=== PATIENT | male | born 1960 | race Caucasian/White ===

== ENCOUNTER → 2024-07-04 | Outpatient (CLI) | payer MEDICAID, SELFPAY ==
--- NOTE | 2024-07-04 15:30 | XR_ITS ---
Examination: CT chest, without intravenous contrast. Sagittal and coronal 2-D reconstructions. Exam date and time: July 04, 2024 1514 hours INDICATIONS: CT chest December 17, 2023 10 mm pulmonary nodule lingular segment left upper lobe CTDI:vol (mGy) 16.1 DLP: (mGycm) 729 Technique: Multiple 3.0 mm axial sections of the chest to been obtained. Bone and lung density settings are obtained. Sagittal and coronal 2-D reconstructions have been obtained. Low dose protocols were performed. One or more of the following dose reduction techniques were used; automated exposure control, adjustment of the mA and/or KV according to patient size, use of iterative reconstruction technique. Findings: No thoracic aortic aneurysm dilatation Pulmonary artery segments are not enlarged No paratracheal tracheobronchial or bronchopulmonary adenopathy COPD with multiple areas of airspace destruction No definite new pulmonary nodules No pneumonia or pulmonary edema No visualized liver or splenic lesion Contracted gallbladder Again noted mass with spiculated margins at the tail the pancreas, 31 mm Prominent osteopenia IMPRESSION: No definite change in bilateral pulmonary nodules COPD Again noted mass tail of the pancreas, please see the MRI abdomen study June 06, 2024
== END | disposition home or self-care (01) ==
PROVIDERS: PCP Internal Medicine; Referring Provider Internal Medicine; Visit Provider Internal Medicine
DX: R91.8 Other nonspecific abnormal finding of lung field (principal); J44.9 Chronic obstructive pulmonary disease, unspecified; K86.89 Other specified diseases of pancreas
CPT/HCPCS: 71250

== ENCOUNTER 2024-07-24 08:38 | Emergency (ER) | payer MEDICAID, SELFPAY ==
[2024-07-24 08:39] VITALS: BMI 35.2
[2024-07-24 08:47] VITALS: BP 193/94; PULSE 75; RESP 22; TEMP 36.6; O2SAT 96; BMI 35.7
--- NOTE | 2024-07-24 08:57 | XR_ITS ---
Examination: CT abdomen with intravenous contrast CT pelvis with intravenous contrast 2-D coronal reconstructions 2-D sagittal reconstructions Date and time of exam:July 24, 2024 1242 hrs. Comparison June 05, 2024 Indications: Onset right-sided abdominal pain beginning 2 weeks ago, small masses tail the pancreas on the CT study June 05, 2024. CTDI: vol (mGy) 13.1 DLP: (mGycm) 840 Technique: Multiple axial sections of the abdomen and pelvis have been obtained. 64 slice high-resolution scanner used. 3 mm axial sections have been obtained, post intravenous injection 60 cc [id number] 2-D sagittal, coronal reconstructions obtained. Low dose protocols were performed. One or more of the following dose reduction techniques were used; automated exposure control, adjustment of the mA and/or KV according to patient size, use of iterative reconstruction technique. Findings: Diffuse fatty infiltration throughout the liver Contracted gallbladder Spleen is not enlarged There remains a mass at the tail the pancreas with indistinct margins, measuring 43 mm Mild nodular thickening left adrenal gland No hydronephrosis Abdominal aortic calcification no aneurysmal dilatation Normal appendix Colonic diverticulosis no diverticulitis A small portion of the right urinary bladder is included in a right inguinal hernia Moderate osteopenia Moderate narrowing L5-S1 disc space Impression: Pancreatic carcinoma, 43 mm mass indistinct margins tail of the pancreas
--- NOTE | 2024-07-24 08:58 | EDRME_ITS ---
Rapid Medical Screening Exam RME Arrival date/time: 07/24/24 08:38 Chief Complaint: Abdominal Pain Time Seen by Provider: 07/24/24 08:56 Vital signs: Vital Signs Temperature 97.8 F 07/24/24 08:47 Pulse Rate 75 07/24/24 08:47 Respiratory Rate 22 H 07/24/24 08:47 Blood Pressure 193/94 H 07/24/24 08:47 Pulse Oximetry (%) 96 07/24/24 08:47 Oxygen Delivery Method Room Air 07/24/24 08:47 RME Narrative: Right sided abdominal pain x 2 weeks (prior pain was on the left). Diagnosed with pancreatic mass end of May, patient has been unable to follow-up with oncology. States PCP referred him to [place] for pancreatic biopsy but has not yet completed.
[2024-07-24 09:54] LABS: Collection Type, Urine Clean Catch; WBC,Urine 0 /hpf (0-5)
[2024-07-24 09:56] LABS: Basophils # (Auto) 0.1 Thou/mm3 (0.0-0.2); Basophils % (Auto) 1 % (0-2.5); Eosinophils # (Auto) 0.4 Thou/mm3 (0.0-0.5); Eosinophils % (Auto) 3 % (0-10); Hematocrit 42.1 % (41.0-53.0); Hemoglobin 13.9 g/dL (13.5-16.0); Immature Granulocytes % (Auto) 0 % (0-0); Immature Granulocytes Auto 0.03 Thou/mm3 (0.00-0.00); Lymphocytes # (Auto) 3.4 Thou/mm3 (1.0-4.8); Lymphocytes % (Auto) 28 % (10-50); Mean Corpuscular Hemoglobin 29.7 pg (25.0-35.0); Mean Corpuscular Volume 90 fL (80-100); Monocytes % (Auto) 8 % (0-12); Neutrophils # (Auto) 7.1 Thou/mm3 (1.8-7.7); Neutrophils % (Auto) 59 % (37-80); Nucleated Red Blood Cell % 0 /100 WBC (0); Platelet Count 268 Thou/mm3 (140-440); RDW Standard Deviation 41.5 fL (35.1-43.9); Red Blood Count 4.68 Miln/mm3 (4.50-5.90); White Blood Count 12.1 Thou/mm3 (3.8-10.6)
[2024-07-24 10:08] LABS: Bilirubin,Urine Negative (Negative); Blood,Urine Negative (Negative); Clarity,Urine Clear (Clear/Hazy); Color,Urine Lt-Yellow (Lt Yel-Yel); Glucose, Urine 2+ (Negative); Ketones,Urine Negative (Negative); Leukocyte Esterase,Urine Negative (Negative); Nitrite,Urine Negative (Negative); Protein,Urine Negative (Neg - Trace); RBC,Urine 3 /hpf (0-3); Specific Gravity,Urine 1.013 (1.001-1.035); Squamous Epithelial Cell,Urine < 1 /hpf (0-5); Urobilinogen,Urine Negative mg/dL (0.0-1.0)
[2024-07-24 10:21] LABS: Alanine Aminotransferase 28 U/L (10-49); Albumin, Serum 4.7 gm/dL (3.4-4.8); Albumin/Globulin Ratio 1.4 (1.2-2.2); Alkaline Phosphatase 76 U/L (46-116); Anion Gap 3 (7-16); Aspartate Amino Transferase 30 U/L (0-34); BUN/Creatinine Ratio 8 Ratio (12-20); Bilirubin,Total 0.2 mg/dL (0.3-1.2); Blood Urea Nitrogen 8 mg/dL (9-23); Calcium 9.5 mg/dL (8.3-10.6); Calcium (Corrected) 9.5 mg/dL (8.5-10.1); Carbon Dioxide 31.4 mMol/L (20.0-31.0); Chloride 105 mMol/L (98-107); Estimated Creatinine Clearance 93.9 mL/min (>60); Globulin 3.3 gm/dL (2.3-3.5); Glucose 136 mg/dL (74-106); Lipase 31 U/L (12-53); Osmolality,Calculated 277 (275-295); Potassium 4.1 mMol/L (3.4-5.1); Sodium 139 mMol/L (136-145); eGFR > 60 See Note
--- NOTE | 2024-07-24 14:18 | EDNOTE_ITS ---
ED Abdominal Pain RME/HPI General Chief Complaint: Abdominal Pain Stated complaint: ABD PAIN FOR 3 WEEKS, NORCO NOT WORKING Time seen by provider: 07/24/24 08:56 Arrival date/time: 07/24/24 08:38 Source: patient, RN notes reviewed and old records reviewed Mode of arrival: ambulatory Limitations: no limitations RME / HPI RME / HPI narrative: 63yom presents to ED for right sided abdominal pain x 2 weeks (prior pain was on the left). Patient was diagnosed with pancreatic mass end of May, patient states he has been unable to follow-up with oncology. He states PCP referred him to [facility] for pancreatic biopsy but has not yet completed. No fever, vomiting or urinary symptoms reported. Patient has taken norco with mild relief. Related Data Home Medications ?Medication ?Instructions ?Recorded ?Confirmed atenolol 100 mg tablet 100 mg PO DAILY 08/28/22 08/28/22 Previous Rx's ?Medication ?Instructions ?Recorded chlordiazepoxide HCl 10 mg capsule 10 mg PO BID PRN withdrawal 08/29/22 symptoms #6 caps lisinopril 20 mg tablet 20 mg PO QDAY #30 tabs 08/29/22 thiamine HCl (vitamin B1) 100 mg 100 mg PO QDAY #30 tabs 08/29/22 tablet hydrocodone 5 mg-acetaminophen 325 1 tab PO BID PRN pain #14 tabs 06/05/24 mg tablet Allergies Allergy/AdvReac Type Severity Reaction Status Date / Time No Known Allergies Allergy Verified 07/24/24 08:42 Review of Systems Review of Systems Systems Reviewed: All systems reviewed, normal except as documented Constitutional Constitutional: Denies chills and Denies fever(s) Cardiovascular Cardiovascular: Denies chest pain and Denies dyspnea Respiratory Respiratory: Denies dyspnea Gastrointestinal Gastrointestinal: Reports abdominal pain, Denies loose stools, Denies nausea and Denies vomiting Past Medical History Past Medical History CARDIAC: Positive Hypertension GASTROINTESTINAL: Positive Gastrointestinal Disorders (pancreatic mass) and Obe sity Social History SMOKING STATUS: Current every day smoker SUBSTANCE USE: does not use ALCOHOL: Never ED Exam General Limitations: Present no limitations General appearance: Present alert and in no apparent distress Head Head exam: Present atraumatic and normocephalic Eye Eye exam: Present normal appearance, PERRL and EOMI ENT ENT exam: Present normal exam and mucous membranes moist Neck Neck exam: Present normal inspection and full ROM Chest Chest inspection: Present normal inspection and symmetric chest wall rise Respiratory Respiratory exam: Present normal lung sounds bilaterally; Absent respiratory distress Cardiovascular Cardiovascular exam: Present regular rate and normal rhythm Abdominal Exam Abdominal exam: Present soft and tenderness (mild, epigastric); Absent distention, guarding or rebound Extremities Exam Extremities exam: Present normal inspection and full ROM Back Exam Back exam: Absent CVA tenderness (R) or CVA tenderness (L) Neurological Exam Neurological exam: Present alert and oriented X3 Psychiatric Psychiatric exam: Present normal affect and normal mood Skin Skin exam: Present warm, dry, intact and normal color Course Quality Measures none Orders Category Date Time Status CT Screening NOW Care 07/24/24 08:[address] abdomen pelvis w con Stat Exams 07/24/24 08:57 Completed CBC Stat Lab 07/24/24 09:47 Completed CMP [Comprehensive Metabolic Panel] Stat Lab 07/24/24 09:47 Completed Lipase Stat Lab 07/24/24 09:47 Completed UA [Urinalysis] Stat Lab 07/24/24 09:50 Completed Ketorolac Inj [Toradol Inj] Med 07/24/24 14:22 Discontinued 30 mg IM X1 ONE Vital Signs Vital signs: Vital Signs Temperature 97.8 F 07/24/24 08:47 Pulse Rate 75 07/24/24 08:47 Respiratory Rate 22 H 07/24/24 08:47 Blood Pressure 193/94 H 07/24/24 08:47 Pulse Oximetry (%) 96 07/24/24 08:47 Oxygen Delivery Method Room Air 07/24/24 08:47 Abdominal Pain MDM MDM Narrative MDM Narrative:: 63yom presents to ED for right sided abdominal pain x 2 weeks (prior pain was on the left). Patient was diagnosed with pancreatic mass end of May, patient states he has been unable to follow-up with oncology. He states PCP referred him to [facility] for pancreatic biopsy but has not yet completed. No fever, vomiting or urinary symptoms reported. Patient has taken norco with mild relief. Labs, vitals and exam reassuring. Patient is non-toxic appearing, afebrile, vitals are stable. Non-surgical abdomen on exam. Encouraged close f/u with pcp for oncology referral and pain mgmt. Patient comfortable with plan of care. Stable for dc, RTED precautions given. Patient data External records reviewed:: [facility] previous records (06/06/24 ED visit for pancreatic mass) Clinical information provided by:: patient Social determinants that could affect healthcare access:: other (specify) (poor access to healthcare) Patient has the following chronic illnesses:: HTN, pancreatic mass, obesity How is presenting disease/condition affected by chronic disease/condition?: exacerbated by Evaluation data The following diagnostics were reviewed and interpreted by me:: lab results and radiology exam(s) Lab and/or radiology exams considered but not ordered:: none Interpretation Summary: wbc 12 lfts and lipase wnl creatinine wnl CT abd/pelvis: Impression: Pancreatic carcinoma, 43 mm mass indistinct margins tail of the pancreas Dictated By: Peng Ramirez MD Medications / Prescriptions Medications or Prescriptions considered but not ordered:: no antibiotics recommended at this time Medication administrations:: Medication Administration History Discontinued Medications Ketorolac Tromethamine (Ketorolac Inj 60 Mg/2 Ml Vial) 30 mg IM X1 ONE Stop: 07/24/24 14:23 Last Admin: 07/24/24 14:30 Dose: 30 mg Documented By: above medication administered in ED Consultations Consultation(s) initiated? (list below): No Diagnosis Differential diagnosis abdominal pain: abdominal pain, gastroenteritis, pancreatitis and small bowel obstruction Most likely diagnosis given after review of the tests above:: pancreatic mass Admission Indicated Admission indicated?: not indicated Admission Request Was there a request for admission?: No Disposition Plan Disposition Plan: Discharge Discharge Attestation Discharge Attestation: The patient and all family members were given an opportunity to ask questions and understood the discharge instructions. Discharge instructions specifically effects, indications for sooner follow up or return to the emergency department, and the expected course of current diagnosis. Patient condition: Stable Discharge Plan Plan Patient Disposition: HOME (Self Care) Patient condition on transfer: Stable Prescriptions/Referrals Prescriptions/Med Rec: No Action atenolol 100 mg tablet 100 mg PO DAILY Patient Comments: TAKE 1 TABLET BY MOUTH EVERY DAY chlordiazepoxide HCl 10 mg capsule 10 mg PO BID PRN (Reason: withdrawal symptoms) Qty: 6 0RF thiamine HCl (vitamin B1) 100 mg tablet 100 mg PO QDAY Qty: 30 0RF lisinopril 20 mg tablet 20 mg PO QDAY Qty: 30 0RF hydrocodone-acetaminophen 5-325 mg tablet 1 tab PO BID MDD 4 PRN (Reason: pain) Qty: 14 0RF Referrals: Mirian Hussein MD [Primary Care Provider] - In 1 week Problem List Clinical Impression: Pancreatic mass Patient/Caregiver Discharge Instructions Education Materials: What Is Pancreatic Cancer? Additional Instructions: Please follow-up with your primary care doctor as soon as possible, you will need a referral to see an oncologist for further evaluation and management. Print Language: Yi Stand Alone Forms: Heather Award Info., Patient Portal Info Letter PA/TRANSPORTATION PROGRAM DIRECTOR Supervising Physician PA/TRANSPORTATION PROGRAM DIRECTOR Supervising Physician: Arabella
[2024-07-24] MEDS: KETOROLAC INJ 60 MG/2 ML VIAL 30 MG IM (14:30)
== END 2024-07-24 14:47 | disposition home or self-care (01) ==
PROVIDERS: Physician Assistant; Emergency Provider Emergency Medicine; PCP Internal Medicine; Referring Provider Emergency Medicine
DX: C25.2 Malignant neoplasm of tail of pancreas (principal)
CPT/HCPCS: 36415; 74177; 80053; 81001; 83690; 85025; 96372; 99285; A4649; J1885; Q9967

== ENCOUNTER 2024-10-25 08:08 | Outpatient (CLI) | payer MEDICARE, SELFPAY ==
[2024-10-21 14:52] VITALS: BMI 34.4
[2024-10-24 11:01] LABS: Basophils # (Auto) 0.1 Thou/mm3 (0.0-0.2); Basophils % (Auto) 1 % (0-2.5); Eosinophils # (Auto) 0.4 Thou/mm3 (0.0-0.5); Eosinophils % (Auto) 3 % (0-10); Hematocrit 40.7 % (41.0-53.0); Hemoglobin 13.4 g/dL (13.5-16.0); Immature Granulocytes % (Auto) 0 % (0-0); Immature Granulocytes Auto 0.05 Thou/mm3 (0.00-0.00); Lymphocytes # (Auto) 3.6 Thou/mm3 (1.0-4.8); Lymphocytes % (Auto) 29 % (10-50); Mean Corpuscular HGB Conc 32.9 g/dl (31.0-37.0); Mean Corpuscular Hemoglobin 29.9 pg (25.0-35.0); Mean Corpuscular Volume 91 fL (80-100); Monocytes # (Auto) 0.9 Thou/mm3 (0.0-0.8); Monocytes % (Auto) 7 % (0-12); Neutrophils # (Auto) 7.6 Thou/mm3 (1.8-7.7); Neutrophils % (Auto) 60 % (37-80); Nucleated Red Blood Cell % 0 /100 WBC (0); Platelet Count 319 Thou/mm3 (140-440); Red Blood Count 4.48 Miln/mm3 (4.50-5.90); White Blood Count 12.7 Thou/mm3 (3.8-10.6)
[2024-10-24 11:09] LABS: Blood Urea Nitrogen 9 mg/dL (9-23); Creatinine (Component) 0.9 mg/dL (0.6-1.3); Estimated Creatinine Clearance 101.1 mL/min (>60); Partial Thromboplastin Time 26.3 Seconds (22.0-36.0); Prothrombin Time 10.7 Seconds (9.0-12.2); eGFR > 60 See Note
[2024-10-25] VITALS (7 sets, daily range): BP systolic 145–173; BP diastolic 65–93; PULSE 64–69; RESP 10–18; TEMP 36.8; O2SAT 94–97
--- NOTE | 2024-10-25 08:30 | XR_ITS ---
Examination: CT-guided percutaneous biopsy pancreatic mass CT abdomen without intravenous contrast INDICATIONS: Mass of the tail the pancreas [address] on [address] abdomen July 24, 2024 Date and time of procedure: October 25, 2024 0956 hours Informed consent provided. A timeout was completed verifying correct patient, procedure, site and positioning. . Technique: Axial 3 mm sections were obtained for localization of the mass pancreatic tail Appropriate area is marked. The patient's site was prepped and draped in sterile fashion Maximal sterile barrier technique utilized, including hand hygiene Local anesthesia was obtained with 1% lidocaine. Low dose protocols were performed. One or more of the following dose reduction techniques were used; automated exposure control, adjustment of the mA and/or KV according to patient size, use of iterative reconstruction technique. Utilizing CT fluoroscopic guidance 2 18-gauge core needle biopsies of the mass pancreatic tail obtained . Patient appears in stable condition during this procedure. At completion of the procedure, the patient is in satisfactory condition. Estimated blood loss 0 cc Complete pathology report to follow. Impression: Successful CT-guided percutaneous biopsy pancreatic mass
[2024-10-25] MEDS: SODIUM CHLORIDE 0.9% 250 ML 250 ML 75 ML IV (10:00)
[2024-10-25] MEDS: fentaNYL CIT INJ 50 mCg/ML AMP 2ML 100 MCG IV (10:15)
== END 2024-10-25 11:31 | disposition home or self-care (01) ==
PROVIDERS: Radiology Diagnostic Radiology; PCP Internal Medicine; Referring Provider Internal Medicine; Visit Provider Internal Medicine
DX: C25.7 Malignant neoplasm of other parts of pancreas (principal); Z01.812 Encounter for preprocedural laboratory examination
CPT/HCPCS: 48102; 36415; 77012; 82565; 84520; 85025; 85610; 85730; A4649; J3010; J7050

== ENCOUNTER 2024-10-27 15:09 | Emergency (ER) | payer MEDICAID, SELFPAY ==
[2024-10-27 15:13] VITALS: BP 173/93; PULSE 96; RESP 20; TEMP 36.9; O2SAT 94; BMI 34.4
--- NOTE | 2024-10-27 15:26 | PD.EDABDPN ---
ED Abdominal Pain RME/HPI General Chief Complaint: Abdominal Pain Stated complaint: ABD PAIN Time seen by provider: 10/27/24 15:26 Arrival date/time: 10/27/24 15:09 RME / HPI RME / HPI narrative: DR. FARIA MAIN ED EVALUATION: 64 year old male presents to the Emergency Department [facility] from home with complaint of chronic abdominal pain onset 3 months ago, worsening per patient. Pain is described as aching and rated severe in severity by the patient. Per EMS, vitals were normal just his blood glucose was elevated at 240. Patient had similar symptoms 3 months ago when he was diagnosed with pancreatitis. Denies any vomiting or other symptoms at this time. PMHx: Recent diagnoses of invasive adenocarcinoma of the pancreas; pathology report from 10/25/24 shows invasive adenocarcinoma, moderately differentiated, from the pancreas biopsy. Patient was diagnosed with pancreatitis 3 months ago and since then they prescribe him oxycodone. Other PMHx includes hypertension, COPD from cigarette smoking, and diabetes. Social Hx: Cigarette smoking. No alcohol or substance use. Related Data Home Medications ?Medication ?Instructions ?Recorded ?Confirmed atenolol 100 mg tablet 100 mg PO DAILY 08/28/22 10/25/24 acetaminophen 500 mg capsule 1,000 mg PO Q4H pain 10/25/24 10/25/24 (Mapap (acetaminophen)) amlodipine 5 mg tablet 5 mg PO QDAY 10/25/24 10/25/24 gabapentin 400 mg capsule 400 mg PO TID 10/25/24 10/25/24 hydralazine 25 mg tablet 25 mg PO BID 10/25/24 10/25/24 ibuprofen 200 mg capsule (Advil 800 mg PO Q4H pain 10/25/24 10/25/24 Liqui-Gel) metformin 500 mg tablet 500 mg PO BID 10/25/24 10/25/24 oxycodone 15 mg tablet 15 mg PO Q4H 10/25/24 10/25/24 Previous Rx's ?Medication ?Instructions ?Recorded lisinopril 20 mg tablet 20 mg PO QDAY #30 tabs 08/29/22 diazepam 5 mg tablet (Valium) 5 mg PO BID PRN muscle spasm #20 10/27/24 tabs Allergies Allergy/AdvReac Type Severity Reaction Status Date / Time No Known Allergies Allergy Verified 10/21/24 14:52 Review of Systems Review of Systems Systems Reviewed: All systems reviewed, normal except as documented Past Medical History Past Medical History CARDIAC: Positive Hypercholesterolemia and Hypertension GASTROINTESTINAL: Positive Gastrointestinal Disorders, Gastroesophageal Reflux Disease and Obesity Family History FAMILY HISTORY: Positive Family Psychiatric Problems and Family Cardiac Disorders; Negative Family Respiratory Disorders, Family Gastrointestinal Problems, Family Cancer, Family Surgery or Family Anesthesia Reaction Surgical History SURGICAL: Positive Abdominal Surgery (evangelist wrap); Negative Pacemaker, Endocrine Surgery or Ear Surgery Social History SMOKING STATUS: Current some day smoker SUBSTANCE USE: does not use ALCOHOL: Never Past Medical History Comments PMH COMMENT: Recent diagnoses of invasive adenocarcinoma of the pancreas; pathology report from 10/25/24 shows invasive adenocarcinoma, moderately differentiated, from the pancreas biopsy. Patient was diagnosed with pancreatitis 3 months ago and since then they prescribe him oxycodone. Other PMHx includes hypertension, COPD from cigarette smoking, and diabetes. ED Exam Narrative Physical exam: GENERAL APPEARANCE: AxOx4, generally well-appearing, in moderate pain distress. HEENT: NC, AT. MMM. EOMI, clear conjunctiva, sclera anicteric, oropharynx clear. NECK: Supple without lymphadenopathy. No stiffness or restricted ROM. HEART: Normal rate and regular rhythm, normal S1/S1, no m/r/g LUNGS: CTAB, moving air well. No crackles or wheezes are heard. ABDOMEN: Abdomen is protuberant; diffuse tenderness throughout; good bowel sounds heard. BACK: No midline C/T/L spine pain or deformity, No CVAT, no obvious deformity. EXTREMITIES: Without cyanosis, clubbing or edema. MUSCULOSKELETAL: FROM of all major joints, no chest tenderness NEUROLOGICAL: Grossly nonfocal. Alert and oriented, moving all 4 extremities. CN not formally tested but appear grossly intact. Observed to ambulate with normal gait. Skin: Warm and dry without any rash. Course Course Course Narrative: 1800: Patient was signed out to Dr. Montano. Past medical, surgical, social and family history reviewed. Vitals and home medications reviewed. Results and treatment plan discussed. They will assume the care of the patient at this time and will follow the patient, pending abdomen/pelvis CTA and final disposition. Quality Measures none Orders Category Date Time Status CT Screening NOW Care 10/27/24 15:[address] Screening NOW Care 10/27/24 16:[address] angio abdomen pelvis Stat Exams 10/27/24 16:02 Completed CBC Stat Lab 10/27/24 15:44 Completed CMP [Comprehensive Metabolic Panel] Stat Lab 10/27/24 15:44 Completed Lipase Stat Lab 10/27/24 15:44 Completed Diazepam [Valium] Med 10/27/24 15:27 Discontinued 5 mg PO X1 ONE KCL 10% Liq UDC 15 ML Med 10/27/24 18:20 Discontinued 40 meq PO X1 ONE Morphine Inj Med 10/27/24 19:28 Discontinued 6 mg IVP X1 ONE Morphine Inj Med 10/27/24 17:41 Discontinued 6 mg IVP X1 PRN Morphine Inj Med 10/27/24 15:27 Discontinued 8 mg IVP X1 ONE Ondansetron Inj [Zofran Inj] Med 10/27/24 19:10 Discontinued 4 mg IV X1 ONE Potassium Chloride [K-Dur] Med 10/27/24 17:45 Discontinued 40 meq PO X1 ONE cloNIDine HCL [Catapres] Med 10/27/24 19:10 Discontinued 0.3 mg PO X1 ONE Vital Signs Vital signs: Vital Signs Temperature 98.4 F 10/27/24 15:13 Pulse Rate 96 10/27/24 15:13 Respiratory Rate 10/27/24 15:13 Blood Pressure 173/93 H 10/27/24 15:13 Pulse Oximetry (%) 94 L 10/27/24 15:13 Oxygen Delivery Method Room Air 10/27/24 15:13 Abdominal Pain MDM MDM Narrative MDM Narrative:: I, Arlin Goddard am scribing for and in the presence of Dr. Faria. Patient data External records reviewed:: [facility] previous records (Reviewed pathology report from 10/25/24 shows invasive adenocarcinoma, moderately differentiated, from the pancreas biopsy.) and EMS form Clinical information provided by:: patient and EMS Social determinants that could affect healthcare access:: other (specify) (Cigarette smoking) Patient has the following chronic illnesses:: Recent diagnoses of invasive adenocarcinoma of the pancreas; pathology report from 10/25/24 shows invasive adenocarcinoma, moderately differentiated, from the pancreas biopsy. Patient was diagnosed with pancreatitis 3 months ago and since then they prescribe him oxycodone. Other PMHx includes hypertension, COPD from cigarette smoking, and diabetes. How is presenting disease/condition affected by chronic disease/condition?: exacerbated by Evaluation data The following diagnostics were reviewed and interpreted by me:: lab results and radiology exam(s) Lab and/or radiology exams considered but not ordered:: none Interpretation Summary: Pending tests. Medications / Prescriptions Medications or Prescriptions considered but not ordered:: none Medication administrations:: Medication Administration History Discontinued Medications Clonidine (Clonidine Hcl 0.1 Mg Tablet) 0.3 mg PO X1 ONE Stop: 10/27/24 19:11 Last Admin: 10/27/24 19:36 Dose: 0.3 mg Documented By: EF Diazepam (Diazepam 5 Mg Tablet) 5 mg PO X1 ONE Stop: 10/27/24 15:28 Last Admin: 10/27/24 15:46 Dose: 5 mg Documented By: DB Morphine Sulfate (Morphine Sulf Inj 10 Mg/Ml Vial) 8 mg IVP X1 ONE Stop: 10/27/24 15:28 Last Admin: 10/27/24 15:47 Dose: 8 mg Documented By: DB Morphine Sulfate (Morphine Sulf Inj 10 Mg/Ml Vial) 6 mg IVP X1 PRN PRN Reason: PAIN Stop: 11/01/24 17:40 Last Admin: 10/27/24 18:00 Dose: 6 mg Documented By: RD Morphine Sulfate (Morphine Sulf Inj 10 Mg/Ml Vial) 6 mg IVP X1 ONE Stop: 10/27/24 19:29 Last Admin: 10/27/24 19:37 Dose: 6 mg Documented By: EF Ondansetron HCl (Ondansetron Inj 2 Mg/Ml Inj 2 Ml) 4 mg IV X1 ONE; Protocol Stop: 10/27/24 19:11 Last Admin: 10/27/24 19:37 Dose: 4 mg Documented By: EF Potassium Chloride (Potassium Chloride 20 Meq Tabcr) 40 meq PO X1 ONE Stop: 10/27/24 17:46 Last Admin: 10/27/24 17:53 Dose: 40 meq Documented By: RD Potassium Chloride (Potassium Chloride 10% 20 Meq/15 Ml Udc) 40 meq PO X1 ONE Stop: 10/27/24 18:21 Last Admin: 10/27/24 19:36 Dose: 40 meq Documented By: EF see above if any Consultations Consultation(s) initiated? (list below): No Diagnosis Differential diagnosis abdominal pain: pancreatitis and other (pancreas mass, cancer) Most likely diagnosis given after review of the tests above:: No official diagnoses at this time, still pending diagnostic tests. Patient signout to the animal keeper head provider. Admission Indicated Admission indicated?: not indicated Explain why admission is indicated or not indicated:: No final disposition plan at this time, still pending diagnostic tests. Patient signout to the animal keeper head provider. Admission Request Was there a request for admission?: No Disposition Plan Disposition Plan: other (specify) (Patient signout to the animal keeper head provider, pending abdomen/pelvis CTA and final disposition.) Discharge Plan Plan Patient Disposition: HOME (Self Care) Prescriptions/Referrals Prescriptions/Med Rec: New diazepam [Valium] 5 mg tablet 5 mg PO BID PRN (Reason: muscle spasm) Qty: 20 0RF No Action atenolol 100 mg tablet 100 mg PO DAILY Patient Comments: TAKE 1 TABLET BY MOUTH EVERY DAY lisinopril 20 mg tablet 20 mg PO QDAY Qty: 30 0RF hydralazine 25 mg tablet 25 mg PO BID acetaminophen [Mapap (acetaminophen)] 500 mg capsule 1,000 mg PO Q4H ibuprofen [Advil Liqui-Gel] 200 mg capsule 800 mg PO Q4H gabapentin 400 mg capsule 400 mg PO TID Patient Comments: TAKE 1 CAPSULE BY MOUTH 3 TIMES A DAY amlodipine 5 mg tablet 5 mg PO QDAY metformin 500 mg tablet 500 mg PO BID Patient Comments: TAKE 1 TABLET BY MOUTH TWICE A DAY WITH BREAKFAST AND DINNER oxycodone 15 mg tablet 15 mg PO Q4H Referrals: No Primary/Family,Physician [Primary Care Provider] - In 1 week Problem List Clinical Impression: Pancreas cancer Patient/Caregiver Discharge Instructions Discharge Activity: activity as tolerated Education Materials: ED Pain Management: Chronic Additional Instructions: Discharge Instructions from Dr. Montano printed for you: 1. Unfortunately, pancreas cancer causes severe pain. 2. Use your pain medications at home. Since Valium helped a lot here, prescription given for 20 pills. 3. See your cancer doctor tomorrow as scheduled. Ask to review all test results and official radiology reports, to make sure you receive all necessary follow-ups and monitoring. 4. Seek immediate medical care with worsening or with any concerns. Print Language: Nicaraguan Stand Alone Forms: Heather Award Info., Patient Portal Info Letter
[2024-10-27 15:27] VITALS: PULSE 78; RESP 21; O2SAT 95
[2024-10-27] MEDS: DIAZEPAM 5 MG TABLET PO (15:46)
[2024-10-27] MEDS: MORPHINE SULF INJ 10 MG/ML VIAL 8 MG IVP (15:47)
[2024-10-27 15:59] LABS: Basophils # (Auto) 0.1 Thou/mm3 (0.0-0.2); Basophils % (Auto) 0 % (0-2.5); Eosinophils # (Auto) 0.1 Thou/mm3 (0.0-0.5); Eosinophils % (Auto) 1 % (0-10); Hematocrit 38.6 % (41.0-53.0); Hemoglobin 12.8 g/dL (13.5-16.0); Immature Granulocytes % (Auto) 0 % (0-0); Immature Granulocytes Auto 0.04 Thou/mm3 (0.00-0.00); Lymphocytes # (Auto) 2.4 Thou/mm3 (1.0-4.8); Lymphocytes % (Auto) 18 % (10-50); Mean Corpuscular HGB Conc 33.2 g/dl (31.0-37.0); Mean Corpuscular Volume 91 fL (80-100); Monocytes % (Auto) 7 % (0-12); Neutrophils # (Auto) 10.1 Thou/mm3 (1.8-7.7); Neutrophils % (Auto) 74 % (37-80); Nucleated Red Blood Cell % 0 /100 WBC (0); Platelet Count 270 Thou/mm3 (140-440); RDW Standard Deviation 44.1 fL (35.1-43.9); Red Blood Count 4.26 Miln/mm3 (4.50-5.90); White Blood Count 13.7 Thou/mm3 (3.8-10.6)
--- NOTE | 2024-10-27 16:02 | XR_ITS ---
Examination: CTA abdomen, with intravenous contrast. CTA pelvis, with intravenous contrast. 2-D sagittal and coronal reconstructions. 3-D reconstructions. Date and time of exam: October 27, 2024 at 1703 hours INDICATIONS: Abdominal pain today, history pancreatic tumor mass post biopsy October 25, 2024 CTDI vol (mgy) 11.7 DLP (MGycm) 818 Technique: Multiple CTA images, 2.0 mm slice thickness, obtained chest, abdomen, pelvis, with the high-resolution 64 slice scanner. 100 cc Isovue-370 is administered intravenously. Sagittal and coronal 2-D reconstructions are obtained. 3-D reconstructions, angiographic images are obtained. 3-D postprocessing, including vascular maximum intensity projections. Low dose protocols were performed. One or more of the following dose reduction techniques were used; automated exposure control, adjustment of the mA and/or KV according to patient size, use of iterative reconstruction technique. Findings: The patient exhibited severe abdominal pain prior to the pancreatic biopsy October 25, 2024 Fatty infiltration throughout the liver Large mass tail of the pancreas again depicted, at least 4.1 cm in dimension Mild stranding about the pancreatic mass, likely postbiopsy findings The spleen appears intact, no laceration, no subcapsular splenic hematoma No free blood in the abdomen Stranding around the left adrenal gland, clinical correlation advised No perinephric hematoma or renal laceration Abdominal aorta intact Colonic diverticulosis Bilateral inguinal hernias, the right inguinal hernia contains a portion of the urinary bladder IMPRESSION: Large mass tail of pancreas again depicted with mild postbiopsy change No splenic laceration, no subcapsular splenic hematoma Stranding around the left adrenal gland, consider spontaneous adrenal hemorrhage, recommend close clinical observation and short-term follow-up CT scans of the abdomen with attention to the left adrenal gland as clinically warranted The patient's right inguinal hernia contains a portion of the urinary bladder
[2024-10-27 16:18] LABS: Alanine Aminotransferase 16 U/L (10-49); Albumin, Serum 4.3 gm/dL (3.4-4.8); Albumin/Globulin Ratio 1.3 (1.2-2.2); Alkaline Phosphatase 78 U/L (46-116); Anion Gap 9 (7-16); Aspartate Amino Transferase 17 U/L (0-34); BUN/Creatinine Ratio 9 Ratio (12-20); Bilirubin,Total 0.2 mg/dL (0.3-1.2); Blood Urea Nitrogen 7 mg/dL (9-23); Calcium 9.5 mg/dL (8.3-10.6); Calcium (Corrected) 9.5 mg/dL (8.5-10.1); Carbon Dioxide 26.5 mMol/L (20.0-31.0); Chloride 105 mMol/L (98-107); Creatinine (Component) 0.8 mg/dL (0.6-1.3); Estimated Creatinine Clearance 113.7 mL/min (>60); Globulin 3.2 gm/dL (2.3-3.5); Glucose 166 mg/dL (74-106); Lipase 29 U/L (12-53); Osmolality,Calculated 281 (275-295); Sodium 140 mMol/L (136-145); Total Protein 7.5 gm/dL (5.7-8.2); eGFR > 60 See Note
[2024-10-27 17:14] VITALS: BP 155/82; PULSE 75; RESP 20; TEMP 36.5; O2SAT 94
[2024-10-27] MEDS: POTASSIUM CHLORIDE 20 mEq TABCR 40 MEQ PO (17:53)
[2024-10-27] MEDS: MORPHINE SULF INJ 10 MG/ML VIAL 6 MG IVP ×2 (18:00→19:37)
--- NOTE | 2024-10-27 19:16 | PD.EDADDENDU ---
Emergency Room Addendum Addendum Narrative: I took over the care from Dr. Faria at 6 PM on 10/27/2024, see his notes for complete H&P and ED course. I reviewed all diagnostic test results. My review of the abdominal CT report is no acute findings. Blood tests unremarkable. At this point, diagnoses include pancreatic cancer causing severe pain. Recommended supportive care and outpatient oncology care. Based on my best medical judgment, made decision no further evaluation or treatment indicated at this time. Patient understands and agrees to the discharge instructions customized and printed, see below. Discharge Instructions from Dr. Montano printed for you: 1. Unfortunately, pancreas cancer causes severe pain. 2. Use your pain medications at home. Since Valium helped a lot here, prescription given for 20 pills. 3. See your cancer doctor tomorrow as scheduled. Ask to review all test results and official radiology reports, to make sure you receive all necessary follow-ups and monitoring. 4. Seek immediate medical care with worsening or with any concerns. Adi Montano MD
[2024-10-27 19:36] VITALS: BP 203/100; PULSE 84
[2024-10-27] MEDS: POTASSIUM CHLORIDE 10% 20 MEQ/15 ML UDC 40 MEQ PO (19:36)
[2024-10-27] MEDS: cloNIDine HCL 0.1 MG TABLET 0.3 MG PO (19:36)
[2024-10-27] MEDS: ONDANSETRON INJ 2 MG/ML INJ 2 ML 4 MG IV (19:37)
[2024-10-27 19:48] VITALS: BP 171/106; PULSE 86; RESP 20; TEMP 36.6; O2SAT 97
--- NOTE | 2024-10-27 19:54 | PC.NURSE ---
assisted pt with repositioning. urinalss emptied.
[2024-10-27 20:04] VITALS: BP 175/89; PULSE 83; RESP 16; TEMP 36.8; O2SAT 96
== END 2024-10-27 20:05 | disposition home or self-care (01) ==
PROVIDERS: Emergency Medicine; Emergency Provider Emergency Medicine
DX: C25.9 Malignant neoplasm of pancreas, unspecified (principal)
CPT/HCPCS: 36415; 74174; 80053; 83690; 85025; 96374; 96375; 96376; 99285; A4649; J2270; J2405; Q9967; A9270

== ENCOUNTER 2024-10-30 02:38 | Emergency (ER) | payer MEDICAID, SELFPAY ==
[2024-10-30 02:48] VITALS: BMI 34.4
[2024-10-30 02:50] VITALS: BP 153/82; PULSE 86; RESP 18; TEMP 36.8; O2SAT 95
[2024-10-30 03:06] VITALS: PULSE 100; O2SAT 98
--- NOTE | 2024-10-30 03:13 | PD.EDABDPN ---
ED Abdominal Pain RME/HPI General Chief Complaint: Abdominal Pain Stated complaint: ABDOMINAL PAIN Arrival date/time: 10/30/24 02:38 RME / HPI RME / HPI narrative: This section includes all my notes and documentations, including HPI, PE, and ED course. Adi Montano MD HPI: 64-year-old male here to be evaluated with severe chronic abdominal pain. Recently diagnosed with pancreas cancer. First oncology appointment in a few days, after this weekend. Declines any diagnostic tests, including imaging studies and blood tests. Because extensive studies have been done here, as recently as a few days ago. No fever. No vomiting. Home pain medications aren't helping. No other complaints. ROS: All negative except as documented in HPI. Physical Exam: General: Alert and oriented. In obvious pain. Eyes: Conjunctivae and lids clear. ENT: No nasal congestion. Neck: Supple. Heart: RRR. Lungs: No respiratory distress. Good air movement. No rhonchi, wheezing, rales. Abdomen: Soft with diffuse tenderness, difficult to localize. Normal bowel sounds. No distension. No rebound or guarding. Back: No CVA tenderness. Skin: Warm and dry. Neuro: Alert and oriented X 3. Patient declined all diagnostic tests. At this point, diagnoses include severe pain from pancreas cancer. Treatment here included Zofran and Dilaudid 4 mg IM. Significant improvement noted. Prescribed Dilaudid and recommended more outpatient care. Based on my best medical judgment, made decision no further evaluation or treatment indicated at this time. Patient understands and agrees to the discharge instructions customized and printed, see below. Discharge Instructions from Dr. Montano printed for you: 1. Fortunately, Dilaudid helped your pain. 2. Use Dilaudid as prescribed. 3. See your cancer doctor this week for evaluation and further care. 4. We are very sorry about your cancer and we hope for the best. 5. Seek immediate medical care with any concerns. Adi Montano MD Related Data Home Medications ?Medication ?Instructions ?Recorded ?Confirmed atenolol 100 mg tablet 100 mg PO DAILY 08/28/22 10/25/24 acetaminophen 500 mg capsule 1,000 mg PO Q4H pain 10/25/24 10/25/24 (Mapap (acetaminophen)) amlodipine 5 mg tablet 5 mg PO QDAY 10/25/24 10/25/24 gabapentin 400 mg capsule 400 mg PO TID 10/25/24 10/25/24 hydralazine 25 mg tablet 25 mg PO BID 10/25/24 10/25/24 ibuprofen 200 mg capsule (Advil 800 mg PO Q4H pain 10/25/24 10/25/24 Liqui-Gel) metformin 500 mg tablet 500 mg PO BID 10/25/24 10/25/24 oxycodone 15 mg tablet 15 mg PO Q4H 10/25/24 10/25/24 Previous Rx's ?Medication ?Instructions ?Recorded lisinopril 20 mg tablet 20 mg PO QDAY #30 tabs 08/29/22 diazepam 5 mg tablet (Valium) 5 mg PO BID PRN muscle spasm #20 10/27/24 tabs hydrocodone 10 mg-acetaminophen 1 tab PO Q6H PRN pain #30 tabs 10/30/24 325 mg tablet Allergies Allergy/AdvReac Type Severity Reaction Status Date / Time No Known Allergies Allergy Verified 10/21/24 14:52 Course Quality Measures none Orders Category Date Time Status HYDROmorphone INJ [Dilaudid Inj] Med 10/30/24 03:36 Discontinued 4 mg IM X1 ONE HYDROmorphone INJ [Dilaudid Inj] Med 10/30/24 03:01 Discontinued 4 mg IVP X1 ONE Ondansetron Odt [Zofran Odt] Med 10/30/24 03:04 Discontinued 4 mg PO X1 ONE Vital Signs Vital signs: Vital Signs Temperature 98.2 F 10/30/24 02:50 Pulse Rate 86 10/30/24 02:50 Respiratory Rate 18 10/30/24 02:50 Blood Pressure 153/82 H 10/30/24 02:50 Pulse Oximetry (%) 95 10/30/24 02:50 Oxygen Delivery Method Room Air 10/30/24 02:50 Abdominal Pain MDM Patient data External records reviewed:: [facility] previous records Clinical information provided by:: patient and EMS Social determinants that could affect healthcare access:: none Patient has the following chronic illnesses:: Pancreas cancer How is presenting disease/condition affected by chronic disease/condition?: exacerbated by Evaluation data The following diagnostics were reviewed and interpreted by me:: other (specify) (No diagnostics ordered) Lab and/or radiology exams considered but not ordered:: No diagnostics ordered. Interpretation Summary: No diagnostics ordered. Medications / Prescriptions Medications or Prescriptions considered but not ordered:: None Medication administrations:: Medication Administration History Discontinued Medications Hydromorphone HCl (Hydromorphone Inj 2 Mg/Ml Vial) 4 mg IVP X1 ONE Stop: 10/30/24 03:02 Last Admin: 10/30/24 03:37 Dose: Not Given Documented By: CVL Non-Admin Reason: Duplicate Medication on eMAR Hydromorphone HCl (Hydromorphone Inj 2 Mg/Ml Vial) 4 mg IM X1 ONE Stop: 10/30/24 03:37 Last Admin: 10/30/24 03:39 Dose: 4 mg Documented By: CVL Ondansetron HCl (Ondansetron Odt 4 Mg Tabrap) 4 mg PO X1 ONE; Protocol Stop: 10/30/24 03:05 Last Admin: 10/30/24 03:36 Dose: 4 mg Documented By: CVL Zomike and Evelia Consultations Consultation(s) initiated? (list below): No Diagnosis Differential diagnosis abdominal pain: other (Pancreas cancer) Most likely diagnosis given after review of the tests above:: Pancreas cancer Admission Indicated Admission indicated?: not indicated Explain why admission is indicated or not indicated:: With significant improvement, there was no indication for admission. Admission Request Was there a request for admission?: No Disposition Plan Disposition Plan: Discharge Discharge Attestation Discharge Attestation: The patient and all family members were given an opportunity to ask questions and understood the discharge instructions. Discharge instructions specifically effects, indications for sooner follow up or return to the emergency department, and the expected course of current diagnosis. Patient condition: Stable Discharge Plan Plan Patient Disposition: HOME (Self Care) Prescriptions/Referrals Prescriptions/Med Rec: New hydrocodone-acetaminophen 10-325 mg tablet 1 tab PO Q6H MDD 4 PRN (Reason: pain) Qty: 30 0RF No Action atenolol 100 mg tablet 100 mg PO DAILY Patient Comments: TAKE 1 TABLET BY MOUTH EVERY DAY lisinopril 20 mg tablet 20 mg PO QDAY Qty: 30 0RF hydralazine 25 mg tablet 25 mg PO BID acetaminophen [Mapap (acetaminophen)] 500 mg capsule 1,000 mg PO Q4H ibuprofen [Advil Liqui-Gel] 200 mg capsule 800 mg PO Q4H gabapentin 400 mg capsule 400 mg PO TID Patient Comments: TAKE 1 CAPSULE BY MOUTH 3 TIMES A DAY amlodipine 5 mg tablet 5 mg PO QDAY metformin 500 mg tablet 500 mg PO BID Patient Comments: TAKE 1 TABLET BY MOUTH TWICE A DAY WITH BREAKFAST AND DINNER oxycodone 15 mg tablet 15 mg PO Q4H diazepam [Valium] 5 mg tablet 5 mg PO BID PRN (Reason: muscle spasm) Qty: 20 0RF Referrals: No Primary/Family,Physician [Primary Care Provider] - In 1 week Problem List Clinical Impression: Pancreas cancer Patient/Caregiver Discharge Instructions Education Materials: ED Chronic Pain Additional Instructions: Discharge Instructions from Dr. Montano printed for you: 1. Fortunately, Dilaudid helped your pain. 2. Use Dilaudid as prescribed. 3. See your cancer doctor this week for evaluation and further care. 4. We are very sorry about your cancer and we hope for the best. 5. Seek immediate medical care with any concerns. Print Language: [place] Stand Alone Forms: Heather Award Info., Patient Portal Info Letter
[2024-10-30] MEDS: ONDANSETRON ODT 4 MG TABRAP PO (03:36)
[2024-10-30] MEDS: HYDROmorphone INJ 2 MG/ML VIAL 4 MG IM (03:39)
[2024-10-30 04:25] VITALS: BP 153/80; PULSE 82; RESP 17; TEMP 36.8; O2SAT 97
[2024-10-30 05:39] VITALS: RESP 18
--- NOTE | 2024-10-30 11:53 | PD.EDADDENDU ---
Emergency Room Addendum Addendum Narrative: I [facility] called back asking about the Dilaudid 2 mg tablets. I spoke with the pharmacist and the patient is on evidently morphine extended release 15 mg twice daily and has Percocet but evidently that it is not working or is running out. It seems prudent to me at this time to not fill the Dilaudid tablets and put him on hydrocodone 10 mg tablets every 6 hours and number 30 tablets. So that prescription will be written and lieu and the patient was instructed to the pharmacist to follow-up with his oncologist tomorrow to reevaluate his pain management plan. Electronically I submitted the new prescription for hydrocodone 30 tablets and canceled that I lighted prescription
== END 2024-10-30 05:40 | disposition home or self-care (01) ==
PROVIDERS: Emergency Provider Emergency Medicine
DX: C25.9 Malignant neoplasm of pancreas, unspecified (principal)
CPT/HCPCS: 96372; 99284; J3490; Q0162

== ENCOUNTER → 2024-11-09 | Outpatient (CLI) | payer MEDICARE, MEDICAID, SELFPAY ==
[2024-11-09 13:07] LABS: Basophils # (Auto) 0.1 Thou/mm3 (0.0-0.2); Basophils % (Auto) 1 % (0-2.5); Eosinophils # (Auto) 0.5 Thou/mm3 (0.0-0.5); Eosinophils % (Auto) 3 % (0-10); Hematocrit 42.7 % (41.0-53.0); Hemoglobin 14.1 g/dL (13.5-16.0); Immature Granulocytes % (Auto) 0 % (0-0); Immature Granulocytes Auto 0.06 Thou/mm3 (0.00-0.00); Lymphocytes # (Auto) 3.4 Thou/mm3 (1.0-4.8); Lymphocytes % (Auto) 23 % (10-50); Mean Corpuscular Volume 91 fL (80-100); Monocytes % (Auto) 7 % (0-12); Neutrophils # (Auto) 9.5 Thou/mm3 (1.8-7.7); Neutrophils % (Auto) 65 % (37-80); Nucleated Red Blood Cell % 0 /100 WBC (0); Platelet Count 469 Thou/mm3 (140-440); RDW Standard Deviation 42.7 fL (35.1-43.9); White Blood Count 14.6 Thou/mm3 (3.8-10.6)
[2024-11-09 13:26] LABS: Carcinoembryonic Antigen 7.2 ng/mL (0.0-5.0)
[2024-11-09 13:30] LABS: Alanine Aminotransferase 27 U/L (10-49); Albumin, Serum 4.5 gm/dL (3.4-4.8); Albumin/Globulin Ratio 1.4 (1.2-2.2); Alkaline Phosphatase 100 U/L (46-116); Anion Gap 3 (7-16); Aspartate Amino Transferase 34 U/L (0-34); BUN/Creatinine Ratio 8 Ratio (12-20); Bilirubin,Total 0.2 mg/dL (0.3-1.2); Blood Urea Nitrogen 8 mg/dL (9-23); Calcium 9.5 mg/dL (8.3-10.6); Calcium (Corrected) 9.5 mg/dL (8.5-10.1); Carbon Dioxide 30.1 mMol/L (20.0-31.0); Chloride 104 mMol/L (98-107); Globulin 3.2 gm/dL (2.3-3.5); Glucose 114 mg/dL (74-106); Osmolality,Calculated 273 (275-295); Potassium 4.9 mMol/L (3.4-5.1); Sodium 137 mMol/L (136-145); Total Protein 7.7 gm/dL (5.7-8.2); eGFR > 60 See Note
[2024-11-15 06:44] LABS: CA 19-9 Antigen* 1215 U/mL (<34)
== END | disposition home or self-care (01) ==
LOC: SCTO 11:55
PROVIDERS: PCP Internal Medicine; Referring Provider Internal Medicine Hematology & Oncology; Visit Provider Internal Medicine Hematology & Oncology
DX: C25.9 Malignant neoplasm of pancreas, unspecified (principal)
CPT/HCPCS: 36415; 80053; 82378; 85025; 86301

== ENCOUNTER 2024-11-10 19:06 | Inpatient (IN) | payer OTHER, MEDICAID, MEDICARE, SELFPAY ==
[2024-11-10 19:45] VITALS: BMI 34.4
[2024-11-10 19:46] VITALS: BP 120/79; PULSE 111; RESP 19; TEMP 36.9; O2SAT 92
[2024-11-10 20:10] VITALS: PULSE 76; RESP 18; O2SAT 98
--- NOTE | 2024-11-10 20:15 | PD.EDABDPN ---
ED Abdominal Pain RME/HPI General Chief Complaint: Abdominal Pain Stated complaint: ABDOMINAL PAIN Time seen by provider: 11/10/24 19:28 Arrival date/time: 11/10/24 19:06 RME / HPI RME / HPI narrative: Dr. Fox?s Main ED Evaluation: 64yo male with a history of pancreatic CA, HTN presents to the ED for a chief complaint of worsening chronic pain. Patient states he was diagnosed with pancreatic CA 4 months ago, reporting he finally had his biopsy done 2 weeks ago. He states his pain has been worsening since he had the biopsy done. Patient started following up at [facility] yesterday. He has a prescription for Dilaudid 4mg PO every 6 hours, reporting it's not helping with his pain. Patient took one pill at 1300 and another at 1700, reporting it never helped with his pain, so he came in for evaluation. He was given Ketamine by EMS, reporting it did improve his pain. He denies any other associated symptoms. No known allergies. Related Data Home Medications ?Medication ?Instructions ?Recorded ?Confirmed atenolol 100 mg tablet 100 mg PO DAILY 08/28/22 10/25/24 acetaminophen 500 mg capsule 1,000 mg PO Q4H pain 10/25/24 10/25/24 (Mapap (acetaminophen)) amlodipine 5 mg tablet 5 mg PO QDAY 10/25/24 10/25/24 gabapentin 400 mg capsule 400 mg PO TID 10/25/24 10/25/24 hydralazine 25 mg tablet 25 mg PO BID 10/25/24 10/25/24 ibuprofen 200 mg capsule (Advil 800 mg PO Q4H pain 10/25/24 10/25/24 Liqui-Gel) metformin 500 mg tablet 500 mg PO BID 10/25/24 10/25/24 oxycodone 15 mg tablet 15 mg PO Q4H 10/25/24 10/25/24 Previous Rx's ?Medication ?Instructions ?Recorded lisinopril 20 mg tablet 20 mg PO QDAY #30 tabs 08/29/22 diazepam 5 mg tablet (Valium) 5 mg PO BID PRN muscle spasm #20 10/27/24 tabs hydrocodone 10 mg-acetaminophen 1 tab PO Q6H PRN pain #30 tabs 10/30/24 325 mg tablet Allergies Allergy/AdvReac Type Severity Reaction Status Date / Time No Known Allergies Allergy Verified 10/21/24 14:52 Review of Systems Review of Systems Systems Reviewed: All systems reviewed, normal except as documented Past Medical History Past Medical History NEUROLOGIC: Negative Dementia, Epilepsy, Migraine or Head Trauma CARDIAC: Positive Cardiac Disorders, Hypercholesterolemia and Hypertension; Negative Congestive Heart Failure RESPIRATORY: Positive Asthma; Negative Chronic Obstructive Pulmonary Disease (COPD) GASTROINTESTINAL: Positive Gastrointestinal Disorders, Gastroesophageal Reflux Disease and Obesity; Negative Hepatitis, Cirrhosis, Gastrointestinal Bleed or Hemorrhoids GENITOURINARY: Negative Renal Disease or Kidney Stones REPRODUCTIVE: Negative Testicular Cancer MUSCULOSKELETAL: Positive Musculoskeletal Disorders and Arthritis; Negative Osteoporosis, Gout or Scoliosis ENT: Negative Cataracts, Glaucoma, Blind, Deafness or Head Trauma ENDOCRINE: Positive Endocrine Disorders (pancreatitis 3months ago); Negative Diabetes Mellitus Type 1, Diabetes Mellitus Type 2, Hyperthyroidism or Hypothyroidism HEMATOLOGIC: Negative Anemia, Sickle Cell Disease or Clotting Problems PSYCHO/SOCIAL: Negative Depression or Anxiety OTHER HISTORY: Positive Hospitalization and Cancer (PANCREAS); Negative Autoimmune Disease, Falls, Blood Transfusions, Anesthesia Reactions, Organ Transplant, Chemotherapy, MRSA, VRSA, Vancomycin-Resistant Enterococci, Human Immunodeficiency Virus (HIV), Chicken Pox, Measles, Mumps, Rubella ([place] Measles), Pertussis, Clostridium Difficile or Testicular Cancer Family History FAMILY HISTORY: Positive Family Psychiatric Problems and Family Cardiac Disorders; Negative Family Respiratory Disorders, Family Gastrointestinal Problems, Family Cancer, Family Surgery or Family Anesthesia Reaction Surgical History SURGICAL: Positive Abdominal Surgery; Negative Pacemaker, Endocrine Surgery, Ear Surgery or Organ Transplant Social History SMOKING STATUS: Current every day smoker SUBSTANCE USE: does not use ED Exam Narrative Physical exam: GENERAL APPEARANCE: alert and oriented x 4, well-developed, well-nourished, no acute distress VITALS: All vitals were reviewed and the pulse ox is 92% on room air, which is hypoxic according to my interpretation. HEENT: Normocephalic, atraumatic; pupils equal, round, reactive to light; EOMI; mucous membranes pink, moist; oropharynx clear NECK: Supple LUNGS: CTABL; no wheezes, no rales, no rhonchi HEART: Tachycardic, regular rhythm; normal S1, S2; no murmurs ABDOMEN: distended; normal BS; soft, tenderness in all quadrants, no guarding, no rebound; no masses, no organomegaly, no hernia BACK: no CVA tenderness EXTREMITIES: atraumatic; no edema NEUROLOGIC: awake; alert and oriented x4; cranial nerves II-XII grossly intact; no focal sensory or motor deficits PSYCHIATRIC: appropriate mood and affect SKIN: warm, dry, normal color; no rashes Course Course Course Narrative: CXR is ordered for determining the etiology of cough. Quality Measures none Orders Category Date Time Status Patient Condition Routine Admission 11/10/24 23:[address] in Observation Status Routine Admission 11/10/24 23:36 Active Activity as Tolerated Routine Care 11/10/24 23:37 Ordered Research Greenhouse Supervisor STAT Care 11/10/24 20:26 Active Continuous Pulse Oximetry STAT Care 11/10/24 20:27 Completed Insert IV STAT Care 11/10/24 20:26 Active Notify provider NEEDED Care 11/10/24 23:36 Active Consult to Oncology Routine Cons 11/10/24 23:39 Ordered Diet Regular Diet 11/11/24 Breakfast Active XR chest 1V portable Stat Exams 11/10/24 20:26 Completed CBC AM DRAW Lab 11/11/24 05:00 Ordered CBC AM DRAW Lab 11/12/24 05:00 Ordered CBC AM DRAW Lab 11/13/24 05:00 Ordered CBC Stat Lab 11/10/24 20:44 Completed Comprehensive Metabolic Panel Stat Lab 11/10/24 20:44 Completed Lipase Stat Lab 11/10/24 20:44 Completed Lipid Panel AM DRAW Lab 11/11/24 05:00 Ordered Magnesium AM DRAW Lab 11/11/24 05:00 Ordered Magnesium Stat Lab 11/10/24 20:44 Completed Partial Thromboplastin Time Stat Lab 11/10/24 20:44 Completed Phosphorous AM DRAW Lab 11/11/24 05:00 Ordered Prothrombin Time with INR AM DRAW Lab 11/11/24 05:00 Ordered Prothrombin Time with INR Stat Lab 11/10/24 20:44 Completed Enoxaparin [Lovenox] Med 11/11/24 09:00 Ordered 40 mg SC QDAY HYDROcodone/APAP 10/325 [[place] 10/325] Med 11/10/24 23:36 Ordered 1 tab PO Q4H PRN HYDROmorphone INJ [Dilaudid Inj] Med 11/10/24 20:25 Discontinued 1 mg IVP X1 ONE HYDROmorphone INJ [Dilaudid Inj] Med 11/10/24 23:36 Ordered 2 mg IVP Q4H PRN HYDROmorphone INJ [Dilaudid Inj] Med 11/10/24 23:33 Once 2 mg IVP X1 ONE Ketamine Inj Med 11/10/24 20:17 Discontinued 38 mg IVP X1 ONE Milk Of Magnesia Susp [Mom Susp] Med 11/10/24 23:36 Ordered 30 ml PO QDAY PRN Senna [Senokot] Med 11/10/24 23:36 Ordered 1 tab PO BID PRN Sodium Chloride 0.9% 1000 ml [Ns] 1,000 ml Med 11/10/24 20:26 Discontinued IV 999 mls/hr Code Status Routine Oth 11/10/24 23:36 Ordered Vital Signs Vital signs: Vital Signs Temperature 98.4 F 11/10/24 19:46 Pulse Rate 111 H 11/10/24 19:46 Respiratory Rate 19 11/10/24 19:46 Blood Pressure 120/79 11/10/24 19:46 Pulse Oximetry (%) 92 L 11/10/24 19:46 Oxygen Delivery Method Room Air 11/10/24 19:46 Abdominal Pain MDM MDM Narrative MDM Narrative:: Scribe Attestation: 11/10/24 - Beth Clay am scribing for and in the presence of Dr. Fox. 2057: Patient states he is currently pain-free after receiving Ketamine and Dilaudid. Patient is currently receiving fluids. 2225: Discussed case with Dr. Powell attending Dr. Morley from Hospitalist service regarding admission. Discussed patients ED course, exam findings, labs, and radiology results. The Hospitalist will evaluate the patient for admission. 2301: The Hospitalist accepts the patient for admission. Patient data External records reviewed:: [facility] previous records (Per chart review, patient was seen here on 10/30/24 for pancreatic cancer.) Clinical information provided by:: patient Social determinants that could affect healthcare access:: none Patient has the following chronic illnesses:: panreatic CA, HTN How is presenting disease/condition affected by chronic disease/condition?: caused by Evaluation data The following diagnostics were reviewed and interpreted by me:: lab results and radiology exam(s) Lab and/or radiology exams considered but not ordered:: none Interpretation Summary: WBC count is elevated at 13.4, CMP is normal, Lipase is normal, according to my interpretation. [facility] Report Signed Patient: MARZENA MENDEZ Record#: [id number] Birthdate: 1960 Age/Sex: 64 / M Location: [facility] Attending Dr: Ordering Physician: Honorio Fox MD Date of Service: 11/10/24 Procedure(s): XR chest 1V portable Accession Number(s): [id number] cc: Mirian Hussein MD; Peng Ramirez MD; Honorio Fox MD~ Examination: AP chest single view TECHNIQUE: AP portable upright chest single view. Exam date and time: November 10, 2024, 2058 hours INDICATIONS: Coughing today FINDINGS: Normal heart size. Ectatic thoracic aorta. Minor accentuation of basilar bronchovascular markings. No lobar pneumonia. Prominent osteopenia IMPRESSION: Bibasilar bronchitis pattern Dictated By: Peng Ramirez MD Signed By: <Electronically signed by Peng Ramirez MD in OV> 11/10/242106 Medications / Prescriptions Medications or Prescriptions considered but not ordered:: none Medication administrations:: Medication Administration History Hydromorphone HCl (Hydromorphone Inj 2 Mg/Ml Vial) 2 mg IVP X1 ONE Stop: 11/10/24 23:34 Magnesium Hydroxide (Milk Of Magnesia Susp 30 Ml Udc) 30 ml PO QDAY PRN; Protocol PRN Reason: CONSTIPATION Stop: 12/10/24 23:35 Discontinued Medications Hydromorphone HCl (Hydromorphone Inj 2 Mg/Ml Vial) 1 mg IVP X1 ONE Stop: 11/10/24 20:26 Last Admin: 11/10/24 20:43 Dose: 1 mg Documented By: AMILCAR Sodium Chloride (Ns) 1,000 mls @ 999 mls/hr IV .Q1H1M ONE Stop: 11/10/24 21:26 Last Infusion: 11/10/24 21:41 Dose: Infused Documented By: Admin: 11/10/24 20:40 Dose: 999 mls/hr Documented By: AMILCAR Ketamine HCl (Ketamine 50 Mg/Ml Vial 10 Ml) 38 mg IVP X1 ONE Stop: 11/10/24 20:18 Last Admin: 11/10/24 20:41 Dose: 38 mg Documented By: CB see above Consultations Consultation(s) initiated? (list below): Yes Consultation #1 (Physician, Specialty, Details): See MDM narrative. Diagnosis Differential diagnosis abdominal pain: other (chronic abdominal pain, acute exacerbation of chronic abdominal pain, pancreatic CA) Most likely diagnosis given after review of the tests above:: see clinical impression below Admission Indicated Admission indicated?: indicated Admission Request Was there a request for admission?: Yes Admission Attestation Admission request attestation: Discussed case with [] from Hospitalist service regarding admission. Discussed patients ED course, exam findings, labs, and radiology results. The Hospitalist [agrees,declines] to accept the patient for admission. Disposition Plan Disposition Plan: Admit Discharge Plan Plan Patient Disposition: Admit Acute Care w/in Hospital Prescriptions/Referrals Prescriptions/Med Rec: No Action atenolol 100 mg tablet 100 mg PO DAILY Patient Comments: TAKE 1 TABLET BY MOUTH EVERY DAY lisinopril 20 mg tablet 20 mg PO QDAY Qty: 30 0RF hydralazine 25 mg tablet 25 mg PO BID acetaminophen [Mapap (acetaminophen)] 500 mg capsule 1,000 mg PO Q4H ibuprofen [Advil Liqui-Gel] 200 mg capsule 800 mg PO Q4H gabapentin 400 mg capsule 400 mg PO TID Patient Comments: TAKE 1 CAPSULE BY MOUTH 3 TIMES A DAY amlodipine 5 mg tablet 5 mg PO QDAY metformin 500 mg tablet 500 mg PO BID Patient Comments: TAKE 1 TABLET BY MOUTH TWICE A DAY WITH BREAKFAST AND DINNER oxycodone 15 mg tablet 15 mg PO Q4H diazepam [Valium] 5 mg tablet 5 mg PO BID PRN (Reason: muscle spasm) Qty: 20 0RF hydrocodone-acetaminophen 10-325 mg tablet 1 tab PO Q6H MDD 4 PRN (Reason: pain) Qty: 30 0RF Referrals: Mirian Hussein MD [Primary Care Provider] - In 1 week Problem List Clinical Impression: Intractable abdominal pain, Pancreatic cancer Patient/Caregiver Discharge Instructions Print Language: Romanian Stand Alone Forms: Heather Award Info., Patient Portal Info Letter
--- NOTE | 2024-11-10 20:26 | XR_ITS ---
Examination: AP chest single view TECHNIQUE: AP portable upright chest single view. Exam date and time: November 10, 2024, 2058 hours INDICATIONS: Coughing today FINDINGS: Normal heart size. Ectatic thoracic aorta. Minor accentuation of basilar bronchovascular markings. No lobar pneumonia. Prominent osteopenia IMPRESSION: Bibasilar bronchitis pattern
[2024-11-10] MEDS: SODIUM CHLORIDE 0.9% 1000 ML 1,000 ML 999 ML IV (20:40)
[2024-11-10] MEDS: KETAMINE 50 MG/ML VIAL 10 ML 38 MG IVP (20:41)
[2024-11-10] MEDS: HYDROmorphone INJ 2 MG/ML VIAL 1 MG IVP (20:43)
[2024-11-10 21:06] VITALS: PULSE 107
[2024-11-10 21:12] LABS: Basophils # (Auto) 0.1 Thou/mm3 (0.0-0.2); Basophils % (Auto) 1 % (0-2.5); Eosinophils # (Auto) 0.3 Thou/mm3 (0.0-0.5); Eosinophils % (Auto) 2 % (0-10); Hematocrit 42.9 % (41.0-53.0); Hemoglobin 14.2 g/dL (13.5-16.0); Immature Granulocytes % (Auto) 0 % (0-0); Immature Granulocytes Auto 0.03 Thou/mm3 (0.00-0.00); Lymphocytes # (Auto) 3.3 Thou/mm3 (1.0-4.8); Lymphocytes % (Auto) 25 % (10-50); Mean Corpuscular HGB Conc 33.1 g/dl (31.0-37.0); Mean Corpuscular Volume 91 fL (80-100); Monocytes # (Auto) 0.9 Thou/mm3 (0.0-0.8); Monocytes % (Auto) 7 % (0-12); Neutrophils # (Auto) 8.8 Thou/mm3 (1.8-7.7); Neutrophils % (Auto) 66 % (37-80); Nucleated Red Blood Cell % 0 /100 WBC (0); Platelet Count 417 Thou/mm3 (140-440); RDW Standard Deviation 42.5 fL (35.1-43.9); Red Blood Count 4.74 Miln/mm3 (4.50-5.90); White Blood Count 13.4 Thou/mm3 (3.8-10.6)
[2024-11-10 21:24] LABS: Partial Thromboplastin Time 28.8 Seconds (22.0-36.0); Prothrombin Time 10.9 Seconds (9.0-12.2)
[2024-11-10 21:27] LABS: Alanine Aminotransferase 24 U/L (10-49); Albumin, Serum 4.4 gm/dL (3.4-4.8); Albumin/Globulin Ratio 1.2 (1.2-2.2); Alkaline Phosphatase 95 U/L (46-116); Anion Gap 6 (7-16); Aspartate Amino Transferase 34 U/L (0-34); BUN/Creatinine Ratio 8 Ratio (12-20); Bilirubin,Total 0.2 mg/dL (0.3-1.2); Blood Urea Nitrogen 8 mg/dL (9-23); Calcium 9.4 mg/dL (8.3-10.6); Calcium (Corrected) 9.4 mg/dL (8.5-10.1); Chloride 105 mMol/L (98-107); Globulin 3.6 gm/dL (2.3-3.5); Glucose 115 mg/dL (74-106); Lipase 32 U/L (12-53); Magnesium 1.9 mg/dL (1.6-2.6); Osmolality,Calculated 276 (275-295); Potassium 4.5 mMol/L (3.4-5.1); Sodium 139 mMol/L (136-145); eGFR > 60 See Note
[2024-11-10 22:19] VITALS: BP 152/93; PULSE 104; RESP 18; TEMP 36.6; O2SAT 95
--- NOTE | 2024-11-10 23:45 | PD.HHHP ---
Documentation for date of: 11/10/24 HPI - Hospitalist History of Present Illness History of present illness: Patient is a 64 years old male with past medical history of recently diagnosed invasive pancreatic adenocarcinoma, hypertension, hyperlipidemia, GERD who presented to the ED with complaint of severe abdominal pain. Patient has been having abdominal and back pain secondary to his pancreatic cancer for last 4 months. His analgesic need has been increasing consistently. He was initially on [place], switched to Percocet and eventually Dilaudid 4 mg oral every 6 hour. For last few days, even this regimen is not providing enough relief and he decided to visit the ED. He added, he took 4 tablets of Dilaudid 4 mg and still was unable to get relief. He has been following with cancer treatment center, his plan for restarting chemotherapy coming week. He denied fever, chills, chest pain, shortness of breath, weakness, numbness. In the ED, his blood pressure was 152/93, pulse 104, rest of the vitals were within normal limits, saturating well on room air. Lab results show WBC of 13.4, CEA 7.2. Chest x-ray was obtained, shows bibasilar bronchitis pattern. Past medical history: Pancreatic adenocarcinoma, hypertension, hyperlipidemia, GERD Past surgical history: Ramakrishna fundoplication Social history: History of alcohol abuse but denies current use. Smokes 2 packs/day, denies illicit drug use, lives alone Review of Systems Review of Systems Systems Reviewed: All systems reviewed, normal except as documented Meds Home Medications and Allergies Home Medications ?Medication ?Instructions ?Recorded ?Confirmed ?Type atenolol 100 mg tablet 100 mg PO DAILY 08/28/22 10/25/24 History acetaminophen 500 mg capsule 1,000 mg PO Q4H pain 10/25/24 10/25/24 History (Mapap (acetaminophen)) amlodipine 5 mg tablet 5 mg PO QDAY 10/25/24 10/25/24 History gabapentin 400 mg capsule 400 mg PO TID 10/25/24 10/25/24 History hydralazine 25 mg tablet 25 mg PO BID 10/25/24 10/25/24 History ibuprofen 200 mg capsule (Advil 800 mg PO Q4H pain 10/25/24 10/25/24 History Liqui-Gel) metformin 500 mg tablet 500 mg PO BID 10/25/24 10/25/24 History oxycodone 15 mg tablet 15 mg PO Q4H 10/25/24 10/25/24 History Allergies Allergy/AdvReac Type Severity Reaction Status Date / Time No Known Allergies Allergy Verified 10/21/24 14:52 Exam Vital Signs Temp Pulse Resp BP Pulse Ox O2 Del Method O2 Flow Rate 98 F 104 H 18 152/93 H 95 Nasal Cannula 3 11/10/24 22:19 11/10/24 22:19 11/10/24 22:19 11/10/24 22:19 11/10/24 22:19 11/10/24 22:19 11/10/24 22:19 Narrative Gen: AAOx4, appears in mild distress HEENT: NCAT, PERRLA, EOMI, moist mucous membrane CVS: normal S1, S2. RRR. No MRG Resp: CTA B/L. No rhonchi, rales, crackles or wheezing Abd: soft, tender to palpation over all quadrants, obese. BS+ in all 4 quadrants MSK: Good ROM in BUE & BLE. No edema or rash. Mild tremor Neuro: CN II-XII grossly intact. Strength 5/5 in BUE & BLE. Psych: appropriate mood and affect. Results - Hospitalist Labs Diagrams: 11/10/24 20:44 11/10/24 20:44 Labs: Short CBC 11/10/24 Range/Units 20:44 WBC 13.4 H (3.8-10.6) Thou/mm3 Hgb 14.2 (13.5-16.0) g/dL Hct 42.9 (41.0-53.0) % Plt Count 417 D (140-440) Thou/mm3 BMP 11/10/24 20:44 Sodium 139 Potassium 4.5 Chloride 105 Carbon Dioxide 28.0 BUN 8 L Creatinine 1.0 Glucose 115 H Calcium 9.4 Liver Function 11/10/24 Range/Units 20:44 Total Bilirubin 0.2 L (0.3-1.2) mg/dL AST 34 (0-34) U/L ALT 24 (10-49) U/L Alkaline Phosphatase 95 (46-116) U/L Albumin 4.4 (3.4-4.8) gm/dL Assessment & Plan -Hospitalist Additional Assessment Patient is a 64 years old male with past medical history of pancreatic adenocarcinoma, hypertension, hyperlipidemia, GERD who presented to the ED with abdominal and back pain not controlled with Dilaudid 4 mg p.o. every 6 hours. Being admitted on observation for management of intractable pain. #Intractable pain #Pancreatic adenocarcinoma Patient was recently diagnosed with pancreatic adenocarcinoma, planned for chemotherapy with oncology Has been having severe pain, uncontrolled with oral analgesics Patient received ketamine in the ED with relief We will start him on IV Dilaudid 2 mg every 4 hours as needed along with [place] as needed We will obtain oncology consult with Dr. Montano #Hypertension #Hyperlipidemia Resumed home atenolol We will add rest of his antihypertensives once med rec is complete #GERD Started on Protonix p.o. #Leukocytosis Possibly reactive, no obvious source of infection We will continue to monitor closely Diet: Regular diet DVT prophylaxis: Lovenox SC CODE STATUS: Full code Disposition: Observation in telemetry for management of intractable pain needing IV analgesics Christie Morley MD Quality Measures Quality Measures none Advance care planning discussed with:: patient
[2024-11-11] VITALS (11 sets, daily range): BP systolic 109–176; BP diastolic 67–104; PULSE 68–116; RESP 16–21; TEMP 36–36.7; O2SAT 92–95; BMI 34.6; BMI 34.5
[2024-11-11] MEDS: HYDROmorphone INJ 2 MG/ML VIAL IVP ×6 (00:13→21:40)
[2024-11-11] MEDS: HYDROcodone/APAP 10/325 TAB PO ×2 (03:02→06:38)
[2024-11-11] MEDS: NICOTINE PATCH 21 MG/24 HR PATCH.TD24 TOP ×2 (03:02→20:27)
--- NOTE | 2024-11-11 04:16 | PC.NURSE ---
PT O2 ON ROOM AIR AT 87%. PLACED ON 2L NC. OXYGEN SATS NOW AT 93%. NO C/O SOB
[2024-11-11 05:34] LABS: Basophils # (Auto) 0.1 Thou/mm3 (0.0-0.2); Basophils % (Auto) 1 % (0-2.5); Eosinophils # (Auto) 0.4 Thou/mm3 (0.0-0.5); Eosinophils % (Auto) 3 % (0-10); Hemoglobin 13.4 g/dL (13.5-16.0); Immature Granulocytes % (Auto) 0 % (0-0); Immature Granulocytes Auto 0.04 Thou/mm3 (0.00-0.00); Lymphocytes % (Auto) 23 % (10-50); Mean Corpuscular HGB Conc 32.7 g/dl (31.0-37.0); Mean Corpuscular Hemoglobin 29.8 pg (25.0-35.0); Mean Corpuscular Volume 91 fL (80-100); Monocytes # (Auto) 1.1 Thou/mm3 (0.0-0.8); Monocytes % (Auto) 8 % (0-12); Neutrophils # (Auto) 8.6 Thou/mm3 (1.8-7.7); Neutrophils % (Auto) 65 % (37-80); Nucleated Red Blood Cell % 0 /100 WBC (0); Platelet Count 372 Thou/mm3 (140-440); RDW Standard Deviation 43.4 fL (35.1-43.9); White Blood Count 13.3 Thou/mm3 (3.8-10.6)
[2024-11-11 05:53] LABS: Prothrombin Time 11.2 Seconds (9.0-12.2)
[2024-11-11 06:28] LABS: Cardiac Risk Estimate 7.5 RATIO (4.0-6.7); Cholesterol 217 mg/dL (132-200); HDL Cholesterol 29 mg/dL (40-60); LDL Cholesterol,Calculated 130 mg/dL (0-130); Magnesium 1.8 mg/dL (1.6-2.6); Phosphorous 3.2 mg/dL (2.4-5.1); Triglycerides 291 mg/dL (30-150)
[2024-11-11] MEDS: MORPHINE SULF 30 MG TABCR PO ×3 (07:42→22:52)
[2024-11-11 08:40] LABS: Alanine Aminotransferase 25 U/L (10-49); Albumin, Serum 4.2 gm/dL (3.4-4.8); Albumin/Globulin Ratio 1.4 (1.2-2.2); Alkaline Phosphatase 94 U/L (46-116); Anion Gap 6 (7-16); Aspartate Amino Transferase 32 U/L (0-34); BUN/Creatinine Ratio 10 Ratio (12-20); Bilirubin,Total 0.2 mg/dL (0.3-1.2); Blood Urea Nitrogen 8 mg/dL (9-23); Calcium 9.2 mg/dL (8.3-10.6); Calcium (Corrected) 9.2 mg/dL (8.5-10.1); Carbon Dioxide 28.7 mMol/L (20.0-31.0); Chloride 104 mMol/L (98-107); Creatinine (Component) 0.8 mg/dL (0.6-1.3); Globulin 3.1 gm/dL (2.3-3.5); Glucose 198 mg/dL (74-106); Osmolality,Calculated 281 (275-295); Potassium 4.5 mMol/L (3.4-5.1); Sodium 139 mMol/L (136-145); Total Protein 7.3 gm/dL (5.7-8.2); eGFR > 60 See Note
[2024-11-11] MEDS: ENOXAPARIN SOD INJ 40 MG/0.4 ML SYRINGE SC (08:45)
[2024-11-11] MEDS: atenoloL 25 MG TABLET 100 MG PO (08:45)
--- NOTE | 2024-11-11 09:05 | PC.SS ---
Follow up note: Pain management. On IV pain meds.
--- NOTE | 2024-11-11 09:19 | PD.ONCCONS ---
HPI Data of Consult Requesting Physician: Farhat Hurley MD Primary Care Provider: Mirian Hussein MD Consult Narrative Reason for consult: Adenocarcinoma pancreas admitted with pain [id number] History of present illness: Patient unfortunate 64-year-old gentleman with abdominal pain and large pancreatic tail at least 4.[address] mass noted on [address] 10/27/2024, when biopsied revealed invasive adenocarcinoma moderately differentiated. Patient recently saw Dr. Valle, medical oncologist at [facility] and port placement and PET scan was ordered anticipation of staging workup and chemotherapy. The oral Dilaudid he was taking 4 mg every 6 was not alleviating his pain and went to the ER. Elevated white count of 13.7 noted along with elevated blood pressure and pulse. Referred for oncological consultation and pain management. 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 Past Medical History Comments PMH COMMENT: Recently diagnosed pancreatic cancer GERD hypertension hyperlipidemia prior fundoplication Meds Home Medications and Allergies Home Medications ?Medication ?Instructions ?Recorded ?Confirmed ?Type acetaminophen 500 mg capsule 1,000 mg PO Q4H pain 10/25/24 11/11/24 History (Mapap (acetaminophen)) amlodipine 5 mg tablet 5 mg PO QDAY 10/25/24 11/11/24 History gabapentin 400 mg capsule 400 mg PO TID 10/25/24 11/11/24 History hydralazine 25 mg tablet 50 mg PO BID 10/25/24 11/11/24 History metformin 500 mg tablet 500 mg PO BID 10/25/24 10/25/24 History oxycodone 15 mg tablet 15 mg PO Q4H 10/25/24 10/25/24 History hydromorphone 4 mg tablet 4 mg PO Q6H PRN pain 11/11/24 11/11/24 History lisinopril 20 mg tablet 40 mg PO QDAY 11/11/24 11/11/24 History metoprolol succinate 25 mg 25 mg PO DAILY 11/11/24 11/11/24 History tablet,extended release 24 hr Allergies Allergy/AdvReac Type Severity Reaction Status Date / Time No Known Allergies Allergy Verified 10/21/24 14:52 Exam Vital Signs Temp Pulse Resp BP Pulse Ox O2 Del Method O2 Flow Rate 96.9 F 106 H 18 131/92 H 94 L Nasal Cannula 1 11/11/24 08:37 11/11/24 08:45 11/11/24 08:37 11/11/24 08:45 11/11/24 08:37 11/11/24 08:37 11/11/24 08:37 Narrative Exam Patient appears to be in acute distress not being helped by current pain management. Results Labs 11/11/24 05:10 11/11/24 05:10 Labs: Short CBC 11/10/24 11/11/24 Range/Units 20:44 05:10 WBC 13.4 H 13.3 H (3.8-10.6) Thou/mm3 Hgb 14.2 13.4 L (13.5-16.0) g/dL Hct 42.9 41.0 (41.0-53.0) % Plt Count 417 D 372 D (140-440) Thou/mm3 BMP 11/10/24 11/11/24 20:44 05:10 Sodium 139 139 Potassium 4.5 4.5 Chloride 105 104 Carbon Dioxide 28.0 28.7 BUN 8 L 8 L Creatinine 1.0 0.8 Glucose 115 H 198 H D Calcium 9.4 9.2 Liver Function 11/10/24 11/11/24 Range/Units 20:44 05:10 Total Bilirubin 0.2 L 0.2 L (0.3-1.2) mg/dL AST 34 32 (0-34) U/L ALT 24 25 (10-49) U/L Alkaline Phosphatase 95 94 (46-116) U/L Albumin 4.4 4.2 (3.4-4.8) gm/dL Assessment and Plan Additional Assessment & Plan Additional Plan: 1. Unresectable large pancreatic tail mass adenocarcinoma. Seen at [facility] awaiting port placement and chemotherapy. Has already seen Dr. Valle medical oncologist PET pending. 2. Pain not adequately controlled on present regimen. Recommend MS ER 30 mg 3 times daily with hydromorphone 2 mg as needed for breakthrough pain 3. Will ask for port placement while patient in hospital. 4. Patient will be seen at [facility] for follow-up upon discharge.
--- NOTE | 2024-11-11 10:06 | ESCONSULT_ITS ---
Addendum Consultation Addendum Date of report being addended: 11/11/24 Narrative: Patient remains discouraged about the poor prognosis and questioned the need for port placement along with subsequent chemo. His main concern was better pain management. His pain appears to already be improving with the addition of long- acting morphine which will be continued as an outpatient. He is willing for now to go through with port placement and subsequent chemo. I will watch him closely upon discharge for pain management.
--- NOTE | 2024-11-11 10:16 | ESPR_ITS ---
<Statement entered by Eddie Monroe MD - 11/11/24 14:17> I discussed with and supervised the production intern physician involved in the care of this patient. Patient assessment and plan was discussed with entire medicine team, including my attending. I agree with the assessment and plan as documented by production intern doctor. Patient care was discussed with my attending physician Dr. Mei Monroe, PGY-2 Documentation for date of: 11/11/24 Subjective Subjective Interval history: Patient seen and examined at bedside. Patient's labs and vitals reviewed. Patient admitted overnight for uncontrolled abdominal pain secondary to stage IV pancreatic adenocarcinoma. Oncology consulted, patient scheduled for Port-A-Cath placement today. Patient's pain is managed on p.o. morphine 30 3 times daily and Dilaudid 2 mg every 4 hours as needed. Will try to wean off pain medication as patient tolerates will titrate down pain medication. Resume home dose gabapentin. Exam Vital Signs Temp Pulse Resp BP Pulse Ox O2 Del Method O2 Flow Rate 96.9 F 106 H 18 131/92 H 94 L Nasal Cannula 1 11/11/24 08:37 11/11/24 08:45 11/11/24 08:37 11/11/24 08:45 11/11/24 08:37 11/11/24 08:37 11/11/24 08:37 Narrative Exam Physical Exam General: Awake and in no acute distress. Conversational and non-toxic appearing. HEENT: Normocephalic, atraumatic, mucous membranes moist. Heart: Regular rate and rhythm, no murmurs. Lungs: Clear to auscultation with no wheezing or crackles. Abdomen: Soft, obese, nondistended, nontender, positive bowel sounds. ?No guarding or rebound tenderness. Neurologic: Alert and oriented x3, no gross neurological deficit, and patient able to move all 4 extremities. Extremities: No edema. Skin: No rash or ecchymoses. Objective Labs 11/11/24 05:10 11/11/24 05:10 Labs: Laboratory Results - last 24 hr 11/10/24 11/11/24 20:44 05:10 WBC 13.4 H 13.3 H RBC 4.74 4.50 Hgb 14.2 13.4 L Hct 42.9 41.0 MCV 91 91 MCH 30.0 29.8 MCHC 33.1 32.7 RDW Std Deviation 42.5 43.4 Plt Count 417 D 372 D Neut % (Auto) 66 65 Lymph % (Auto) 25 23 [place] % (Auto) 7 8 Eos % (Auto) 2 3 Baso % (Auto) 1 1 Neut # (Auto) 8.8 H 8.6 H Lymph # (Auto) 3.3 3.0 [place] # (Auto) 0.9 H 1.1 H Eos # (Auto) 0.3 0.4 Baso # (Auto) 0.1 0.1 Immature Gran # (Auto) 0.03 H 0.04 H Absolute Nucleated RBC 0.00 0.00 Immature Gran % 0 0 Nucleated RBC % 0 0 PT 10.9 11.2 INR 1.0 1.0 APTT 28.8 Sodium 139 139 Potassium 4.5 4.5 Chloride 105 104 Carbon Dioxide 28.0 28.7 Anion Gap 6 L 6 L BUN 8 L 8 L Creatinine 1.0 0.8 Estim Creat Clear Calc 91.0 114.0 eGFR > 60 > 60 BUN/Creatinine Ratio 8 L 10 L Glucose 115 H 198 H D Calculated Osmolality 276 281 Calcium 9.4 9.2 Corrected Calcium 9.4 9.2 Phosphorus 3.2 Magnesium 1.9 1.8 Total Bilirubin 0.2 L 0.2 L AST 34 32 ALT 24 25 Alkaline Phosphatase 95 94 Total Protein 8.0 7.3 Albumin 4.4 4.2 Globulin 3.6 H 3.1 Albumin/Globulin Ratio 1.2 1.4 Triglycerides 291 H Cholesterol 217 H LDL Cholesterol, Calc 130 HDL Cholesterol 29 L Cholesterol/HDL Ratio 7.5 H Lipase 32 Quality Measures Quality Measures none Advance care planning discussed with:: patient Assessment & Plan Assessment Current Active Medications: Generic Name Dose Route Start Last Admin Trade Name Freq PRN Reason Stop Dose Admin Atenolol 100 mg 11/11/24 09:00 11/11/24 08:45 Atenolol 25 Mg Tablet PO 12/11/24 08:59 100 mg QDAY AUSTEN Administration Enoxaparin Sodium 40 mg 11/11/24 09:00 11/11/24 08:45 Enoxaparin Sod Inj 40 Mg/0.4 Ml Syringe SC 11/25/24 08:59 40 mg QDAY AUSTEN Administration Hydromorphone HCl 2 mg 11/10/24 23:36 11/11/24 07:19 Hydromorphone Inj 2 Mg/Ml Vial IVP 11/15/24 23:35 2 mg Q4HR PRN Administration PAIN SCALE 7-10 (Severe Magnesium Hydroxide 30 ml 11/10/24 23:36 Milk Of Magnesia Susp 30 Ml Udc PO 12/10/24 23:35 QDAY PRN CONSTIPATION Protocol Morphine Sulfate 30 mg 11/11/24 07:30 11/11/24 07:42 Morphine Sulf 30 Mg Tabcr PO 11/16/24 07:29 30 mg TID AUSTEN Administration Protocol Nicotine 21 mg 11/10/24 23:45 11/11/24 03:02 Nicotine Patch 21 Mg/24 Hr Patch.Td24 TOP 12/10/24 23:44 21 mg QDAY@2100 AUSTEN Administration Sennosides 1 tab 11/10/24 23:36 Senna Tablet PO 12/10/24 23:35 BID PRN CONSTIPATION Protocol Plan Assessment and plan: Summary: Patient is a 64 years old male with past medical history of pancreatic adenocarcinoma, hypertension, hyperlipidemia, GERD who presented to the ED with abdominal and back pain not controlled with Dilaudid 4 mg p.o. every 6 hours. Being admitted on observation for management of intractable pain. #Neoplasm related pain #Uncontrolled pain #Pancreatic adenocarcinoma Patient was recently diagnosed with pancreatic adenocarcinoma, planned for chemotherapy with oncology Has been having severe pain, uncontrolled with oral analgesics, patient on gabapentin 400 p.o. 3 times daily, hydromorphone 4 mg p.o. every 6 hours. Patient received ketamine in the ED with relief. Plan: -Continue IV Dilaudid 2 mg every 4 hours. -Patient started on morphine p.o. 30 mg 3 times daily -Resume home dose gabapentin 400 p.o. 3 times daily -Patient scheduled for Port-A-Cath placement today -We will obtain oncology consult with Dr. Montano #Hypertension #Hyperlipidemia Patient on metoprolol succinate 25 mg p.o. daily, lisinopril 40 mg, hydralazine 50 twice daily and amlodipine 5 mg for hypertension management. -Patient received atenolol x 1 today. -Will discontinue atenolol, start patient on metoprolol succinate 25 starting tomorrow -Will hold other blood pressure medication and will uptitrate as needed #GERD Continue p.o. Protonix #Leukocytosis Possibly reactive, no obvious source of infection We will continue to monitor closely DVT prophylaxis: Lovenox GI prophylaxis: P.o. Protonix Diet: N.p.o. Lines: Peripheral IV Code status: Full code Case discussed with Attending Dr. Hurley and Dr. Monroe PGY2. Vi Rosario PGY1 Disclaimer: This note was dictated by speech recognition. Minor errors in hearing screener may be present due to voice recognition software.
--- NOTE | 2024-11-11 10:27 | PC.SS ---
SS met with patient regarding his d/c plan.? Pt is alert/oriented.? Pt was admitted for Intractable Pain.? Pt confirmed demographic and contact information is correct on facesheet.? Pt resides alone.? Pt ambulates independently without assistance or DME.? Pt is ok with all ADLs.? Pt is currently on 2 liters of O2.? Pt does not utilizes O2 at home.? Pt named his brother, Magdaleno Jean medical decision maker if he is unable.? SS provided verbal d/c options for home or SNF.? Patient?s choice is to return home upon d/c.? Pt does not have an advance directive, SS offered, and pt was recepetive.? Pt states he is not diabetic and is not on dialysis.? Pt followed up with PCP 1 week ago and next appointment is Thursday. D/C plan:? Return home Next of Kin:? Magdaleno Jean, brother, phone# [phone] PCP:? Dr. Mirian Ornelas Address:? Correct on facesheet
--- NOTE | 2024-11-11 10:40 | CHAP ---
Patient was visited by the Spiritual Care Volunteer who prayed for them. (Volunteer was in the hospital from 09:15-10:40).
[2024-11-11] MEDS: GABAPENTIN 100 MG CAPSULE 400 MG PO ×2 (13:24→21:40)
[2024-11-11] MEDS: IBUPROFEN TAB 400 MG TABLET PO (23:49)
[2024-11-12] VITALS (7 sets, daily range): BP systolic 118–149; BP diastolic 75–86; PULSE 73–87; RESP 12–21; TEMP 36–36.3; O2SAT 93–96; BMI 34.2
[2024-11-12] MEDS: HYDROmorphone INJ 2 MG/ML VIAL IVP ×3 (01:46→16:26)
[2024-11-12 05:25] LABS: Basophils # (Auto) 0.1 Thou/mm3 (0.0-0.2); Basophils % (Auto) 1 % (0-2.5); Eosinophils # (Auto) 0.4 Thou/mm3 (0.0-0.5); Eosinophils % (Auto) 4 % (0-10); Hematocrit 42.1 % (41.0-53.0); Hemoglobin 13.9 g/dL (13.5-16.0); Immature Granulocytes % (Auto) 0 % (0-0); Immature Granulocytes Auto 0.03 Thou/mm3 (0.00-0.00); Lymphocytes # (Auto) 3.3 Thou/mm3 (1.0-4.8); Lymphocytes % (Auto) 31 % (10-50); Mean Corpuscular Hemoglobin 29.9 pg (25.0-35.0); Mean Corpuscular Volume 91 fL (80-100); Monocytes # (Auto) 0.9 Thou/mm3 (0.0-0.8); Monocytes % (Auto) 8 % (0-12); Neutrophils % (Auto) 56 % (37-80); Nucleated Red Blood Cell % 0 /100 WBC (0); Platelet Count 347 Thou/mm3 (140-440); RDW Standard Deviation 42.7 fL (35.1-43.9); Red Blood Count 4.65 Miln/mm3 (4.50-5.90); White Blood Count 10.7 Thou/mm3 (3.8-10.6)
[2024-11-12 05:42] LABS: Partial Thromboplastin Time 29.1 Seconds (22.0-36.0); Prothrombin Time 11.2 Seconds (9.0-12.2)
[2024-11-12 05:54] LABS: Alanine Aminotransferase 33 U/L (10-49); Albumin, Serum 4.4 gm/dL (3.4-4.8); Albumin/Globulin Ratio 1.3 (1.2-2.2); Alkaline Phosphatase 92 U/L (46-116); Anion Gap 6 (7-16); Aspartate Amino Transferase 64 U/L (0-34); BUN/Creatinine Ratio 15 Ratio (12-20); Bilirubin,Total 0.3 mg/dL (0.3-1.2); Blood Urea Nitrogen 12 mg/dL (9-23); Calcium 9.7 mg/dL (8.3-10.6); Calcium (Corrected) 9.7 mg/dL (8.5-10.1); Carbon Dioxide 29.3 mMol/L (20.0-31.0); Chloride 103 mMol/L (98-107); Creatinine (Component) 0.8 mg/dL (0.6-1.3); Globulin 3.5 gm/dL (2.3-3.5); Glucose 112 mg/dL (74-106); Osmolality,Calculated 276 (275-295); Potassium 4.4 mMol/L (3.4-5.1); Sodium 138 mMol/L (136-145); Total Protein 7.9 gm/dL (5.7-8.2); eGFR > 60 See Note
[2024-11-12] MEDS: GABAPENTIN 100 MG CAPSULE 400 MG PO (06:04)
[2024-11-12] MEDS: MORPHINE SULF 30 MG TABCR PO ×3 (06:04→22:14)
[2024-11-12] MEDS: METOPROLOL SUCCINATE XL 25 MG TABCR PO (08:54)
[2024-11-12] MEDS: ENOXAPARIN SOD INJ 40 MG/0.4 ML SYRINGE SC (08:54)
--- NOTE | 2024-11-12 10:07 | ESPR_ITS ---
<Statement entered by Eddie Monroe MD - 11/13/24 07:22> I discussed with and supervised the software development intern physician involved in the care of this patient. Patient assessment and plan was discussed with entire medicine team, including my attending. I agree with the assessment and plan as documented by software development intern doctor. Patient care was discussed with my attending physician Dr. Christos Monroe, PGY-2 Documentation for date of: 11/12/24 Subjective Subjective Interval history: Patient seen and examined at bedside. Patient's labs and vitals reviewed. Patient continues to have significant pain requiring IV pain medication, Will uptitrate home dose Gabapentin to 600mg TID. Consulted General Surgery for Port-A-Cath placement. Patient's pain is managed on p.o. morphine 30 3 times daily and Dilaudid 2 mg every 4 hours as needed. Oncology is following. Will try to wean off pain medication as patient tolerates will titrate down IV pain medication. Exam Vital Signs Temp Pulse Resp BP Pulse Ox O2 Del Method O2 Flow Rate 96.8 F 74 15 143/83 H 93 L Nasal Cannula 3 11/12/24 08:00 11/12/24 08:54 11/12/24 08:00 11/12/24 08:54 11/12/24 08:00 11/12/24 08:00 11/12/24 08:00 Narrative Exam Physical Exam General: Awake and in no acute distress. Conversational and non-toxic appearing. HEENT: Normocephalic, atraumatic, mucous membranes moist. Heart: Regular rate and rhythm, no murmurs. Lungs: Clear to auscultation with no wheezing or crackles. Abdomen: Soft, obese, nondistended, nontender, positive bowel sounds. ?No guarding or rebound tenderness. Neurologic: Alert and oriented x3, no gross neurological deficit, and patient able to move all 4 extremities. Extremities: No edema. Skin: No rash or ecchymoses. Objective Labs 11/13/24 04:37 11/13/24 04:37 Labs: Laboratory Results - last 24 hr 11/12/24 05:19 WBC 10.7 H RBC 4.65 Hgb 13.9 Hct 42.1 MCV 91 MCH 29.9 MCHC 33.0 RDW Std Deviation 42.7 Plt Count 347 Neut % (Auto) 56 Lymph % (Auto) 31 [place] % (Auto) 8 Eos % (Auto) 4 Baso % (Auto) 1 Neut # (Auto) 6.0 Lymph # (Auto) 3.3 [place] # (Auto) 0.9 H Eos # (Auto) 0.4 Baso # (Auto) 0.1 Immature Gran # (Auto) 0.03 H Absolute Nucleated RBC 0.00 Immature Gran % 0 Nucleated RBC % 0 PT 11.2 INR 1.0 APTT 29.1 Sodium 138 Potassium 4.4 Chloride 103 Carbon Dioxide 29.3 Anion Gap 6 L BUN 12 Creatinine 0.8 Estim Creat Clear Calc 114.0 eGFR > 60 BUN/Creatinine Ratio 15 Glucose 112 H D Calculated Osmolality 276 Calcium 9.7 Corrected Calcium 9.7 Magnesium 2.0 Total Bilirubin 0.3 AST 64 H ALT 33 Alkaline Phosphatase 92 Total Protein 7.9 Albumin 4.4 Globulin 3.5 Albumin/Globulin Ratio 1.3 Quality Measures Quality Measures none Advance care planning discussed with:: patient Assessment & Plan Assessment Current Active Medications: Generic Name Dose Route Start Last Admin Trade Name Freq PRN Reason Stop Dose Admin Atorvastatin Calcium 40 mg 11/12/24 21:00 Atorvastatin Calcium 20 Mg Tablet PO 12/12/24 20:59 HS AUSTEN Enoxaparin Sodium 40 mg 11/11/24 09:00 11/12/24 08:54 Enoxaparin Sod Inj 40 Mg/0.4 Ml Syringe SC 11/25/24 08:59 40 mg QDAY AUSTEN Administration Gabapentin 600 mg 11/12/24 14:00 Gabapentin 100 Mg Capsule PO 12/12/24 13:59 TID AUSTEN Hydromorphone HCl 2 mg 11/10/24 23:36 11/12/24 01:46 Hydromorphone Inj 2 Mg/Ml Vial IVP 11/15/24 23:35 2 mg Q4HR PRN Administration PAIN SCALE 7-10 (Severe Magnesium Hydroxide 30 ml 11/10/24 23:36 Milk Of Magnesia Susp 30 Ml Udc PO 12/10/24 23:35 QDAY PRN CONSTIPATION Protocol Metoprolol Succinate 25 mg 11/12/24 09:00 11/12/24 08:54 Metoprolol Succinate Xl 25 Mg Tabcr PO 12/12/24 08:59 25 mg DAILY AUSTEN Administration Morphine Sulfate 30 mg 11/11/24 07:30 11/12/24 06:04 Morphine Sulf 30 Mg Tabcr PO 11/16/24 07:29 30 mg TID AUSTEN Administration Protocol Nicotine 21 mg 11/10/24 23:45 11/11/24 20:27 Nicotine Patch 21 Mg/24 Hr Patch.Td24 TOP 12/10/24 23:44 21 mg QDAY@2100 [facility] Administration Sennosides 1 tab 11/10/24 23:36 Senna Tablet PO 12/10/24 23:35 BID PRN CONSTIPATION Protocol Plan Assessment and plan: Summary: Patient is a 64 years old male with past medical history of pancreatic adenocarcinoma, hypertension, hyperlipidemia, Type 2 Diabetes Mellitus, GERD who presented to the ED with abdominal and back pain not controlled with Dilaudid 4 mg p.o. every 6 hours. Being admitted on observation for management of intractable pain. #Neoplasm related pain #Uncontrolled pain #Pancreatic adenocarcinoma Patient was recently diagnosed with pancreatic adenocarcinoma, planned for chemotherapy with oncology Has been having severe pain, uncontrolled with oral analgesics, patient on gabapentin 400 p.o. 3 times daily, hydromorphone 4 mg p.o. every 6 hours. Patient received ketamine in the ED with relief. Plan: -Continue IV Dilaudid 2 mg every 4 hours. -Continue morphine p.o. 30 mg 3 times daily -Uptitrated gabapentin to 600 mg 3 times daily -Consulted general surgery for Port-A-Cath placement -Oncology consulted appreciate recommendations #Hypertension #Hyperlipidemia Patient on metoprolol succinate 25 mg p.o. daily, lisinopril 40 mg, hydralazine 50 twice daily and amlodipine 5 mg for hypertension management. Was on atenolol previously. -Will continue metoprolol succinate 25 starting tomorrow -Start patient on atorvastatin 40 mg at bedtime -Will hold other blood pressure medication and will uptitrate as needed #Type 2 Diabetes Mellitus Patient will metformin at home In-house blood glucose has been in the range of 110-200 Plan: -Sliding scale insulin -Follow A1c in a.m. -Hypoglycemia protocol -Fingerstick blood glucose AC #Transaminitis Mild transaminitis noted, AST 64. Will continue to monitor LFTs #GERD Continue p.o. Protonix #Leukocytosis Possibly reactive, no obvious source of infection We will continue to monitor closely DVT prophylaxis: Lovenox GI prophylaxis: P.o. Protonix Diet: N.p.o. Lines: Peripheral IV Code status: Full code Case discussed with Attending Dr. Sher and Dr. Monroe PGY2. Vi Rosario PGY1 Disclaimer: This note was dictated by speech recognition. Minor errors in logistics associate may be present due to voice recognition software. Attending Provider Attestation/Addendum I reviewed labs, imaging, EKG, home medications and prior available records. Face to face evaluation was performed by me. I have personally examined the patient and discussed assessment and plan with the IM team. I reviewed the resident note and agree with the plan with exceptions as below. Pancreatic adenocarcinoma Intractable abdominal pain Type 2 diabetes mellitus Essential hypertension Hyperlipidemia The pain is still severe requiring IV Dilaudid. Decreased the frequency Started oral morphine 30 mg every 8 hours Increased gabapentin to 600 mg 3 times daily Oncology on board Management of nausea/vomiting as needed Consulted general surgery for port A cath
[2024-11-12] MEDS: INSULIN LISPRO (AdmeLOG) 1 UNIT/0.01 ML UNIT SC (11:38)
[2024-11-12] MEDS: GABAPENTIN 100 MG CAPSULE 600 MG PO ×2 (13:59→22:14)
[2024-11-12] MEDS: HYDROmorphone INJ 2 MG/ML VIAL 1 MG IVP ×2 (14:57→20:50)
--- NOTE | 2024-11-12 16:21 | PC.NURSE ---
Spoke with Dr. Rosario regarding uncontrolled pain status post administration of dilaudid [address] Rosario okay to administer 2 mg dose of dilaudid IV now.
[2024-11-12] MEDS: Milk Of Magnesia Susp 30 ML UDC PO (16:26)
[2024-11-12] MEDS: ATORVASTATIN CALCIUM 20 MG TABLET 40 MG PO (20:06)
[2024-11-12] MEDS: NICOTINE PATCH 21 MG/24 HR PATCH.TD24 TOP (20:07)
--- NOTE | 2024-11-12 21:39 | PC.NURSE ---
patients oxygen drops to 86 when resting in bed room air. I applied 2 liters and his saturations were 94%.
[2024-11-13] VITALS (7 sets, daily range): BP systolic 132–145; BP diastolic 62–89; PULSE 72–91; RESP 12–20; TEMP 36–36.7; O2SAT 91–96; BMI 34.4
[2024-11-13] MEDS: HYDROmorphone INJ 2 MG/ML VIAL IVP ×2 (01:50→08:09)
[2024-11-13 05:34] LABS: Basophils # (Auto) 0.1 Thou/mm3 (0.0-0.2); Basophils % (Auto) 1 % (0-2.5); Eosinophils # (Auto) 0.4 Thou/mm3 (0.0-0.5); Eosinophils % (Auto) 4 % (0-10); Hematocrit 43.7 % (41.0-53.0); Hemoglobin 14.6 g/dL (13.5-16.0); Immature Granulocytes % (Auto) 0 % (0-0); Immature Granulocytes Auto 0.02 Thou/mm3 (0.00-0.00); Lymphocytes # (Auto) 3.6 Thou/mm3 (1.0-4.8); Lymphocytes % (Auto) 29 % (10-50); Mean Corpuscular HGB Conc 33.4 g/dl (31.0-37.0); Mean Corpuscular Hemoglobin 29.9 pg (25.0-35.0); Mean Corpuscular Volume 90 fL (80-100); Monocytes # (Auto) 1.2 Thou/mm3 (0.0-0.8); Monocytes % (Auto) 10 % (0-12); Neutrophils % (Auto) 57 % (37-80); Nucleated Red Blood Cell % 0 /100 WBC (0); Platelet Count 353 Thou/mm3 (140-440); RDW Standard Deviation 41.5 fL (35.1-43.9); Red Blood Count 4.88 Miln/mm3 (4.50-5.90); White Blood Count 12.3 Thou/mm3 (3.8-10.6)
[2024-11-13] MEDS: GABAPENTIN 100 MG CAPSULE 600 MG PO ×3 (05:35→21:58)
[2024-11-13] MEDS: MORPHINE SULF 30 MG TABCR PO ×3 (05:35→21:58)
[2024-11-13 06:00] LABS: Alanine Aminotransferase 43 U/L (10-49); Albumin, Serum 4.6 gm/dL (3.4-4.8); Albumin/Globulin Ratio 1.2 (1.2-2.2); Alkaline Phosphatase 95 U/L (46-116); Anion Gap 5 (7-16); Aspartate Amino Transferase 73 U/L (0-34); BUN/Creatinine Ratio 16 Ratio (12-20); Bilirubin,Total 0.3 mg/dL (0.3-1.2); Blood Urea Nitrogen 13 mg/dL (9-23); Calcium 9.7 mg/dL (8.3-10.6); Calcium (Corrected) 9.7 mg/dL (8.5-10.1); Carbon Dioxide 30.5 mMol/L (20.0-31.0); Chloride 101 mMol/L (98-107); Creatinine (Component) 0.8 mg/dL (0.6-1.3); Estimated Creatinine Clearance 113.8 mL/min (>60); Globulin 3.7 gm/dL (2.3-3.5); Glucose 105 mg/dL (74-106); Magnesium 2.1 mg/dL (1.6-2.6); Osmolality,Calculated 272 (275-295); Potassium 4.5 mMol/L (3.4-5.1); Sodium 136 mMol/L (136-145); Total Protein 8.3 gm/dL (5.7-8.2); eGFR > 60 See Note
[2024-11-13 06:55] LABS: Glucose Estimated Average 140 mg/dL (80-131); Hemoglobin A1C 6.5 % Hgb (4.8-6.0)
[2024-11-13] MEDS: METOPROLOL SUCCINATE XL 25 MG TABCR PO (08:10)
[2024-11-13] MEDS: ENOXAPARIN SOD INJ 40 MG/0.4 ML SYRINGE SC (08:10)
--- NOTE | 2024-11-13 11:09 | ESPR_ITS ---
<Statement entered by Eddie Monroe MD - 11/13/24 18:15> I discussed with and supervised the international trade manager physician involved in the care of this patient. Patient assessment and plan was discussed with entire medicine team, including my attending. I agree with the assessment and plan as documented by international trade manager doctor. Patient care was discussed with my attending physician Dr. Christos Monroe, PGY-2 Documentation for date of: 11/13/24 Subjective Subjective Interval history: Patient seen and examined at bedside. Patient's labs and vitals reviewed. Patient's IV pain medication dosing was changed to every 6 hours yesterday, patient has improved pain control. Will hold IV Dilaudid will start on p.o. hydromorphone for breakthrough pain. Patient agreeable to plan. Will continue gabapentin to 600mg TID. Patient scheduled for Port-A-Cath placement in a.m., will keep n.p.o. after midnight, hold DVT prophylaxis dosed Lovenox in a.m. Will continue to manage patient's pain on p.o. medication. Exam Vital Signs Temp Pulse Resp BP Pulse Ox O2 Del Method O2 Flow Rate 97.0 F 85 16 134/80 H 95 Nasal Cannula 3 11/13/24 08:00 11/13/24 08:10 11/13/24 08:00 11/13/24 08:10 11/13/24 08:00 11/13/24 08:00 11/13/24 08:00 Narrative Exam Physical Exam General: Awake and in no acute distress. Conversational and non-toxic appearing. HEENT: Normocephalic, atraumatic, mucous membranes moist. Heart: Regular rate and rhythm, no murmurs. Lungs: Clear to auscultation with no wheezing or crackles. Abdomen: Soft, obese, nondistended, nontender, positive bowel sounds. ?No guarding or rebound tenderness. Neurologic: Alert and oriented x3, no gross neurological deficit, and patient able to move all 4 extremities. Extremities: No edema. Skin: No rash or ecchymoses. Objective Labs 11/14/24 05:17 11/14/24 05:17 Labs: Laboratory Results - last 24 hr 11/13/24 04:37 WBC 12.3 H RBC 4.88 Hgb 14.6 Hct 43.7 MCV 90 MCH 29.9 MCHC 33.4 RDW Std Deviation 41.5 Plt Count 353 Neut % (Auto) 57 Lymph % (Auto) 29 [place] % (Auto) 10 Eos % (Auto) 4 Baso % (Auto) 1 Neut # (Auto) 7.0 Lymph # (Auto) 3.6 [place] # (Auto) 1.2 H Eos # (Auto) 0.4 Baso # (Auto) 0.1 Immature Gran # (Auto) 0.02 H Absolute Nucleated RBC 0.00 Immature Gran % 0 Nucleated RBC % 0 Sodium 136 Potassium 4.5 Chloride 101 Carbon Dioxide 30.5 Anion Gap 5 L BUN 13 Creatinine 0.8 Estim Creat Clear Calc 113.8 eGFR > 60 BUN/Creatinine Ratio [address] Glu mg/dL 140 H Hemoglobin A1c 6.5 H Calculated Osmolality 272 L Calcium 9.7 Corrected Calcium 9.7 Magnesium 2.1 Total Bilirubin 0.3 AST 73 H ALT 43 Alkaline Phosphatase 95 Total Protein 8.3 H Albumin 4.6 Globulin 3.7 H Albumin/Globulin Ratio 1.2 Quality Measures Quality Measures none Advance care planning discussed with:: patient Assessment & Plan Assessment Current Active Medications: Generic Name Dose Route Start Last Admin Trade Name Freq PRN Reason Stop Dose Admin Atorvastatin Calcium 40 mg 11/12/24 21:00 11/12/24 20:06 Atorvastatin Calcium 20 Mg Tablet PO 12/12/24 20:59 40 mg HS AUSTEN Administration Dextrose 25 ml 11/12/24 10:12 Dextrose 50%-Water Inj 50 Ml Syringe IV 12/12/24 10:11 Q15MIN PRN BG 50-70 responsive npo pt Dextrose 50 ml 11/12/24 10:12 Dextrose 50%-Water Inj 50 Ml Syringe IV 12/12/24 10:11 Q15MIN PRN BG <50 OR BG <70 & pt unresponsive Enoxaparin Sodium 40 mg 11/11/24 09:00 11/13/24 08:10 Enoxaparin Sod Inj 40 Mg/0.4 Ml Syringe SC 11/25/24 08:59 40 mg QDAY AUSTEN Administration Gabapentin 600 mg 11/12/24 14:00 11/13/24 05:35 Gabapentin 100 Mg Capsule PO 12/12/24 13:59 600 mg TID AUSTEN Administration Glucagon 1 mg 11/12/24 10:12 Glucagon Inj 1 Mg Vial IM Q15MIN PRN BG <70, and no IV access Hydromorphone HCl 2 mg 11/12/24 20:28 11/13/24 08:09 Hydromorphone Inj 2 Mg/Ml Vial IVP 11/17/24 20:19 2 mg Q6HR PRN Administration PAIN SCALE 7-10 (Severe Hydromorphone HCl 2 mg 11/13/24 10:06 Hydromorphone Hcl 2 Mg Tablet PO 11/18/24 10:05 Q4HR PRN BREAKTHROUGH PAIN (SEVERE) Protocol Insulin Human Lispro 0 unit 11/12/24 11:30 11/13/24 07:34 Insulin Lispro (Admelog) 1 Unit/0.01 Ml Unit SC 12/12/24 11:29 Not Given AC AUSTEN Protocol Magnesium Hydroxide 30 ml 11/10/24 23:36 11/12/24 16:26 Milk Of Magnesia Susp 30 Ml Udc PO 12/10/24 23:35 30 ml QDAY PRN Administration CONSTIPATION Protocol Metoprolol Succinate 25 mg 11/12/24 09:00 11/13/24 08:10 Metoprolol Succinate Xl 25 Mg Tabcr PO 12/12/24 08:59 25 mg DAILY AUSTEN Administration Morphine Sulfate 30 mg 11/11/24 07:30 11/13/24 05:35 Morphine Sulf 30 Mg Tabcr PO 11/16/24 07:29 30 mg TID AUSTEN Administration Protocol Naloxone HCl 2 mg 11/12/24 20:22 Naloxone Inj 1 Mg/Ml Syringe 2 Ml IV 12/12/24 20:21 Q3M PRN OPIATE REVERSAL Nicotine 21 mg 11/10/24 23:45 11/12/24 20:07 Nicotine Patch 21 Mg/24 Hr Patch.Td24 TOP 12/10/24 23:44 21 mg QDAY@2100 AUSTEN Administration Sennosides 1 tab 11/10/24 23:36 Senna Tablet PO 12/10/24 23:35 BID PRN CONSTIPATION Protocol Plan Assessment and Plan: Summary: Patient is a 64 years old male with past medical history of pancreatic adenocarcinoma, hypertension, hyperlipidemia, Type 2 Diabetes Mellitus, GERD who presented to the ED with abdominal and back pain not controlled with Dilaudid 4 mg p.o. every 6 hours. Being admitted on observation for management of intractable pain. #Neoplasm related pain #Uncontrolled pain #Pancreatic adenocarcinoma Patient was recently diagnosed with pancreatic adenocarcinoma, planned for chemotherapy with oncology Has been having severe pain, uncontrolled with oral analgesics, patient on gabapentin 400 p.o. 3 times daily, hydromorphone 4 mg p.o. every 6 hours. Patient received ketamine in the ED with relief. Plan: -Will hold IV Dilaudid -Continue morphine p.o. 30 mg 3 times daily -Started on hydromorphone 2 mg p.o. every 4 hours as needed for breakthrough pain -Continue gabapentin to 600 mg 3 times daily -Consulted general surgery for Port-A-Cath placement -N.p.o. after midnight -Will hold DVT prophylactic dosed Lovenox for tomorrow. -Oncology consulted appreciate recommendations #Hypertension #Hyperlipidemia Patient on metoprolol succinate 25 mg p.o. daily, lisinopril 40 mg, hydralazine 50 twice daily and amlodipine 5 mg for hypertension management. Was on atenolol previously. -Continue metoprolol succinate 25 starting tomorrow -Continue atorvastatin 40 mg at bedtime -Will hold other blood pressure medication and will uptitrate as needed #Type 2 Diabetes Mellitus, [id number] Patient will metformin at home In-house blood glucose has been in the range of 110-200 Hemoglobin A1c 6.5 Plan: -Sliding scale insulin -Hypoglycemia protocol -Fingerstick blood glucose AC #Transaminitis Mild transaminitis noted, AST 64. Will continue to monitor LFTs #GERD Continue p.o. Protonix #Leukocytosis Possibly reactive, no obvious source of infection We will continue to monitor closely DVT prophylaxis: Lovenox GI prophylaxis: P.o. Protonix Diet: N.p.o. Lines: Peripheral IV Code status: Full code Case discussed with Attending Dr. Sher and Dr. Monroe PGY2. Vi Rosario PGY1 Disclaimer: This note was dictated by speech recognition. Minor errors in hasher operator may be present due to voice recognition software. Attending Provider Attestation/Addendum I reviewed labs, imaging, EKG, home medications and prior available records. Face to face evaluation was performed by me. I have personally examined the patient and discussed assessment and plan with the IM team. I reviewed the resident note and agree with the plan with exceptions as below. Pancreatic adenocarcinoma Intractable abdominal pain Type 2 diabetes mellitus Essential hypertension Hyperlipidemia Transitioned to oral Dilaudid for breakthrough pain Continue oral morphine 30 mg every 8 hours Increased gabapentin to 600 mg 3 times daily Oncology on board Management of nausea/vomiting as needed Consulted general surgery for port A cath
--- NOTE | 2024-11-13 12:06 | PD.SURCONS ---
HPI Consult details History of present illness: 64M with HTN, HLD, GERD, diagnosed with pancreatic cancer in the tail of the pancreas October 2024 who was admitted for pain control, needing port placement for initiation of chemotherapy. Patient reports feeling well overall today with some improvement in his pain, and denies any history of any central vein catheters PMH: HTN, HLD, GERD, pancreatic cancer PSH: Ramakrishna fundoplication Meds: No antiplatelet or anticoagulation Allergies: NKDA Review of Systems Review of Systems ROS Unobtainable: All systems reviewed & no additional complaints except as documented Meds Home Medications and Allergies Home Medications ?Medication ?Instructions ?Recorded ?Confirmed ?Type acetaminophen 500 mg capsule 1,000 mg PO Q4H pain 10/25/24 11/11/24 History (Mapap (acetaminophen)) amlodipine 5 mg tablet 5 mg PO QDAY 10/25/24 11/11/24 History gabapentin 400 mg capsule 400 mg PO TID 10/25/24 11/11/24 History hydralazine 25 mg tablet 50 mg PO BID 10/25/24 11/11/24 History metformin 500 mg tablet 500 mg PO BID 10/25/24 11/11/24 History hydromorphone 4 mg tablet 4 mg PO Q6H PRN pain 11/11/24 11/11/24 History lisinopril 20 mg tablet 40 mg PO QDAY 11/11/24 11/11/24 History metoprolol succinate 25 mg 25 mg PO DAILY 11/11/24 11/11/24 History tablet,extended release 24 hr Allergies Allergy/AdvReac Type Severity Reaction Status Date / Time No Known Allergies Allergy Verified 10/21/24 14:52 Exam Vital Signs Temp Pulse Resp BP Pulse Ox O2 Del Method O2 Flow Rate 97.0 F 85 16 134/80 H 95 Nasal Cannula 3 11/13/24 08:00 11/13/24 08:10 11/13/24 08:00 11/13/24 08:10 11/13/24 08:00 11/13/24 08:00 11/13/24 08:00 Constitutional Constitutional: no acute distress Routine Respiratory Exam Respiratory: Present no resp distress (On nasal cannula) Results Results: Laboratory Laboratory results: results reviewed Results: Imaging Chest x-ray: report reviewed and image reviewed CT scan - abdomen: report reviewed and image reviewed Assessment & Plan Plan 64M with HTN, HLD, GERD and pancreatic cancer in the tail of the pancreas needing Chemo-Port insertion. I explained benefits/risks of the procedure including bleeding, infection, and pneumothorax. Patient expressed understanding and agrees to proceed N.p.o. after midnight for Chemo-Port insertion tomorrow
[2024-11-13] MEDS: HYDROMORPHONE HCL 2 MG TABLET PO ×2 (12:17→20:09)
[2024-11-13] MEDS: Milk Of Magnesia Susp 30 ML UDC PO (13:18)
[2024-11-13] MEDS: MG HYD/AL HYD/SIME (Maalox Reg) SUSP 30 ML UDC PO (15:35)
[2024-11-13] MEDS: KETOROLAC INJ 30 MG/ML VIAL 15 MG IVP (15:35)
[2024-11-13] MEDS: INSULIN LISPRO (AdmeLOG) 1 UNIT/0.01 ML UNIT SC (17:53)
[2024-11-13] MEDS: ATORVASTATIN CALCIUM 20 MG TABLET 40 MG PO (20:09)
[2024-11-13] MEDS: NICOTINE PATCH 21 MG/24 HR PATCH.TD24 TOP (20:10)
[2024-11-14] VITALS (12 sets, daily range): BP systolic 121–167; BP diastolic 76–101; PULSE 78–100; RESP 13–20; TEMP 35.9–36.6; O2SAT 95–98; BMI 33.9
[2024-11-14] MEDS: HYDROMORPHONE HCL 2 MG TABLET PO ×3 (00:51→11:32)
[2024-11-14 05:52] LABS: Basophils # (Auto) 0.1 Thou/mm3 (0.0-0.2); Basophils % (Auto) 1 % (0-2.5); Eosinophils # (Auto) 0.5 Thou/mm3 (0.0-0.5); Eosinophils % (Auto) 4 % (0-10); Hemoglobin 14.6 g/dL (13.5-16.0); Immature Granulocytes % (Auto) 0 % (0-0); Immature Granulocytes Auto 0.03 Thou/mm3 (0.00-0.00); Lymphocytes # (Auto) 3.2 Thou/mm3 (1.0-4.8); Lymphocytes % (Auto) 28 % (10-50); Mean Corpuscular HGB Conc 33.2 g/dl (31.0-37.0); Mean Corpuscular Hemoglobin 30.4 pg (25.0-35.0); Mean Corpuscular Volume 92 fL (80-100); Monocytes # (Auto) 0.9 Thou/mm3 (0.0-0.8); Monocytes % (Auto) 8 % (0-12); Neutrophils # (Auto) 6.8 Thou/mm3 (1.8-7.7); Neutrophils % (Auto) 59 % (37-80); Nucleated Red Blood Cell % 0 /100 WBC (0); Platelet Count 330 Thou/mm3 (140-440); RDW Standard Deviation 41.5 fL (35.1-43.9); Red Blood Count 4.81 Miln/mm3 (4.50-5.90); White Blood Count 11.4 Thou/mm3 (3.8-10.6)
[2024-11-14 06:11] LABS: Alanine Aminotransferase 43 U/L (10-49); Albumin, Serum 4.6 gm/dL (3.4-4.8); Albumin/Globulin Ratio 1.2 (1.2-2.2); Alkaline Phosphatase 94 U/L (46-116); Anion Gap 5 (7-16); Aspartate Amino Transferase 53 U/L (0-34); BUN/Creatinine Ratio 20 Ratio (12-20); Bilirubin,Total 0.4 mg/dL (0.3-1.2); Blood Urea Nitrogen 16 mg/dL (9-23); Calcium 9.9 mg/dL (8.3-10.6); Calcium (Corrected) 9.9 mg/dL (8.5-10.1); Carbon Dioxide 29.9 mMol/L (20.0-31.0); Chloride 103 mMol/L (98-107); Creatinine (Component) 0.8 mg/dL (0.6-1.3); Estimated Creatinine Clearance 113.8 mL/min (>60); Globulin 3.8 gm/dL (2.3-3.5); Glucose 119 mg/dL (74-106); Magnesium 2.4 mg/dL (1.6-2.6); Osmolality,Calculated 277 (275-295); Potassium 4.5 mMol/L (3.4-5.1); Sodium 138 mMol/L (136-145); Total Protein 8.4 gm/dL (5.7-8.2); eGFR > 60 See Note
[2024-11-14] MEDS: GABAPENTIN 100 MG CAPSULE 600 MG PO ×2 (06:14→15:18)
[2024-11-14] MEDS: MORPHINE SULF 30 MG TABCR PO ×2 (06:14→15:18)
--- NOTE | 2024-11-14 09:31 | PC.SS ---
Follow up note: Possible d/c today if ok by Dr. Montano. Pt is on 2 liters O2. SS met with pt who states he does not need O2 at home and is able to work. SS spoke to bedside nurse, Dustin who is are to assess pt for home O2. Pt will require O2 testing to order home O2.
--- NOTE | 2024-11-14 10:10 | CHAP ---
Patient was visited by the Spiritual Care Volunteer who prayed for them. (Volunteer was in the hospital from 09:00-10:10).
--- NOTE | 2024-11-14 10:47 | PD.RESPRO ---
Documentation for date of: 11/14/24 Subjective Subjective Interval history: Patient seen and examined at bedside. Patient is scheduled for Port-A-Cath placement today, currently n.p.o. Patient's pain is well-managed on morphine p.o. and hydromorphone p.o. as needed. Oncology following regarding pain management Will continue to monitor patient. Exam Vital Signs Temp Pulse Resp BP Pulse Ox O2 Del Method O2 Flow Rate 97.6 F 100 15 126/84 96 Room Air 2 11/14/24 14:34 11/14/24 14:49 11/14/24 14:49 11/14/24 14:49 11/14/24 14:49 11/14/24 12:00 11/14/24 14:49 Narrative Exam Physical Exam General: Awake and in no acute distress. Conversational and non-toxic appearing. HEENT: Normocephalic, atraumatic, mucous membranes moist. Heart: Regular rate and rhythm, no murmurs. Lungs: Clear to auscultation with no wheezing or crackles. Abdomen: Soft, obese, nondistended, nontender, positive bowel sounds. ?No guarding or rebound tenderness. Neurologic: Alert and oriented x3, no gross neurological deficit, and patient able to move all 4 extremities. Extremities: No edema. Skin: No rash or ecchymoses. Objective Labs 11/14/24 05:17 11/14/24 05:17 Labs: Laboratory Results - last 24 hr 11/14/24 05:17 WBC 11.4 H RBC 4.81 Hgb 14.6 Hct 44.0 MCV 92 MCH 30.4 MCHC 33.2 RDW Std Deviation 41.5 Plt Count 330 Neut % (Auto) 59 Lymph % (Auto) 28 [place] % (Auto) 8 Eos % (Auto) 4 Baso % (Auto) 1 Neut # (Auto) 6.8 Lymph # (Auto) 3.2 [place] # (Auto) 0.9 H Eos # (Auto) 0.5 Baso # (Auto) 0.1 Immature Gran # (Auto) 0.03 H Absolute Nucleated RBC 0.00 Immature Gran % 0 Nucleated RBC % 0 Sodium 138 Potassium 4.5 Chloride 103 Carbon Dioxide 29.9 Anion Gap 5 L BUN 16 Creatinine 0.8 Estim Creat Clear Calc 113.8 eGFR > 60 BUN/Creatinine Ratio 20 Glucose 119 H Calculated Osmolality 277 Calcium 9.9 Corrected Calcium 9.9 Magnesium 2.4 Total Bilirubin 0.4 AST 53 H ALT 43 Alkaline Phosphatase 94 Total Protein 8.4 H Albumin 4.6 Globulin 3.8 H Albumin/Globulin Ratio 1.2 Quality Measures Quality Measures none Advance care planning discussed with:: patient Assessment & Plan Assessment Current Active Medications: Generic Name Dose Route Start Last Admin Trade Name Freq PRN Reason Stop Dose Admin Atorvastatin Calcium 40 mg 11/12/24 21:00 11/13/24 20:09 Atorvastatin Calcium 20 Mg Tablet PO 12/12/24 20:59 40 mg HS AUSTEN Administration Dextrose 25 ml 11/12/24 10:12 Dextrose 50%-Water Inj 50 Ml Syringe IV 12/12/24 10:11 Q15MIN PRN BG 50-70 responsive npo pt Dextrose 50 ml 11/12/24 10:12 Dextrose 50%-Water Inj 50 Ml Syringe IV 12/12/24 10:11 Q15MIN PRN BG <50 OR BG <70 & pt unresponsive Enoxaparin Sodium 40 mg 11/11/24 09:00 11/13/24 08:10 Enoxaparin Sod Inj 40 Mg/0.4 Ml Syringe SC 11/25/24 08:59 40 mg QDAY AUSTEN Administration Gabapentin 600 mg 11/12/24 14:00 11/14/24 15:18 Gabapentin 100 Mg Capsule PO 12/12/24 13:59 600 mg TID AUTSEN Administration Glucagon 1 mg 11/12/24 10:12 Glucagon Inj 1 Mg Vial IM Q15MIN PRN BG <70, and no IV access Hydromorphone HCl 2 mg 11/13/24 10:06 11/14/24 11:32 Hydromorphone Hcl 2 Mg Tablet PO 11/18/24 10:05 2 mg Q4HR PRN Administration BREAKTHROUGH PAIN (SEVERE) Protocol Insulin Human Lispro 0 unit 11/12/24 11:30 11/14/24 15:41 Insulin Lispro (Admelog) 1 Unit/0.01 Ml Unit SC 12/12/24 11:29 Not Given AC AUSTEN Protocol Magnesium Hydroxide 30 ml 11/10/24 23:36 11/13/24 13:18 Milk Of Magnesia Susp 30 Ml Udc PO 12/10/24 23:35 30 ml QDAY PRN Administration CONSTIPATION Protocol Metoprolol Succinate 25 mg 11/12/24 09:00 11/14/24 08:32 Metoprolol Succinate Xl 25 Mg Tabcr PO 12/12/24 08:59 Not Given DAILY AUSTEN Morphine Sulfate 30 mg 11/11/24 07:30 11/14/24 15:18 Morphine Sulf 30 Mg Tabcr PO 11/16/24 07:29 30 mg TID AUSTEN Administration Protocol Naloxone HCl 2 mg 11/12/24 20:22 Naloxone Inj 1 Mg/Ml Syringe 2 Ml IV 12/12/24 20:21 Q3M PRN OPIATE REVERSAL Nicotine 21 mg 11/10/24 23:45 11/13/24 20:10 Nicotine Patch 21 Mg/24 Hr Patch.Td24 TOP 12/10/24 23:44 21 mg QDAY@2100 AUSTEN Administration Pantoprazole Sodium 40 mg 11/14/24 15:15 11/14/24 15:26 Pantoprazole 40 Mg Tablet PO 12/14/24 15:14 40 mg QDAY AUSTEN Administration Sennosides 1 tab 11/10/24 23:36 Senna Tablet PO 12/10/24 23:35 BID PRN CONSTIPATION Protocol Plan Assessment and Plan: Summary: Patient is a 64 years old male with past medical history of pancreatic adenocarcinoma, hypertension, hyperlipidemia, Type 2 Diabetes Mellitus, GERD who presented to the ED with abdominal and back pain not controlled with Dilaudid 4 mg p.o. every 6 hours. Being admitted on observation for management of intractable pain. #Neoplasm related pain #Uncontrolled pain #Pancreatic adenocarcinoma Patient was recently diagnosed with pancreatic adenocarcinoma, planned for chemotherapy with oncology Has been having severe pain, uncontrolled with oral analgesics, patient on gabapentin 400 p.o. 3 times daily, hydromorphone 4 mg p.o. every 6 hours. Patient received ketamine in the ED with relief. Plan: -Will hold IV Dilaudid -Continue morphine p.o. 30 mg 3 times daily -Started on hydromorphone 2 mg p.o. every 4 hours as needed for breakthrough pain -Continue gabapentin to 600 mg 3 times daily -Consulted general surgery for Port-A-Cath placement, scheduled for today -N.p.o. -Will hold DVT prophylaxis for today -Oncology consulted appreciate recommendations #Hypertension #Hyperlipidemia Patient on metoprolol succinate 25 mg p.o. daily, lisinopril 40 mg, hydralazine 50 twice daily and amlodipine 5 mg for hypertension management. Was on atenolol previously. -Continue metoprolol succinate 25 milligram -Continue atorvastatin 40 mg at bedtime -Will hold other blood pressure medication and will uptitrate as needed #Type 2 Diabetes Mellitus, [id number] Patient will metformin at home In-house blood glucose has been in the range of 110-200 Hemoglobin A1c 6.5 Plan: -Sliding scale insulin -Hypoglycemia protocol -Fingerstick blood glucose AC #Transaminitis Mild transaminitis noted, AST 64. Will continue to monitor LFTs #GERD Continue p.o. Protonix #Leukocytosis Possibly reactive, no obvious source of infection We will continue to monitor closely DVT prophylaxis: Lovenox GI prophylaxis: P.o. Protonix Diet: N.p.o. Lines: Peripheral IV Code status: Full code Case discussed with Attending Dr. Sher and Dr. Monroe PGY2. Vi Rosario PGY1 Disclaimer: This note was dictated by speech recognition. Minor errors in account support associate may be present due to voice recognition software. Attending Provider Attestation/Addendum I reviewed labs, imaging, EKG, home medications and prior available records. Face to face evaluation was performed by me. I have personally examined the patient and discussed assessment and plan with the IM team. I reviewed the resident note and agree with the plan with exceptions as below. Pancreatic adenocarcinoma Intractable abdominal pain Type 2 diabetes mellitus Essential hypertension Hyperlipidemia CURES reviewed Given that the patient has multiple recent opiate prescriptions, pharmacy rejected a new Dilaudid prescription Discussed with oncology: Continue oral morphine 30 mg every 8 hours Continue gabapentin to 600 mg 3 times daily Follow-up with oncology on Thursday at 8 AM Management of nausea/vomiting as needed Status post port A catheter insertion by general surgery Time spent is 40 minutes. More than 50% of the time was spent on patient education and coordination of care.
--- NOTE | 2024-11-14 11:56 | PD.ONCPROG ---
Documentation for date of: 11/14/24 Exam Vital Signs Temp Pulse Resp BP Pulse Ox O2 Del Method O2 Flow Rate 97.0 F 85 18 121/96 H 95 Room Air 3 11/14/24 08:00 11/14/24 08:32 11/14/24 08:00 11/14/24 08:32 11/14/24 08:00 11/14/24 08:00 11/14/24 04:00 Narrative Exam Patient's pain has improved taking 30 mg MS ER 3 times daily along with taking Dilaudid 2 mg for breakthrough as needed. Awaiting Port-A-Cath placement. Objective Labs 11/14/24 05:17 11/14/24 05:17 Labs: Laboratory Results - last 24 hr 11/14/24 05:17 WBC 11.4 H RBC 4.81 Hgb 14.6 Hct 44.0 MCV 92 MCH 30.4 MCHC 33.2 RDW Std Deviation 41.5 Plt Count 330 Neut % (Auto) 59 Lymph % (Auto) 28 [place] % (Auto) 8 Eos % (Auto) 4 Baso % (Auto) 1 Neut # (Auto) 6.8 Lymph # (Auto) 3.2 [place] # (Auto) 0.9 H Eos # (Auto) 0.5 Baso # (Auto) 0.1 Immature Gran # (Auto) 0.03 H Absolute Nucleated RBC 0.00 Immature Gran % 0 Nucleated RBC % 0 Sodium 138 Potassium 4.5 Chloride 103 Carbon Dioxide 29.9 Anion Gap 5 L BUN 16 Creatinine 0.8 Estim Creat Clear Calc 113.8 eGFR > 60 BUN/Creatinine Ratio 20 Glucose 119 H Calculated Osmolality 277 Calcium 9.9 Corrected Calcium 9.9 Magnesium 2.4 Total Bilirubin 0.4 AST 53 H ALT 43 Alkaline Phosphatase 94 Total Protein 8.4 H Albumin 4.6 Globulin 3.8 H Albumin/Globulin Ratio 1.2 Assessment & Plan A&P Narrative 1. Unresectable large pancreatic tail mass adenocarcinoma. Seen at [facility] awaiting port placement and chemotherapy. 2. Pain control improved with taking 30 mg of MS ER 3 times daily along with Dilaudid 2 mg for breakthrough as needed. 3. I will prescribe this to his outpatient pharmacy [facility]. Told him that I will only prescribe MS ER 30 mg 3 times daily for the time being, and in a pain crisis he could take an extra one as needed. 4. Gave him a follow-up to see me in the next 1 to 2 weeks. He will call CTC. Time Spent With Patient Time: Total time spent is greater than 50% in coordination of care (as documented) at patient's floor/unit and/or counseling patient:
--- NOTE | 2024-11-14 12:41 | PC.CC ---
Addendum entered and electronically signed by Jada Nunes RPh 11/14/24 13:20: PA approved 10/31/24 indefinitely. Original Note: Per Dr. Montano's notes, patient to d/c on MSER 30mg TID. Submitted PA via covermymeds - pending.
--- NOTE | 2024-11-14 13:00 | XR_ITS ---
Examination: AP chest single view TECHNIQUE: AP supine portable chest single view Exam date and time: November 14, 2024 1349 hours INDICATIONS: Port-A-Cath insertion today. FINDINGS: Right internal jugular Port-A-Cath tip right atrium No pneumothorax Mild enlargement cardiac contour with vascular congestion IMPRESSION: Right internal jugular Port-A-Cath tip satisfactory position
--- NOTE | 2024-11-14 14:03 | ESOP_ITS ---
Date of Procedure 11/14/24 Pre Op Diagnosis Pancreatic cancer Post Op Diagnosis Same Procedure Insertion of chemoport Findings Chemoport inserted into right internal jugular vein via ultrasound guidance Procedure Description After discussion of risks and benefits, pt was brought to OR, SCDs were placed and general anesthesia with LMA was induced. He received preoperative antibiotics and was prepped and draped in the usual sterile fashion. After timeout the right internal jugular vein was identified under ultrasound guidance and cannulated with a needle. There was appropriate blood return and the wire was advanced through the needle into the SVC which was confirmed on xray. Then a pocket was made approx 2cm inferior to the right clavicle with a #15 blade. The skin was infiltrated with 0.5% marcaine for a total of 6cc including the skin under which the catheter would be tunneled. The pocket was dissected bluntly and with electrocautery until it was large enough to accommodate the port. A dermatotomy was made at the neck where the needle was initially inserted and the catheter was tunneled from the chest pocket through this dermatotomy. The dilator with sheath was advanced over the wire, taking care to maintain control of the wire and the wire and dilator were then removed. The catheter was placed into the sheath and the sheath was removed. Proper positioning of the catheter was confirmed on xray. The distal end of the catheter was then attached to the port and the port was aspirated with appropriate blood return and flushed well. A final xray was obtained. The port was then sutured in with two 2-0 prolene interrupted sutures and the pocket was irrigated. The pocket was closed in two laters, with 2-0 vicryl interrupted sutures followed by 4-0 monocryl running subcuticular. The neck dermatotomy site was closed with an interrupted 4-0 monocryl. The incisions were covered with dermabond. Pt was extubated and shakeel t to PACU in stable condition Pathology / specimen None Estimated Blood Loss 10 Surgeon Sherri Funez MD Surgical Staff Operation Date: 11/14/24 12:30 Case Staff Anesthesiologist: Honorio Everett
--- NOTE | 2024-11-14 14:04 | SUR.PHASEI ---
[id number] Patient arrived to recovery resting comfortably in [facility], on oxygen 10L via oxy mask with an oral airway in place, vital signs stable, dressing intact to right upper chest; dermabond, no bleeding noted, bilateral radial pulses present when palpated, report received from Dr. Everett and Hemant RUIZ
--- NOTE | 2024-11-14 14:59 | PC.SS ---
SS spoke to Lynda at [facility] and schedule pt an appointment with Dr. Montano for November 16, 2024 at 8am. Pt will require to case picker letter for his pharmacy at the [facility]
--- NOTE | 2024-11-14 15:00 | SUR.PHASEI ---
1456 Report given to Dustin RUIZ, patient meets discharge criteria from recovery, awake and alert, on oxygen 2L via nasal cannula- which is baseline for patient, vital signs stable, denies pain, dressing intact; no bleeding noted, patient drinking water; denies nausea 1500 Patient transported via gurney to room 273 without incident
[2024-11-14] MEDS: KETOROLAC INJ 30 MG/ML VIAL 15 MG IVP (15:16)
[2024-11-14] MEDS: PANTOPRAZOLE 40 MG TABLET PO (15:26)
--- NOTE | 2024-11-14 16:08 | PD.RESDS ---
Planned Discharge Date 11/14/24 DS: Providers Provider Date of admission: 11/11/24 12:02 Primary care physician: Mirian Husesin MD Admitting Provider: Farhat Hurley MD Attending Provider on Admission: Erik Sher MD Consults: 11/10/24 23:39 Consult to Oncology Routine Comment: Pancreatic cancer Consulting Provider: Delano Montano 11/11/24 02:55 Referral Registered Dietitian Routine Comment: 11/12/24 10:02 Consult to General Surgery Routine Comment: Port-a-cath placement Consulting Provider: Sherri Funez Attending Provider on DC: Erik Sher MD Discharging Provider: Erik Sher MD Anticipated date of discharge: 11/14/24 DS: Diagnosis Problem List Completed Was Problem List Reviewed/Reconciled?: Yes Hospital Course Hospital Course Hospital course: Hospital course: Mr. Jean is a 64-year-old male with history of unresectable large pancreatic tail adenocarcinoma hypertension, hyperlipidemia, type 2 diabetes mellitus, GERD who presented to [facility] emergency department with a chief complaint of uncontrolled pain. Patient does have underlying pancreatic adenocarcinoma, was recently prescribed hydromorphone p.o. outpatient and his pain was still not well-managed and uncontrolled hence he presented to the emergency department. Patient was initially started on IV Dilaudid, was later started on p.o. morphine and patient's home dose of gabapentin was titrated to 600 mg 3 times daily. Oncology was consulted commended Port-A-Cath insertion and general surgery was consulted and patient had Port-A-Cath placed on 11/14/2024. Patient had a complicated hospital course requiring breakthrough IV Dilaudid despite being on p.o. morphine, was eventually started on p.o. hydromorphone for breakthrough pain and pain was well-managed. Case was discussed with oncologist considering patient's severe pain, decision was made to discharge patient on p.o. morphine and use additional p.o. morphine as needed. Patient to maintain close outpatient follow-up with oncology, patient scheduled for an appointment on November 16 at 8 AM. Patient was started on atorvastatin 40 mg at bedtime due to hyperlipidemia, patient to continue all home medications, requested to hold the hydralazine and lisinopril until he follows up with primary care physician in 1 week. Patient responded well to hospital treatment and patient is stable for discharge. Discharge diagnoses: #Neoplasm related pain #Uncontrolled pain #Unresectable pancreatic tail adenocarcinoma #Hypertension #Hyperlipidemia #Type 2 Diabetes Mellitus, [id number] #Transaminitis #GERD #Leukocytosis Case discussed with Attending Dr. Sher and Dr. Monroe PGY2. Vi Rosario PGY1 Disclaimer: This note was dictated by speech recognition. Minor errors in transcription specialist may be present due to voice recognition software. Status at Discharge Functional status at discharge: independent ambulation Overall status at discharge: patient is progressing back to baseline Time Spent with Patient Time attestation: Total time spent providing and/or coordinating discharge services: Greater than 35 minutes Time spent: Greater than 30 minutes Exam Vital Signs Temp Pulse Resp BP Pulse Ox O2 Del Method O2 Flow Rate 97.6 F 100 15 126/84 96 Room Air 2 11/14/24 14:34 11/14/24 14:49 11/14/24 14:49 11/14/24 14:49 11/14/24 14:49 11/14/24 12:00 11/14/24 14:49 Narrative Exam Physical Exam General: Awake and in no acute distress. Conversational and non-toxic appearing. HEENT: Normocephalic, atraumatic, mucous membranes moist. Heart: Regular rate and rhythm, no murmurs. Lungs: Clear to auscultation with no wheezing or crackles. Abdomen: Soft, obese, nondistended, nontender, positive bowel sounds. ?No guarding or rebound tenderness. Neurologic: Alert and oriented x3, no gross neurological deficit, and patient able to move all 4 extremities. Extremities: No edema. Skin: No rash or ecchymoses. Discharge Plan Plan Patient Disposition: HOME (Self Care) Patient condition on transfer: Stable Care Plan Goals: Continue morphine 30 mg gram p.o. 3 times daily scheduled and use additional doses as needed for breakthrough pain. Follow-up with Dr. Delano Montano outpatient to establish plan for further management.Follow-up with cancer treatment center outpatient. Appointment is November 16, 2024 at 8am at [facility] [address] [place] [address] Kendal Neil Phone number [phone] Continue metoprolol succinate 25 mg p.o. daily and amlodipine 5 mg for blood pressure management. Hold other antihypertensives until you follow-up with primary care physician in 1 week. Continue atorvastatin 40 mg at bedtime. Continue other home medications. Follow-up with primary care physician in 1 week. Return to emergency department if symptoms worsen. Prescriptions/Referrals Prescriptions/Med Rec: New morphine 30 mg Tablet Extended Release 30 mg PO TID Qty: 0 0RF atorvastatin 40 mg tablet 40 mg PO QDAY Qty: 30 0RF gabapentin 600 mg tablet 600 mg PO TID 30 Days Qty: 90 0RF Continued metoprolol succinate 25 mg tablet extended release 24 hr 25 mg PO DAILY Patient Comments: TAKE 1 TABLET BY MOUTH EVERY DAY acetaminophen [Mapap (acetaminophen)] 500 mg capsule 1,000 mg PO Q4H amlodipine 5 mg tablet 5 mg PO QDAY metformin 500 mg tablet 500 mg PO BID Patient Comments: TAKE 1 TABLET BY MOUTH TWICE A DAY WITH BREAKFAST AND DINNER Held lisinopril 20 mg tablet 40 mg PO QDAY Hold Instructions: Resume on 11/28/24. hydralazine 25 mg tablet 50 mg PO BID Hold Instructions: Resume on 11/28/24. Discontinued hydromorphone 4 mg tablet 4 mg PO Q6H PRN (Reason: pain) Patient Comments: TAKE 1 TABLET BY MOUTH EVERY 6 HOURS NEEDED gabapentin 400 mg capsule 400 mg PO TID Patient Comments: TAKE 1 CAPSULE BY MOUTH 3 TIMES A DAY Referrals: Mirian Hussein MD [Primary Care Provider] - Delano Montano MD [Physician] - Sherri Funez MD [Physician] - Patient/Caregiver Discharge Instructions Discharge Activity: activity as tolerated Other Discharge Activity Instructions:: Continue morphine 30 mg gram p.o. 3 times daily scheduled and use additional doses as needed for breakthrough pain. Follow-up with Dr. Delano Montano outpatient to establish plan for further management.Follow-up with cancer treatment center outpatient. Appointment is November 16, 2024 at 8am at [facility] [address] [place] [address] [facility] Phone [facility] [phone] Continue metoprolol succinate 25 mg p.o. daily and amlodipine 5 mg for blood pressure management. Hold other antihypertensives until you follow-up with primary care physician in 1 week. Continue atorvastatin 40 mg at bedtime. Continue other home medications. Follow-up with primary care physician in 1 week. Return to emergency department if symptoms worsen. Other Discharge Diet Instructions: Cardiac Diet Education Materials: Abdominal Pain, Communicating About Pain Print Language: Latvian Stand Alone Forms: Heather Award Info., Patient Portal Info Letter Discharge Order Discharge Orders: Discharge (Routine); Ordered 11/14/24 Ordered By: Vi Rosario Quality Discharge Quality Measures VTE prophylaxis MD Attestestation MD Attestation I reviewed labs, imaging, EKG, home medications and prior available records. Face to face evaluation was performed by me. I have personally examined the patient and discussed assessment and plan with the IM team. I reviewed the resident note and agree with the plan with exceptions as below. Pancreatic adenocarcinoma Intractable abdominal pain Type 2 diabetes mellitus Essential hypertension Hyperlipidemia CURES reviewed Given that the patient has multiple recent opiate prescriptions, pharmacy rejected a new Dilaudid prescription Discussed with oncology: Continue oral morphine 30 mg every 8 hours Continue gabapentin to 600 mg 3 times daily Follow-up with oncology on Thursday at 8 AM Management of nausea/vomiting as needed Status post port A catheter insertion by general surgery Time spent is 40 minutes. More than 50% of the time was spent on patient education and coordination of care.
== END 2024-11-14 16:20 | disposition home or self-care (01) | DRG 948 ==
LOC: SERX 23:04 → SERHOLD 11-11 00:26 → S2NX 11-11 07:44
PROVIDERS: Student in an Organized Health Care Education/Training Program; Surgery; Admitting Provider Internal Medicine; Emergency Provider Emergency Medicine; PCP Internal Medicine; Visit Provider Student in an Organized Health Care Education/Training Program
PROC: 0JH63WZ Insertion of Totally Implantable Vascular Access Device into Chest Subcutaneous Tissue and Fascia, Percutaneous Approach (ICD-10-PCS; principal; 2024-11-14 12:15)
DX: G89.3 Neoplasm related pain (acute) (chronic) (principal); C25.2 Malignant neoplasm of tail of pancreas; I10 Essential (primary) hypertension; E78.5 Hyperlipidemia, unspecified; K21.9 Gastro-esophageal reflux disease without esophagitis; M54.9 Dorsalgia, unspecified; D72.829 Elevated white blood cell count, unspecified; E11.9 Type 2 diabetes mellitus without complications
CPT/HCPCS: 36415; 71045; 71046; 80053; 80061; 83036; 83690; 83735; 84100; 85025; 85610; 85730; 96361; 96374; 96375; 99285; A4217; A4649; C1788; G0378; J1644; J1650; J1815; J1885; J3490; J7030; J7050; A9270

== ENCOUNTER 2024-11-26 19:31 | Emergency (ER) | payer OTHER, MEDICAID, SELFPAY ==
[2024-11-26 19:33] VITALS: BMI 33.7
[2024-11-26 20:00] VITALS: BP 152/78; PULSE 96; RESP 22; TEMP 36.6; O2SAT 95
--- NOTE | 2024-11-26 20:26 | PD.EDABDPN ---
ED Abdominal Pain RME/HPI General Chief Complaint: Abdominal Pain Stated complaint: ABD PAIN, HX OF PANCREATIC CANCER Time seen by provider: 11/26/24 19:47 Arrival date/time: 11/26/24 19:31 RME / HPI RME / HPI narrative: This section includes all my notes and documentations, including HPI, PE, and ED course. Adi Montano MD HPI: 64 y/o male with Hx of Hypercholesterolemia, Hypertension, Asthma, Gastroesophageal Reflux Disease and Obesity, Arthritis, Pancreatic Cancer and smoking presents to ED c/o with severe abdominal and back pain. Usual pain from his pancreatic cancer. No vomiting. No fever. No other complaints. ROS: All negative except as documented in HPI. Physical Exam: General: Alert and oriented. No acute distress when remaining still. Eyes: Conjunctivae and lids clear. ENT: No nasal congestion. Neck: Supple. Heart: RRR. Lungs: No respiratory distress. Good air movement. No rhonchi, wheezing, rales. Abdomen: Soft with diffuse tenderness, difficult to localize. Normal bowel sounds. No distension. No rebound or guarding. Back: No CVA tenderness. Skin: Warm and dry. Neuro: Alert and oriented X 3. At this point, diagnoses include chronic pain from pancreas cancer. Treatment here included Dilaudid 2 mg IV. Significant improvement noted. Patient declined diagnostic tests and requested discharge. Based on my best medical judgment, made decision no further evaluation or treatment indicated at this time. Patient understands and agrees to the discharge instructions customized and printed, see below. Discharge Instructions from Dr. Montano printed for you: 1. We are extremely sorry about your condition. 2. Dilaudid for severe pain. 3. See your doctor on 11/28/2024 for recheck. Ask for referral to see pain specialist. 4. Seek immediate medical care with worsening or with any concerns. Adi Montano MD Related Data Home Medications ?Medication ?Instructions ?Recorded ?Confirmed acetaminophen 500 mg capsule 1,000 mg PO Q4H pain 10/25/24 11/11/24 (Mapap (acetaminophen)) amlodipine 5 mg tablet 5 mg PO QDAY 10/25/24 11/11/24 hydralazine 25 mg tablet 50 mg PO BID 10/25/24 11/11/24 Held on 11/14/24. Instructions: Resume on 11/28/24. metformin 500 mg tablet 500 mg PO BID 10/25/24 11/11/24 lisinopril 20 mg tablet 40 mg PO QDAY 11/11/24 11/11/24 Held on 11/14/24. Instructions: Resume on 11/28/24. metoprolol succinate 25 mg 25 mg PO DAILY 11/11/24 11/11/24 tablet,extended release 24 hr Previous Rx's ?Medication ?Instructions ?Recorded atorvastatin 40 mg tablet 40 mg PO QDAY #30 tabs 11/14/24 gabapentin 600 mg tablet 600 mg PO TID 30 days #90 tabs 11/14/24 morphine 30 mg tablet,extended 30 mg PO TID #0 tabs 11/14/24 release hydromorphone 2 mg tablet 2 mg PO .q8 PRN pain #20 tabs 11/26/24 (Dilaudid) Allergies Allergy/AdvReac Type Severity Reaction Status Date / Time No Known Allergies Allergy Verified 11/26/24 19:35 Past Medical History Past Medical History CARDIAC: Positive Cardiac Disorders, Hypercholesterolemia and Hypertension RESPIRATORY: Positive Asthma GASTROINTESTINAL: Positive Gastrointestinal Disorders, Gastroesophageal Reflux Disease and Obesity MUSCULOSKELETAL: Positive Musculoskeletal Disorders and Arthritis ENDOCRINE: Positive Endocrine Disorders OTHER HISTORY: Positive Hospitalization and Cancer (pancreatic cancer) Family History FAMILY HISTORY: Positive Family Psychiatric Problems and Family Cardiac Disorders Surgical History SURGICAL: Positive Abdominal Surgery Social History SMOKING STATUS: Current some day smoker ED Exam Narrative Physical exam: refer to HPI above. Course Quality Measures none Orders Category Date Time Status May Access Port-A-Cath NOW Care 11/26/24 21:15 Ordered HYDROmorphone INJ [Dilaudid Inj] Med 11/26/24 20:26 Discontinued 2 mg IVP X1 ONE Vital Signs Vital signs: Vital Signs Temperature 97.9 F 11/26/24 20:00 Pulse Rate 96 11/26/24 20:00 Respiratory Rate 22 H 11/26/24 20:00 Blood Pressure 152/78 H 11/26/24 20:00 Pulse Oximetry (%) 95 11/26/24 20:00 Oxygen Delivery Method Room Air 11/26/24 20:00 Abdominal Pain MDM MDM Narrative MDM Narrative:: Scribe Attestation: Lynda Clay, am scribing for and in the presence of Dr. Montano. Provider Notation: Although this document has been carefully reviewed, there may still be some phonetic and other typographical errors. These errors are purely grammatical due to imperfections in the software program and should not be construed in any way to compromise the substance of the patient's medical care during this visit. 64 y/o male with Hx of Hypercholesterolemia, Hypertension, Asthma, Gastroesophageal Reflux Disease and Obesity, Arthritis, Pancreatic Cancer and smoking presents to ED c/o Patient data External records reviewed:: [facility] previous records (reviewed prior ED records from 11/10/24 20:15. Patient was seen for Intractable abdominal pain.) Clinical information provided by:: patient Social determinants that could affect healthcare access:: none Patient has the following chronic illnesses:: Hypercholesterolemia, Hypertension, Asthma, Gastroesophageal Reflux Disease and Obesity, Arthritis, Pancreatic Cancer and smoking How is presenting disease/condition affected by chronic disease/condition?: exacerbated by Evaluation data The following diagnostics were reviewed and interpreted by me:: other (specify) (None ordered.) Lab and/or radiology exams considered but not ordered:: None Interpretation Summary: No diagnostics ordered. Medications / Prescriptions Medications or Prescriptions considered but not ordered:: None Medication administrations:: Medication Administration History Discontinued Medications Hydromorphone HCl (Hydromorphone Inj 2 Mg/Ml Vial) 2 mg IVP X1 ONE Stop: 11/26/24 20:27 Last Admin: 11/26/24 21:09 Dose: 2 mg Documented By: NANDO Altamirano Consultations Consultation(s) initiated? (list below): No Diagnosis Differential diagnosis abdominal pain: abdominal pain (From pancreatic cancer.) Most likely diagnosis given after review of the tests above:: Chronic pain from pancreatic cancer. Admission Indicated Admission indicated?: not indicated Explain why admission is indicated or not indicated:: With significant improvement, there was no indication for admission and patient requested discharge without diagnostic tests. Admission Request Was there a request for admission?: No Disposition Plan Disposition Plan: Discharge Discharge Attestation Discharge Attestation: The patient and all family members were given an opportunity to ask questions and understood the discharge instructions. Discharge instructions specifically effects, indications for sooner follow up or return to the emergency department, and the expected course of current diagnosis. Patient condition: Stable Discharge Plan Plan Patient Disposition: HOME (Self Care) Prescriptions/Referrals Prescriptions/Med Rec: New hydromorphone [Dilaudid] 2 mg tablet 2 mg PO .q8 MDD 3 PRN (Reason: pain) Qty: 20 0RF No Action metoprolol succinate 25 mg tablet extended release 24 hr 25 mg PO DAILY Patient Comments: TAKE 1 TABLET BY MOUTH EVERY DAY lisinopril 20 mg tablet 40 mg PO QDAY morphine 30 mg Tablet Extended Release 30 mg PO TID Qty: 0 0RF atorvastatin 40 mg tablet 40 mg PO QDAY Qty: 30 0RF gabapentin 600 mg tablet 600 mg PO TID 30 Days Qty: 90 0RF hydralazine 25 mg tablet 50 mg PO BID acetaminophen [Mapap (acetaminophen)] 500 mg capsule 1,000 mg PO Q4H amlodipine 5 mg tablet 5 mg PO QDAY metformin 500 mg tablet 500 mg PO BID Patient Comments: TAKE 1 TABLET BY MOUTH TWICE A DAY WITH BREAKFAST AND DINNER Problem List Clinical Impression: Pancreas cancer Patient/Caregiver Discharge Instructions Discharge Activity: activity as tolerated Education Materials: ED Chronic Pain Additional Instructions: Discharge Instructions from Dr. Montano printed for you: 1. We are extremely sorry about your condition. 2. Dilaudid for severe pain. 3. See your doctor on 11/28/2024 for recheck. Ask for referral to see pain specialist. 4. Seek immediate medical care with worsening or with any concerns. Print Language: Albanian Stand Alone Forms: Heather Award Info., Patient Portal Info Letter
[2024-11-26] MEDS: HYDROmorphone INJ 2 MG/ML VIAL IVP (21:09)
== END 2024-11-26 21:48 | disposition home or self-care (01) ==
PROVIDERS: Emergency Provider Emergency Medicine; PCP Internal Medicine
DX: C25.9 Malignant neoplasm of pancreas, unspecified (principal)
CPT/HCPCS: 99284; J3490

== ENCOUNTER 2024-11-27 01:01 | Emergency (ER) | payer OTHER, MEDICAID, SELFPAY ==
[2024-11-27] VITALS (7 sets, daily range): BP systolic 152–186; BP diastolic 78–92; PULSE 80–98; RESP 18–20; TEMP 36.3–36.6; O2SAT 93–99; BMI 33.0
--- NOTE | 2024-11-27 01:24 | PD.EDABDPN ---
ED Abdominal Pain RME/HPI General Chief Complaint: Abdominal Pain Stated complaint: ABD PAIN Arrival date/time: 11/27/24 01:01 RME / HPI RME / HPI narrative: This section includes all my notes and documentations, including HPI, PE, and ED course. Adi Montano MD HPI: 64 year old male here with chronic severe abdominal pain due to pancreatic cancer. Thinks his stomach ulcer also contributes to his pain. Requests admission for further care. Has severe nausea. No fever. No other complaints. ROS: All negative except as documented in HPI. Physical Exam: General: Alert and oriented. Appears to be in pain. Eyes: Conjunctivae and lids clear. ENT: No nasal congestion. Neck: Supple. Heart: RRR. Lungs: No respiratory distress. Good air movement. No rhonchi, wheezing, rales. Abdomen: Soft with diffuse pain, difficult to localize. Normal bowel sounds. No distension. No rebound or guarding. Back: No CVA tenderness. Skin: Warm and dry. Neuro: Alert and oriented X 3. I reviewed all diagnostic test results: My review of the abdominal CT report is NAD. My review of the gallbladder US report is NAD. Blood tests and urine tests unremarkable. At this point, diagnoses include pancreatic cancer with severe pain and gastritis. Treatment here included IVF, Dilaudid, Zofran, Famotidine, and Protonix. Significant improvement noted. Recommended outpatient care. Based on my best medical judgment, made decision no further evaluation or treatment indicated at this time. Patient understands and agrees to the discharge instructions customized and printed, see below. Discharge instructions from Dr. Montano: ?After extensive evaluation, there was no criteria for hospitalization. --Take Dilaudid, prescribed for you yesterday, for your severe pain from pancreatic cancer ?To help heal your ulcer, take Omeprazole 40 mg every morning and Famotidine 40 mg at bedtime for a month. ?Zofran for nausea/vomiting.? Clear liquid diet for 24 hours.? Then slowly advance diet as tolerated. ?Avoid food and beverages that can trigger and worsen ulcers.? See attached handout. ?See a private doctor on for recheck. To make sure there is no other serious intra-abdominal condition, ask for help with more investigation not available here in the ER.? Such as EGD or scoping the stomach, colonoscopy or scoping the colon, and referral to see round kiln drawer. Ask to review all test results and official radiology reports, to make sure you receive all necessary follow-ups and monitoring. ?Seek immediate medical care with worsening or with any concerns. Adi Montano MD Related Data Home Medications ?Medication ?Instructions ?Recorded ?Confirmed acetaminophen 500 mg capsule 1,000 mg PO Q4H pain 10/25/24 11/11/24 (Mapap (acetaminophen)) amlodipine 5 mg tablet 5 mg PO QDAY 10/25/24 11/11/24 hydralazine 25 mg tablet 50 mg PO BID 10/25/24 11/11/24 Held on 11/14/24. Instructions: Resume on 11/28/24. metformin 500 mg tablet 500 mg PO BID 10/25/24 11/11/24 lisinopril 20 mg tablet 40 mg PO QDAY 11/11/24 11/11/24 Held on 11/14/24. Instructions: Resume on 11/28/24. metoprolol succinate 25 mg 25 mg PO DAILY 11/11/24 11/11/24 tablet,extended release 24 hr Previous Rx's ?Medication ?Instructions ?Recorded atorvastatin 40 mg tablet 40 mg PO QDAY #30 tabs 11/14/24 gabapentin 600 mg tablet 600 mg PO TID 30 days #90 tabs 11/14/24 morphine 30 mg tablet,extended 30 mg PO TID #0 tabs 11/14/24 release hydromorphone 2 mg tablet 2 mg PO .q8 PRN pain #20 tabs 11/26/24 (Dilaudid) famotidine 40 mg tablet 40 mg PO .bedtime #30 tabs 11/27/24 omeprazole 40 mg capsule,delayed 40 mg PO QDAY #30 caps 11/27/24 release ondansetron 4 mg disintegrating 4 mg PO TID PRN nausea and 11/27/24 tablet vomiting 30 days #10 tabs Allergies Allergy/AdvReac Type Severity Reaction Status Date / Time No Known Allergies Allergy Verified 11/26/24 19:35 Course Quality Measures none Orders Category Date Time Status Saline [Insert IV] NOW Care 11/27/24 01:25 Completed Straight [In and Out Catheter] X1 Care 11/27/24 01:[address] abdomen pelvis wo con Stat Exams 11/27/24 01:26 Completed US gall bladder Stat Exams 11/27/24 02:34 Completed Amylase Stat Lab 11/27/24 01:55 Completed Bilirubin,Direct Stat Lab 11/27/24 01:55 Completed CBC Stat Lab 11/27/24 01:55 Completed CMP [Comprehensive Metabolic Panel] Stat Lab 11/27/24 01:55 Completed Lipase Stat Lab 11/27/24 01:55 Completed Magnesium Stat Lab 11/27/24 01:55 Completed PT [Prothrombin Time with INR] Stat Lab 11/27/24 01:55 Completed PTT [Partial Thromboplastin Time] Stat Lab 11/27/24 01:55 Completed UA, C/S IF [Urinalysis, C/S if Indicated] Stat Lab 11/27/24 02:20 Completed Famotidine Inj [Pepcid Inj] Med 11/27/24 01:25 Discontinued 20 mg IVP X1 ONE HYDROmorphone INJ [Dilaudid Inj] Med 11/27/24 01:25 Discontinued 2 mg IVP X1 ONE HYDROmorphone INJ [Dilaudid Inj] Med 11/27/24 03:33 Discontinued 2 mg IVP X1 ONE Ondansetron Inj [Zofran Inj] Med 11/27/24 01:25 Discontinued 4 mg IV X1 ONE Ondansetron Inj [Zofran Inj] Med 11/27/24 04:34 Discontinued 4 mg IV X1 ONE Pantoprazole Inj [Protonix Inj] Med 11/27/24 01:25 Discontinued 40 mg IVP X1 ONE Sodium Chloride 0.9% 1000 ml [Ns] 1,000 ml Med 11/27/24 01:25 Discontinued IV 999 mls/hr Vital Signs Vital signs: Vital Signs Temperature 97.8 F 11/27/24 01:02 Pulse Rate 87 11/27/24 01:02 Respiratory Rate 18 11/27/24 01:02 Blood Pressure 186/92 H 11/27/24 01:02 Pulse Oximetry (%) 98 11/27/24 01:02 Oxygen Delivery Method Room Air 11/27/24 01:02 Abdominal Pain MDM Patient data External records reviewed:: [facility] previous records Clinical information provided by:: patient Social determinants that could affect healthcare access:: none Patient has the following chronic illnesses:: pancreatic cancer How is presenting disease/condition affected by chronic disease/condition?: exacerbated by Evaluation data The following diagnostics were reviewed and interpreted by me:: lab results and radiology exam(s) Lab and/or radiology exams considered but not ordered:: none Interpretation Summary: I reviewed all diagnostic test results: My review of the abdominal CT report is NAD. My review of the gallbladder US report is NAD. Blood tests and urine tests unremarkable. Medications / Prescriptions Medications or Prescriptions considered but not ordered:: none Medication administrations:: Medication Administration History Discontinued Medications Famotidine (Famotidine Inj 10 Mg/Ml Vial 2 Ml) 20 mg IVP X1 ONE Stop: 11/27/24 01:26 Last Admin: 11/27/24 02:35 Dose: 20 mg Documented By: LB Hydromorphone HCl (Hydromorphone Inj 2 Mg/Ml Vial) 2 mg IVP X1 ONE Stop: 11/27/24 01:26 Last Admin: 11/27/24 02:08 Dose: 2 mg Documented By: LB Hydromorphone HCl (Hydromorphone Inj 2 Mg/Ml Vial) 2 mg IVP X1 ONE Stop: 11/27/24 03:34 Last Admin: 11/27/24 03:45 Dose: 2 mg Documented By: LB Sodium Chloride (Ns) 1,000 mls @ 999 mls/hr IV .Q1H1M ONE Stop: 11/27/24 02:25 Last Infusion: 11/27/24 03:07 Dose: Infused Documented By: Admin: 11/27/24 02:04 Dose: 999 mls/hr Documented By: LB Ondansetron HCl (Ondansetron Inj 2 Mg/Ml Inj 2 Ml) 4 mg IV X1 ONE; Protocol Stop: 11/27/24 01:26 Last Admin: 11/27/24 02:06 Dose: 4 mg Documented By: LB Ondansetron HCl (Ondansetron Inj 2 Mg/Ml Inj 2 Ml) 4 mg IV X1 ONE; Protocol Stop: 11/27/24 04:35 Last Admin: 11/27/24 04:42 Dose: 4 mg Documented By: LB Pantoprazole Sodium (Pantoprazole Inj 40 Mg Vial) 40 mg IVP X1 ONE Stop: 11/27/24 01:26 Last Admin: 11/27/24 02:07 Dose: 40 mg Documented By: LB Treatment here included IVF, Dilaudid, Zofran, Famotidine, and Protonix. Consultations Consultation(s) initiated? (list below): No Diagnosis Differential diagnosis abdominal pain: acute appendicitis, calculus of kidney, constipation, diverticulitis, gastroenteritis, pancreatitis, small bowel obstruction and other (cancer pain, gastritis, PUD, GERD) Most likely diagnosis given after review of the tests above:: At this point, diagnoses include pancreatic cancer with severe pain and gastritis. Admission Indicated Admission indicated?: not indicated Explain why admission is indicated or not indicated:: Admission was not indicated with significant improvement. Admission Request Was there a request for admission?: No Disposition Plan Disposition Plan: Discharge Discharge Attestation Discharge Attestation: The patient and all family members were given an opportunity to ask questions and understood the discharge instructions. Discharge instructions specifically effects, indications for sooner follow up or return to the emergency department, and the expected course of current diagnosis. Patient condition: Stable Discharge Plan Plan Patient Disposition: HOME (Self Care) Prescriptions/Referrals Prescriptions/Med Rec: New famotidine 40 mg tablet 40 mg PO .bedtime Qty: 30 0RF omeprazole 40 mg capsule,delayed release(DR/EC) 40 mg PO QDAY Qty: 30 0RF ondansetron 4 mg tablet,disintegrating 4 mg PO TID PRN (Reason: nausea and vomiting) 30 Days Qty: 10 0RF No Action metoprolol succinate 25 mg tablet extended release 24 hr 25 mg PO DAILY Patient Comments: TAKE 1 TABLET BY MOUTH EVERY DAY lisinopril 20 mg tablet 40 mg PO QDAY morphine 30 mg Tablet Extended Release 30 mg PO TID Qty: 0 0RF atorvastatin 40 mg tablet 40 mg PO QDAY Qty: 30 0RF gabapentin 600 mg tablet 600 mg PO TID 30 Days Qty: 90 0RF hydromorphone [Dilaudid] 2 mg tablet 2 mg PO .q8 MDD 3 PRN (Reason: pain) Qty: 20 0RF hydralazine 25 mg tablet 50 mg PO BID acetaminophen [Mapap (acetaminophen)] 500 mg capsule 1,000 mg PO Q4H amlodipine 5 mg tablet 5 mg PO QDAY metformin 500 mg tablet 500 mg PO BID Patient Comments: TAKE 1 TABLET BY MOUTH TWICE A DAY WITH BREAKFAST AND DINNER Referrals: No Primary/Family,Physician [Primary Care Provider] - In 1 week Problem List Clinical Impression: Pancreatic cancer Patient/Caregiver Discharge Instructions Discharge Activity: activity as tolerated Education Materials: ED Chronic Pain, ED Gastritis (Adult) Additional Instructions: Discharge instructions from Dr. Montano: ?After extensive evaluation, there was no criteria for hospitalization. --Take Dilaudid, prescribed for you yesterday, for your severe pain from pancreatic cancer ?To help heal your ulcer, take Omeprazole 40 mg every morning and Famotidine 40 mg at bedtime for a month. ?Zofran for nausea/vomiting.? Clear liquid diet for 24 hours.? Then slowly advance diet as tolerated. ?Avoid food and beverages that can trigger and worsen ulcers.? See attached handout. ?See a private doctor on for recheck. To make sure there is no other serious intra-abdominal condition, ask for help with more investigation not available here in the ER.? Such as EGD or scoping the stomach, colonoscopy or scoping the colon, and referral to see round kiln drawer. Ask to review all test results and official radiology reports, to make sure you receive all necessary follow-ups and monitoring. ?Seek immediate medical care with worsening or with any concerns. Print Language: Mauritanian Stand Alone Forms: Heather Award Info., Patient Portal Info Letter
--- NOTE | 2024-11-27 01:26 | XR_ITS ---
Examination: CT abdomen and pelvis without contrast. Coronal 3-D reconstructions. Sagittal 2-D reconstructions. Date and time of exam:November 27, 2024 0219 hrs. Comparison October 27, 2024 Indications: Onset generalized abdominal pain today , Diagnosis pancreatic cancer CTDI: vol (mGy): 11.9 DLP: (mGycm): 694 Technique: Axial images of the abdomen have been obtained, 3 mm slice thickness Intravenous contrast material has not been administered. Low dose protocols were performed. One or more of the following dose reduction techniques were used; automated exposure control, adjustment of the mA and/or KV according to patient size, use of iterative reconstruction technique. Findings: Subcentimeter left lung pulmonary nodules Liver is mildly irregular in contour Axial image 86 demonstrate 10 mm low-density liver lesion Spleen is not enlarged Mass in the pancreas with spiculated margins, transverse dimension 4.7 cm 28 mm left adrenal nodule Edema surrounding the body and tail the pancreas, bilateral Small posterior left renal cysts No hydronephrosis Subcentimeter periaortic lymph nodes, the largest 6 mm Edema in the mesentery Normal appendix No bowel obstruction Scattered colonic diverticulosis Contracted urinary bladder, a portion of the urinary bladder included in a right inguinal hernia Fat-containing left inguinal hernia Prominent osteopenia Impression: Subcentimeter multiple left lung pulmonary nodules Primary hepatocellular disease Suspicious for 10 mm low-density right lobe liver lesion, consider MRI abdomen liver follow-up as clinically warranted 4.7 cm mass. Pancreas 28 mm left adrenal nodule Abdominal lymphadenopathy Edema in the mesentery, clinical correlation advised A portion of the urinary bladder is in a right inguinal hernia
--- NOTE | 2024-11-27 01:48 | PC.NURSE ---
Awake, moaning in pain. Pt stated that he was discharged home about 3 hrs ago, and as soon as he arrived home, pain started again. Denies N/V/D.
[2024-11-27] MEDS: SODIUM CHLORIDE 0.9% 1000 ML 1,000 ML 999 ML IV (02:04)
[2024-11-27] MEDS: ONDANSETRON INJ 2 MG/ML INJ 2 ML 4 MG IV ×2 (02:06→04:42)
[2024-11-27] MEDS: PANTOPRAZOLE INJ 40 MG VIAL IVP (02:07)
[2024-11-27] MEDS: HYDROmorphone INJ 2 MG/ML VIAL IVP ×2 (02:08→03:45)
[2024-11-27 02:11] LABS: Basophils # (Auto) 0.1 Thou/mm3 (0.0-0.2); Basophils % (Auto) 1 % (0-2.5); Eosinophils # (Auto) 0.5 Thou/mm3 (0.0-0.5); Eosinophils % (Auto) 3 % (0-10); Hematocrit 39.7 % (41.0-53.0); Hemoglobin 13.4 g/dL (13.5-16.0); Immature Granulocytes % (Auto) 0 % (0-0); Immature Granulocytes Auto 0.04 Thou/mm3 (0.00-0.00); Lymphocytes # (Auto) 2.5 Thou/mm3 (1.0-4.8); Lymphocytes % (Auto) 17 % (10-50); Mean Corpuscular HGB Conc 33.8 g/dl (31.0-37.0); Mean Corpuscular Volume 89 fL (80-100); Monocytes % (Auto) 7 % (0-12); Neutrophils # (Auto) 11.3 Thou/mm3 (1.8-7.7); Neutrophils % (Auto) 73 % (37-80); Nucleated Red Blood Cell % 0 /100 WBC (0); Platelet Count 376 Thou/mm3 (140-440); RDW Standard Deviation 42.2 fL (35.1-43.9); Red Blood Count 4.47 Miln/mm3 (4.50-5.90); White Blood Count 15.4 Thou/mm3 (3.8-10.6)
[2024-11-27 02:24] LABS: Partial Thromboplastin Time 29.2 Seconds (22.0-36.0); Prothrombin Time 10.9 Seconds (9.0-12.2)
--- NOTE | 2024-11-27 02:34 | XR_ITS ---
Examination: Abdomen sonogram, Limited Date and time of exam: November 27, 2024 0405 hrs. Indications: Diagnosis pancreatic cancer abdominal pain beginning 5 months ago Technique: Real-time hansen scale transabdominal sonographic images of the upper abdomen obtained. Findings: Normal gallbladder. Normal common bile duct 0.4 cm. Pancreas incompletely visualized Pancreatic head measuring at least 4.2 cm Liver 18.6 cm, numerous liver metastases, the largest in the right lobe of the liver 4.8 x 4.4 cm Normal hepatopedal portal venous flow Patent IVC Impression: Normal gallbladder No extrahepatic biliary tract dilatation Enlarged pancreatic head. Numerous hepatic metastases
[2024-11-27] MEDS: FAMOTIDINE INJ 10 MG/ML VIAL 2 ML 20 MG IVP (02:35)
[2024-11-27 02:40] LABS: Alanine Aminotransferase 27 U/L (10-49); Albumin, Serum 4.7 gm/dL (3.4-4.8); Albumin/Globulin Ratio 1.3 (1.2-2.2); Alkaline Phosphatase 116 U/L (46-116); Amylase 36 U/L (30-118); Anion Gap 3 (7-16); Aspartate Amino Transferase 22 U/L (0-34); BUN/Creatinine Ratio 10 Ratio (12-20); Bilirubin,Direct < 0.1 mg/dL (0.0-0.3); Bilirubin,Total 0.2 mg/dL (0.3-1.2); Blood Urea Nitrogen 8 mg/dL (9-23); Calcium 9.5 mg/dL (8.3-10.6); Calcium (Corrected) 9.5 mg/dL (8.5-10.1); Carbon Dioxide 25.8 mMol/L (20.0-31.0); Chloride 109 mMol/L (98-107); Creatinine (Component) 0.8 mg/dL (0.6-1.3); Estimated Creatinine Clearance 111.4 mL/min (>60); Globulin 3.5 gm/dL (2.3-3.5); Glucose 131 mg/dL (74-106); Lipase 34 U/L (12-53); Magnesium 1.8 mg/dL (1.6-2.6); Osmolality,Calculated 275 (275-295); Potassium 4.1 mMol/L (3.4-5.1); Sodium 138 mMol/L (136-145); Total Protein 8.2 gm/dL (5.7-8.2); eGFR > 60 See Note
[2024-11-27 02:45] LABS: Collection Type, Urine Clean Catch; WBC,Urine 0 /hpf (0-5)
[2024-11-27 02:52] LABS: Bilirubin,Urine Negative (Negative); Blood,Urine Negative (Negative); Clarity,Urine Clear (Clear/Hazy); Color,Urine Colorless (Lt Yel-Yel); Culture Indicated,Urine Not Indicated; Glucose, Urine Negative (Negative); Ketones,Urine Negative (Negative); Leukocyte Esterase,Urine Negative (Negative); Nitrite,Urine Negative (Negative); PH,Urine 6.5 (5.0-7.0); Protein,Urine Negative (Neg - Trace); RBC,Urine < 1 /hpf (0-3); Specific Gravity,Urine 1.006 (1.001-1.035); Squamous Epithelial Cell,Urine < 1 /hpf (0-5); Urobilinogen,Urine Negative mg/dL (0.0-1.0)
--- NOTE | 2024-11-27 03:29 | PRELIM_ITS ---
CT scan of the abdomen and pelvis without intravenous contrast (axial sections with sagittal and coronal reformats) November 27, 2024 0219 hours Clinical History: Abdominal pain Comparison: No prior study is available for comparison. Findings: There is a 2.8 cm ill-defined hypodense lesion in the tail of the pancreas with associated fat stranding (axial image [id number]/278). There is nodular thickening of the left adrenal gland with adjacent fat stranding, likely metastatic. There are left renal cysts, the largest measuring 1.4 x 2.2 cm. There are surgical clips adjacent to the left lobe of the liver. The gallbladder, spleen, right kidney and right adrenal are unremarkable on this noncontrast study. A small hiatal hernia is present. No evidence of bowel obstruction. The appendix is within normal limits (axial image [id number]). There is subtle haziness of the mesenteric fat with prominent mesenteric lymph nodes; possibility of sclerosing mesenteritis or other mesenteric inflammatory pathology cannot be excluded. Suggest correlation with clinical findings and further assess accordingly. The urinary bladder is incompletely distended at the time of the examination and appears mildly thick walled. There is no free fluid or free air. The aorta demonstrates atheromatous calcification without evidence of aneurysm. There is a right inguinal hernia containing fat and portion of urinary bladder. There is also left inguinal hernia containing fat. Degenerative changes are identified in the spine. Bibasilar dependent atelectasis is present. Please note that evaluation of soft tissue/vascular structures and bowel loops is limited due to absence of IV and oral contrast. Impression: Limited evaluation as described. 1. Ill-defined lesion in the tail of pancreas with surrounding fat stranding, suspicious for acute pancreatitis versus neoplastic pathology. 2. Nodular thickening of the left adrenal gland with adjacent fat stranding, likely metastatic. 3. Subtle haziness of the mesenteric fat with prominent mesenteric lymph nodes; possibility of sclerosing mesenteritis or other mesenteric inflammatory pathology cannot be excluded. 4. Right inguinal hernia containing fat and portion of urinary bladder. 5. Other findings as described above. Suggest correlation with clinical findings, comparison with prior studies and follow up accordingly. Report Electronically Signed By: Zafar Burr 11/27/2024 3:28:53 AM [EST]
== END 2024-11-27 05:44 | disposition home or self-care (01) ==
PROVIDERS: Emergency Provider Emergency Medicine
DX: C25.9 Malignant neoplasm of pancreas, unspecified (principal); K25.9 Gastric ulcer, unspecified as acute or chronic, without hemorrhage or perforation
CPT/HCPCS: 36415; 74176; 76705; 80053; 81001; 82150; 82248; 83690; 83735; 85025; 85610; 85730; 96360; 99284; J2405; J2470; J3490; J7030

== ENCOUNTER 2024-12-02 08:39 | Outpatient (RCR) | payer MEDICARE, MEDICAID, SELFPAY ==
--- NOTE | 2024-11-28 16:28 | CTCFLWUP_ITS ---
Patient: MARZENA MENDEZ : 1960 Page 2 of 2 Consult note DATE OF SERVICE: 11/09/2024 NAME: MARZENA MENDEZ ACCOUNT: [id number] : 1960 AGE: 64 INTERVAL HISTORY: Patient is here to establish care for establishing care for his pancreatic cancer ONCOLOGY HISTORY: DIAGNOSIS: Adenocarcinoma of pancreas DATE OF DIAGNOSIS: 10/25/2024 STAGE/TNM: Likely locally advanced PET scan is pending TREATMENT HISTORY: Care?Plan Start?Date Cycle Day Intent HISTORY OF PRESENT ILLNESS: OTHER MEDICAL HISTORY/CONDITIONS: HYPERTENSION DIABETES COPD GERD BIOPSY PANCREAS 1993 [facility] FAMILY HISTORY: Father:?DENIES Mother:?DENIES Sibling:?DENIES Children:?DENIES Cancer?History:?PANCREAS?CA SOCIAL HISTORY: 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 Dilaudid - 4 mg 1 tab As directed 2. docusate sodium - 250 mg 1 Capsule Daily 3. gabapentin - 400 mg 1 tab Three times a day 4. hydrALAZINE - 50 mg 1 tab Twice a Day 5. hydromorphone - 4 mg 1 tab q4 6. Lipitor - 10 mg 1 tab Daily 7. lisinopril - 40 mg 1 tab Daily 8. morphine - 30 mg 1 tab three times a day 9. Norvasc - 5 mg Daily 10. ondansetron - 8 mg 1 tab 1 tab every 8 hrs as needed for nausea 11. OxyCONTIN - 15 mg 1 tab Every 12 Hours 12. Toprol XL - 25 mg 1 tab Daily Medications Last Reconciled by Mary Valdovinos RN on 11/16/2024 ALLERGIES: No Known Allergies REVIEW OF SYSTEMS: A complete 14-point review of systems was performed and is negative except as noted in interval history. PHYSICAL EXAMINATION: VITAL SIGNS: Temperature?98.1, B/P?130/83, Height?70?inches, Oxygen?Saturation?95% Weight?240?lbs PAIN: 7 - Between severe and very severe pain ECOG Performance Status: 1 - Symptomatic; ambulatory; restricted in strenuous activity GENERAL APPEARANCE: Appears well, in no apparent distress, appropriately interactive. HEENT: Normocephalic, no temporal wasting, normal conjunctiva, no scleral icterus, normal hearing, lips without lesions, neck normal range of motion. CARDIOVASCULAR: Not assessed. PULMONARY: Normal respiratory effort, no respiratory distress or use of accessory muscles, speaking in full sentences, no tachypnea. EXTREMITIES: No pedal edema or cyanosis. SKIN: Normal skin appearance. NEUROLOGIC: Alert and oriented x4. PSHYCHIATRIC: Appropriate affect, mood normal, behavior normal, intact thought and speech. LABORATORY DATA: I have personally reviewed and interpreted each of the patient?s relevant lab tests, abnormal findings are below: Date 11/14/24 11/27/24 ??WHITE?BLOOD?COUNT?(Thou/mm3) ? 15.4?H ??RED?BLOOD?COUNT?(Miln/mm3) ? 4.47?L ??HEMOGLOBIN?(gm/dl) ? 13.4?L ??HEMATOCRIT?(%) ? 39.7?L ??PLATELET?COUNT?(Thou/mm3) ? 376 ??NEUTROPHILS?%,?AUTO?(%) ? 73 ??LYMPH?%,?AUTO?(%) ? 17 ??NEUTROPHILS,?AUTO?(Thou/mm3) ? 11.3?H ??GLUCOSE,RANDOM?(mg/dL) 119?H 131?H ??BLOOD?UREA?NITROGEN?(mg/dL) 16 8?L ??CREATININE?(mg/dL) 0.80 0.80 ??SODIUM?(mmol/L) 138 138 ??POTASSIUM?(mmol/L) 4.5 4.1 ??CHLORIDE?(mmol/L) 103 109?H ??CrCl?(CandG)?(ml/min) 112.17 112.17 ??AST/SGOT?(Unit/L) 53?H 22 ??ALT/SGPT?(Unit/L) 43 27 ??ALKALINE?PHOSPHATASE?(Unit/L) 94 116 ??BILIRUBIN,?TOTAL?(mg/dL) 0.4 0.2?L ??PROTEIN?TOTAL?(gm/dl) 8.4?H 8.2 ??ALBUMIN,?SERUM?(gm/dl) 4.6 4.7 ??GLOBULIN?(gm/dl) 3.8?H 3.5 ??ALBUMIN/GLOBULIN?RATIO 1.2 1.3 ??CALCIUM,?SERUM?(mg/dL) 9.9 9.5 ??CALCIUM?SERUM?(CORRECTED)?(mg/dL) 9.9 9.5 ??MAGNESIUM?(mg/dL) ? 1.8 ASSESSMENT/PLAN: Pancreatic adenocarcinoma Patient have invasive adenocarcinoma pancreas CT scan did not reveal any lymphadenopathy Will get PET CT scan to see extent of disease Port catheter Chemotherapy ordered CA 19-9 RTC in 4 weeks ORDERS: Order # Description [id number] Port Placement [id number] MD Follow Up 4 Week + CA 19-9 + CEA [id number] Comprehensive Metabolic Panel - 12 + CBC with Auto Diff [id number] Initial PET/CT of Skull to Mid-Thigh [id number] MD Follow Up 4 Week RETURN TO CLINIC: 4 weeks BILLING AND COMPLIANCE: I reviewed external records from providers outside my specialty as summarized above. I spent a total of 50 minutes on this patient?s care on the day of their visit excluding time spent related to any billed procedures. This time includes time spent with the patient as well as time spent documenting in the medical record, reviewing patients records and tests, obtaining history, placing orders, communicating with other healthcare professionals, counseling the patient, family or caregiver, and/or care coordination for the diagnoses above. Electronically Signed by: Amos Valle MD T: 4:25 PM CC: Mirian?Jovita,? PCP: Referring: Mirian Hussein This document was completed utilizing speech recognition software. Grammatical errors, random word insertions, pronoun errors, and incomplete sentences are an occasional consequence of this system due to software limitations, ambient noise, and hardware issues. Any formal questions or concerns about the content, text or information contained within the body of this dictation should be directly addressed to the provider for clarification.
[2024-12-02 11:03] LABS: Basophils # (Auto) 0.1 Thou/mm3 (0.0-0.2); Basophils % (Auto) 1 % (0-2.5); Eosinophils # (Auto) 0.6 Thou/mm3 (0.0-0.5); Eosinophils % (Auto) 4 % (0-10); Hematocrit 38.3 % (41.0-53.0); Hemoglobin 12.7 g/dL (13.5-16.0); Immature Granulocytes % (Auto) 0 % (0-0); Immature Granulocytes Auto 0.05 Thou/mm3 (0.00-0.00); Lymphocytes # (Auto) 2.4 Thou/mm3 (1.0-4.8); Lymphocytes % (Auto) 17 % (10-50); Mean Corpuscular HGB Conc 33.2 g/dl (31.0-37.0); Mean Corpuscular Hemoglobin 29.7 pg (25.0-35.0); Mean Corpuscular Volume 90 fL (80-100); Monocytes % (Auto) 7 % (0-12); Neutrophils # (Auto) 10.1 Thou/mm3 (1.8-7.7); Neutrophils % (Auto) 71 % (37-80); Nucleated Red Blood Cell % 0 /100 WBC (0); Platelet Count 416 Thou/mm3 (140-440); RDW Standard Deviation 42.5 fL (35.1-43.9); Red Blood Count 4.27 Miln/mm3 (4.50-5.90); White Blood Count 14.3 Thou/mm3 (3.8-10.6)
[2024-12-02 11:24] LABS: Alanine Aminotransferase 31 U/L (10-49); Albumin, Serum 4.3 gm/dL (3.4-4.8); Albumin/Globulin Ratio 1.3 (1.2-2.2); Alkaline Phosphatase 123 U/L (46-116); Anion Gap 6 (7-16); Aspartate Amino Transferase 45 U/L (0-34); BUN/Creatinine Ratio 11 Ratio (12-20); Bilirubin,Total < 0.2 mg/dL (0.3-1.2); Blood Urea Nitrogen 9 mg/dL (9-23); Calcium 9.3 mg/dL (8.3-10.6); Calcium (Corrected) 9.3 mg/dL (8.5-10.1); Carbon Dioxide 26.4 mMol/L (20.0-31.0); Chloride 106 mMol/L (98-107); Creatinine (Component) 0.8 mg/dL (0.6-1.3); Globulin 3.3 gm/dL (2.3-3.5); Glucose 129 mg/dL (74-106); Osmolality,Calculated 276 (275-295); Potassium 4.1 mMol/L (3.4-5.1); Sodium 138 mMol/L (136-145); Total Protein 7.6 gm/dL (5.7-8.2); eGFR > 60 See Note
[2024-12-06 06:23] LABS: CA 19-9 Antigen* 1834 U/mL (<34)
== END 2024-12-07 23:59 | disposition home or self-care (01) ==
LOC: SCTC 08:39
PROVIDERS: Internal Medicine Hematology & Oncology; PCP Internal Medicine; Referring Provider Internal Medicine; Visit Provider Radiology Therapeutic Radiology
DX: C25.9 Malignant neoplasm of pancreas, unspecified (principal); G89.3 Neoplasm related pain (acute) (chronic)
CPT/HCPCS: 36591; 80053; 85025; 86301; 99212; 99213; A4216; J0690; J1100; J1642; J2405; J2704; J3010; G0463

== ENCOUNTER 2024-12-21 04:50 | Emergency (ER) | payer MEDICAID, OTHER, SELFPAY ==
[2024-12-21 04:59] VITALS: BP 161/96; PULSE 115; RESP 17; TEMP 37.1; O2SAT 95
[2024-12-21 05:11] VITALS: PULSE 106; RESP 18; O2SAT 96
--- NOTE | 2024-12-21 06:36 | PD.EDRME ---
Rapid Medical Screening Exam RME Arrival date/time: 12/21/24 04:50 64-year-old male currently on hospice presents to the emergency department today for complaints of abdominal pain. Explained to the patient would like for him to speak with social worker school and have further evaluation prior to discharge Chief Complaint: Abdominal Pain Time Seen by Provider: 12/21/24 06:20 Vital signs: Vital Signs Temperature 98.7 F 12/21/24 04:59 Pulse Rate 115 H 12/21/24 04:59 Respiratory Rate 17 12/21/24 04:59 Blood Pressure 161/96 H 12/21/24 04:59 Pulse Oximetry (%) 95 12/21/24 04:59 Oxygen Delivery Method Room Air 12/21/24 04:59
== END 2024-12-21 06:45 | disposition left against medical advice (07) ==
PROVIDERS: Emergency Provider Emergency Medicine
DX: R10.9 Unspecified abdominal pain (principal); Z53.29 Procedure and treatment not carried out because of patient's decision for other reasons
CPT/HCPCS: 99281

== ENCOUNTER 2024-12-23 08:07 | Inpatient (IN) | payer MEDICARE, SELFPAY ==
[2024-12-23] VITALS (12 sets, daily range): BP systolic 137–208; BP diastolic 81–108; PULSE 102–132; RESP 16–93; TEMP 36.2–37.1; O2SAT 91–100; BMI 29.2; BMI 31.1
--- NOTE | 2024-12-23 08:40 | EKG_ITS ---
[facility] Test Date: 2024-12-23 Pat Name: MARZENA MENDEZ Department: Room: - Gender: Male Compounder: : 1960 Requested By: Coleen Hickman Order Number: [id number] Reading MD: Coleen Hickman Measurements Intervals [place] Rate: 120 P: 59 ME: 154 QRS: 7 QRSD: 81 T: 66 QT: 293 QTc: 416 Interpretive Statements SINUS TACHYCARDIA ABNORMAL RHYTHM ECG Compared to ECG 06/06/2024 10:25:26 Sinus rhythm no longer present /store/S0/[id number]
--- NOTE | 2024-12-23 08:40 | PD.EDOVER ---
ED Overdose RME/HPI General Chief Complaint: Overdose Stated Complaint: AMS Time Seen by Provider: 12/23/24 08:50 Arrival date/time: 12/23/24 08:07 RME / HPI RME / HPI Narrative: 64 year old male presents to the ED via EMS for evaluation of altered mental status. Per medics, the patient was found lying on a neighbor?s front lawn, a few houses down from his residence. A bystander called EMS after noticing the patient unresponsive. On arrival, medics noted the patient to be altered and nonverbal, with pinpoint pupils. He was administered 1 mg of Narcan, after which he opened his eyes but remained nonverbal. On arrival to the ED, the patient remains unresponsive to questioning. Further history is currently unobtainable. Per EMR review, patient has history of hypertension, diabetes, COPD, GERD, adenocarcinoma of pancreas. Related Data Home Medications ?Medication ?Instructions ?Recorded ?Confirmed acetaminophen 500 mg capsule 1,000 mg PO Q4H pain 10/25/24 11/11/24 (Mapap (acetaminophen)) amlodipine 5 mg tablet 5 mg PO QDAY 10/25/24 11/11/24 hydralazine 25 mg tablet 50 mg PO BID 10/25/24 11/11/24 Held on 11/14/24. Instructions: Resume on 11/28/24. metformin 500 mg tablet 500 mg PO BID 10/25/24 11/11/24 lisinopril 20 mg tablet 40 mg PO QDAY 11/11/24 11/11/24 Held on 11/14/24. Instructions: Resume on 11/28/24. metoprolol succinate 25 mg 25 mg PO DAILY 11/11/24 11/11/24 tablet,extended release 24 hr Previous Rx's ?Medication ?Instructions ?Recorded atorvastatin 40 mg tablet 40 mg PO QDAY #30 tabs 11/14/24 morphine 30 mg tablet,extended 30 mg PO TID #0 tabs 11/14/24 release hydromorphone 2 mg tablet 2 mg PO .q8 PRN pain #20 tabs 11/26/24 (Dilaudid) famotidine 40 mg tablet 40 mg PO .bedtime #30 tabs 11/27/24 omeprazole 40 mg capsule,delayed 40 mg PO QDAY #30 caps 11/27/24 release ondansetron 4 mg disintegrating 4 mg PO TID PRN nausea and 11/27/24 tablet vomiting 30 days #10 tabs Allergies Allergy/AdvReac Type Severity Reaction Status Date / Time No Known Allergies Allergy Verified 12/23/24 08:32 Review of Systems Review of Systems ROS Unobtainable: unobtainable due to mental status Past Medical History Past Medical History CARDIAC: Positive Cardiac Disorders, Hypercholesterolemia and Hypertension RESPIRATORY: Positive Asthma GASTROINTESTINAL: Positive Gastrointestinal Disorders, Gastroesophageal Reflux Disease and Obesity MUSCULOSKELETAL: Positive Musculoskeletal Disorders and Arthritis ENDOCRINE: Positive Endocrine Disorders OTHER HISTORY: Positive Hospitalization and Cancer (pancreatic cancer) Family History FAMILY HISTORY: Positive Family Psychiatric Problems and Family Cardiac Disorders Surgical History SURGICAL: Positive Abdominal Surgery Social History SMOKING STATUS: Current every day smoker SUBSTANCE USE: does not use ED Exam Narrative Physical exam: GENERAL APPEARANCE: Drowsy, not answering questions, able to follow some commands, appears to have what looks like coffee ground emesis around mouth and tongue HEENT: Normocephalic, atraumatic; pupils equal, round, reactive to light; EOMI; mucous membranes pink, moist; oropharynx clear NECK: Supple LUNGS: CTABL; no wheezes, no rales, no rhonchi HEART: Regular rate, regular rhythm; normal S1, S2; no murmurs ABDOMEN: non distended; normal BS; soft, no tenderness, no guarding, no rebound; no masses, no organomegaly, no hernia BACK: no CVA tenderness EXTREMITIES: atraumatic; no edema NEUROLOGIC: Drowsy, not answering questions, able to follow some commands, no focal deficits SKIN: warm, dry, normal color; no rashes Course Quality Measures Suspected type of Stroke: Non Acute Last know well: unknown Tenecteplase given: Reason(s) TPA not given: Outside the time window not given stroke (Stroke alert activated @ 08:54 am. ) Orders Category Date Time Status 24 HR Medical Restraints Q4HR Care 12/23/24 13:00 Active Bedside Blood Glucose NOW Care 12/23/24 08:50 Active Boiler Operator NOW Care 12/23/24 08:50 Active Continuous Pulse Oximetry NOW Care 12/23/24 08:50 Completed EKG (ED ONLY) *Do not use* NOW Care 12/23/24 08:40 Completed In and Out Catheter NEEDED Care 12/23/24 08:50 Active Insert IV NOW Care 12/23/24 08:50 Active NIH Stroke Scale now Care 12/23/24 08:50 Active NPO NOW Care 12/23/24 08:50 Active Nurse Swallow Screen x1 Care 12/23/24 08:50 Active Consult to Neurology / Tele-Neurology Routine Cons 12/23/24 08:[address] abdomen pelvis wo con Stat Exams 12/23/24 10:[address] stroke protocol Stat Exams 12/23/24 08:50 Completed EKG (ED Only) Stat Exams 12/23/24 08:40 Draft Alcohol, Blood Medical Stat Lab 12/23/24 09:28 Completed B-Type Natriuretic Peptide Stat Lab 12/23/24 09:28 Completed Blood Culture (Lab) Stat Lab 12/23/24 10:38 Received CBC Stat Lab 12/23/24 09:28 Completed CK [Creatine Kinase] Stat Lab 12/23/24 09:28 Received Comprehensive Metabolic Panel Stat Lab 12/23/24 09:28 Completed Drug Screen,Urine Stat Lab 12/23/24 09:35 Completed Lactate (Lactic Acid) Stat Lab 12/23/24 10:42 Completed Magnesium Stat Lab 12/23/24 09:28 Completed Partial Thromboplastin Time Stat Lab 12/23/24 09:28 Completed Procalcitonin Stat Lab 12/23/24 10:42 Completed Prothrombin Time with INR Stat Lab 12/23/24 09:28 Completed Troponin I Stat Lab 12/23/24 09:28 Completed Urinalysis Stat Lab 12/23/24 09:35 Completed Urine Culture Stat Lab 12/23/24 09:35 Received LORazepam [Ativan Inj] Med 12/23/24 12:53 Discontinued 1 mg IVP X1 ONE Ondansetron Inj [Zofran Inj] Med 12/23/24 08:50 Active 4 mg IV Q4HR PRN Sodium Chloride 0.9% 1000 ml [Ns] 1,000 ml Med 12/23/24 09:58 Discontinued IV 999 mls/hr Sodium Chloride 0.9% 1000 ml [Ns] 1,000 ml Med 12/23/24 12:11 Discontinued IV 999 mls/hr Oxygen Delivery NOW RT 12/23/24 08:50 Active Vital Signs Vital signs: Vital Signs Temperature 98.3 F 12/23/24 08:17 Respiratory Rate 20 12/23/24 08:17 Blood Pressure 208/108 H 12/23/24 08:17 Pulse Oximetry (%) 100 12/23/24 08:17 Oxygen Delivery Method Nasal Cannula 12/23/24 08:17 Oxygen Flow Rate 2 12/23/24 08:17 Overdose MDM Narrative MDM Narrative:: Jaimie Clay am scribing for and in the presence of Dr. Saenz. 1254: Patient is not redirectable, a code hansen called. Patient data External records reviewed:: [facility] previous records (I reviewed ED visit on 11/27/2024 ) and EMS form Clinical information provided by:: EMS Social determinants that could affect healthcare access:: none Patient has the following chronic illnesses:: Hypertension, diabetes, COPD, GERD, adenocarcinoma of pancreas How is presenting disease/condition affected by chronic disease/condition?: exacerbated by Evaluation data The following diagnostics were reviewed and interpreted by me:: lab results, radiology exam(s) and EKG tracing(s) (EKG at 08:48 am. Sinus tachycardia, rate 120, mild artifact, no acute ischemic changes, no STEMI. ) Lab and/or radiology exams considered but not ordered:: None Interpretation Summary: Ordering Physician: Coleen Saenz MD Date of Service: 12/23/24 Procedure(s): CT stroke protocol Accession Number(s): [id number] cc: Peng Ramierz MD; Coleen Saenz MD~ Examination: CT brain head without contrast. 2-D sagittal coronal reconstructions Date and time of exam:03/25/2025 0909 hours INDICATIONS: Stroke alert, onset focal neurologic deficit today including altered mental status CTDI: vol (mGy):51.9 DLP: (mGycm):1033 Technique: Multiple CT axial sections of the brain have been obtained, 5 mm slice thickness. Contrast has not been administered. 2-D sagittal, coronal reconstructions have been obtained Low dose protocols were performed. One or more of the following dose reduction techniques were used; automated exposure control, adjustment of the mA and/or KV according to patient size, use of iterative reconstruction technique. Findings: No significant ventricular enlargement. Intra-axial or extra-axial hemorrhage density is not seen. No mass effect or midline shift Basal cisterns are not remarkable. Fourth ventricle is midline. Cranial vault intact. Impression: Negative for acute hemorrhage, mass effect or midline shift Dictated By: Peng Ramirez MD Signed By: <Electronically signed by Peng Ramirez MD in OV> 12/23/24 0908 Ordering Physician: Coleen Saenz MD Date of Service: 12/23/24 Procedure(s): CT abdomen pelvis wo con Accession Number(s): [id number] cc: Peng Ramirez MD; NO PRIMARY/FAMILY,PHYSICIAN; Coleen Sanez MD~ Examination: CT abdomen and pelvis without contrast. Coronal 3-D reconstructions. Sagittal 2-D reconstructions. Date and time of exam:December 23, 2024 1142 hours Comparison November 27, 2024 INDICATIONS: Diagnosis pancreatic carcinoma, vomiting today CTDI: vol (mGy): 11.2 DLP: (mGycm): 805 Technique: Axial images of the abdomen have been obtained, 3 mm slice thickness Intravenous contrast material has not been administered. Low dose protocols were performed. One or more of the following dose reduction techniques were used; automated exposure control, adjustment of the mA and/or KV according to patient size, use of iterative reconstruction technique. Findings: Multiple subcentimeter pulmonary nodules in the lower lung zones Liver is irregular in contour 12 mm right lobe liver lesion No gallstones Mass tail of the pancreas again depicted, spiculated margins, AP dimension 4.6 cm compared to 4.7 cm on the prior study Left adrenal metastatic mass 36 mm compared to 28 mm on the prior study No hydronephrosis No ascites Aorta calcification no aneurysmal dilatation Normal appendix A portion of the urinary bladder is present in a right inguinal hernia defect with localized thickening of urinary bladder at this site which may be inflammation IMPRESSION: Multiple subcentimeter pulmonary nodules in the lower lung zones suspicious for metastatic disease 12 mm solid appearing right lobe liver lesion again noted Mass tail the pancreas again depicted, AP dimension 4.6 cm compared to 4.7 cm on the prior study 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 A small portion of the urinary bladder is present in a right inguinal hernia defect Dictated By: Peng Ramirez MD Signed By: <Electronically signed by Peng Ramirez MD in OV> 12/23/24 1209 Medications / Prescriptions Medications or Prescriptions considered but not ordered:: None Medication administrations:: Medication Administration History Ondansetron HCl (Ondansetron Inj 2 Mg/Ml Inj 2 Ml) 4 mg IV Q4HR PRN PRN Reason: NAUSEA OR VOMITING Stop: 01/22/25 08:49 Discontinued Medications Sodium Chloride (Ns) 1,000 mls @ 999 mls/hr IV .Q1H1M ONE Stop: 12/23/24 10:58 Last Infusion: 12/23/24 11:03 Dose: Infused Documented By: Admin: 12/23/24 10:02 Dose: 999 mls/hr Documented By: GM Sodium Chloride (Ns) 1,000 mls @ 999 mls/hr IV .Q1H1M ONE Stop: 12/23/24 13:11 Last Admin: 12/23/24 12:37 Dose: 999 mls/hr Documented By: DB Lorazepam (Lorazepam 2 Mg/Ml Vial) 1 mg IVP X1 ONE Stop: 12/23/24 12:54 Last Admin: 12/23/24 12:59 Dose: 1 mg Documented By: GM See above Consultations Consultation(s) initiated? (list below): Yes Consultation #1 (Physician, Specialty, Details): I spoke with teleneurologist. Discussed patients PMHx, HPI, ED course. States symptoms are less likely a stroke and advised further work up to rule out organic causes. Time: 09:22 Consultation #2 (Physician, Specialty, Details): I spoke with resident working with Dr. Sher. Discussed patients PMHx, HPI, ED course, exam findings, labs, and radiology results. The hospitalist agree to accept the patient for admission. Diagnosis Overdose Differential Diagnosis: drug overdose, acetaminophen overdose, accidental drug ingestion and other (CVA, altered mental status, hyper/hypoglycemia ) Most likely diagnosis given after review of the tests above:: JUICE Altered mental status Admission Indicated Admission indicated?: indicated Admission Request Was there a request for admission?: Yes Admission Attestation Admission request attestation: Discussed case with [] from Hospitalist service regarding admission. Discussed patients ED course, exam findings, labs, and radiology results. The Hospitalist [agrees,declines] to accept the patient for admission. Disposition Plan Disposition Plan: Admit Critical Care Time Critical Care Time Critical Care Time: Yes Total Critical Care Time (min.): 35 Attestation: The high probability of sudden, clinically significant deterioration in the patient's condition required the highest level of my preparedness to intervene urgently. The services I provided to this patient were to treat and/or prevent clinically significant deterioration. Services included the following: chart data review, reviewing nursing notes and/or old charts, documentation time, professional housing consultant collaboration regarding findings and treatment options, medication orders and management, direct patient care, vital sign assessments and ordering, interpreting and reviewing diagnostic studies and lab tests. Aggregate critical care time includes only time during which I was engaged in work directly related to the patient's care, as described above, whether at bedside or elsewhere in the Emergency Department. It did not include time spent performing other reported procedures or the services of residents, students, nurses or physician assistants. Discharge Plan Plan Patient Disposition: Admit Acute Care w/in Hospital Prescriptions/Referrals Prescriptions/Med Rec: No Action metoprolol succinate 25 mg tablet extended release 24 hr 25 mg PO DAILY Patient Comments: TAKE 1 TABLET BY MOUTH EVERY DAY lisinopril 20 mg tablet 40 mg PO QDAY morphine 30 mg Tablet Extended Release 30 mg PO TID Qty: 0 0RF atorvastatin 40 mg tablet 40 mg PO QDAY Qty: 30 0RF hydromorphone [Dilaudid] 2 mg tablet 2 mg PO .q8 MDD 3 PRN (Reason: pain) Qty: 20 0RF famotidine 40 mg tablet 40 mg PO .bedtime Qty: 30 0RF omeprazole 40 mg capsule,delayed release(DR/EC) 40 mg PO QDAY Qty: 30 0RF ondansetron 4 mg tablet,disintegrating 4 mg PO TID PRN (Reason: nausea and vomiting) 30 Days Qty: 10 0RF hydralazine 25 mg tablet 50 mg PO BID acetaminophen [Mapap (acetaminophen)] 500 mg capsule 1,000 mg PO Q4H amlodipine 5 mg tablet 5 mg PO QDAY metformin 500 mg tablet 500 mg PO BID Patient Comments: TAKE 1 TABLET BY MOUTH TWICE A DAY WITH BREAKFAST AND DINNER Referrals: No Primary/Family,Physician [Primary Care Provider] - In 1 week Problem List Clinical Impression: JUICE (acute kidney injury), Altered mental status Patient/Caregiver Discharge Instructions Print Language: Thai Stand Alone Forms: Heather Award Info., Patient Portal Info Letter
--- NOTE | 2024-12-23 08:50 | XR_ITS ---
Examination: CT brain head without contrast. 2-D sagittal coronal reconstructions Date and time of exam:03/25/2025 0909 hours INDICATIONS: Stroke alert, onset focal neurologic deficit today including altered mental status CTDI: vol (mGy):51.9 DLP: (mGycm):1033 Technique: Multiple CT axial sections of the brain have been obtained, 5 mm slice thickness. Contrast has not been administered. 2-D sagittal, coronal reconstructions have been obtained Low dose protocols were performed. One or more of the following dose reduction techniques were used; automated exposure control, adjustment of the mA and/or KV according to patient size, use of iterative reconstruction technique. Findings: No significant ventricular enlargement. Intra-axial or extra-axial hemorrhage density is not seen. No mass effect or midline shift Basal cisterns are not remarkable. Fourth ventricle is midline. Cranial vault intact. Impression: Negative for acute hemorrhage, mass effect or midline shift
[2024-12-23 09:35] LABS: Basophils # (Auto) 0.1 Thou/mm3 (0.0-0.2); Basophils % (Auto) 1 % (0-2.5); Eosinophils # (Auto) 0.1 Thou/mm3 (0.0-0.5); Eosinophils % (Auto) 1 % (0-10); Hematocrit 41.6 % (41.0-53.0); Immature Granulocytes % (Auto) 0 % (0-0); Immature Granulocytes Auto 0.06 Thou/mm3 (0.00-0.00); Lymphocytes # (Auto) 2.4 Thou/mm3 (1.0-4.8); Lymphocytes % (Auto) 13 % (10-50); Mean Corpuscular HGB Conc 33.7 g/dl (31.0-37.0); Mean Corpuscular Hemoglobin 30.2 pg (25.0-35.0); Mean Corpuscular Volume 90 fL (80-100); Monocytes # (Auto) 1.4 Thou/mm3 (0.0-0.8); Monocytes % (Auto) 7 % (0-12); Neutrophils # (Auto) 15.3 Thou/mm3 (1.8-7.7); Neutrophils % (Auto) 79 % (37-80); Nucleated Red Blood Cell % 0 /100 WBC (0); Platelet Count 352 Thou/mm3 (140-440); RDW Standard Deviation 42.7 fL (35.1-43.9); Red Blood Count 4.64 Miln/mm3 (4.50-5.90); White Blood Count 19.5 Thou/mm3 (3.8-10.6)
[2024-12-23 09:45] LABS: Collection Type, Urine Catheter; RBC,Urine 0 /hpf (0-3); Squamous Epithelial Cell,Urine 0 /hpf (0-5); WBC,Urine 0 /hpf (0-5)
[2024-12-23 09:53] LABS: B-Type Natriuretic Peptide 22 pg/mL (0-100); INR 1.1 (0.9-1.3); Partial Thromboplastin Time 27.5 Seconds (22.0-36.0); Prothrombin Time 11.7 Seconds (9.0-12.2)
[2024-12-23 09:57] LABS: Alanine Aminotransferase 41 U/L (10-49); Albumin, Serum 4.5 gm/dL (3.4-4.8); Albumin/Globulin Ratio 1.2 (1.2-2.2); Alcohol, Blood Medical < 3.0 mg/dL (0-10.0); Alkaline Phosphatase 144 U/L (46-116); Anion Gap 7 (7-16); Aspartate Amino Transferase 57 U/L (0-34); BUN/Creatinine Ratio 8 Ratio (12-20); Bilirubin,Total 0.3 mg/dL (0.3-1.2); Blood Urea Nitrogen 13 mg/dL (9-23); Calcium 9.4 mg/dL (8.3-10.6); Calcium (Corrected) 9.4 mg/dL (8.5-10.1); Carbon Dioxide 28.2 mMol/L (20.0-31.0); Chloride 104 mMol/L (98-107); Creatinine (Component) 1.6 mg/dL (0.6-1.3); Estimated Creatinine Clearance 54.2 mL/min (>60); Globulin 3.8 gm/dL (2.3-3.5); Glucose 137 mg/dL (74-106); Magnesium 1.7 mg/dL (1.6-2.6); Osmolality,Calculated 279 (275-295); Potassium 5.1 mMol/L (3.4-5.1); Sodium 139 mMol/L (136-145); Total Protein 8.3 gm/dL (5.7-8.2); Troponin I < 0.020 ng/mL (0.0-0.045); eGFR 48 See Note
[2024-12-23] MEDS: SODIUM CHLORIDE 0.9% 1000 ML 1,000 ML 999 ML IV ×2 (10:02→12:37)
[2024-12-23 10:06] LABS: Amphetamine/Methamp Scrn,U Negative (Negative); Barbiturate Screen,Urine Negative (Negative); Benzodiazepines Screen,Urine Negative (Negative); Benzoylecgonine Screen, Ur Negative (Negative); Fentanyl Screen,Urine Negative (Negative); Opiate Screen,Urine Positive (Negative); THC Screen,Urine Negative (Negative)
--- NOTE | 2024-12-23 10:23 | XR_ITS ---
Examination: CT abdomen and pelvis without contrast. Coronal 3-D reconstructions. Sagittal 2-D reconstructions. Date and time of exam:December 23, 2024 1142 hours Comparison November 27, 2024 INDICATIONS: Diagnosis pancreatic carcinoma, vomiting today CTDI: vol (mGy): 11.2 DLP: (mGycm): 805 Technique: Axial images of the abdomen have been obtained, 3 mm slice thickness Intravenous contrast material has not been administered. Low dose protocols were performed. One or more of the following dose reduction techniques were used; automated exposure control, adjustment of the mA and/or KV according to patient size, use of iterative reconstruction technique. Findings: Multiple subcentimeter pulmonary nodules in the lower lung zones Liver is irregular in contour 12 mm right lobe liver lesion No gallstones Mass tail of the pancreas again depicted, spiculated margins, AP dimension 4.6 cm compared to 4.7 cm on the prior study Left adrenal metastatic mass 36 mm compared to 28 mm on the prior study No hydronephrosis No ascites Aorta calcification no aneurysmal dilatation Normal appendix A portion of the urinary bladder is present in a right inguinal hernia defect with localized thickening of urinary bladder at this site which may be inflammation IMPRESSION: Multiple subcentimeter pulmonary nodules in the lower lung zones suspicious for metastatic disease 12 mm solid appearing right lobe liver lesion again noted Mass tail the pancreas again depicted, AP dimension 4.6 cm compared to 4.7 cm on the prior study 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 A small portion of the urinary bladder is present in a right inguinal hernia defect
[2024-12-23 11:01] LABS: Bilirubin,Urine Negative (Negative); Blood,Urine Negative (Negative); Clarity,Urine Clear (Clear/Hazy); Color,Urine Yellow (Lt Yel-Yel); Glucose, Urine Negative (Negative); Ketones,Urine Negative (Negative); Leukocyte Esterase,Urine Negative (Negative); Nitrite,Urine Negative (Negative); Protein,Urine Trace (Neg - Trace); Urobilinogen,Urine 0.2 mg/dL (0.0-1.0)
[2024-12-23 11:05] LABS: Bacteria,Urine Rare
--- NOTE | 2024-12-23 11:16 | PC.NURSE ---
PT KEEPS TRYING TO REMOVE IV AND GETTING OUT OF BED, PT REDIRECTED.
--- NOTE | 2024-12-23 12:05 | PC.NURSE ---
PT ONCE AGAIN TRIED TO PULL OUT IV AND GET OUT OF BED, PT REDIRECTED, [address] ON [address]
--- NOTE | 2024-12-23 12:55 | PC.NURSE ---
PT GOT OUT OF BED AND ALMOST FELL, REDIRECTION FAILED, DEL [facility] CALLED, PT PLACED BACK IN BED, ORDER FOR MEDICAL RESTRAINS GIVEN TO THIS NURSE.
[2024-12-23] MEDS: LORazepam 2 MG/ML VIAL 1 MG IVP (12:59)
--- NOTE | 2024-12-23 14:10 | PD.RESHP ---
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 Given patient's current mental status most of the history was taken from chart review. At this time patient was found by EMS lying on a neighbor's front lawn and he was given a dose of Narcan as he was unresponsive which this then wake him up a little bit at least that he could open his eyes. During examination patient was still very confused not able to answer questions and minimally follow some commands. He was also agitated therefore he was placed on restraints and was given a dose of lorazepam in the ED. On chart review patient appears to have elected to go with hospice on 11/30/2024, but will reach out to patient's brother to see what their wishes are if they would like to go back on hospice or not. ED course: Patient came in initially hypertensive and tachycardic and afebrile. Initial labs were relevant for leukocytosis (19.5), JUICE (creatinine 1.6), transaminitis (AST 57 and alkaline phosphatase 144), and U-Tox was positive for opiates. PMH: As above Social Hx: Past alcohol use and smoker Surgical Hx Ramakrishna fundoplication After examination of the patient and review of the clinical data patient would benefit from admission to the hospital for further treatment and evaluation of his JUICE and acute encephalopathy. Review of Systems Review of Systems ROS Unobtainable: unobtainable due to mental status Past Medical History Past Medical History CARDIAC: Positive Cardiac Disorders, Hypercholesterolemia and Hypertension RESPIRATORY: Positive Asthma GASTROINTESTINAL: Positive Gastrointestinal Disorders, Gastroesophageal Reflux Disease and Obesity MUSCULOSKELETAL: Positive Musculoskeletal Disorders and Arthritis ENDOCRINE: Positive Endocrine Disorders OTHER HISTORY: Positive Hospitalization and Cancer (pancreatic cancer) Family History FAMILY HISTORY: Positive Family Psychiatric Problems and Family Cardiac Disorders Surgical History SURGICAL: Positive Abdominal Surgery Social History SMOKING STATUS: Current every day smoker SUBSTANCE USE: does not use Exam Vital Signs Temp Pulse Resp BP Pulse Ox O2 Del Method O2 Flow Rate 98.1 F 113 H 18 137/93 H 98 Nasal Cannula 2 12/23/24 12:00 12/23/24 12:00 12/23/24 12:00 12/23/24 12:00 12/23/24 12:00 12/23/24 12:00 12/23/24 12:00 Narrative Exam General: A/O x, disheveled Eyes: pupils reactive, but constricted, EOMI. Anicteric, vision grossly intact. Ears: No ear discharge, Hearing grossly intact. Nose: No nasal discharge. Mouth/Throat: Dry mucous membranes, no redness, no lesions. Neck: Neck supple, non-tender, no cervical lymphadenopathy. Lungs: Clear BELEM to auscultation and percussion, No accessory muscle use. Cardio: Normal S1/S2, regular rhythm, no murmurs, no JVD Abdomen: Soft, non-tender, no palpable masses, peristalsis present, no guarding or rebound. Extremities: Symmetrical, no significant deformities, no peripheral edema , non-tender, peripheral pulses presents. Skin: No rashes, no lesions, warm to touch. Neuro: Limited given patient's mental status, but no gross focal neurological deficits and patient was moving all extremities. Results: Labs 12/24/24 04:50 12/24/24 04:50 Labs: Short CBC 12/23/24 Range/Units 09:28 WBC 19.5 H (3.8-10.6) Thou/mm3 Hgb 14.0 (13.5-16.0) g/dL Hct 41.6 (41.0-53.0) % Plt Count 352 D (140-440) Thou/mm3 BMP 12/23/24 09:28 Sodium 139 Potassium 5.1 Chloride 104 Carbon Dioxide 28.2 BUN 13 Creatinine 1.6 H Glucose 137 H Calcium 9.4 Cardiac Enzymes 12/23/24 Range/Units 09:28 Total Creatine Kinase Cancelled Troponin I < 0.020 (0.0-0.045) ng/mL Liver Function 12/23/24 Range/Units 09:28 Total Bilirubin 0.3 (0.3-1.2) mg/dL AST 57 H (0-34) U/L ALT 41 (10-49) U/L Alkaline Phosphatase 144 H (46-116) U/L Albumin 4.5 (3.4-4.8) gm/dL Urine 12/23/24 Range/Units 09:35 Urine Color Yellow (Lt Yel-Yel) Urine Clarity Clear (Clear/Hazy) Urine pH 6.0 (5.0-7.0) Ur Specific [place] 1.020 (1.001-1.035) Urine Protein Trace (Neg - Trace) Urine Glucose (UA) Negative (Negative) Quality Measures Quality Measures stroke (Stroke alert activated @ 08:54 am. ) Suspected type of Stroke: Non Acute Tenecteplase given: Reason(s) Tenecteplase not given: Outside the time window not given Rehab services: PT evaluation ordered (Stroke not suspected) and Speech Language Pathology eval ordered (Stroke not suspected) VTE Prophylaxis: pharmaceutical Antithrombotic by day 2:: not indicated (describe) Statin ordered: not ordered (Stroke not suspected and patient NPO ) Anticoagulation ordered for A-fib or flutter (current or hx): not indicated Advance care planning discussed with:: patient and sibling Medications Home Medications and Allergies Home Medications ?Medication ?Instructions ?Recorded ?Confirmed ?Type acetaminophen 500 mg capsule 1,000 mg PO Q4H pain 10/25/24 11/11/24 History (Mapap (acetaminophen)) amlodipine 5 mg tablet 5 mg PO QDAY 10/25/24 11/11/24 History hydralazine 25 mg tablet 50 mg PO BID 10/25/24 11/11/24 History Held on 11/14/24. Instructions: Resume on 11/28/24. metformin 500 mg tablet 500 mg PO BID 10/25/24 11/11/24 History lisinopril 20 mg tablet 40 mg PO QDAY 11/11/24 11/11/24 History Held on 11/14/24. Instructions: Resume on 11/28/24. metoprolol succinate 25 mg 25 mg PO DAILY 11/11/24 11/11/24 History tablet,extended release 24 hr Allergies Allergy/AdvReac Type Severity Reaction Status Date / Time No Known Allergies Allergy Verified 12/23/24 08:32 Visit Medications Dextrose (Dextrose 50%-Water Inj 50 Ml Syringe) 25 ml IV Q15MIN PRN PRN Reason: BG 50-70 responsive npo pt Stop: 01/22/25 14:04 Dextrose (Dextrose 50%-Water Inj 50 Ml Syringe) 50 ml IV Q15MIN PRN PRN Reason: BG <50 OR BG <70 & pt unresponsive Stop: 01/22/25 14:04 Enoxaparin Sodium (Enoxaparin Sod Inj 40 Mg/0.4 Ml Syringe) 40 mg SC QDAY AUSTEN Stop: 01/07/25 08:59 Glucagon (Glucagon Inj 1 Mg Vial) 1 mg IM Q15MIN PRN PRN Reason: BG <70, and no IV access Sodium Chloride (Ns) 1,000 mls @ 100 mls/hr IV .Q10H AUSTEN Stop: 12/24/24 10:14 Insulin Human Lispro (Insulin Lispro (Admelog) 1 Unit/0.01 Ml Unit) 0 unit SC Q6H AUSTEN; Protocol Stop: 01/22/25 14:14 Ondansetron HCl (Ondansetron Inj 2 Mg/Ml Inj 2 Ml) 4 mg IV Q4HR PRN PRN Reason: NAUSEA OR VOMITING Stop: 01/22/25 08:49 Ondansetron HCl (Ondansetron Inj 2 Mg/Ml Inj 2 Ml) 4 mg IV Q6H PRN; Protocol PRN Reason: NAUSEA OR VOMITING Stop: 01/22/25 14:04 Discontinued Medications Sodium Chloride (Ns) 1,000 mls @ 999 mls/hr IV .Q1H1M ONE Stop: 12/23/24 10:58 Last Infusion: 12/23/24 11:03 Dose: Infused Sodium Chloride (Ns) 1,000 mls @ 999 mls/hr IV .Q1H1M ONE Stop: 12/23/24 13:11 Last Admin: 12/23/24 12:37 Dose: 999 mls/hr Lorazepam (Lorazepam 2 Mg/Ml Vial) 1 mg IVP X1 ONE Stop: 12/23/24 12:54 Last Admin: 12/23/24 12:59 Dose: 1 mg Assessment & Plan Plan 64-year-old male with past medical history of 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 #Acute encephalopathy #Metastatic pancreatic cancer #JUICE #Cancer related pain # Leukocytosis Patient came in after he was found to be lethargic and obtunded at a [facility] lawn. Patient was recently placed on hospice and he was prescribed morphine extended release for his cancer related pain. Patient could possibly have some brain metastasis versus encephalopathy in the setting of polypharmacy as he was on lorazepam and opiates versus dehydration. Patient's initial creatinine today was 1.6 from his baseline of around 0.8. Head CT was unremarkable. WBC 19.5 most likely reactive given cancer Plan: IV fluids Haldol 2.5 as needed for agitation Will discuss with patient's brother if they would like to proceed with hospice by tomorrow Will continue to monitor patient's mental status #Hx of DM2 Last A1c on 11/2024 was 6.5% Plan: ISS Hypoglycemia protocol ordered #Hx of GERD Start patient on Protonix 40 mg IV daily #Hx of hypertension Patient came in hypertensive, but at this time blood pressure is better controlled therefore we will hold off on any antihypertensive medications for now Disposition: Patient admitted to med surg for JUICE and acute encephalopathy. Diet: NPO GI prophylaxis: protonix DVT prophylaxis: lovenox Code: DNR/DNI Case disclosed with Attending Dr. Christos Byers PGY1 Disclaimer: Even though this this note was dictated by speech recognition and even though it was carefully revised there may still be minor errors in real estate sales agent due to voice recognition software. Attending Provider Attestation/Addendum I reviewed labs, imaging, EKG, home medications and prior available records. Face to face evaluation was performed by me. I have personally examined the patient and discussed assessment and plan with the IM team. I reviewed the resident note and agree with the plan with exceptions as below. 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 Avoid nephrotoxins. Renally dosed medications Management of pain with morphine as needed Per records, patient is on hospice for his tumor
[2024-12-23 14:29] LABS: Creatine Kinase 1419 U/L (34-171)
[2024-12-23 14:44] LABS: Acetaminophen < 2.0 mcg/mL (10.0-20.0); Salicylate < 3.0 mg/dL
[2024-12-23] MEDS: PANTOPRAZOLE INJ 40 MG VIAL IVP (14:52)
[2024-12-23] MEDS: SODIUM CHLORIDE 0.9% 1000 ML 1,000 ML 100 ML IV (15:12)
--- NOTE | 2024-12-23 19:15 | PC.NURSE ---
Motorcycle Subassembly Repairer assumes care of patient at this time, pt denies any pain or acute distress at this time, pt noted to be in bilateral wrist restriants due to confusion and pulling at lines, Telesiter in place, bed in low position and locked with side rails up x 2
--- NOTE | 2024-12-23 20:26 | PC.NURSE ---
Report called to floor nurse SARA Coley
[2024-12-23] MEDS: INSULIN LISPRO (AdmeLOG) 1 UNIT/0.01 ML UNIT SC (21:00)
--- NOTE | 2024-12-23 21:15 | PC.NURSE ---
Addendum entered by Brijesh Pimentel RN 12/23/24 21:26: RN contacted brother Magdaleno Jean at [phone] to answer admission questions. Original Note: Patient is confused and cannot answer admission questions. RN will try to contact family to answer admission questions.
--- NOTE | 2024-12-23 22:24 | PD.TNEURO ---
Tele Neuro Consultation Consultation Date 12/23/24 Most Recent Vital Signs Last Vital Signs Temp 97.2 F 12/23/24 20:42 Pulse 108 H 12/23/24 20:42 Resp 16 12/23/24 20:42 BP 168/93 H 12/23/24 20:42 Pulse Ox 91 L 12/23/24 20:42 O2 Del Method Room Air 12/23/24 20:42 O2 Flow Rate 2 12/23/24 12:00 Laboratory-Coagulation Panel PT 11.7 Seconds (9.0-12.2) 12/23/24 09:28 INR 1.1 (0.9-1.3) 12/23/24 09:28 APTT 27.5 Seconds (22.0-36.0) 12/23/24 09:28 Consultation Narrative [facility] Patient Name:???Dayo Jean Date of :???1960 Date of Service:???12/23/2024 08:55:18 Diagnosis:?T78.8 - Other adverse effects, not elsewhere classified Impression: ?64 year old male with history of metastatic pancreatic cancer on morphine and hydromorphone with unresponsiveness improved by naloxone, with residual lethargy and generalized weakness without focal deficit, most likely drug overdose, presumed accidental at this time, workup pending. Our recommendations are outlined below. Recommendations: ?No further acute neurological workup indicated at this time. Management of medication overdose per primary team. Sign Out: ? Discussed with Emergency Department Provider Advanced Imaging: Advanced Imaging Deferred because: Stroke not suspected with clinical presentation and exam Metrics: Last Known Well: Unknown Dispatch Time: 12/23/2024 08:55:18 Arrival Time: 12/23/2024 08:13:00 Initial Response Time: 12/23/2024 09:05:15Symptoms: found down, lethargic. Initial patient interaction: 12/23/2024 09:10:00 NIHSS Assessment Completed: 12/23/2024 09:16:55Patient is not a candidate for Thrombolytic. Thrombolytic Medical Decision: 12/23/2024 09:16:55Patient was not deemed candidate for Thrombolytic because of following reasons: LKW outside 4.5 hr window. . other diagnosis suspected - drug overdose. CT Head: I personally reviewed all the CT images that were available to me and it showed: no acute infarct or hemorrhage. Primary Provider Notified of Diagnostic Impression and Management Plan on: 12/23/2024 09:20:12 History of Present Illness:Patient is a 64 year old Male. Patient was brought by EMS for symptoms of found down, lethargic. Patient is a 64 year old male with history of metastatic pancreatic cancer on morphine and hydromorphone presenting with unresponsiveness. Patient was found down by neighbor; EMS gave naloxone 1 mg IV to significant benefit however is still lethargic but answering some questions and following most commands. Endorses taking pain medications today, and affirms the query regarding possibly taking a little too much. Medications: Anticoagulant use:??Unknown Antiplatelet use:?Unknown Reviewed EMR for current medications Other Medications Pertinent To Assessment Include: morphine, hydromorphone Allergies:? Reviewed Allergies Unable To Obtain Due To:?Patient Is Confused Social History: Unable To Obtain Due To Patient Status :?Patient Is Confused Family History: Family History Cannot Be Obtained Because:Patient Is Confused ROS :?ROS Cannot Be Obtained Because:? Patient Is Confused Past Surgical History: Past Surgical History Cannot Be Obtained Because: Patient Is Confused There Is No Surgical History Contributory To Today?s Visit Examination: BP(123/76),?Pulse(67),?Blood Glucose(131) 1A: Level of Consciousness - Requires repeated stimulation to arouse?+ 2 1B: Ask Month and Age - 1 Question Right?+ 1 1C: Blink Eyes & Squeeze Hands - Performs Both Tasks?+ 0 2: Test Horizontal Extraocular Movements - Normal?+ 0 3: Test Visual Z[place]ala - No Visual Loss?+ 0 4: Test Facial Palsy (Use Grimace if Obtunded) - Normal symmetry?+ 0 5A: Test Left Arm Motor Drift - Drift, but doesn't hit bed?+ 1 5B: Test Right Arm Motor Drift - Drift, but doesn't hit bed?+ 1 6A: Test Left Leg Motor Drift - Drift, but doesn't hit bed?+ 1 6B: Test Right Leg Motor Drift - Drift, but doesn't hit bed?+ 1 7: Test Limb Ataxia (FNF/Heel-Barr) - No Ataxia?+ 0 8: Test Sensation - Normal; No sensory loss?+ 0 9: Test Language/Aphasia - Normal; No aphasia?+ 0 10: Test Dysarthria - Mild-Moderate Dysarthria: Slurring but can be understood?+ 1 11: Test Extinction/Inattention - No abnormality?+ 0 NIHSS Score:?8 NIHSS Free Text :?Severely inattentive throughout the evaluation, requiring frequent redirection and repetition of instruction. Pre-Morbid Modified [place] Scale:Unable to assess Spoke with :?Dr. Saenz This consult was conducted in real time using interactive audio and video technology. Patient was informed of the technology being used for this visit and agreed to proceed. Patient located in hospital and provider located at home/office setting. Patient is being evaluated for possible acute neurologic impairment and high probability of imminent or life-threatening deterioration. I spent total of 40 minutes providing care to this patient, including time for face to face visit via telemedicine, review of medical records, imaging studies and discussion of findings with providers, the patient and/or family. Dr Taz Griffith [facility] For Inpatient follow-up with [facility] physician please call [facility] at . As we are not an outpatient service for any post hospital discharge needs please contact the hospital for assistance. If you have any questions for the [facility] physicians or need to reconsult for clinical or diagnostic changes please contact us via [facility] at .
[2024-12-24] VITALS (9 sets, daily range): BP systolic 177–223; BP diastolic 95–127; PULSE 76–110; RESP 15–97; TEMP 36.2–36.7; O2SAT 95–99; BMI 33.7
--- NOTE | 2024-12-24 04:45 | XR_ITS ---
Examination: CT brain head without contrast. 2-D sagittal coronal reconstructions Date and time of exam:December 24, 2024, 0526 hours Comparison December 23, 2024 INDICATIONS: Stroke alert, onset focal neurologic deficit today CTDI: vol (mGy):49 DLP: (mGycm):1429 Technique: Multiple CT axial sections of the brain have been obtained, 5 mm slice thickness. Contrast has not been administered. 2-D sagittal, coronal reconstructions have been obtained Low dose protocols were performed. One or more of the following dose reduction techniques were used; automated exposure control, adjustment of the mA and/or KV according to patient size, use of iterative reconstruction technique. Findings: No significant ventricular enlargement. Intra-axial or extra-axial hemorrhage density is not seen. No mass effect or midline shift Basal cisterns are not remarkable. Fourth ventricle is midline. Cranial vault intact. Impression: Negative for acute hemorrhage, mass effect or midline shift
--- NOTE | 2024-12-24 04:53 | EKG_ITS ---
[facility] Test Date: 2024-12-24 Pat Name: MARZENA MENDEZ [facility] Gender: Male Senior Agricultural Assistant: PETRA ACOSTA: 1960 Requested By: Eddie Monroe Order Number: [id number] Reading MD: Eddie Monroe Measurements Intervals [place] Rate: 105 P: 61 WV: 159 QRS: 28 QRSD: 86 T: 65 QT: 344 QTc: 456 Interpretive Statements SINUS TACHYCARDIA ABNORMAL RHYTHM ECG Compared to ECG 12/23/2024 08:48:36 No significant changes /store/S0/[id number]/ecg/[id number].pdf
[2024-12-24] MEDS: MORPHINE SULF INJ 10 MG/ML VIAL 2 MG IVP (05:10)
[2024-12-24 05:15] LABS: Basophils # (Auto) 0.1 Thou/mm3 (0.0-0.2); Basophils % (Auto) 0 % (0-2.5); Eosinophils % (Auto) 0 % (0-10); Hematocrit 37.4 % (41.0-53.0); Hemoglobin 13.1 g/dL (13.5-16.0); Immature Granulocytes % (Auto) 0 % (0-0); Immature Granulocytes Auto 0.04 Thou/mm3 (0.00-0.00); Lymphocytes # (Auto) 2.1 Thou/mm3 (1.0-4.8); Lymphocytes % (Auto) 15 % (10-50); Mean Corpuscular Hemoglobin 30.1 pg (25.0-35.0); Mean Corpuscular Volume 86 fL (80-100); Monocytes # (Auto) 0.8 Thou/mm3 (0.0-0.8); Monocytes % (Auto) 6 % (0-12); Neutrophils # (Auto) 10.8 Thou/mm3 (1.8-7.7); Neutrophils % (Auto) 78 % (37-80); Nucleated Red Blood Cell % 0 /100 WBC (0); Platelet Count 318 Thou/mm3 (140-440); RDW Standard Deviation 39.6 fL (35.1-43.9); Red Blood Count 4.35 Miln/mm3 (4.50-5.90); White Blood Count 13.7 Thou/mm3 (3.8-10.6)
[2024-12-24 05:32] LABS: Alanine Aminotransferase 38 U/L (10-49); Albumin, Serum 4.5 gm/dL (3.4-4.8); Albumin/Globulin Ratio 1.2 (1.2-2.2); Alkaline Phosphatase 128 U/L (46-116); Anion Gap 7 (7-16); Aspartate Amino Transferase 58 U/L (0-34); BUN/Creatinine Ratio 16 Ratio (12-20); Bilirubin,Total 0.5 mg/dL (0.3-1.2); Blood Urea Nitrogen 13 mg/dL (9-23); Calcium 9.1 mg/dL (8.3-10.6); Calcium (Corrected) 9.1 mg/dL (8.5-10.1); Carbon Dioxide 26.9 mMol/L (20.0-31.0); Chloride 107 mMol/L (98-107); Creatinine (Component) 0.8 mg/dL (0.6-1.3); Estimated Creatinine Clearance 111.6 mL/min (>60); Globulin 3.7 gm/dL (2.3-3.5); Glucose 136 mg/dL (74-106); Magnesium 1.6 mg/dL (1.6-2.6); Osmolality,Calculated 283 (275-295); Potassium 4.1 mMol/L (3.4-5.1); Sodium 141 mMol/L (136-145); Total Protein 8.2 gm/dL (5.7-8.2); eGFR > 60 See Note
--- NOTE | 2024-12-24 05:33 | ESCONSULT_ITS ---
Tele Neuro Consultation Consultation Date 12/24/24 Most Recent Vital Signs Last Vital Signs Temp 98.1 F 12/23/24 23:57 Pulse 91 12/24/24 01:24 Resp 18 12/24/24 01:24 BP 155/81 H 12/23/24 23:57 Pulse Ox 95 12/23/24 23:57 O2 Del Method Room Air 12/23/24 23:57 O2 Flow Rate 2 12/23/24 12:00 Laboratory-Coagulation Panel PT 11.7 Seconds (9.0-12.2) 12/23/24 09:28 INR 1.1 (0.9-1.3) 12/23/24 09:28 APTT 27.5 Seconds (22.0-36.0) 12/23/24 09:28 Consultation Narrative [facility] Tele[facility]urology Consult [facility] Patient Name:???Dayo Jean Date of :???1960 Identification Number:??? Date of Service:???12/24/2024 04:52:11 Diagnosis:?G93.41 - Encephalopathy Metabolic ?R29.810 - Facial numbness/ Facial weakness Impression: ?64 yo M for whom inpatient stroke alert is called due to new facial droop in setting of altered mental status and elevated blood pressures. CT head with no definitive acute ischemic stroke or hemorrhage noted on my personal review. Outside window for thrombolytics. CTA head/neck pending. Differential for new facial droop and established AMS would be broad, could be that patient has new acute ischemic stroke but would be odd for AMS to set in first followed by facial droop separately unless facial droop represents separate issue unrelated to AMS. Also could be hypertensive urgency/emergency driving symptoms but will need MRI brain before treating for BP as acute ischemic stroke on differential. Full recommendations as follows: Our recommendations are outlined below. Recommendations: ? Stroke/Telemetry Floor ? Neuro Checks (Q4) ? Bedside Swallow Eval ?-f/u CTA head/neck ?-obtain MRI brain w/o contrast (routine) ? --if + for acute stroke = will need full stroke workup (including lipid panel, A1c, TTE, antiplatelets/statin, etc) ? --allow for permissive HTN up to 220 systolic while MRI brain pending ? --if MRI negative for stroke = goal of normotension per primary team ?-cont on asa 81 mg po qdaily for now ?-obtain B12, folate, TSH, ammonia (CMP pending) ?-obtain CXR, blood cultures (WBC 19.5 on admission) ? --UA negative, UDS, EtOH levels negative ?-Delirium precautions: Blinds open during the day, closed at night, frequent reorientation, minimize nighttime interruptions ?-When possible, avoid benzodiazepines, try to limit opioid pain medications as much as possible (will defer pain management to primary team), and anticholinergic medications ?-dvt ppx per primary team ?-PT/OT/ST consults - inpatient rehab if recommended ?-call neurology immediately with significant change in exam Advanced Imaging:Advanced imaging has been ordered. Results pending. Metrics: Last Known Well: Unknown Dispatch Time: 12/24/2024 04:52:11 Initial Response Time: 12/24/2024 04:54:10Symptoms: facial droop and altered mental status. Initial patient interaction: 12/24/2024 04:58:33 NIHSS Assessment Completed: 12/24/2024 05:05:21Patient is not a candidate for Thrombolytic. Thrombolytic Medical Decision: 12/24/2024 05:05:21Patient was not deemed candidate for Thrombolytic because of following reasons: LKW outside 4.[address] Head: I personally reviewed all the CT images that were available to me and it showed: CT head with no definitive acute ischemic stroke or hemorrhage noted on my personal review. Primary Provider Notified of Diagnostic Impression and Management Plan on: 12/24/2024 05:33:17 Spoke With: Primary team physician Able to Reach 12/24/2024 05:33:17 History of Present Illness:Patient is a 64 year old Male. Inpatient stroke alert was called for symptoms of facial droop and altered mental status. 64 yo M for whom inpatient stroke alert is called due to new facial droop in setting of altered mental status and elevated blood pressures. Per report, patient with facial droop and high blood pressure noted this morning. Admitted with JUICE and AMS. Unclear last known normal, was admitted with AMS; teleneuro consulted and no facial droop noted then. HCT negative for acute findings as of yesterday. Per Neuro consult note by Dr. Griffith yesterday patient was found down by neighbor and unknown when his last known normal was as of consult yesterday morning. No focal deficits noted by Dr. Griffith yesterday and no further workup was recommended for suspected drug side effects causing AMS/lethargy (related to his home opiates for chronic pain). Patient has been agitated overnight. Patient states he is in pain in his back; denies head pain. Can tell me his name and age but not much else. Follows some commands but not most. Can name some objects and does not seem to have left sided weakness in arms/legs but does not cooperate for formal strength testing in legs. ? Past Medical History: ?Hypertension ?Diabetes Mellitus ?Hyperlipidemia Other PMH:? history of pancreatic cancer, chronic pain Medications: No Anticoagulant use? No Antiplatelet use Reviewed EMR for current medications Allergies:? Reviewed,NKDA Social History: Unable To Obtain Due To Patient Status :?Patient Is Confused Family History: Family History Cannot Be Obtained Because:Patient Is Confused ROS :?ROS Cannot Be Obtained Because:? Patient Is Confused ? ? Examination: BP(186/107),?Pulse(105),?Blood Glucose(140) 1A: Level of Consciousness - Alert; keenly responsive?+ 0 1B: Ask Month and Age - 1 Question Right?+ 1 1C: Blink Eyes & Squeeze Hands - Performs Both Tasks?+ 0 2: Test Horizontal Extraocular Movements - Normal?+ 0 3: Test Visual Zavala - No Visual Loss?+ 0 4: Test Facial Palsy (Use Grimace if Obtunded) - Minor paralysis (flat nasolabial fold, smile asymmetry)?+ 1 5A: Test Left Arm Motor Drift - No Drift for 10 Seconds?+ 0 5B: Test Right Arm Motor Drift - No Drift for 10 Seconds?+ 0 6A: Test Left Leg Motor Drift - Some Effort Against [place]?+ 2 6B: Test Right Leg Motor Drift - Some Effort Against [place]?+ 2 7: Test Limb Ataxia (FNF/Heel-Barr) - No Ataxia?+ 0 8: Test Sensation - Normal; No sensory loss?+ 0 9: Test Language/Aphasia - Mild-Moderate Aphasia: Some Obvious Changes, Without Significant Limitation?+ 1 10: Test Dysarthria - Mild-Moderate Dysarthria: Slurring but can be understood?+ 1 11: Test Extinction/Inattention - No abnormality?+ 0 NIHSS Score:?8 NIHSS Free Text :?can name some objects, says a couple words on NIHSS sentences but not complete sentence; following some commands but does not cooperate for formal strength testing in legs. Pre-Morbid Modified Kristin Scale:Unable to assess Spoke with :?Primary team physician This consult was conducted in real time using interactive audio and video technology. Patient was informed of the technology being used for this visit and agreed to proceed. Patient located in hospital and provider located at home/office setting. Patient is being evaluated for possible acute neurologic impairment and high probability of imminent or life-threatening deterioration. I spent total of 45 minutes providing care to this patient, including time for face to face visit via telemedicine, review of medical records, imaging studies and discussion of findings with providers, the patient and/or family. Dr Ming Morgan [facility] For Inpatient follow-up with [facility] physician please call [facility] at . As we are not an outpatient service for any post hospital discharge needs please contact the hospital for assistance. If you have any questions for the [facility] physicians or need to reconsult for clinical or diagnostic changes please contact us via [facility] at . ?
--- NOTE | 2024-12-24 05:55 | EVENTNT_ITS ---
<Statement entered by Tarik White MD - 12/24/24 06:22> Patient seen and examined at bedside with resident. Agree with assessment and plan as dictated below. Tarik White MD Documentation for date of: 12/24/24 Event Note Event Note: Rapid response called for patient around 5 AM, patient's blood pressure found to be significantly elevated 210, heart rate in 120s. On physical exam patient noted to have facial droop, new finding per review of chart. Decision was made to call stroke alert. -EKG was ordered showed sinus tachycardia -Teleneuro recommended telemetry monitoring, neurochecks, bedside swallow eval, CTA head and neck, MRI brain stroke protocol, permissive hypertension and aspirin. Case discussed with Attending Dr. White. Vi Rosario PGY1 Disclaimer: This note was dictated by speech recognition. Minor errors in mushroom packer may be present due to voice recognition software.
[2024-12-24] MEDS: LABETALOL INJ 5 MG/ML VIAL 20 ML 10 MG IVP (06:04)
--- NOTE | 2024-12-24 06:20 | PRELIM_ITS ---
CT scan of the head without intravenous contrast (axial sections with sagittal and coronal reformats) December 24, 2024 0524 hours Clinical History: Altered mental status, drooping. Comparison: December 23, 2024 Findings: There is no evidence of intracranial hemorrhage, mass effect or midline shift. There is increased density in the middle cerebral arteries bilaterally, which may represent atheromatous changes. There is mild volume loss. There is atheromatous calcification of the intracranial arteries. The calvarium is unremarkable. The mastoid air cells and the visualized paranasal sinuses are clear. Impression: No evidence of intracranial hemorrhage, mass effect or midline shift. If there are persistent clinical symptoms or additional clinical concerns, consider further evaluation with contrast enhanced CT Angiography or MRI. Discussion Details: Results verbally Communicated to Jovon Cerda RN at 9:70 AM ET on 24/12/2024. A call back number is provided to facilitate direct Physician to Physician communication. Report Electronically Signed By: Magdi Armenta 12/24/2024 6:19:17 AM [EST]
[2024-12-24] MEDS: SODIUM CHLORIDE 0.9% 1000 ML 1,000 ML 100 ML IV (06:24)
[2024-12-24] MEDS: NICOTINE PATCH 21 MG/24 HR PATCH.TD24 TOP (08:31)
[2024-12-24] MEDS: HALOPERIDOL LACT INJ 5 MG/ML VIAL IM (08:38)
--- NOTE | 2024-12-24 11:11 | PD.RESPRO ---
Documentation for date of: 12/24/24 Subjective Subjective Interval history: Patient was seen and examined at bedside this morning. Overnight patient had a rapid response called and a stroke alert was initiated given that new facial droop was appreciated during the rapid. Patient's head CT again in the evening was unremarkable and so neurology recommended to get MRI and if MRI positive then will need full stroke workup. MRI negative then no need for further workup. Spoke with patient's brother and gave him an update of what happened overnight and he stated that he would be okay to go ahead with an MRI which would be beneficial, but that he agreed that patient will likely not tolerate MRI. Patient passes no swallow screen today, but he has been more agitated this morning. He is still confused and will need to be discharged [facility] as he cannot be take care of himself at home. Exam Vital Signs Temp Pulse Resp BP Pulse Ox O2 Del Method O2 Flow Rate 97.2 F 76 15 184/95 H 96 Room Air 2 12/24/24 08:00 12/24/24 08:00 12/24/24 08:00 12/24/24 08:00 12/24/24 08:00 12/24/24 08:00 12/23/24 12:00 Narrative Exam General: A/O x0, disheveled, agitated and confused Eyes: pupils reactive to light, EOMI. Anicteric, vision grossly intact. Ears: No ear discharge, Hearing grossly intact. Nose: No nasal discharge. Mouth/Throat: Dry mucous membranes, no redness, no lesions. Neck: Neck supple, non-tender, no cervical lymphadenopathy. Lungs: Clear BELEM to auscultation and percussion, No accessory muscle use. Cardio: Normal S1/S2, regular rhythm, no murmurs, no JVD Abdomen: Soft, non-tender, no palpable masses, peristalsis present, no guarding or rebound. Extremities: Symmetrical, no significant deformities, no peripheral edema , non-tender, peripheral pulses presents. Skin: No rashes, no lesions, warm to touch. Neuro: Limited given patient's mental status, but no gross focal neurological deficits this morning nor faciald droop and patient was moving all extremities and communicating. Objective Labs 12/24/24 04:50 12/24/24 04:50 Labs: Laboratory Results - last 24 hr 12/23/24 12/23/24 12/23/24 09:28 09:28 10:42 WBC RBC Hgb Hct MCV MCH MCHC RDW Std Deviation Plt Count Neut % (Auto) Lymph % (Auto) [place] % (Auto) Eos % (Auto) Baso % (Auto) Neut # (Auto) Lymph # (Auto) [place] # (Auto) Eos # (Auto) Baso # (Auto) Immature Gran # (Auto) Absolute Nucleated RBC Immature Gran % Nucleated RBC % Sodium Potassium Chloride Carbon Dioxide Anion Gap BUN Creatinine Estim Creat Clear Calc eGFR BUN/Creatinine Ratio Glucose Calculated Osmolality Calcium Corrected Calcium Magnesium Total Bilirubin AST ALT Alkaline Phosphatase Total Creatine Kinase Cancelled 1419 H Total Protein Albumin Globulin Albumin/Globulin Ratio Procalcitonin 0.10 Salicylates Acetaminophen 12/23/24 12/24/24 14:15 04:50 WBC 13.7 H D RBC 4.35 L Hgb 13.1 L Hct 37.4 L MCV 86 MCH 30.1 MCHC 35.0 RDW Std Deviation 39.6 Plt Count 318 D Neut % (Auto) 78 Lymph % (Auto) 15 [place] % (Auto) 6 Eos % (Auto) 0 Baso % (Auto) 0 Neut # (Auto) 10.8 H Lymph # (Auto) 2.1 [place] # (Auto) 0.8 Eos # (Auto) 0.0 Baso # (Auto) 0.1 Immature Gran # (Auto) 0.04 H Absolute Nucleated RBC 0.00 Immature Gran % 0 Nucleated RBC % 0 Sodium 141 Potassium 4.1 D Chloride 107 Carbon Dioxide 26.9 Anion Gap 7 BUN 13 Creatinine 0.8 D Estim Creat Clear Calc 111.6 eGFR > 60 BUN/Creatinine Ratio 16 Glucose 136 H Calculated Osmolality 283 Calcium 9.1 Corrected Calcium 9.1 Magnesium 1.6 Total Bilirubin 0.5 AST 58 H ALT 38 Alkaline Phosphatase 128 H Total Creatine Kinase Total Protein 8.2 Albumin 4.5 Globulin 3.7 H Albumin/Globulin Ratio 1.2 Procalcitonin Salicylates < 3.0 Acetaminophen < 2.0 L Quality Measures Quality Measures stroke (Stroke alert activated @ 08:54 am. ) Suspected type of Stroke: Non Acute Tenecteplase given: Reason(s) Tenecteplase not given: Outside the time window not given Rehab services: PT evaluation ordered and Speech Language Pathology eval ordered VTE Prophylaxis: pharmaceutical Antithrombotic by day 2:: not indicated (describe) Statin ordered: <75 y/o high intensity dose Anticoagulation ordered for A-fib or flutter (current or hx): not indicated Advance care planning discussed with:: patient and sibling Assessment & Plan Assessment Current Active Medications: Generic Name Dose Route Start Last Admin Trade Name Freq PRN Reason Stop Dose Admin Aspirin 81 mg 12/24/24 10:15 Aspirin Ec 81 Mg Tabec PO 01/23/25 10:14 QDAY AUSTEN Atorvastatin Calcium 40 mg 12/24/24 21:00 Atorvastatin Calcium 20 Mg Tablet PO 01/23/25 20:59 HS AUSTEN Dextrose 25 ml 12/23/24 14:05 Dextrose 50%-Water Inj 50 Ml Syringe IV 01/22/25 14:04 Q15MIN PRN BG 50-70 responsive npo pt Dextrose 50 ml 12/23/24 14:05 Dextrose 50%-Water Inj 50 Ml Syringe IV 01/22/25 14:04 Q15MIN PRN BG <50 OR BG <70 & pt unresponsive Enoxaparin Sodium 40 mg 12/24/24 09:00 Enoxaparin Sod Inj 40 Mg/0.4 Ml Syringe SC 01/07/25 08:59 QDAY AUSTEN Glucagon 1 mg 12/23/24 14:05 Glucagon Inj 1 Mg Vial IM Q15MIN PRN BG <70, and no IV access Haloperidol Lactate 2.5 mg 12/23/24 14:18 Haloperidol Lact Inj 5 Mg/Ml Vial IV 12/28/24 14:17 Q6HR PRN AGITATION (SEVERE) Insulin Human Lispro 0 unit 12/23/24 14:15 12/24/24 02:04 Insulin Lispro (Admelog) 1 Unit/0.01 Ml Unit SC 01/22/25 14:14 Not Given Q6H AUSTEN Protocol Morphine Sulfate 15 mg 12/24/24 10:10 Morphine Sulf 15 Mg Tabcr PO 12/29/24 10:09 Q12HR AUSTEN Protocol Nicotine 21 mg 12/24/24 09:00 12/24/24 08:31 Nicotine Patch 21 Mg/24 Hr Patch.Td24 TOP 01/23/25 08:59 21 mg QDAY AUSTEN Administration Ondansetron HCl 4 mg 12/23/24 14:05 Ondansetron Inj 2 Mg/Ml Inj 2 Ml IV 01/22/25 14:04 Q6H PRN NAUSEA OR VOMITING Protocol Pantoprazole Sodium 40 mg 12/23/24 14:30 12/23/24 14:52 Pantoprazole Inj 40 Mg Vial IVP 01/22/25 14:29 40 mg QDAY AUSTEN Administration Plan 64-year-old male with past medical history of 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 #Acute encephalopathy #Metastatic pancreatic cancer #JUICE #Cancer related pain # Leukocytosis Patient came in after he was found to be lethargic and obtunded at a [facility]. Patient was recently placed on hospice and he was prescribed morphine extended release for his cancer related pain. Patient could possibly have some brain metastasis versus encephalopathy in the setting of polypharmacy as he was on lorazepam and opiates versus dehydration. Patient's initial creatinine today was 1.6 from his baseline of around 0.8. Head CT was unremarkable. WBC downtrending Plan: Haldol 5mg IM x1 today Haldol 2.5 as needed for agitation Oral morphine 15mg BID for pain Will continue to monitor patient's mental status #Facial droop #Stroke Rule Out ?DDx TIA versus stroke ?NIHSS score 17 ?CT head negative ?Teleneuro consulted and advised MRI and further work up if positive. Plan: - Statin and aspirin started - MRI pending ?Neurochecks every 4 hours ?Allow permissive hypertension ?Head of bed elevation to 30 degrees ?Aspiration precautions -Will consult neurology if MRI positive for stroke. -Referred to speech and physical therapy #Hx of DM2 Last A1c on 11/2024 was 6.5% Plan: ISS Hypoglycemia protocol ordered #Hx of GERD Continue Protonix 40 mg IV daily #Hx of hypertension Allowing permissive HTN Disposition: Patient admitted to med surg for JUICE and acute encephalopathy. Diet: dysphagia 2 GI prophylaxis: protonix DVT prophylaxis: lovenox Code: DNR/DNI Case disclosed with Attending Dr. Christos Byers PGY1 Disclaimer: Even though this this note was dictated by speech recognition and even though it was carefully revised there may still be minor errors in synthetic filament extruder due to voice recognition software. Attending Provider Attestation/Addendum I reviewed labs, imaging, EKG, home medications and prior available records. Face to face evaluation was performed by me. I have personally examined the patient and discussed assessment and plan with the IM team. I reviewed the resident note and agree with the plan with exceptions as below. Acute encephalopathy Pancreatic cancer of the tail with metastasis JUICE Leukocytosis Pulmonary nodules, likely metastases Liver nodule, likely metastases Adrenal mass, likely metastases Rapid response was called for acute encephalopathy and hypertensive urgency. Ordered CT head that was negative for acute changes. Started aspirin. Ordered brain MRI He required restraints for hyperactive agitation Started opiates carefully Trend WBC: Downtrending Monitor kidney function: Creatinine improved. Avoid nephrotoxins. Renally dosed medications Patient was on hospice however he is at risk if he is discharged home. Will discussed with the patient going to SNF with hospice once mental status improves
[2024-12-24] MEDS: ASPIRIN EC 81 MG TABEC PO (12:24)
[2024-12-24] MEDS: Morphine Sulf 15 MG TABCR PO ×2 (12:24→20:18)
--- NOTE | 2024-12-24 13:40 | PC.SS ---
This is 64-year-old, , single male who presented to the ED for altered mental status. Per [facility], Ana Billings, the report that she obtained was that one of their staff members did a welfare check on patient. He was found outside his trailer and appeared to have overdosed on the medications provided by hospice. Per Ana, patient has only been in the services of [facility] since November. Patient was recently diagnosed with pancreatic cancer that has spread to the liver and lung. Patient was residing alone at home. He has no children. Prior to this admission, patient was independent with all ADLs, no DME use. However, the last time, Ana spoke to patient, he sounded weak. Patient's PCP is Dr. Hussein at [facility]. SW is currently awaiting for patient to become more alert to discuss discharge options.
[2024-12-24] MEDS: LACTULOSE SYRUP 20 GM/30 ML UDC PO (17:36)
[2024-12-24] MEDS: ATORVASTATIN CALCIUM 20 MG TABLET 40 MG PO (20:19)
--- NOTE | 2024-12-24 22:42 | PC.NURSE ---
MD Hussein informed of patient's unrelieved pain
[2024-12-24] MEDS: HYDROmorphone INJ 2 MG/ML VIAL 1.5 MG IVP (23:07)
[2024-12-25] VITALS (11 sets, daily range): BP systolic 174–203; BP diastolic 65–111; PULSE 67–94; RESP 13–97; TEMP 36.2–36.6; O2SAT 97–98; BMI 14.0
--- NOTE | 2024-12-25 02:52 | PC.NURSE ---
Patient became very confused and agitated trying to get out of bed. He asked to speak to an MD. MD Hussein came to bedside to assess patient. She said ok to give the PRN Haldol 2.5 mg
[2024-12-25] MEDS: HALOPERIDOL LACT INJ 5 MG/ML VIAL 2.5 MG IV (03:05)
[2024-12-25 06:07] LABS: Basophils # (Auto) 0.1 Thou/mm3 (0.0-0.2); Basophils % (Auto) 0 % (0-2.5); Eosinophils # (Auto) 0.1 Thou/mm3 (0.0-0.5); Eosinophils % (Auto) 1 % (0-10); Hematocrit 36.8 % (41.0-53.0); Hemoglobin 12.6 g/dL (13.5-16.0); Immature Granulocytes % (Auto) 0 % (0-0); Immature Granulocytes Auto 0.03 Thou/mm3 (0.00-0.00); Lymphocytes # (Auto) 2.4 Thou/mm3 (1.0-4.8); Lymphocytes % (Auto) 20 % (10-50); Mean Corpuscular HGB Conc 34.2 g/dl (31.0-37.0); Mean Corpuscular Hemoglobin 30.1 pg (25.0-35.0); Mean Corpuscular Volume 88 fL (80-100); Monocytes # (Auto) 0.9 Thou/mm3 (0.0-0.8); Monocytes % (Auto) 8 % (0-12); Neutrophils # (Auto) 8.5 Thou/mm3 (1.8-7.7); Neutrophils % (Auto) 71 % (37-80); Nucleated Red Blood Cell % 0 /100 WBC (0); Platelet Count 289 Thou/mm3 (140-440); RDW Standard Deviation 40.7 fL (35.1-43.9); Red Blood Count 4.18 Miln/mm3 (4.50-5.90)
--- NOTE | 2024-12-25 06:17 | PD.RESPRO ---
Documentation for date of: 12/25/24 Subjective Subjective Interval history: Patient was seen and examined at bedside this morning. No acute overnight events. Patient was calmer today and more alert and oriented A/Ox3. Only complaint was pain in his back, no other complaint. Discussed benefit of SNF upon discharge, but patient was somewhat reluctant. He stated he would think about it and let us know. Exam Vital Signs Temp Pulse Resp BP Pulse Ox O2 Del Method O2 Flow Rate 97.7 F 84 13 196/103 H 98 Room Air 2 12/25/24 04:00 12/25/24 04:00 12/25/24 04:00 12/25/24 04:00 12/25/24 04:00 12/25/24 04:00 12/23/24 12:00 Narrative Exam General: A/O x3 disheveled,calmer today and more responsive Eyes: pupils reactive to light, EOMI. Anicteric, vision grossly intact. Ears: No ear discharge, Hearing grossly intact. Nose: No nasal discharge. Mouth/Throat: Dry mucous membranes, no redness, no lesions. Neck: Neck supple, non-tender, no cervical lymphadenopathy. Lungs: Clear BELEM to auscultation and percussion, No accessory muscle use. Cardio: Normal S1/S2, regular rhythm, no murmurs, no JVD Abdomen: Soft, non-tender, no palpable masses, peristalsis present, no guarding or rebound. Extremities: Symmetrical, no significant deformities, no peripheral edema , non-tender, peripheral pulses presents. Skin: No rashes, no lesions, warm to touch. Neuro: No focal neurological deficits, motor and sensory intact. more awake/alert Objective Labs 12/25/24 04:41 12/25/24 04:41 Quality Measures Quality Measures stroke (Stroke alert activated @ 08:54 am. ) Suspected type of Stroke: Non Acute Tenecteplase given: Reason(s) Tenecteplase not given: Outside the time window not given Rehab services: PT evaluation ordered and Speech Language Pathology eval ordered VTE Prophylaxis: pharmaceutical Antithrombotic by day 2:: not indicated (describe) Statin ordered: <75 y/o high intensity dose Anticoagulation ordered for A-fib or flutter (current or hx): not indicated Advance care planning discussed with:: patient Assessment & Plan Assessment Current Active Medications: Generic Name Dose Route Start Last Admin Trade Name Freq PRN Reason Stop Dose Admin Aspirin 81 mg 12/24/24 10:15 12/24/24 12:24 Aspirin Ec 81 Mg Tabec PO 01/23/25 10:14 81 mg QDAY AUSTEN Administration Atorvastatin Calcium 40 mg 12/24/24 21:00 12/24/24 20:19 Atorvastatin Calcium 20 Mg Tablet PO 01/23/25 20:59 40 mg HS AUSTEN Administration Dextrose 25 ml 12/23/24 14:05 Dextrose 50%-Water Inj 50 Ml Syringe IV 01/22/25 14:04 Q15MIN PRN BG 50-70 responsive npo pt Dextrose 50 ml 12/23/24 14:05 Dextrose 50%-Water Inj 50 Ml Syringe IV 01/22/25 14:04 Q15MIN PRN BG <50 OR BG <70 & pt unresponsive Enoxaparin Sodium 40 mg 12/24/24 09:00 12/24/24 09:00 Enoxaparin Sod Inj 40 Mg/0.4 Ml Syringe SC 01/07/25 08:59 Not Given QDAY AUSTEN Glucagon 1 mg 12/23/24 14:05 Glucagon Inj 1 Mg Vial IM Q15MIN PRN BG <70, and no IV access Haloperidol Lactate 2.5 mg 12/23/24 14:18 12/25/24 03:05 Haloperidol Lact Inj 5 Mg/Ml Vial IV 12/28/24 14:17 2.5 mg Q6HR PRN Administration AGITATION (SEVERE) Insulin Human Lispro 0 unit 12/23/24 14:15 12/25/24 01:42 Insulin Lispro (Admelog) 1 Unit/0.01 Ml Unit SC 01/22/25 14:14 Not Given Q6H AUSTEN Protocol Morphine Sulfate 15 mg 12/24/24 10:10 12/24/24 20:18 Morphine Sulf 15 Mg Tabcr PO 12/29/24 10:09 15 mg Q12HR AUSTEN Administration Protocol Nicotine 21 mg 12/24/24 09:00 12/24/24 08:31 Nicotine Patch 21 Mg/24 Hr Patch.Td24 TOP 01/23/25 08:59 21 mg QDAY AUSTEN Administration Ondansetron HCl 4 mg 12/23/24 14:05 Ondansetron Inj 2 Mg/Ml Inj 2 Ml IV 01/22/25 14:04 Q6H PRN NAUSEA OR VOMITING Protocol Pantoprazole Sodium 40 mg 12/23/24 14:30 12/24/24 09:00 Pantoprazole Inj 40 Mg Vial IVP 01/22/25 14:29 Not Given QDAY AUSTEN Plan 64-year-old male with past medical history of 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 #Acute encephalopathy #Metastatic pancreatic cancer #JUICE, resolved #Cancer related pain # Leukocytosis, improving Patient came in after he was found to be lethargic and obtunded at a [facility]. Patient was recently placed on hospice and he was prescribed morphine extended release for his cancer related pain. Patient could possibly have some brain metastasis versus encephalopathy in the setting of polypharmacy as he was on lorazepam and opiates versus dehydration. Patient's initial creatinine was 1.6 from his baseline of around 0.8. Head CT was unremarkable. WBC downtrending, Cr 0.7 Plan: Haldol 2.5 as needed for agitation Increased Oral morphine to 30mg BID for pain Will continue to monitor patient's mental status #Facial droop, resolved #Stroke Rule Out ?DDx TIA versus stroke ?NIHSS score 17 initially and today 0 ?CT head negative ?Teleneuro consulted and advised MRI and further work up if positive. Plan: - Statin and aspirin started - MRI pending ?Neurochecks every 4 hours ?Head of bed elevation to 30 degrees ?Aspiration precautions -Will consult neurology if MRI positive for stroke. -Referred to speech and physical therapy #Hx of DM2 Last A1c on 11/2024 was 6.5% Plan: ISS Hypoglycemia protocol ordered #Hx of GERD Continue Protonix 40 mg IV daily #Hx of hypertension Started amlodipine 5mg qday Disposition: Pending MRI and placement Diet: dysphagia 2 GI prophylaxis: protonix DVT prophylaxis: lovenox Code: DNR/DNI Case disclosed with Attending Dr. Christos Byers PGY1 Disclaimer: Even though this this note was dictated by speech recognition and even though it was carefully revised there may still be minor errors in animation camera operator due to voice recognition software. Attending Provider Attestation/Addendum I reviewed labs, imaging, EKG, home medications and prior available records. Face to face evaluation was performed by me. I have personally examined the patient and discussed assessment and plan with the IM team. I reviewed the resident note and agree with the plan with exceptions as below. Acute encephalopathy Pancreatic cancer of the tail with metastasis JUICE Leukocytosis Pulmonary nodules, likely metastases Liver nodule, likely metastases Adrenal mass, likely metastases Rapid response was called on 5 AM for acute encephalopathy and hypertensive urgency. Ordered CT head that was negative for acute changes. Started aspirin. Ordered brain MRI Agitation improved Started opiates carefully Trend WBC: Downtrending Monitor kidney function: Creatinine improved. Avoid nephrotoxins. Renally dosed medications Patient was on hospice however he is at risk if he is discharged home. Discussed the disposition with the patient who agreed on SNF placement for short-term Started amlodipine 5 mg. Reduce BP gradually
[2024-12-25 06:29] LABS: Alanine Aminotransferase 35 U/L (10-49); Albumin, Serum 4.1 gm/dL (3.4-4.8); Albumin/Globulin Ratio 1.2 (1.2-2.2); Alkaline Phosphatase 118 U/L (46-116); Anion Gap 8 (7-16); Aspartate Amino Transferase 57 U/L (0-34); BUN/Creatinine Ratio 14 Ratio (12-20); Bilirubin,Total 0.6 mg/dL (0.3-1.2); Blood Urea Nitrogen 10 mg/dL (9-23); Carbon Dioxide 25.3 mMol/L (20.0-31.0); Chloride 105 mMol/L (98-107); Creatinine (Component) 0.7 mg/dL (0.6-1.3); Estimated Creatinine Clearance 130.3 mL/min (>60); Globulin 3.4 gm/dL (2.3-3.5); Glucose 149 mg/dL (74-106); Magnesium 1.6 mg/dL (1.6-2.6); Osmolality,Calculated 277 (275-295); Potassium 3.4 mMol/L (3.4-5.1); Sodium 138 mMol/L (136-145); Total Protein 7.5 gm/dL (5.7-8.2); eGFR > 60 See Note
[2024-12-25] MEDS: ASPIRIN EC 81 MG TABEC PO (07:19)
[2024-12-25] MEDS: PANTOPRAZOLE 40 MG TABLET PO (07:19)
[2024-12-25] MEDS: Magnesium Sulfate 4 GM Ivpb 4 GM/50 ML BAG IV (07:19)
[2024-12-25] MEDS: POTASSIUM CHLORIDE 20 mEq TABCR 40 MEQ PO (07:19)
[2024-12-25] MEDS: NICOTINE PATCH 21 MG/24 HR PATCH.TD24 TOP (07:20)
[2024-12-25] MEDS: Morphine Sulf 15 MG TABCR 30 MG PO ×2 (07:41→20:37)
[2024-12-25] MEDS: amLODIPine BESYLATE 5 MG TABLET PO (07:42)
--- NOTE | 2024-12-25 08:53 | PCS.ST ---
LABORATORY SPECIALIST attempted swallow treatment for diet check. pt mentioned he is in pain and refused trials. Pt currently eating 25% of meal, pt endorsed texture is fine but waited too long to eat and was no longer hungry .
[2024-12-25] MEDS: HYDROcodone/APAP 5/325 TABLET 1 TAB PO ×3 (13:40→22:05)
--- NOTE | 2024-12-25 16:20 | PC.NURSE ---
[facility] 12[facility]25/24 from 0900am to 1600.
[2024-12-25] MEDS: ATORVASTATIN CALCIUM 20 MG TABLET 40 MG PO (20:37)
[2024-12-26] VITALS (7 sets, daily range): BP systolic 151–168; BP diastolic 76–89; PULSE 60–99; RESP 13–98; TEMP 36.2–37; O2SAT 97–98
--- NOTE | 2024-12-26 | XR_ITS ---
Examination: MRI brain without intravenous contrast TECHNIQUE: Limited axial images of the brain including diffusion-weighted images ADC map and FLAIR images, patient requested no further images secondary to severe back pain Date and time: December 26, 2024 0948 hours INDICATIONS: Patient found down on the ground with confusion December 23, 2024 FINDINGS: Ventricles are not enlarged No mass effect upon the ventricular system Scattered punctate foci increased signal in the white matter Diffusion-weighted images demonstrate no focus of restricted diffusion IMPRESSION: Limited study Negative for acute hemorrhage mass effect or midline shift No acute infarct
--- NOTE | 2024-12-26 00:55 | PC.NURSE ---
Pt complaining of back/stomach pain rated 9/10, 05/19, Dr. Hussein was made aware, stated that she'll check pt's chart.
[2024-12-26] MEDS: Morphine Sulf 15 MG TABCR PO (01:16)
[2024-12-26] MEDS: HYDROcodone/APAP 5/325 TABLET 1 TAB PO ×2 (02:06→06:02)
[2024-12-26 06:55] LABS: Basophils # (Auto) 0.1 Thou/mm3 (0.0-0.2); Basophils % (Auto) 1 % (0-2.5); Eosinophils # (Auto) 0.2 Thou/mm3 (0.0-0.5); Eosinophils % (Auto) 2 % (0-10); Hematocrit 37.7 % (41.0-53.0); Immature Granulocytes % (Auto) 0 % (0-0); Immature Granulocytes Auto 0.03 Thou/mm3 (0.00-0.00); Lymphocytes # (Auto) 2.4 Thou/mm3 (1.0-4.8); Lymphocytes % (Auto) 21 % (10-50); Mean Corpuscular HGB Conc 34.5 g/dl (31.0-37.0); Mean Corpuscular Hemoglobin 30.1 pg (25.0-35.0); Mean Corpuscular Volume 87 fL (80-100); Monocytes % (Auto) 9 % (0-12); Neutrophils # (Auto) 7.7 Thou/mm3 (1.8-7.7); Neutrophils % (Auto) 68 % (37-80); Nucleated Red Blood Cell % 0 /100 WBC (0); Platelet Count 317 Thou/mm3 (140-440); RDW Standard Deviation 39.9 fL (35.1-43.9); Red Blood Count 4.32 Miln/mm3 (4.50-5.90); White Blood Count 11.4 Thou/mm3 (3.8-10.6)
[2024-12-26 06:57] LABS: Alanine Aminotransferase 41 U/L (10-49); Albumin, Serum 4.3 gm/dL (3.4-4.8); Albumin/Globulin Ratio 1.3 (1.2-2.2); Alkaline Phosphatase 129 U/L (46-116); Anion Gap 6 (7-16); Aspartate Amino Transferase 55 U/L (0-34); BUN/Creatinine Ratio 10 Ratio (12-20); Bilirubin,Total 0.5 mg/dL (0.3-1.2); Blood Urea Nitrogen 8 mg/dL (9-23); Carbon Dioxide 27.1 mMol/L (20.0-31.0); Chloride 103 mMol/L (98-107); Creatinine (Component) 0.8 mg/dL (0.6-1.3); Globulin 3.4 gm/dL (2.3-3.5); Glucose 124 mg/dL (74-106); Magnesium 1.8 mg/dL (1.6-2.6); Osmolality,Calculated 271 (275-295); Potassium 3.9 mMol/L (3.4-5.1); Sodium 136 mMol/L (136-145); Total Protein 7.7 gm/dL (5.7-8.2); eGFR > 60 See Note
[2024-12-26] MEDS: Morphine Sulf 15 MG TABCR 30 MG PO ×2 (08:00→13:38)
[2024-12-26] MEDS: PANTOPRAZOLE 40 MG TABLET PO (08:10)
[2024-12-26] MEDS: amLODIPine BESYLATE 5 MG TABLET PO (08:10)
[2024-12-26] MEDS: ENOXAPARIN SOD INJ 40 MG/0.4 ML SYRINGE SC (08:10)
[2024-12-26] MEDS: ASPIRIN EC 81 MG TABEC PO (08:10)
--- NOTE | 2024-12-26 08:29 | PC.SS ---
Addendum entered by Sabrina Anne 12/26/24 10:43: SS follow up note; SS wet up transportation with patient with [facility] for 12:30PM. SS updated Ana from [facility], Patient's nurse and Vicky from [facility]. Addendum entered by Sabrina Anne 12/26/24 10:04: SS follow up note; [facility] accepted patient. SS contacted Ana from [facility] and updated her, SS also contacted patient's brother, Magdaleno. Patient's nurse, Geeta also aware. SS will have to get [facility] form. Patient is not able to provide payment for transportation, patient does not have coverage for Transportation. SS will stand by for further needs. Addendum entered by Sabrina Anne 12/26/24 09:34: SS follow up note; SS received a message from Vicky from [facility]. She informed SS that she would need to run patient's medi-alex and if everything works out she should be able to accommodate and accept patient. Addendum entered by Sabrina Anne 12/26/24 08:49: SS follow up note; SS expanded the search for SNF with Hospice. [facility] and [facility] are considering. SS will contact facilities, all other facilities have declined patient. Original Note: SS follow up note; At the time there are no accepting SNF's.
[2024-12-26] MEDS: NICOTINE PATCH 21 MG/24 HR PATCH.TD24 TOP (09:00)
--- NOTE | 2024-12-26 10:15 | PD.RESDS ---
Planned Discharge Date 12/26/24 DS: Providers Provider Date of admission: 12/23/24 14:06 Primary care physician: Physician No Primary/Family Admitting Provider: Erik Sher MD Attending Provider on Admission: Erik Sher MD Consults: 12/23/24 08:50 Consult to Neurology / Tele-Neurology Routine Comment: Consulting Provider: [facility] 12/23/24 21:25 [facility] Referral - Safety Routine Comment: Positive screening for safety needs. 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 Initial labs were relevant for leukocytosis (19.5), JUICE (creatinine 1.6), transaminitis (AST 57 and alkaline phosphatase 144), and U-Tox was positive for opiates. During the day of admission patient was still confused, but towards the evening/night patient became a little bit more aware of what was happening. During the night of admission patient got a stroke alert called due to new facial droop, but head CT was negative. The next day patient was still somewhat confused in terms of that he did not want he was in the hospital, but he was alert and oriented to time place and person and his JUICE resolved. During this time patient pain medication was restarted as his mental status was better. Discussed with the patient the possible benefits of him going to a intermediate facility at this time given that his health is deteriorating and he would benefit from the actual help that he would get at the intermediate facility at this time. Since patient was enrolled in hospice it was reassess if patient still wanted to go home with hospice. Patient stated that this time he would like to go on hospice and that he was agreeable to trying out a intermediate facility for some time. Patient's MRI was unremarkable. At the time of discharge patient was stable enough to be discharged on hospice to intermediate facility. Discharge plan:. Care plan as stated by hospice physician. Problem list: #Acute encephalopathy, resolved #Metastatic pancreatic cancer #JUICE, resolved #Cancer related pain # Leukocytosis, improving #Facial droop, resolved #Stroke Ruled Out #Hx of DM2 #Hx of GERD #Hx of hypertension Case disclosed with Attending Dr. Christos Byers PGY1 Disclaimer: Even though this this note was dictated by speech recognition and even though it was carefully revised there may still be minor errors in marine welder due to voice recognition software. Status at Discharge Overall status at discharge: patient is progressing back to baseline Time Spent with Patient Time attestation: Total time spent providing and/or coordinating discharge services:>35 min Time spent: Greater than 30 minutes Exam Vital Signs Temp Pulse Resp BP Pulse Ox O2 Del Method O2 Flow Rate 98.6 F 72 22 H 159/76 H 97 Room Air 2 12/26/24 08:00 12/26/24 08:50 12/26/24 08:50 12/26/24 08:10 12/26/24 08:00 12/26/24 08:00 12/23/24 12:00 Narrative Exam General: A/O x3 disheveled,calmer today and more responsive Eyes: pupils reactive to light, EOMI. Anicteric, vision grossly intact. Ears: No ear discharge, Hearing grossly intact. Nose: No nasal discharge. Mouth/Throat: Dry mucous membranes, no redness, no lesions. Neck: Neck supple, non-tender, no cervical lymphadenopathy. Lungs: Clear BELEM to auscultation and percussion, No accessory muscle use. Cardio: Normal S1/S2, regular rhythm, no murmurs, no JVD Abdomen: Soft, non-tender, no palpable masses, peristalsis present, no guarding or rebound. Extremities: Symmetrical, no significant deformities, no peripheral edema , non-tender, peripheral pulses presents. Skin: No rashes, no lesions, warm to touch. Neuro: No focal neurological deficits, motor and sensory intact. more awake/alert Discharge Plan Plan Patient Disposition: Xfer Skilled Nsg Fac (SNF) Disposition Comment: with hospice Care Plan Goals: Care plan as stated by hospice physician. Continue all home medications as prescribed Prescriptions/Referrals Prescriptions/Med Rec: Continued metoprolol succinate 25 mg tablet extended release 24 hr 25 mg PO DAILY Patient Comments: TAKE 1 TABLET BY MOUTH EVERY DAY lisinopril 20 mg tablet 40 mg PO QDAY morphine 30 mg Tablet Extended Release 30 mg PO TID Qty: 0 0RF atorvastatin 40 mg tablet 40 mg PO QDAY Qty: 30 0RF hydromorphone [Dilaudid] 2 mg tablet 2 mg PO .q8 MDD 3 PRN (Reason: pain) Qty: 20 0RF famotidine 40 mg tablet 40 mg PO .bedtime Qty: 30 0RF omeprazole 40 mg capsule,delayed release(DR/EC) 40 mg PO QDAY Qty: 30 0RF ondansetron 4 mg tablet,disintegrating 4 mg PO TID PRN (Reason: nausea and vomiting) 30 Days Qty: 10 0RF hydralazine 25 mg tablet 50 mg PO BID acetaminophen [Mapap (acetaminophen)] 500 mg capsule 1,000 mg PO Q4H amlodipine 5 mg tablet 5 mg PO QDAY metformin 500 mg tablet 500 mg PO BID Patient Comments: TAKE 1 TABLET BY MOUTH TWICE A DAY WITH BREAKFAST AND DINNER Referrals: No Primary/Family,Physician [Primary Care Provider] - Patient/Caregiver Discharge Instructions Other Discharge Activity Instructions:: Care plan as stated by hospice physician. Continue all home medications as prescribed Education Materials: Pain Medicines for Cancer, What Is Pancreatic Cancer? Print Language: Croatian Stand Alone Forms: [employer] Award Info., Patient Portal Info Letter Discharge Order Discharge Orders: Discharge (Routine); Ordered 12/26/24 Ordered By: Demetrius Byers Quality Discharge Quality Measures VTE prophylaxis Attestestation MD Attestation I reviewed labs, imaging, EKG, home medications and prior available records. Face to face evaluation was performed by me. I have personally examined the patient and discussed assessment and plan with the IM team. I reviewed the resident note and agree with the plan with exceptions as below. Acute encephalopathy Pancreatic cancer of the tail with metastasis JUICE Leukocytosis Pulmonary nodules, likely metastases Liver nodule, likely metastases Adrenal mass, likely metastases Agitation resolved and mental status is at baseline. Likely in the setting of polypharmacy and morphine use. Less likely CVA Continue home pain management Trend WBC: Downtrending Monitor kidney function: Creatinine improved. Avoid nephrotoxins. Renally dosed medications Patient will go back home with hospice Resume antihypertensive treatment Time spent is 40 minutes. More than 50% of the time was spent on patient education and coordination of care.
[2024-12-26] MEDS: HYDROcodone/APAP 7.5/325 TABLET 1 TAB PO (11:07)
== END 2024-12-26 13:40 | disposition skilled nursing facility (03) | DRG 71 ==
LOC: SERX 13:33 → SERHOLD 14:50 → S3SX 20:32 → S2NX 12-24 05:34
PROVIDERS: Admitting Provider Student in an Organized Health Care Education/Training Program; Emergency Provider Emergency Medicine; Visit Provider Student in an Organized Health Care Education/Training Program
DX: G93.41 Metabolic encephalopathy (principal); C25.9 Malignant neoplasm of pancreas, unspecified; N17.9 Acute kidney failure, unspecified; I10 Essential (primary) hypertension; K21.9 Gastro-esophageal reflux disease without esophagitis; R29.810 Facial weakness; F17.200 Nicotine dependence, unspecified, uncomplicated; D72.829 Elevated white blood cell count, unspecified; G89.3 Neoplasm related pain (acute) (chronic); E11.9 Type 2 diabetes mellitus without complications; E78.5 Hyperlipidemia, unspecified; Z51.5 Encounter for palliative care; Z66 Do not resuscitate; Z78.1 Physical restraint status; Z85.07 Personal history of malignant neoplasm of pancreas; I16.0 Hypertensive urgency; J44.9 Chronic obstructive pulmonary disease, unspecified; Z79.84 Long term (current) use of oral hypoglycemic drugs
CPT/HCPCS: 36415; 70450; 70544; 74176; 80053; 80307; 80320; 80329; 81001; 82550; 83605; 83735; 83880; 84145; 84484; 85025; 85610; 85730; 87040; 87086; 87811; 92526; 92610; 93005; 96127; 96361; 96374; 96375; 97162; 99291; J1171; J1630; J1650; J1815; J2060; J2270; J2470; J3475; J3490; J7030; A9270; G0480; J1920

== ENCOUNTER 2025-05-04 11:59 | Inpatient (IN) | payer MEDICARE, MEDICAID, SELFPAY ==
--- NOTE | 2025-05-04 | XR_ITS ---
Examination: MRI lumbar spine without contrast Date and time of exam: May 04, 2025 1949 hrs., Comparison March 08, 2024 Indications: Diagnosis pancreatic carcinoma August 2024, worsening low back pain beginning 2 weeks ago Technique: Multiple MRI axial and sagittal sections lumbar spine. Sagittal T2-weighted images, TR 3500, TE 118 Patient only allowed sagittal images Findings: Burst fracture L4 vertebral body, the vertebral body is replaced by abnormal signal on the T1-weighted images as well as the STIR images There also is abnormal signal involving L1 and T12 There is retropulsion of the compressed L4 vertebral body at least 5 mm causing spinal stenosis at the L4 level, sagittal image 9 Impression: Findings most consistent with pathologic burst fracture L4 vertebral body as above Abnormal signal involving L4, L1 and T12, most consistent with osseous metastatic disease Repeating this study with contrast would be very helpful
[2025-05-04 12:00] VITALS: BP 109/69; PULSE 105; RESP 18; TEMP 36.7; O2SAT 95
[2025-05-04 12:18] VITALS: PULSE 82; RESP 18; O2SAT 98
[2025-05-04 12:44] VITALS: BP 109/69; PULSE 108; RESP 20; TEMP 36.6; O2SAT 95; BMI 34.4
--- NOTE | 2025-05-04 13:02 | XR_ITS ---
Examination: CT lumbar spine, without contrast. 2-D sagittal reconstructions. 2-D coronal reconstructions. 3-D reconstructions. Date and time of exam:May 04, 2025 1510 hours INDICATIONS: Onset lower back pain today CTDI: vol (mGy):36.8 DLP: (mGycm):1110 Technique: Multiple 1.25 mm axial sections of the lumbar spine without intravenous contrast have been obtained. 2-D sagittal and coronal reconstructions have been obtained. 3-D reconstructions have been obtained. Low dose protocols were performed. One or more of the following dose reduction techniques were used; automated exposure control, adjustment of the mA and/or KV according to patient size, use of iterative reconstruction technique. Findings: Acute severe burst fracture L4 vertebral body, which includes the left pedicle and left lamina as well as the left transverse process Retropulsion of this vertebral body 3 mm Moderate disc narrowing L5-S1 No focal lumbar disc protrusion IMPRESSION: Acute severe burst fracture L4 vertebral body, including the left pedicle left lamina L4 as well as left transverse process L4
--- NOTE | 2025-05-04 13:02 | XR_ITS ---
Examination: AP chest single view Technique one AP upright portable chest single view Date and time: May 04, 2025, 1310 hours, comparison November 14, 2024 INDICATIONS: Chest pain today. FINDINGS: Early left basilar pneumonia. Normal heart size Right internal jugular Port-A-Cath tip satisfactory position IMPRESSION: Early left basilar pneumonia Recommend follow-up chest imaging posttreatment to exclude 16mm pulmonary nodule left lower lobe
--- NOTE | 2025-05-04 13:04 | PD.EDBACK ---
ED Back Injury Pain RME/HPI General Chief Complaint: Back Pain/Injury Stated Complaint: LOWER BACK PAIN Time Seen by Provider: 05/04/25 12:51 Arrival date/time: 05/04/25 11:59 RME / HPI RME / HPI Narrative: 64-year-old male patient. Significant history of hypertension, pancreatic cancer, diagnosed last August, currently refusing radiation or chemotherapy, on Dilaudid p.o. and morphine p.o., came in for evaluation regarding worsening lumbar pain. Patient is having worsening lumbar pain, for the last 2 weeks, after patient accidentally twisted his lumbar spine. Pain is described as sharp pain, severity moderate. Patient is ambulatory. Patient denies any saddle anesthesia. Denies any bladder incontinence denies any bowel incontinence. Patient wanted to make sure that there is no metastasis to the lumbar spine. He wants to be stage regarding his pancreatic cancer. Patient told me that 2 nights ago he sustained a ground-level fall landing on on his buttocks. Related Data Home Medications ?Medication ?Instructions ?Recorded ?Confirmed acetaminophen 500 mg capsule 1,000 mg PO Q4H pain 10/25/24 11/11/24 (Mapap (acetaminophen)) amlodipine 5 mg tablet 5 mg PO QDAY 10/25/24 11/11/24 hydralazine 25 mg tablet 50 mg PO BID 10/25/24 11/11/24 metformin 500 mg tablet 500 mg PO BID 10/25/24 11/11/24 lisinopril 20 mg tablet 40 mg PO QDAY 11/11/24 11/11/24 metoprolol succinate 25 mg 25 mg PO DAILY 11/11/24 11/11/24 tablet,extended release 24 hr Previous Rx's ?Medication ?Instructions ?Recorded atorvastatin 40 mg tablet 40 mg PO QDAY #30 tabs 11/14/24 morphine 30 mg tablet,extended 30 mg PO TID #0 tabs 11/14/24 release hydromorphone 2 mg tablet 2 mg PO .q8 PRN pain #20 tabs 11/26/24 (Dilaudid) famotidine 40 mg tablet 40 mg PO .bedtime #30 tabs 11/27/24 omeprazole 40 mg capsule,delayed 40 mg PO QDAY #30 caps 11/27/24 release Allergies Allergy/AdvReac Type Severity Reaction Status Date / Time No Known Allergies Allergy Verified 05/04/25 12:24 Review of Systems Review of Systems Narrative Review of Systems: Review of system reviewed and within normal limits except mentioned in HPI ED Exam Narrative Physical exam: VITAL SIGNS: Reviewed. GENERAL APPEARANCE: Alert and interactive, follows commands, no acute distress, HEAD AND FACE: Non-traumatic. ENT: PERRL, pink conjunctivitis, eyelid no trauma, Mucous membrane moist. NECK: Supple, nontender, no nuchal rigidity. CHEST: No tenderness, no crepitus, no paradoxical movement, no retractions. LUNGS: Clear, well ventilated, symmetric, no rales, no wheezing, no ronchi, no stridor, good breath sounds bilaterally. HEART: Regular rate, regular rhythm, no murmur, no gallops. ABDOMEN: Soft, positive bowel sounds, nondistended, no guarding, nontender, no rebound, no masses, RECTAL: Deferred. GENITAL: Deferred. NEUROLOGICAL: Gross motor function intact sensory function intact on the lower extremity, sensation intact on the left lower extremity however 4 out of 5 motor weakness on hip flexion and knee extension. On the left. Patient is able to ambulate with assistance except for stable back pain. MUSCULOSKELETAL: low back tenderness, no masses palpated,, limited range of motion. EXTREMITIES: Nontender, full range of motion. SKIN: Color pink, dry, no rash, no lacerations, no abrasions, no contusions. LYMPHATICS: Deferred. Course Quality Measures none Orders Category Date Time Status CT Screening NOW Care 05/05/25 00:46 Active EKG (ED ONLY) *Do not use* NOW Care 05/05/25 08:38 Completed IV [Insert IV] NOW Care 05/04/25 22:12 Active MRI Screening NOW Care 05/04/25 16:08 Active MRI Screening NOW Care 05/04/25 16:[address] chest abdomen pelvis w Stat Exams 05/05/25 00:[address] head/brain wo con Stat Exams 05/05/25 00:[address] lumbar spine wo con Stat Exams 05/04/25 13:02 Completed EKG (ED Only) Stat Exams 05/05/25 08:38 Draft MR lumbar spine wo con Stat Exams 05/04/25 Completed XR chest 1V Stat Exams 05/04/25 13:02 Completed Ammonia Stat Lab 05/05/25 08:30 Ordered CBC Stat Lab 05/04/25 14:48 Completed CBC Stat Lab 05/05/25 08:37 Ordered CMP [Comprehensive Metabolic Panel] Stat Lab 05/05/25 08:37 Ordered Comprehensive Metabolic Panel Stat Lab 05/04/25 14:48 Completed Drug Screen,Urine Stat Lab 05/05/25 08:30 Ordered Partial Thromboplastin Time Stat Lab 05/04/25 14:48 Completed Urinalysis, C/S if Indicated Stat Lab 05/04/25 13:56 Completed Dexamethasone Inj [Decadron Inj] Med 05/04/25 23:17 Discontinued 10 mg IVP X1 ONE DiphenhydrAMINE INJ [Benadryl Inj] Med 05/05/25 08:37 Discontinued 25 mg IM X1 ONE Famotidine Inj [Pepcid Inj] Med 05/04/25 23:17 Discontinued 20 mg IVP X1 ONE Haloperidol Lactate [Haldol Inj] Med 05/05/25 08:37 Discontinued 5 mg IM X1 ONE LORazepam [Ativan] Med 05/05/25 07:55 Discontinued 0.5 mg PO X1 ONE Midazolam Inj [Versed Inj] Med 05/05/25 09:46 Discontinued 1 mg IM X1 ONE Midazolam Inj [Versed Inj] Med 05/05/25 02:08 Discontinued 2 mg IVP X1 ONE Morphine* Inj Med 05/05/25 04:13 Active 2 mg IVP Q1H PRN Morphine* Inj Med 05/04/25 13:02 Discontinued 4 mg IM X1 ONE Morphine* Inj Med 05/04/25 21:41 Discontinued 4 mg IM X1 ONE Morphine* Inj Med 05/04/25 22:24 Discontinued 4 mg IVP X1 ONE Ondansetron Inj [Zofran Inj] Med 05/05/25 04:14 Discontinued 4 mg IVP X1 ONE Ringers Lactated 1000 ml [Lactated Ringers] 1,000 ml Med 05/04/25 21:41 Discontinued IV 999 mls/hr cefTRIAXone/D5w 1gm IV premix [Rocephin/D5w 1gm IV Med 05/05/25 05:31 Discontinued premix] 1 gm in 50 ml IV X1 hydrALAZINE INJ [Apresoline Inj] Med 05/05/25 07:55 Discontinued 10 mg IM X1 ONE Vital Signs Vital signs: Vital Signs Temperature 98.1 F 05/04/25 12:00 Pulse Rate 105 H 05/04/25 12:00 Respiratory Rate 18 09/25/25 12:00 Blood Pressure 109/69 05/04/25 12:00 Pulse Oximetry (%) 95 05/04/25 12:00 Oxygen Delivery Method Room Air 05/04/25 12:00 Back Pain / Injury MDM Narrative MDM Narrative:: 64-year-old male patient. Significant history of hypertension, pancreatic cancer, diagnosed last August, currently refusing radiation or chemotherapy, on Dilaudid p.o. and morphine p.o., came in for evaluation regarding worsening lumbar pain. Patient is having worsening lumbar pain, for the last 2 weeks, after patient accidentally twisted his lumbar spine. Pain is described as sharp pain, severity moderate. Patient is ambulatory. Patient denies any saddle anesthesia. Denies any bladder incontinence denies any bowel incontinence. Patient wanted to make sure that there is no metastasis to the lumbar spine. He wants to be stage regarding his pancreatic cancer. Patient told me that 2 nights ago he sustained a ground-level fall landing on on his buttocks. Patient is stable to workup is significant for leukocytosis of 16.3. Total bili 2.0. Alkaline phos 590. Urinalysis no UTI. CT scan of the lumbar spine showed Acute severe burst fracture L4 vertebral body, including the left pedicle left lamina L4 as well as left transverse process L4 MRI of the lumbar spine showed Burst fracture L4 vertebral body, the vertebral body is replaced by abnormal signal on the T1-weighted images as well as the STIR images There also is abnormal signal involving L1 and T12 There is retropulsion of the compressed L4 vertebral body at least 5 mm causing spinal stenosis at the L4 level, sagittal image 9 Impression: Findings most consistent with pathologic burst fracture L4 vertebral body as above Abnormal signal involving L4, L1 and T12, most consistent with osseous metastatic disease Repeating this study with contrast would be very helpful Plan of care discussed with the patient, who agrees to be transferred for further management by tertiary centers I spoke with cardiovascular surgeon from [facility], Dr. Garcia who told me to transfer the patient to a different facility since she did not do thoracic patching Spoke with transfer center from [facility] pending acceptance Care transfer to Dr Christianson at 1120 pm final disposition Patient was given Decadron IV, Pepcid IV, morphine IV fluids Patient data External records reviewed:: None Clinical information provided by:: patient Social determinants that could affect healthcare access:: none Patient has the following chronic illnesses:: Hypertension diabetes mellitus, pancreatic cancer not on medications How is presenting disease/condition affected by chronic disease/condition?: exacerbated by Evaluation data The following diagnostics were reviewed and interpreted by me:: lab results and radiology exam(s) Lab and/or radiology exams considered but not ordered:: None Interpretation Summary: See results MDM Medications / Prescriptions Medications or Prescriptions considered but not ordered:: None Medication administrations:: Medication Administration History Morphine Sulfate (Morphine Sulf Inj 4 Mg/Ml Vial) 2 mg IVP Q1H PRN PRN Reason: PAIN SCALE 4-6 (Moderate Last Admin: 05/05/25 06:37 Dose: 2 mg Documented By: Admin: 05/05/25 04:39 Dose: 2 mg Documented By: WAYNE Discontinued Medications Dexamethasone Sodium Phosphate (Dexamethasone Sod Phos Inj 10 Mg/Ml Vial) 10 mg IVP X1 ONE Stop: 05/04/25 23:18 Last Admin: 05/05/25 00:19 Dose: 10 mg Documented By: WAYNE Diphenhydramine HCl (Diphenhydramine Inj 50 Mg/Ml Vial) 25 mg IM X1 ONE Stop: 05/05/25 08:38 Last Admin: 05/05/25 08:43 Dose: 25 mg Documented By: HONEY Comments: Famotidine (Famotidine Inj 10 Mg/Ml Vial 2 Ml) 20 mg IVP X1 ONE Stop: 05/04/25 23:18 Last Admin: 05/05/25 00:15 Dose: 20 mg Documented By: WAYNE Haloperidol Lactate (Haloperidol Lact Inj 5 Mg/Ml Vial) 5 mg IM X1 ONE Stop: 05/05/25 08:38 Last Admin: 05/05/25 08:43 Dose: 5 mg Documented By: HONEY Hydralazine HCl (Hydralazine Inj 20 Mg/Ml Vial) 10 mg IM X1 ONE Stop: 05/05/25 07:56 Last Admin: 05/05/25 08:39 Dose: Not Given Documented By: HONEY Non-Admin Reason: Discontinued Lactated Ringer's (Lactated Ringers) 1,000 mls @ 999 mls/hr IV .Q1H1M ONE Stop: 05/04/25 22:41 Last Infusion: 05/04/25 23:35 Dose: Infused Documented By: Admin: 05/04/25 22:34 Dose: 999 mls/hr Documented By: WAYNE Ceftriaxone Sodium/Dextrose (Rocephin/D5w 1gm Iv Premix) 1 gm in 50 mls @ 100 mls/hr IV X1 ONE Stop: 05/05/25 06:00 Last Infusion: 05/05/25 06:18 Dose: Infused Documented By: Admin: 05/05/25 05:42 Dose: 100 mls/hr Documented By: WAYNE Lorazepam (Lorazepam 0.5 Mg Tablet) 0.5 mg PO X1 ONE Stop: 05/05/25 07:56 Last Admin: 05/05/25 08:09 Dose: 0.5 mg Documented By: YOU Midazolam HCl (Midazolam Inj 1 Mg/Ml Vial 2 Ml) 2 mg IVP X1 ONE Stop: 05/05/25 02:09 Last Admin: 05/05/25 02:46 Dose: 2 mg Documented By: WAYNE Midazolam HCl (Midazolam Inj 1 Mg/Ml Vial 2 Ml) 1 mg IM X1 ONE Stop: 05/05/25 09:47 Morphine Sulfate (Morphine Sulf Inj 4 Mg/Ml Vial) 4 mg IM X1 ONE Stop: 05/04/25 13:03 Last Admin: 05/04/25 15:33 Dose: 4 mg Documented By: Morphine Sulfate (Morphine Sulf Inj 4 Mg/Ml Vial) 4 mg IM X1 ONE Stop: 05/04/25 21:42 Last Admin: 05/04/25 22:25 Dose: Not Given Documented By: WAYNE Non-Admin Reason: Discontinued Morphine Sulfate (Morphine Sulf Inj 4 Mg/Ml Vial) 4 mg IVP X1 ONE Stop: 05/04/25 22:25 Last Admin: 05/04/25 22:32 Dose: 4 mg Documented By: WAYNE Ondansetron HCl (Ondansetron Inj 2 Mg/Ml Inj 2 Ml) 4 mg IVP X1 ONE; Protocol Stop: 05/05/25 04:15 Last Admin: 05/05/25 06:18 Dose: Not Given Documented By: WAYNE Non-Admin Reason: Change of Condition See MDM Consultations Consultation(s) initiated? (list below): Yes Consultation #1 (Physician, Specialty, Details): Neurosurgical services Time: 01:00 Diagnosis Most likely diagnosis given after review of the tests above:: Metastatic pancreatic cancer/L4 lumbar burst fracture without spinal cord involvement. Admission Indicated Admission indicated?: indicated Admission Request Was there a request for admission?: Yes Admission Attestation Admission request attestation: Discussed case with [] from Hospitalist service regarding admission. Discussed patients ED course, exam findings, labs, and radiology results. The Hospitalist [agrees,declines] to accept the patient for admission. Disposition Plan Disposition Plan: other (specify) (Case discussed with neurosurgeon who is currently reviewing MRI and additional imaging studies to assess overall tumor load. Awaiting decision regarding transfer. Please see a.m. physician's note for final dispo note for final disposition) Discharge Plan Prescriptions/Referrals Prescriptions/Med Rec: No Action metoprolol succinate 25 mg tablet extended release 24 hr 25 mg PO DAILY Patient Comments: TAKE 1 TABLET BY MOUTH EVERY DAY lisinopril 20 mg tablet 40 mg PO QDAY morphine 30 mg Tablet Extended Release 30 mg PO TID Qty: 0 0RF atorvastatin 40 mg tablet 40 mg PO QDAY Qty: 30 0RF hydromorphone [Dilaudid] 2 mg tablet 2 mg PO .q8 MDD 3 PRN (Reason: pain) Qty: 20 0RF famotidine 40 mg tablet 40 mg PO .bedtime Qty: 30 0RF omeprazole 40 mg capsule,delayed release(DR/EC) 40 mg PO QDAY Qty: 30 0RF hydralazine 25 mg tablet 50 mg PO BID acetaminophen [Mapap (acetaminophen)] 500 mg capsule 1,000 mg PO Q4H amlodipine 5 mg tablet 5 mg PO QDAY metformin 500 mg tablet 500 mg PO BID Patient Comments: TAKE 1 TABLET BY MOUTH TWICE A DAY WITH BREAKFAST AND DINNER Referrals: Mirian Hussein MD [Primary Care Provider] - In 1 week Problem List Clinical Impression: Closed burst fracture of lumbar vertebra, Metastasis from pancreatic cancer Patient/Caregiver Discharge Instructions Print Language: Mongolian
[2025-05-04 14:03] LABS: Collection Type, Urine Clean Catch
[2025-05-04 14:11] LABS: Amorphous Crystals,Urine Present (Absent); Bacteria,Urine Rare; Bilirubin,Urine Negative (Negative); Blood,Urine Negative (Negative); Clarity,Urine Turbid (Clear/Hazy); Color,Urine Yellow (Lt Yel-Yel); Culture Indicated,Urine Not Indicated; Glucose, Urine Negative (Negative); Ketones,Urine Negative (Negative); Leukocyte Esterase,Urine Negative (Negative); Nitrite,Urine Negative (Negative); PH,Urine 6.5 (5.0-7.0); Protein,Urine Trace (Neg - Trace); RBC,Urine 1 /hpf (0-3); Specific Gravity,Urine 1.012 (1.001-1.035); Squamous Epithelial Cell,Urine 1 /hpf (0-5); Urobilinogen,Urine Negative mg/dL (0.0-1.0); WBC,Urine < 1 /hpf (0-5)
[2025-05-04 15:03] LABS: Basophils # (Auto) 0.1 Thou/mm3 (0.0-0.2); Basophils % (Auto) 1 % (0-2.5); Eosinophils # (Auto) 0.4 Thou/mm3 (0.0-0.5); Eosinophils % (Auto) 3 % (0-10); Hematocrit 41.3 % (41.0-53.0); Hemoglobin 13.5 g/dL (13.5-16.0); Immature Granulocytes Auto 0.06 Thou/mm3 (0.00-0.00); Lymphocytes # (Auto) 3.3 Thou/mm3 (1.0-4.8); Lymphocytes % (Auto) 20 % (10-50); Mean Corpuscular HGB Conc 32.7 g/dl (31.0-37.0); Mean Corpuscular Hemoglobin 27.4 pg (25.0-35.0); Mean Corpuscular Volume 84 fL (80-100); Monocytes # (Auto) 1.2 Thou/mm3 (0.0-0.8); Monocytes % (Auto) 7 % (0-12); Neutrophils # (Auto) 11.2 Thou/mm3 (1.8-7.7); Neutrophils % (Auto) 69 % (37-80); Nucleated Red Blood Cell # 0.00 Thou/mm3 (0.00-0.00); Nucleated Red Blood Cell % 0 /100 WBC (0); Platelet Count 420 Thou/mm3 (140-440); RDW Standard Deviation 49.2 fL (35.1-43.9); Red Blood Count 4.92 Miln/mm3 (4.50-5.90); White Blood Count 16.3 Thou/mm3 (3.8-10.6)
[2025-05-04 15:13] LABS: Partial Thromboplastin Time 27.6 Seconds (22.0-36.0)
[2025-05-04 15:18] LABS: Alanine Aminotransferase 48 U/L (10-49); Albumin, Serum 3.4 gm/dL (3.4-4.8); Albumin/Globulin Ratio 0.9 (1.2-2.2); Alkaline Phosphatase 590 U/L (46-116); Anion Gap 7 (7-16); Aspartate Amino Transferase 60 U/L (0-34); BUN/Creatinine Ratio 6 Ratio (12-20); Bilirubin,Total 2.0 mg/dL (0.3-1.2); Blood Urea Nitrogen 6 mg/dL (9-23); Calcium 8.8 mg/dL (8.3-10.6); Calcium (Corrected) 9.3 mg/dL (8.5-10.1); Carbon Dioxide 30.0 mMol/L (20.0-31.0); Chloride 100 mMol/L (98-107); Creatinine (Component) 1.0 mg/dL (0.6-1.3); Estimated Creatinine Clearance 91.0 mL/min (>60); Globulin 3.8 gm/dL (2.3-3.5); Glucose 110 mg/dL (74-106); Osmolality,Calculated 272 (275-295); Potassium 3.7 mMol/L (3.4-5.1); Sodium 137 mMol/L (136-145); Total Protein 7.2 gm/dL (5.7-8.2); eGFR > 60 See Note
[2025-05-04] MEDS: MORPHINE SULF INJ 4 MG/ML VIAL IM (15:33)
[2025-05-04 15:52] VITALS: BP 96/63; PULSE 100; RESP 14; TEMP 36.6; O2SAT 94
[2025-05-04 18:13] VITALS: BP 124/78; PULSE 89; RESP 14; TEMP 36.9; O2SAT 96
[2025-05-04 22:14] VITALS: BP 157/88; PULSE 95; RESP 18; TEMP 36.7; O2SAT 95
[2025-05-04] MEDS: MORPHINE SULF INJ 4 MG/ML VIAL IVP (22:32)
[2025-05-04] MEDS: RINGERS LACTATED 1000 ML 1,000 ML 999 ML IV (22:34)
--- NOTE | 2025-05-04 23:02 | PC.NURSE ---
FAXED PT INFORMATION TO [facility], [facility] TRANSPORT NURSE CALLED BACK AND TALKING TO CARL MONTENEGRO.
[2025-05-05] VITALS (62 sets, daily range): BP systolic 174–206; BP diastolic 86–114; PULSE 82–121; RESP 12–99; TEMP 36.8–36.9; O2SAT 95–99
[2025-05-05] MEDS: FAMOTIDINE INJ 10 MG/ML VIAL 2 ML 20 MG IVP (00:15)
[2025-05-05] MEDS: DEXAMETHASONE SOD PHOS INJ 10 MG/ML VIAL IVP (00:19)
--- NOTE | 2025-05-05 00:34 | XR_ITS ---
Examination: CT brain head without contrast. 2-D sagittal coronal reconstructions Date and time of exam:May 05, 2025 at 0055 hrs. Indications: Altered mental status confusion today, stroke alert December 24, 2024 CTDI: vol (mGy):56 DLP: (mGycm):1183 Technique: Multiple CT axial sections of the brain have been obtained, 5 mm slice thickness. Contrast has not been administered. 2-D sagittal, coronal reconstructions have been obtained Low dose protocols were performed. One or more of the following dose reduction techniques were used; automated exposure control, adjustment of the mA and/or KV according to patient size, use of iterative reconstruction technique. Findings: No significant ventricular enlargement. Intra-axial or extra-axial hemorrhage density is not seen. No mass effect or midline shift Basal cisterns are not remarkable. Fourth ventricle is midline. Cranial vault intact. Impression: Negative for acute hemorrhage, mass effect or midline shift If symptoms persist, as clinically warranted, consider repeat brain MRI follow-up
--- NOTE | 2025-05-05 00:46 | XR_ITS ---
Examination: CT chest with intravenous contrast CT abdomen with intravenous contrast CT pelvis with intravenous contrast 2-D coronal and sagittal reconstructions Time of exam: May 05, 2025, 0051 hrs. Comparison: CT abdomen pelvis December 23, 2024, CT chest December 17, 2023 Indications: Diagnosis pancreatic carcinoma, lower back pain abdominal pain chest pain shortness of breath today CTDI: vol (mGy) : 20.11 DLP: (mGycm): 1666 Technique: Multiple axial images of the chest, abdomen and pelvis with intravenous contrast, 3.0 mm slice thickness. Images obtained post intravenous injection Isovue 370 60 cc. 2-D sagittal and coronal reconstructions. Low dose protocols were performed. One or more of the following dose reduction techniques were used; automated exposure control, adjustment of the mA and/or KV according to patient size, use of iterative reconstruction technique. Findings: No thoracic aortic aneurysm dilatation compared with CT chest of July 04, 2024 20 mm preaortic lymph node Mild hilar lymphadenopathy Pulmonary opacification is relatively poor Small to moderate left pleural effusion COPD with multiple areas of airspace destruction Marked progression of pulmonary nodular metastatic disease compared with July 04, 2024, enlarging current pulmonary nodules and multiple new pulmonary nodules Minimal right pleural fluid Marked progression of hepatic metastatic disease compared with December 23, 2024, numerous hepatic lesions replacing the parenchyma in the right and left lobes of the liver Subcapsular fluid anterior to the right lobe of the liver Spleen is not enlarged Edema surrounding the pancreas 12 mm cystic lesion in the head of the pancreas, 27 mm lesion in the head of the pancreas solid Mass in the tail the pancreas 4.8 cm compared to 4.7 cm on December 23, 2024 Marked progression of metastatic abdominal lymphadenopathy, surrounding the abdominal aorta Benign left renal cyst Nodular thickening both adrenal glands No bowel obstruction Mild ascites Urinary bladder intact Osteolytic lesion 20 mm destroying the anterior left eighth rib Pathologic fracture involving the L4 vertebral body, osteolytic lesion extending to the left pedicle Impression: Marked progression of pulmonary nodular metastatic disease compared with CT chest July 04, 2024 Marked progression of hepatic metastatic disease compared with CT abdomen December 23, 2024 Marked progression of abdominal lymphadenopathy compared with December 23, 2024 Additional pancreatic masses compared with December 23, 2024 Osteolytic lesion anterior left eighth rib Pathologic fracture L4 vertebral body, the lesion extending into the left pedicle of L4 Consider MRI lumbar spine post contrast follow-up to assess for compression by tumor of the cauda equina, as clinically warranted
--- NOTE | 2025-05-05 01:43 | PRELIM_ITS ---
CT scan of the head without intravenous contrast (axial sections with sagittal and coronal reformats) May 05, 2025 0055 hours Clinical history: Confusion Comparison: Reference is made to the prior preliminary CT head report dated December 24, 2024. Prior images are not available at the time of interpretation. Findings: Several images are degraded due to motion artifacts making evaluation somewhat suboptimal. There is no definitive evidence of acute intracranial hemorrhage, mass effect or midline shift to the extent visualized. There are periventricular white matter hypodensities, compatible with chronic small vessel ischemia. No definitive wedge shaped acute infarcts are detected. Please note that subtle e jennifer infarcts are better assessed using diffusion weighted MR imaging if clinically indicated. There is mild volume loss. There is atheromatous calcification of the intracranial arteries. The calvarium is unremarkable. There is mild mucosal thickening in the left maxillary sinus. The mastoid air cells and the other visualized paranasal sinuses are clear. Impression: Limited evaluation due to motion artifacts. No definitive evidence of acute intracranial hemorrhage, mass effect or midline shift to the extent visualized. If there are persistent clinical symptoms or additional clinical concerns consider an MRI. Periventricular chronic small vessel ischemia and volume loss. Report Electronically Signed By: Zafar Burr 05/05/2025 1:42:56 AM [EST]
[2025-05-05] MEDS: MIDAZOLAM INJ 1 MG/ML VIAL 2 ML 2 MG IVP (02:46)
--- NOTE | 2025-05-05 03:25 | PRELIM_ITS ---
CT scan of the chest, abdomen and pelvis with intravenous contrast (axial sections with sagittal and coronal reformats) May 05, 2025 0059 hours Clinical History: Check tumor burden Comparison: Reference is made to prior preliminary CT abdomen and pelvis report dated November 27, 2024. Prior images are not available at the time of interpretation. Findings: There is a port-a-cath in the right chest wall with its tip in the distal superior vena cava. There are paraseptal emphysematous changes in the lungs with subpleural interstitial scarring. There are multiple nodular opacities of varying sizes diffusely scattered in the lungs bilaterally. There are bilateral small pleural effusions (left greater than right) with atelectasis at the lung bases. There is no pneumothorax. The thoracic aorta demonstrates atheromatous calcification without evidence of dissection or aneurysm. There is no filling defect within the pulmonary artery divisions to suggest pulmonary thromboembolism. No evidence of mediastinal mass or lymphadenopathy. There is no pericardial effusion. The gallbladder, spleen and right kidney are unremarkable. There are ill- defined hypodense lesions of varying sizes in both lobes of liver. There is bilateral adrenal thickening (left greater than right). There is ill-defined 4.8 x 3.2 cm heterogeneously enhancing lesion in the pancreatic tail infiltrating into surrounding fat. There is 1.2 cm ill-defined cystic lesion in the proximal body of the pancreas (axial image [id number]). There is 2.2 cm exophytic simple cyst in the lower pole of left kidney. There is 4.3 x 2.3 cm lobulated exophytic complex cyst in the left kidney. There is a small hiatal hernia with wall thickening of the gastroesophageal junction, likely due to reflux disease. No evidence of bowel obstruction. The appendix is within normal limits (images [id number]). A moderate amount of fecal material is present in the colon. There are multiple colonic diverticula without evidence of diverticulitis.The abdominal aorta demonstrates atheromatous calcification without evidence of aneurysm. There is ill-defined 4.2 x 4.6 cm soft tissue mass is partially encasing the aorta in the left para-aortic region, likely representing lymph joshua mass. There are additional enlarged discrete nodes in the peripancreatic region and in the gastrohepatic ligament. There are multiple soft tissue nodules of varying sizes in the mesentery. Small fat containing right paraumbilical hernia is seen. There are moderate sized fat containing inguinal hernias, right larger than left. There is a small right inguinal hernia containing a portion of the urinary bladder. There is mild wall thickening of the anterior aspect of urinary bladder. There is mild ascites in the abdomen and pelvis. There is no free air or abscess. The bones are osteopenic. Osseous degenerative changes are noted. There is age indeterminate pathologic compression fracture of L4 vertebral body. There are chronic deformities of right 8th and 9th ribs along the lateral chest wall. There is expansile lytic lesion at the anterior end of left eighth rib. Impression: 1. Multiple pulmonary, hepatic, mesenteric and retroperitoneal lymph joshua metastases. 2. Heterogeneously enhancing pancreatic tail mass infiltrating the surrounding fat; possibility of superimposed acute pancreatitis cannot be entirely excluded. 3. Cystic lesion in the proximal body of the pancreas, which may represent pseudocyst versus cystic neoplasm. 4. Complex cyst in the left kidney. 5. Pathologic compression fracture of L4 vertebral body, of indeterminate age. 6. Lytic expansile lesion in the left eighth rib, likely metastatic. 7. Other findings as described above. Suggest clinical correlation and follow up accordingly. Discussion Details: Results verbally communicated to : Dr. Christianson at 03:19 AM 05/05/2025 Report Electronically Signed By: Zafar Burr 05/05/2025 3:24:23 AM [EST]
[2025-05-05] MEDS: MORPHINE SULF INJ 4 MG/ML VIAL 2 MG IVP ×2 (04:39→06:37)
--- NOTE | 2025-05-05 04:54 | PC.NURSE ---
ADDITIONAL TEST DONE, RESULT FAXED TO [facility], CALLED [facility] TRANSFER NURSE AND INFORMED THEM THAT DR. BEATTY WANTS TO TALK TO [facility] SURGEON AGAIN.
--- NOTE | 2025-05-05 05:41 | EDNOTE_ITS ---
Emergency Room Addendum <Lynda Reyes - Last Filed: 05/05/25 05:53> Addendum Narrative: 23:00 - Care assumed from Chico Curtis NP (emergency mid-level provider). Past medical, surgical, social and family history reviewed. Vitals and home medications reviewed. Results and treatment plan discussed. I will assume the care of the patient at this time and will follow the patient, pending neurosurgical consult. The following addendum documentation note is intended to reflect any pending information, findings, or radiology results not included in the patient?s initial chart by the previous shift scribe. Assumed care of this unfortunate with advanced pancreatic cancer who opted out of therapy earlier this year now presenting with ongoing lower back pain 20-3 weeks duration. No urinary or bowel incontinence, although patient reportedly c/o weakness and unable to consistently walk without assistance for the last 24- 48 hours. Currently patient's motor strength is intact and CT demonstrates acute severe lumbar burst fracture at L-4 with retropulsion. The fracture includes the left pedicle lamina at L-4 and left transverse process at L-4. Case discussed with neurosurgeon who suggested CTA of chest/abdomen/pelvis to assess tumor load. There is evidence if wide metastasis such as multiple pulmonary nodules, messenteric/reotroperitonel metastic nodule disease, cystic rib lesion and adrenal mass. Currently waiting neurological assessment and recommendation. 06:00 - Care assumed by Dr. Malcolm (emergency physician). Past medical, surgical, social and family history reviewed. Vitals and home medications reviewed. Results and treatment plan discussed. They will assume the care of the patient at this time and will follow the patient, pending neurosurgical consult. <Ted Christianson DO - Last Filed: 05/05/25 06:24> Addendum Narrative: 23:00 - Care assumed from Chico Curtis NP (emergency mid-level provider). Past medical, surgical, social and family history reviewed. Vitals and home medications reviewed. Results and treatment plan discussed. I will assume the care of the patient at this time and will follow the patient, pending neurosurgical consult. The following addendum documentation note is intended to reflect any pending information, findings, or radiology results not included in the patient?s i nitial chart by the previous shift scribe. Assumed care of this unfortunate with advanced pancreatic cancer who opted out of therapy earlier this year now presenting with ongoing lower back pain 2-3 weeks duration. No urinary or bowel incontinence, although patient reportedly c/o weakness and unable to consistently walk without assistance for the last 24- 48 hours. Currently patient's motor strength is intact and CT demonstrates acute severe lumbar burst fracture at L-4 with retropulsion. The fracture includes the left pedicle lamina at L-4 and left transverse process at L-4. Case discussed with neurosurgeon who suggested CTA of chest/abdomen/pelvis to assess tumor load. There is evidence if wide metastasis such as multiple pulmonary nodules, mesenteric/retroperitoneal metastic nodule disease, cystic rib lesion and adrenal mass. Currently waiting neurological assessment and recommendation. 06:00 - Care assumed by Dr. Keyes (emergency physician). Past medical, surgical, social and family history reviewed. Vitals and home medications reviewed. Results and treatment plan discussed. She will assume the care of the patient at this time and will follow the patient, pending neurosurgical consult.
[2025-05-05] MEDS: cefTRIAXone/D5w 1gm IV premix 1 GM/50 ML BAG IV (05:42)
--- NOTE | 2025-05-05 06:35 | PC.NURSE ---
Addendum entered by Vasquez Crowley RN 05/05/25 10:09: 1009-Received call from Dr. Malcolm in ER, she informed me that [facility] neurosurgery does not feel there is a need for intervention at this time, transfer is cancelled at this time. Addendum entered by Vasquez Crowley RN 05/05/25 09:48: 0945- Spoke with SARA Bennett at [facility], requesting update on patient's case, she states that the case has been presented to the neurosurgery team and she is awaiting to hear back with their response, she will notify me as soon as she hears from them. Original Note: HEATH RUIZ AT [facility] TRANSFER INFORMED ME AND DR. HEATON THAT THEY WILL PRESENT CASE AGAIN TO SPIN AL SURGEON IN AM.
--- NOTE | 2025-05-05 06:50 | PD.EDADDENDU ---
Emergency Room Addendum <Celina Malcolm MD - Last Filed: 05/09/25 16:16> Addendum Narrative: Patient is a 64-year-old male brought to the emergency department with concerns for back pain. Prior provider evaluated patient. Patient was given medication for symptom relief, labs and imaging were performed. Patient was refusing radiation or chemotherapy. Patient has a burst fracture with retropulsion in the lumbar spine. [facility] neurosurgeons were consulted, they are requesting that we get CT of the chest abdomen pelvis to further characterize patient's cancer. CT chest abdomen pelvis did identify diffuse mets. We are pending callback from [facility]. Labs with evidence of leukocytosis 16.3, platelets normal, hemoglobin also normal. Patient electrolytes unremarkable. Patient elevated T. bili 2.0 this is elevated from patient's prior urinalysis without evidence of infection. Chest x-ray with evidence of possible early pneumonia. Patient no coughing no shortness of breath no fever however does have a leukocytosis we will treat. CT lumbar spine with acute severe burst fracture L4 vertebral body including the left pedicle lamina L4 as well as transverse process L4. MRI of the lumbar spine also shows burst fracture again at the L4 level. There is abnormal signal involving L1 and T12 there is retropulsion of the compressed L4 vertebral body at least 5 mm causing spinal stenosis at the L4 level. Concern for osseous metastatic disease. CT chest abdomen pelvis notable for multiple pulmonary hepatic mesenteric and retroperitoneal lymph node mets, radiologist read pending. General detergents are new.. Cystic region in the proximal body of the pancreas. Lytic expansile lesion in the left eighth rib. Patient also has a Port-A-Cath at the right chest. Patient has small bilateral pleural effusions. In my evaluation patient ambulating, GCS 15, not in distress however feels very anxious, with having a hard time sitting in the chair. Offered medication for anxiolysis. Patient systolic blood pressure greater than 200 also provided medication for blood pressure control. I spoke with neurosurgery team at [facility]. Report at this time there is no need for emergent neurosurgical intervention and declined transfer. 13:00p I spoke with hospitalist team C regarding admission. Discussed patients PMHx, HPI, ED course, exam findings, labs, and radiology results. 13:15p Patient accepted for admission. Total critical care time: Approximately?60?minutes Due to a high probability of clinically significant, life threatening deterioration, the patient required my highest level of preparedness to intervene emergently and I personally spent this critical care time directly and personally managing the patient. This critical care time included obtaining a history; examining the patient; pulse oximetry; ordering and review of studies; arranging urgent treatment with development of a management plan; evaluation of patient's response to treatment; frequent reassessment; and, discussions with other providers. This critical care time was performed to assess and manage the high probability of imminent, life-threatening deterioration that could result in multi-organ failure. It was exclusive of separately billable procedures and treating other patients and teaching time. Please see MDM section and the rest of the note for further information on patient assessment and treatment. <Jaimie Stephens - Last Filed: 05/05/25 13:20> Addendum Narrative: Patient is a 64-year-old male brought to the emergency department with concerns for back pain. Prior provider evaluated patient. Patient was given medication for symptom relief, labs and imaging were performed. Patient was refusing radiation or chemotherapy. Patient has a burst fracture with retropulsion in the lumbar spine. [facility] neurosurgeons were consulted, they are requesting that we get CT of the chest abdomen pelvis to further characterize patient's cancer. CT chest abdomen pelvis did identify diffuse mets. We are pending callback from [facility]. Labs with evidence of leukocytosis 16.3, platelets normal, hemoglobin also normal. Patient electrolytes unremarkable. Patient elevated T. bili 2.0 this is elevated from patient's prior urinalysis without evidence of infection. Chest x-ray with evidence of possible early pneumonia. Patient no coughing no shortness of breath no fever however does have a leukocytosis we will treat. CT lumbar spine with acute severe burst fracture L4 vertebral body including the left pedicle lamina L4 as well as transverse process L4. MRI of the lumbar spine also shows burst fracture again at the L4 level. There is abnormal signal involving L1 and T12 there is retropulsion of the compressed L4 vertebral body at least 5 mm causing spinal stenosis at the L4 level. Concern for osseous metastatic disease. CT chest abdomen pelvis notable for multiple pulmonary hepatic mesenteric and retroperitoneal lymph node mets, radiologist read pending. General detergents are new.. Cystic region in the proximal body of the pancreas. Lytic expansile lesion in the left eighth rib. Patient also has a Port-A-Cath at the right chest. Patient has small bilateral pleural effusions. In my evaluation patient ambulating, GCS 15, not in distress however feels very anxious, with having a hard time sitting in the chair. Offered medication for anxiolysis. Patient systolic blood pressure greater than 200 also provided medication for blood pressure control. I spoke with neurosurgery team at [facility]. Report at this time there is no need for emergent neurosurgical intervention and declined transfer. 13:00p I spoke with hospitalist team C regarding admission. Discussed patients PMHx, HPI, ED course, exam findings, labs, and radiology results. 13:15p Patient accepted for admission.
--- NOTE | 2025-05-05 07:22 | PC.NURSE ---
Report received from pm nurse, patient getting out of [facility] trying to walk, needs assistance, patient states he has no pain after administration of morphine by pm nurse. Patient awaiting transfer for burst fracture with retropulsion in the lumbar spine with h/o metastic pancreatic cancer, patient assisted back into [facility], patient given reassurance and informed him to not get up without assistance, call light within reach.
--- NOTE | 2025-05-05 07:57 | PC.NURSE ---
Patient confused, pulled out his IV, pressure applied to left ac, iv intact, bp 205/108, Dr. Malcolm called to bedside. Shashi GOODMAN to get Avasure for patients safety.
--- NOTE | 2025-05-05 08:38 | EKG_ITS ---
[facility] Test Date: 2025-05-05 Pat Name: MARZENA MENDEZ Department: Room: - Gender: Male Cadd Technician: : 1960 Requested By: Celina Solis Order Number: [id number] Reading MD: Celina Solis Measurements Intervals [place] Rate: 94 P: 67 GA: 158 QRS: -4 QRSD: 75 T: 65 QT: 356 QTc: 447 Interpretive Statements SINUS RHYTHM LOW QRS VOLTAGE IN PRECORDIAL LEADS [QRS DEFLECTION < 1.0 mV IN CHEST LEADS] MINIMAL ST DEPRESSION [0.025+ mV ST DEPRESSION] Compared to ECG 12/24/2024 05:12:22 Low QRS voltage now present ST (T wave) deviation now present Sinus tachycardia no longer present /store/S0/[id number].pdf
[2025-05-05] MEDS: HALOPERIDOL LACT INJ 5 MG/ML VIAL IM (08:43)
--- NOTE | 2025-05-05 09:42 | PC.LAC ---
Patient pulling off cm, bp cuff and pulse ox, refusing to keep on, sitter at bedside, will notify Dr. Malcolm
--- NOTE | 2025-05-05 10:03 | XR_ITS ---
Examination: CT brain head without contrast. 2-D sagittal coronal reconstructions Date and time of exam:May 05, 2025, 1225 hours INDICATIONS: Altered mental status today CTDI: vol (mGy):51.3 DLP: (mGycm):1164 Technique: Multiple CT axial sections of the brain have been obtained, 5 mm slice thickness. Contrast has not been administered. 2-D sagittal, coronal reconstructions have been obtained Low dose protocols were performed. One or more of the following dose reduction techniques were used; automated exposure control, adjustment of the mA and/or KV according to patient size, use of iterative reconstruction technique. Findings: Patient motion on this study Ventricles are not enlarged No gross hemorrhage mass effect or midline shift IMPRESSION: Patient motion significantly limits this study No gross hemorrhage mass effect or midline shift If altered mental status persists, as clinically warranted, consider brain MRI follow-up, especially as the patient's altered mental status was also identified on the 0055 hours study this a.m.
--- NOTE | 2025-05-05 10:05 | PC.NURSE ---
Patient remains to move around in bed, refusing to be place on CM, pulse ox and bp, Dr. Malcolm made aware, states she will place orders for versed.
[2025-05-05] MEDS: MIDAZOLAM INJ 1 MG/ML VIAL 2 ML IM ×2 (10:20→11:01)
[2025-05-05 10:26] LABS: Basophils # (Auto) 0.0 Thou/mm3 (0.0-0.2); Basophils % (Auto) 0 % (0-2.5); Eosinophils # (Auto) 0.0 Thou/mm3 (0.0-0.5); Eosinophils % (Auto) 0 % (0-10); Hematocrit 41.6 % (41.0-53.0); Hemoglobin 13.5 g/dL (13.5-16.0); Immature Granulocytes Auto 0.05 Thou/mm3 (0.00-0.00); Lymphocytes # (Auto) 1.3 Thou/mm3 (1.0-4.8); Lymphocytes % (Auto) 14 % (10-50); Mean Corpuscular HGB Conc 32.5 g/dl (31.0-37.0); Mean Corpuscular Hemoglobin 27.0 pg (25.0-35.0); Mean Corpuscular Volume 83 fL (80-100); Monocytes # (Auto) 0.3 Thou/mm3 (0.0-0.8); Monocytes % (Auto) 3 % (0-12); Neutrophils # (Auto) 7.6 Thou/mm3 (1.8-7.7); Neutrophils % (Auto) 83 % (37-80); Nucleated Red Blood Cell # 0.00 Thou/mm3 (0.00-0.00); Nucleated Red Blood Cell % 0 /100 WBC (0); Platelet Count 411 Thou/mm3 (140-440); RDW Standard Deviation 48.8 fL (35.1-43.9); Red Blood Count 5.00 Miln/mm3 (4.50-5.90); White Blood Count 9.2 Thou/mm3 (3.8-10.6)
--- NOTE | 2025-05-05 10:37 | PC.NURSE ---
boiler technician here to take patient for exam, patient moving around, not cooperative, will notify Dr. Tobar. mendoza to hold off on CT scan at this time.
[2025-05-05 10:45] LABS: Ammonia 38 uMol/L (11-32)
[2025-05-05 10:55] LABS: Alanine Aminotransferase 44 U/L (10-49); Albumin, Serum 3.4 gm/dL (3.4-4.8); Albumin/Globulin Ratio 0.9 (1.2-2.2); Alkaline Phosphatase 614 U/L (46-116); Anion Gap 7 (7-16); Aspartate Amino Transferase 65 U/L (0-34); BUN/Creatinine Ratio 8 Ratio (12-20); Bilirubin,Total 2.3 mg/dL (0.3-1.2); Blood Urea Nitrogen 8 mg/dL (9-23); Calcium 9.3 mg/dL (8.3-10.6); Calcium (Corrected) 9.8 mg/dL (8.5-10.1); Carbon Dioxide 29.9 mMol/L (20.0-31.0); Chloride 99 mMol/L (98-107); Creatinine (Component) 1.0 mg/dL (0.6-1.3); Estimated Creatinine Clearance 91.0 mL/min (>60); Globulin 3.9 gm/dL (2.3-3.5); Glucose 183 mg/dL (74-106); Osmolality,Calculated 275 (275-295); Potassium 4.1 mMol/L (3.4-5.1); Sodium 136 mMol/L (136-145); Total Protein 7.3 gm/dL (5.7-8.2); eGFR > 60 See Note
--- NOTE | 2025-05-05 12:19 | PC.CC ---
[id number] spoke with pts brother and Next of Kin Magdaleno Jean [phone] ([phone]) in regards to providing consent for treatment for the pt. Magdaleno stated he is only providing consent for exams/testing, and does not want operations performed UNITL he is informed and he provided a thorough explanation as to why the pt needs surgery. Magdaleno is providing consent to transfer but was adamant that he wants pt to be a DNR/DNI due to his cancer condition. Magdaleno stated he does not want pt to suffer any longer and reported that pt has suffered for a while due to his medical conditions. ASW contacted pts brother Magdaleno as per request from Transfer RN Davis, as it was reported that the assigned RN in the ER has tried multiple times to reach the family but no contact was made.
--- NOTE | 2025-05-05 12:56 | PC.NURSE ---
Dr. Malcolm at bedside speaking with patient. Unable to get accurate bp do to patient moving around.
--- NOTE | 2025-05-05 15:07 | PD.HHHP ---
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 At the time of examination, patient was confused and was unable to provide any history. HPI obtained through chart review and patient's brother on phone. As per them, patient has been having worsening lumbar pain for last couple weeks after he twisted his back accidently. Also had a ground level fall 3 days ago. Did not have any incontinence. Patient lives alone and with ongoing pain and fall, he has not been able to take care of himself. Brother denied any fever, SOB, Chest pain, nausea, vomiting. In the ED, Initial vitals were within normal limits except for tachycardia. Lab results show leukocytosis with WBC of 16.3, which later improved. Glucose was 183, T. Jonn 2.3, AST 65, ALP 614. Lumbar spine MRI was obtained, showed pathologic burst fracture of L4 vertebra, Metastatic disease involving L4, L1 and L2. Lumbar spine CT was also done which showed similar findings. Attempt was made to transfer patient for neurosurgery evaluation but was denied stating no need for immediate neurosurgical procedure. While in the ED patient became confused, Head CT was obtained, negative for acure findings. CT chest/abdomen/pelvis which shows additional pancreatic masses, multiple metastatic diseases over lungs, liver, lymph node, left eighth rib. We will admit the patient for further management of altered mental status, intactable pain, hypertensive emergency/urgency. Past Medical History: As above Social History: Past alcohol use and smoker Surgical History: Ramakrishna fundoplication Review of Systems Review of Systems ROS Unobtainable: unobtainable due to mental status Meds Home Medications and Allergies Home Medications ?Medication ?Instructions ?Recorded ?Confirmed ?Type acetaminophen 500 mg capsule 1,000 mg PO Q4H pain 10/25/24 11/11/24 History (Mapap (acetaminophen)) amlodipine 5 mg tablet 5 mg PO QDAY 10/25/24 11/11/24 History hydralazine 25 mg tablet 50 mg PO BID 10/25/24 11/11/24 History metformin 500 mg tablet 500 mg PO BID 10/25/24 11/11/24 History lisinopril 20 mg tablet 40 mg PO QDAY 11/11/24 11/11/24 History metoprolol succinate 25 mg 25 mg PO DAILY 11/11/24 11/11/24 History tablet,extended release 24 hr Allergies Allergy/AdvReac Type Severity Reaction Status Date / Time No Known Allergies Allergy Verified 05/04/25 12:24 Exam Vital Signs Temp Pulse Resp BP Pulse Ox O2 Del Method 98.2 F 109 H 16 174/86 H 99 Room Air 05/05/25 14:27 05/05/25 15:01 05/05/25 14:27 05/05/25 14:27 05/05/25 14:27 05/05/25 14:27 Narrative General: Alert but confused, oriented x0, appers comfortable, exam limited as patient is not fully complient Lungs: Clear BELEM to auscultation and percussion, No accessory muscle use. Cardio: Normal S1/S2, regular rhythm, no murmurs, no JVD Abdomen: Soft, non-distended, tender to palpate over all quadrants, BS+ Extremities: Symmetrical, no significant deformities, no peripheral edema , peripheral pulses presents. Skin: No rashes, no lesions, warm to touch. Neuro: moving all his extremities Results - Hospitalist Labs Diagrams: 05/05/25 10:14 05/05/25 10:14 Labs: Short CBC 05/04/25 05/05/25 Range/Units 14:48 10:14 WBC 16.3 H 9.2 D (3.8-10.6) Thou/mm3 Hgb 13.5 13.5 (13.5-16.0) g/dL Hct 41.3 41.6 (41.0-53.0) % Plt Count 420 411 (140-440) Thou/mm3 BMP 05/04/25 05/05/25 14:48 10:14 Sodium 137 136 Potassium 3.7 4.1 Chloride 100 99 Carbon Dioxide 30.0 29.9 BUN 6 L 8 L Creatinine 1.0 1.0 Glucose 110 H 183 H D Calcium 8.8 9.3 Liver Function 05/04/25 05/05/25 Range/Units 14:48 10:14 Total Bilirubin 2.0 H 2.3 H (0.3-1.2) mg/dL AST 60 H 65 H (0-34) U/L ALT 48 44 (10-49) U/L Alkaline Phosphatase 590 H 614 H D (46-116) U/L Albumin 3.4 3.4 (3.4-4.8) gm/dL Assessment & Plan -Hospitalist Additional Plan Additional Plan: Patient is 64-year-old male with past medical history of 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 Found to have altered mentation, intactable pain, hypertensive urgency/emergency. After examination of the patient and review of the clinical data I feel that this patient needs admission to the hospital for further treatment/evaluation. #Acute encephalopathy #Hypertensive Urgency/Emergency Patient became confused while in the ED, possibly secondary to delirium, polypharmacy, severe hypertension Head CT was negative for acute hemorrhage, mass effect or midline shift, repeat head CT with similar findings Frequent neurochecks, aspiration precautions, bedside swallow screen Will consider MRI and neurology consult if does not improve Resumed home atorvastatin and Lisinopril Labetalol PRN for SBP>180 We will keep him NPO until swallow screen #Intractable pain #Metastatic pancreatic cancer #L4 conpression fracture #Ground level fall Patient came in with intractable pain, recently had a fall Lumbar spine MRI was obtained, showed pathologic burst fracture of L4 vertebra, Metastatic disease involving L4, L1 and L2. Lumbar spine CT was also done which showed similar findings. CT chest/abdomen/pelvis which shows additional pancreatic masses, multiple metastatic diseases over lungs, liver, lymph node, left eighth rib. Resumed home Morphine for pain control, we will evaluate and adjust his pain regimen Attempt was made for transfer to [facility] for neurosurgery evaluation, was told no current need for immediate surgical intervention #Diabetes mellitus Started on Sliding scale insulin Hypoglycemia protocol in place with frequent glucose checks #GERD We will continue with Protonix 40 mg IV daily #Elevated Billirubin #Elevated AST/ALP Likely related to pancreaticadenocarconoma, liver mets #Leukocytosis Likely reactive - resolved Disposition: Telemetry for management of Acute encephalopathy, hypertensive urgency/emergency, Intractable pain Diet: NPO (Until swallow evaluation) GI prophylaxis: protonix DVT prophylaxis: lovenox Code: DNR/DNI (Discussed with brother on phone regarding CODE status, states that patient would like to be DNR/DNI and to avoid invasive treatment options) Christie Morley MD Quality Measures Quality Measures none Advance care planning discussed with:: sibling
[2025-05-05] MEDS: LABETALOL INJ 5 MG/ML VIAL 20 ML 10 MG IVP ×2 (18:27→22:31)
[2025-05-05] MEDS: MORPHINE SULF INJ 4 MG/ML VIAL IVP (20:37)
[2025-05-05] MEDS: ATORVASTATIN CALCIUM 20 MG TABLET 40 MG PO (20:39)
[2025-05-05] MEDS: MORPHINE SULF 30 MG TABCR PO (22:32)
[2025-05-05] MEDS: INSULIN LISPRO (AdmeLOG) 1 UNIT/0.01 ML UNIT SC (23:39)
[2025-05-06] VITALS (13 sets, daily range): BP systolic 113–181; BP diastolic 96–123; PULSE 59–140; RESP 13–96; TEMP 36–36.6; O2SAT 93–96; BMI 29.3
[2025-05-06] MEDS: MORPHINE SULF INJ 4 MG/ML VIAL IVP ×3 (01:28→16:07)
[2025-05-06] MEDS: INSULIN LISPRO (AdmeLOG) 1 UNIT/0.01 ML UNIT SC ×2 (05:17→23:35)
[2025-05-06] MEDS: MORPHINE SULF 30 MG TABCR PO ×3 (06:13→21:54)
[2025-05-06 06:20] LABS: Basophils # (Auto) 0.0 Thou/mm3 (0.0-0.2); Basophils % (Auto) 0 % (0-2.5); Eosinophils # (Auto) 0.0 Thou/mm3 (0.0-0.5); Eosinophils % (Auto) 0 % (0-10); Hematocrit 41.3 % (41.0-53.0); Hemoglobin 13.8 g/dL (13.5-16.0); Immature Granulocytes Auto 0.11 Thou/mm3 (0.00-0.00); Lymphocytes # (Auto) 2.0 Thou/mm3 (1.0-4.8); Lymphocytes % (Auto) 10 % (10-50); Mean Corpuscular HGB Conc 33.4 g/dl (31.0-37.0); Mean Corpuscular Hemoglobin 27.4 pg (25.0-35.0); Mean Corpuscular Volume 82 fL (80-100); Monocytes # (Auto) 1.8 Thou/mm3 (0.0-0.8); Monocytes % (Auto) 8 % (0-12); Neutrophils # (Auto) 17.0 Thou/mm3 (1.8-7.7); Neutrophils % (Auto) 81 % (37-80); Nucleated Red Blood Cell # 0.00 Thou/mm3 (0.00-0.00); Nucleated Red Blood Cell % 0 /100 WBC (0); Platelet Count 462 Thou/mm3 (140-440); RDW Standard Deviation 47.5 fL (35.1-43.9); Red Blood Count 5.04 Miln/mm3 (4.50-5.90); White Blood Count 20.9 Thou/mm3 (3.8-10.6)
[2025-05-06 06:31] LABS: INR 1.4 (0.9-1.3); Prothrombin Time 14.6 Seconds (9.0-12.2)
[2025-05-06 06:47] LABS: Alanine Aminotransferase 34 U/L (10-49); Albumin, Serum 3.5 gm/dL (3.4-4.8); Albumin/Globulin Ratio 0.9 (1.2-2.2); Alkaline Phosphatase 585 U/L (46-116); Anion Gap 7 (7-16); Aspartate Amino Transferase 95 U/L (0-34); BUN/Creatinine Ratio 11 Ratio (12-20); Bilirubin,Total 2.7 mg/dL (0.3-1.2); Blood Urea Nitrogen 10 mg/dL (9-23); Calcium 9.2 mg/dL (8.3-10.6); Calcium (Corrected) 9.6 mg/dL (8.5-10.1); Carbon Dioxide 25.5 mMol/L (20.0-31.0); Cardiac Risk Estimate 10.6 RATIO (4.0-6.7); Chloride 101 mMol/L (98-107); Cholesterol 212 mg/dL (132-200); Creatinine (Component) 0.9 mg/dL (0.6-1.3); Estimated Creatinine Clearance 93.7 mL/min (>60); Globulin 4.1 gm/dL (2.3-3.5); Glucose 144 mg/dL (74-106); HDL Cholesterol 20 mg/dL (40-60); LDL Cholesterol,Calculated 148 mg/dL (0-130); Magnesium 1.9 mg/dL (1.6-2.6); Osmolality,Calculated 268 (275-295); Phosphorous 2.7 mg/dL (2.4-5.1); Potassium 3.4 mMol/L (3.4-5.1); Sodium 133 mMol/L (136-145); Total Protein 7.6 gm/dL (5.7-8.2); Triglycerides 222 mg/dL (30-150); eGFR > 60 See Note
[2025-05-06] MEDS: TAMSULOSIN HCL 0.4 MG CAPSULE PO (08:32)
--- NOTE | 2025-05-06 08:38 | PCS.ST ---
Swallow Evaluation completed. See report for details. Dysphagia 3 (chopped/soft). Pt is edentulous.
--- NOTE | 2025-05-06 08:47 | XR_ITS ---
Examination: Abdomen sonogram, Limited Date and time of exam: May 06, 2025, 1003 hrs. Indications: Elevated liver function tests on laboratory examination today, abdominal pain Technique: Real-time hansen scale transabdominal sonographic images of the upper abdomen obtained. Findings: Negative for gallstones Gallbladder wall is thickened 0.7 cm Normal common bile duct 0.2 cm Pancreas obscured by bowel gas Hepatomegaly 19.8 cm irregular contour multiple solid liver masses, the largest in the right over the liver 6.5 cm Normal hepatopedal portal venous flow Patent IVC Impression: Cirrhosis Multiple liver masses, consider hepatic metastases, primary hepatocellular disease multifocal Abnormal thickening of the gallbladder wall, suspicious for cholecystitis, consider HIDA scan or MRCP follow-up
--- NOTE | 2025-05-06 09:40 | PC.PT ---
attempted PT eval this AM. Per RN Ana clinton eval patient is not appropriate. PT will re-attempt Eval at another time
--- NOTE | 2025-05-06 09:59 | ESPR_ITS ---
<Statement entered by Adams Dillon MD - 05/06/25 17:42> Patient examined and case discussed with the team including attending physician. Note reviewed, I agree with the care plan as documented. Please refer to the note below for further details. - Adams Dillon MD, PGY 3 Disclaimer: The document may contain phonetic/typographic errors due to voice recognition software. These errors are purely due to imperfections in the software program. Documentation for date of: 05/06/25 Subjective Subjective Interval history: Patient aggitated overnight. Restrains in place. Gave 1 time dose haldol for aggitation. Will start seroquel [address] Montano consulted. Gall bladder US ordered. Restarted home metoprolol. WBC 20.9, hemoglobin 13.8 and stable, platelets 462, sodium 133 down from 136, osmolality 268, total bilirubin 2.7, AST slightly and slowly increased, alk phos 585 and stable. Vitals significant for BP 179/106, pulse 102, satting at 93% on room air. Exam Vital Signs Temp Pulse Resp BP Pulse Ox O2 Del Method 97.8 F 99 20 157/97 H 93 L Room Air 05/06/25 04:00 05/06/25 08:32 05/06/25 04:00 05/06/25 08:32 05/06/25 04:00 05/06/25 04:00 Narrative Exam General: Confused, patient was having auditory and visual hallucinations, describingseeing people who were not there. Neurologic: No gross neurological deficit, and patient able to move all 4 extremities. HEENT: Normocephalic, atraumatic, mucous membranes moist. Pupils reactive to light. Heart: Tachycardic, regular rhythm, normal S1 and S2, no murmurs. Lungs: Clear to auscultation bilaterally with no wheezing or crackles. Abdomen: Soft, nondistended, nontender, positive bowel sounds. No guarding or rebound tenderness. Extremities: No edema. 2+ radial and dorsalis pedis pulses bilaterally. Skin: Warm. Dry. No rash or ecchymoses. Objective Labs 05/08/25 05:42 05/08/25 05:42 Labs: Laboratory Results - last 24 hr 05/05/25 05/06/25 10:14 05:02 WBC 9.2 D 20.9 H D RBC 5.00 5.04 Hgb 13.5 13.8 Hct 41.6 41.3 MCV 83 82 MCH 27.0 27.4 MCHC 32.5 33.4 RDW Std Deviation 48.8 H 47.5 H Plt Count 411 462 H D Neut % (Auto) 83 H 81 H Lymph % (Auto) 14 10 [place] % (Auto) 3 8 Eos % (Auto) 0 0 Baso % (Auto) 0 0 Neut # (Auto) 7.6 17.0 H Lymph # (Auto) 1.3 2.0 [place] # (Auto) 0.3 1.8 H Eos # (Auto) 0.0 0.0 Baso # (Auto) 0.0 0.0 Immature Gran # (Auto) 0.05 H 0.11 H Absolute Nucleated RBC 0.00 0.00 Immature Gran % 1 H 1 H Nucleated RBC % 0 0 PT 14.6 H INR 1.4 H Sodium 136 133 L Potassium 4.1 3.4 D Chloride 99 101 Carbon Dioxide 29.9 25.5 Anion Gap 7 7 BUN 8 L 10 Creatinine 1.0 0.9 Estim Creat Clear Calc 91.0 93.7 eGFR > 60 > 60 BUN/Creatinine Ratio 8 L 11 L Glucose 183 H D 144 H Calculated Osmolality 275 268 L Calcium 9.3 9.2 Corrected Calcium 9.8 9.6 Phosphorus 2.7 Magnesium 1.9 Total Bilirubin 2.3 H 2.7 H AST 65 H 95 H ALT 44 34 Alkaline Phosphatase 614 H D 585 H D Ammonia 38 H Total Protein 7.3 7.6 Albumin 3.4 3.5 Globulin 3.9 H 4.1 H Albumin/Globulin Ratio 0.9 L 0.9 L Triglycerides 222 H Cholesterol 212 H LDL Cholesterol, Calc 148 H HDL Cholesterol 20 L Cholesterol/HDL Ratio 10.6 H Quality Measures Quality Measures none Advance care planning discussed with:: legal surragate Assessment & Plan Assessment Current Active Medications: Generic Name Dose Route Start Last Admin Trade Name Freq PRN Reason Stop Dose Admin Acetaminophen 650 mg 05/05/25 14:00 Acetaminophen Supp 650 Mg Supp DC 06/04/25 13:59 Q6HR PRN Fever> 101.5, headache Amlodipine Besylate 5 mg 05/07/25 21:00 Amlodipine Besylate 5 Mg Tablet PO 06/06/25 20:59 HS AUSTEN Atorvastatin Calcium 40 mg 05/05/25 21:00 05/05/25 20:39 Atorvastatin Calcium 20 Mg Tablet PO 06/04/25 20:59 40 mg HS AUSTEN Administration Bisacodyl 10 mg 05/05/25 14:00 Bisacodyl 5 Mg Tabec PO 06/04/25 13:59 QDAY PRN CONSTIPATION Protocol Dextrose 25 ml 05/05/25 21:54 Dextrose 50%-Water Inj 50 Ml Syringe IV 06/04/25 21:53 Q15MIN PRN BG 50-70 responsive npo pt Dextrose 50 ml 05/05/25 21:54 Dextrose 50%-Water Inj 50 Ml Syringe IV 06/04/25 21:53 Q15MIN PRN BG <50 OR BG <70 & pt unresponsive Enoxaparin Sodium 40 mg 05/06/25 09:00 Enoxaparin Sod Inj 40 Mg/0.4 Ml Syringe SC 05/20/25 08:59 QDAY AUSTEN Glucagon 1 mg 05/05/25 21:54 Glucagon Inj 1 Mg Vial IM Q15MIN PRN BG <70, and no IV access Insulin Human Lispro 0 unit 05/06/25 00:00 05/06/25 05:17 Insulin Lispro (Admelog) 1 Unit/0.01 Ml Unit SC 06/05/25 00:00 1 unit Q6HR AUSTEN Administration Protocol Labetalol HCl 10 mg 05/05/25 15:02 05/05/25 18:27 Labetalol Inj 5 Mg/Ml Vial 20 Ml IVP 06/04/25 15:14 10 mg Q8H PRN Administration SBP>180, DBP>110 Lidocaine 1 patch 05/06/25 09:48 Lidocaine 5% 1 Patch TOP 06/05/25 09:47 UD PRN PAIN Protocol Lisinopril 40 mg 05/06/25 09:00 05/06/25 08:32 Lisinopril 20 Mg Tablet PO 06/05/25 08:59 40 mg QDAY AUSTEN Administration Magnesium Hydroxide 30 ml 05/05/25 14:00 Milk Of Magnesia Susp 30 Ml Udc PO 06/04/25 13:59 QDAY PRN CONSTIPATION Protocol Metoprolol Succinate 25 mg 05/06/25 10:00 Metoprolol Succinate Xl 25 Mg Tabcr PO 06/05/25 09:59 QDAY AUSTEN Morphine Sulfate 30 mg 05/05/25 22:00 05/06/25 06:13 Morphine Sulf 30 Mg Tabcr PO 05/10/25 21:59 30 mg TID AUSTEN Administration Protocol Morphine Sulfate 4 mg 05/05/25 19:57 05/06/25 08:33 Morphine Sulf Inj 4 Mg/Ml Vial IVP 05/10/25 19:56 4 mg Q4HR PRN Administration Pain Scale 6-10 Ondansetron HCl 4 mg 05/05/25 14:00 Ondansetron Inj 2 Mg/Ml Inj 2 Ml IVP 06/04/25 13:59 Q6H PRN NAUSEA OR VOMITING Protocol Pantoprazole Sodium 40 mg 05/06/25 09:00 05/06/25 08:33 Pantoprazole Inj 40 Mg Vial IVP 06/05/25 08:59 40 mg QDAY AUSTEN Administration Tamsulosin HCl 0.4 mg 05/06/25 09:00 05/06/25 08:32 Tamsulosin Hcl 0.4 Mg Capsule PO 06/05/25 08:59 0.4 mg QDAY AUSTEN Administration Plan Patient is 64-year-old male with past medical history of 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 Found to have altered mentation, intactable pain, hypertensive urgency/emergency. After examination of the patient and review of the clinical data I feel that this patient needs admission to the hospital for further treatment/evaluation. #Acute encephalopathy due to polypharmacy versus hypertension versus CVA #Hypertensive Urgency The patient initially presented with lumbar back pain that been occurring over the past few weeks. The patient became confused while in the ED, possibly secondary to delirium, polypharmacy, severe hypertension Head CT was negative for acute hemorrhage, mass effect or midline shift, repeat head CT with similar findings Patient had no signs of endorgan damage, creatinine was normal, troponins were normal, CT was negative Plan: Frequent neurochecks, aspiration precautions, bedside swallow screen Spoke with patient's brother who is the surrogate decision maker Magdaleno, will forego MRI Resumed home atorvastatin and Lisinopril Started metoprolol succinate 25 mg XL daily 05/06/25 Labetalol PRN for SBP>180 #Intractable pain #Stage IV metastatic pancreatic cancer #L4 conpression fracture #Ground level fall Patient came in with intractable pain, recently had a fall Lumbar spine MRI was obtained, showed pathologic burst fracture of L4 vertebra, Metastatic disease involving L4, L1 and L2. Lumbar spine CT was also done which showed similar findings. CT chest/abdomen/pelvis which shows additional pancreatic masses, multiple metastatic diseases over lungs, liver, lymph node, left eighth rib. Plan: Resumed home Morphine for pain control, we will evaluate and adjust his pain regimen Attempt was made for transfer to [facility] for neurosurgery evaluation, was told no current need for immediate surgical intervention #Acute delirium #Visual and auditory hallucinations Patient became agitated last night pulling at lines Patient describing seeing and hearing people who are not there Consider polypharmacy versus hospital delirium Plan: Haloperidol 2.5 mg x 1 Will start Seroquel 25 mg p.o. at bedtime Upper extremity restraints. #Diabetes mellitus Plan: Started on Sliding scale insulin Hypoglycemia protocol in place with frequent glucose checks #GERD Plan: We will continue with Protonix 40 mg IV daily #Hyperbilirubinemia #Transaminitis Likely related to pancreaticadenocarconoma, liver mets Gallbladder ultrasound showed multiple liver masses, likely metastases, abnormal thickening of the gallbladder wall with suspicion for cholecystitis. Plan: Continue morphine 4 mg IV every 4 hours as needed for pain #Leukocytosis Likely reactive - continue to monitor Disposition: Telemetry for management of Acute encephalopathy, hypertensive urgency/emergency, Intractable pain. Patient became agitated overnight, 1 dose of haloperidol and will start Seroquel nightly, restarted home metoprolol. Holding off on neuro consult at this time. Patient's surrogate decision maker decided against MRI, as results would almost certainly not change the patient's course. A the referral to hospice was placed. A goals of care discussion is planned with the family. Diet: Cardiac diet GI prophylaxis: protonix DVT prophylaxis: lovenox Code: DNR/DNI (Discussed with brother on phone regarding CODE status, states that patient would like to be DNR/DNI and to avoid invasive treatment options) Patient was seen and discussed with my attending physician Dr. Peyman CHAVEZ and my senior resident Dr. Santana CHAVEZ PGY-3. Pete Rizvi DO PGY-1. Attending Provider Attestation/Addendum I attest that I was physically present for the evaluation, physical examination, lab and imaging review of the patient with the residents. I discussed the case with the residents and agree with the findings and plans of care as documented above. Christie Morley MD
[2025-05-06] MEDS: ENOXAPARIN SOD INJ 40 MG/0.4 ML SYRINGE SC (10:23)
[2025-05-06] MEDS: METOPROLOL SUCCINATE XL 25 MG TABCR PO (10:24)
[2025-05-06] MEDS: HALOPERIDOL LACT INJ 5 MG/ML VIAL 2.5 MG IV (10:28)
[2025-05-06] MEDS: LABETALOL INJ 5 MG/ML VIAL 20 ML 10 MG IVP (12:49)
--- NOTE | 2025-05-06 13:30 | PC.NURSE ---
b/p 142/106 after Labatelol IV. hr 105. Medicated with morphine for pain at this time.
--- NOTE | 2025-05-06 15:42 | PC.SS ---
SS contacted by bedside RN patient has hospice referral, SS informed RN SS to follow up with patient and family at a later time to confirm discharge plan. SS informed by Hospitalist Team patient will have hospice referral submitted. SS to follow up.
[2025-05-06] MEDS: HALOPERIDOL LACT INJ 5 MG/ML VIAL IV (17:15)
[2025-05-06] MEDS: DIAZEPAM INJ 5 MG/ML VIAL 2 ML 2.5 MG IVP (18:24)
[2025-05-06] MEDS: LIDOCAINE 5% 1 PATCH TOP (19:51)
[2025-05-06] MEDS: ATORVASTATIN CALCIUM 20 MG TABLET 40 MG PO (20:32)
--- NOTE | 2025-05-06 23:52 | PD.NEUROPROG ---
Documentation for date of: 05/06/25 Exam - Neurology Vital Signs Temp Pulse Resp BP Pulse Ox O2 Del Method 97.1 F 128 H 20 156/108 H 96 Room Air 05/06/25 20:00 05/06/25 22:28 05/06/25 20:00 05/06/25 22:28 05/06/25 20:00 05/06/25 20:00 Objective Labs 05/06/25 05:02 05/06/25 05:02 Labs: Laboratory Results - last 24 hr 05/06/25 05:02 WBC 20.9 H D RBC 5.04 Hgb 13.8 Hct 41.3 MCV 82 MCH 27.4 MCHC 33.4 RDW Std Deviation 47.5 H Plt Count 462 H D Neut % (Auto) 81 H Lymph % (Auto) 10 [place] % (Auto) 8 Eos % (Auto) 0 Baso % (Auto) 0 Neut # (Auto) 17.0 H Lymph # (Auto) 2.0 [place] # (Auto) 1.8 H Eos # (Auto) 0.0 Baso # (Auto) 0.0 Immature Gran # (Auto) 0.11 H Absolute Nucleated RBC 0.00 Immature Gran % 1 H Nucleated RBC % 0 PT 14.6 H INR 1.4 H Sodium 133 L Potassium 3.4 D Chloride 101 Carbon Dioxide 25.5 Anion Gap 7 BUN 10 Creatinine 0.9 Estim Creat Clear Calc 93.7 eGFR > 60 BUN/Creatinine Ratio 11 L Glucose 144 H Calculated Osmolality 268 L Calcium 9.2 Corrected Calcium 9.6 Phosphorus 2.7 Magnesium 1.9 Total Bilirubin 2.7 H AST 95 H ALT 34 Alkaline Phosphatase 585 H D Total Protein 7.6 Albumin 3.5 Globulin 4.1 H Albumin/Globulin Ratio 0.9 L Triglycerides 222 H Cholesterol 212 H LDL Cholesterol, Calc 148 H HDL Cholesterol 20 L Cholesterol/HDL Ratio 10.6 H
[2025-05-07] VITALS (23 sets, daily range): BP systolic 96–152; BP diastolic 58–109; PULSE 89–211; RESP 18–97; TEMP 35.7–36.3; O2SAT 93–98; BMI 28.8
--- NOTE | 2025-05-07 00:01 | PD.NEUROCONS ---
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 As per family, patient has been having worsening lumbar pain for last couple weeks after he twisted his back accidentally. Also had a ground level fall 3 days ago. Patient lives alone and with ongoing pain and fall, he has not been able to take care of himself. No history of fever, chest pain shortness of breath, nausea or vomiting or bladder and bowel incontinence. Workup in the ER: Vitals were within normal limits except for tachycardia. Lab results show leukocytosis with WBC of 16.3, which later improved. Glucose was 183, T. Jonn 2.3, AST 65, ALP 614. Imaging study: Lumbar spine MRI showed pathologic burst fracture of L4 vertebra, Metastatic disease involving L4, L1 and L2. Lumbar spine CT showed similar findings. Attempt was made to transfer patient for neurosurgery evaluation but was denied stating no need for immediate neurosurgical procedure. Head CT negative for acute findings. CT chest/abdomen/pelvis which shows additional pancreatic masses, multiple metastatic diseases over lungs, liver, lymph node, left eighth rib. Patient got admitted for further management of altered mental status and intractable pain following the recent fall. Neurology was consulted to evaluate further as his mental status is getting worse, not any better with standard measures. cc:: cc: Christie Morley MD Review of Systems Review of Systems ROS Unobtainable: unobtainable due to mental status Past Medical History Past Medical History CARDIAC: Positive Cardiac Disorders, Hypercholesterolemia and Hypertension RESPIRATORY: Positive Asthma GASTROINTESTINAL: Positive Gastrointestinal Disorders, Gastroesophageal Reflux Disease and Obesity MUSCULOSKELETAL: Positive Musculoskeletal Disorders and Arthritis ENDOCRINE: Positive Endocrine Disorders OTHER HISTORY: Positive Hospitalization and Cancer (pancreatic cancer) Family History FAMILY HISTORY: Positive Family Psychiatric Problems and Family Cardiac Disorders Surgical History SURGICAL: Positive Abdominal Surgery Social History SMOKING STATUS: Current every day smoker SUBSTANCE USE: does not use Meds Home Medications and Allergies Home Medications ?Medication ?Instructions ?Recorded ?Confirmed ?Type acetaminophen 500 mg capsule 1,000 mg PO Q4H pain 10/25/24 11/11/24 History (Mapap (acetaminophen)) amlodipine 5 mg tablet 5 mg PO QDAY 10/25/24 11/11/24 History hydralazine 25 mg tablet 50 mg PO BID 10/25/24 11/11/24 History metformin 500 mg tablet 500 mg PO BID 10/25/24 11/11/24 History lisinopril 20 mg tablet 40 mg PO QDAY 11/11/24 11/11/24 History metoprolol succinate 25 mg 25 mg PO DAILY 11/11/24 11/11/24 History tablet,extended release 24 hr Allergies Allergy/AdvReac Type Severity Reaction Status Date / Time No Known Allergies Allergy Verified 05/04/25 12:24 Exam - Neurology Vital Signs Temp Pulse Resp BP Pulse Ox O2 Del Method 97.1 F 128 H 20 156/108 H 96 Room Air 05/06/25 20:00 05/06/25 22:28 05/06/25 20:00 05/06/25 22:28 05/06/25 20:00 05/06/25 20:00 Narrative Exam GENERAL APPEARANCE: Well hydrated, well-nourished in no acute distress. HEENT: Normocephalic, atraumatic, extraocular movements intact. Pupils: Equal reacting to light NECK: Supple, no JVD or bruits. CARDIOVASULAR: Heart: S1, S2 heard, regular without S3-S4 or murmur no rubs or gallops. LUNGS/CHEST: Clear to auscultation bilaterally. No rails, rhonchi, or wheezing. Normal inspection. ABDOMEN: Soft, nontender, with normal bowel sounds. No pulsatile masses. No rebound, rigidity, or guarding. Normal inspection and palpation. EXTREMITIES: Normal inspection and palpation. No edema, clubbing or cyanosis. SKIN: Warm and dry without rashes. Normal inspection. MUSCULOSKELETAL: No cervical, thoracic, lumbar or midline bony tenderness. Normal inspection. NEURO: Alert, awake, not able to comprehend or communicate. Moves all 4 extremities purposefully but not on commands. No signs of meningeal irritation noted. PSYCHIATRIC: Restless and agitated. Results Labs 05/06/25 05:02 05/06/25 05:02 Labs: Short CBC 05/06/25 Range/Units 05:02 WBC 20.9 H D (3.8-10.6) Thou/mm3 Hgb 13.8 (13.5-16.0) g/dL Hct 41.3 (41.0-53.0) % Plt Count 462 H D (140-440) Thou/mm3 BMP 05/06/25 05:02 Sodium 133 L Potassium 3.4 D Chloride 101 Carbon Dioxide 25.5 BUN 10 Creatinine 0.9 Glucose 144 H Calcium 9.2 Liver Function 05/06/25 Range/Units 05:02 Total Bilirubin 2.7 H (0.3-1.2) mg/dL AST 95 H (0-34) U/L ALT 34 (10-49) U/L Alkaline Phosphatase 585 H D (46-116) U/L Albumin 3.5 (3.4-4.8) gm/dL Assessment & Plan Assessment and plan (1) Altered mental status: Status: Acute Assessment and plan: Will try Ativan 0.5 mg every 6 hours for agitation along with the Seroquel nightly. Noted no improvement with Benadryl, Haldol and Valium (2) Metastasis from pancreatic cancer: Status: Acute Assessment and plan: Continue with pain management
[2025-05-07] MEDS: MORPHINE SULF INJ 4 MG/ML VIAL IVP ×4 (00:28→17:45)
[2025-05-07] MEDS: MORPHINE SULF 30 MG TABCR PO ×2 (05:22→21:47)
[2025-05-07] MEDS: INSULIN LISPRO (AdmeLOG) 1 UNIT/0.01 ML UNIT SC (05:22)
[2025-05-07 06:01] LABS: Amphetamine/Methamp Scrn,U Negative (Negative); Barbiturate Screen,Urine Negative (Negative); Benzodiazepines Screen,Urine Positive (Negative); Benzoylecgonine Screen, Ur Negative (Negative); Fentanyl Screen,Urine Negative (Negative); Opiate Screen,Urine Positive (Negative); THC Screen,Urine Negative (Negative)
--- NOTE | 2025-05-07 06:12 | EKG_ITS ---
[facility] Test Date: 2025-05-07 Pat Name: MARZENA MENDEZ Department: Room: S273A Gender: Male Master Fisher: JACKIE : 1960 Requested By: Kim Manuel Order Number: [id number] Reading MD: Kim Manuel Measurements Intervals [address] Rate: 156 P: DC: QRS: -3 QRSD: 99 T: 75 QT: 243 QTc: 392 Interpretive Statements ATRIAL FIBRILLATION WITH RAPID VENTRICULAR RESPONSE WITH ABERRANT CONDUCTION OR VENTRICULAR PREMATURE COMPLEXES NONSPECIFIC ST & T-WAVE ABNORMALITY ABNORMAL RHYTHM ECG Compared to ECG 05/05/2025 08:42:13 Ventricular premature complex(es) now present Aberrant conduction of supraventricular beat(s) now present T-wave abnormality now present Sinus rhythm no longer present ST (T wave) deviation no longer present /store/S0/[id number]/ecg/[id number].pdf
--- NOTE | 2025-05-07 06:14 | PC.NURSE ---
DR SLOAN NOTIFIED OF PT'S HR 170'S, NEW ORDER FOR STAT EKG, JIG BORING MACHINE SET UP OPERATORSARA MARROQUIN MADE AWARE. BP 143/91. PT AWAKE, ALERT TO SELF. 1:1 SITTER IN ROOM.
[2025-05-07 06:19] LABS: Basophils # (Auto) 0.0 Thou/mm3 (0.0-0.2); Basophils % (Auto) 0 % (0-2.5); Eosinophils # (Auto) 0.1 Thou/mm3 (0.0-0.5); Eosinophils % (Auto) 0 % (0-10); Hematocrit 42.9 % (41.0-53.0); Hemoglobin 14.2 g/dL (13.5-16.0); Immature Granulocytes Auto 0.07 Thou/mm3 (0.00-0.00); Lymphocytes # (Auto) 2.8 Thou/mm3 (1.0-4.8); Lymphocytes % (Auto) 16 % (10-50); Mean Corpuscular HGB Conc 33.1 g/dl (31.0-37.0); Mean Corpuscular Hemoglobin 27.1 pg (25.0-35.0); Mean Corpuscular Volume 82 fL (80-100); Monocytes # (Auto) 1.7 Thou/mm3 (0.0-0.8); Monocytes % (Auto) 9 % (0-12); Neutrophils # (Auto) 13.5 Thou/mm3 (1.8-7.7); Neutrophils % (Auto) 74 % (37-80); Nucleated Red Blood Cell # 0.00 Thou/mm3 (0.00-0.00); Nucleated Red Blood Cell % 0 /100 WBC (0); Platelet Count 406 Thou/mm3 (140-440); RDW Standard Deviation 48.3 fL (35.1-43.9); Red Blood Count 5.24 Miln/mm3 (4.50-5.90); White Blood Count 18.3 Thou/mm3 (3.8-10.6)
[2025-05-07] MEDS: NITROGLYCERIN 0.4 MG SUBL BTL #25 SL (06:32)
[2025-05-07 06:41] LABS: Alanine Aminotransferase 48 U/L (10-49); Albumin, Serum 3.4 gm/dL (3.4-4.8); Albumin/Globulin Ratio 0.8 (1.2-2.2); Alkaline Phosphatase 555 U/L (46-116); Anion Gap 11 (7-16); Aspartate Amino Transferase 114 U/L (0-34); BUN/Creatinine Ratio 17 Ratio (12-20); Bilirubin,Total 2.9 mg/dL (0.3-1.2); Blood Urea Nitrogen 15 mg/dL (9-23); Calcium 9.0 mg/dL (8.3-10.6); Calcium (Corrected) 9.5 mg/dL (8.5-10.1); Carbon Dioxide 23.4 mMol/L (20.0-31.0); Chloride 103 mMol/L (98-107); Creatinine (Component) 0.9 mg/dL (0.6-1.3); Estimated Creatinine Clearance 92.8 mL/min (>60); Globulin 4.1 gm/dL (2.3-3.5); Glucose 129 mg/dL (74-106); Osmolality,Calculated 276 (275-295); Potassium 3.4 mMol/L (3.4-5.1); Sodium 137 mMol/L (136-145); Total Protein 7.5 gm/dL (5.7-8.2); eGFR > 60 See Note
[2025-05-07] MEDS: HYDROmorphone INJ 2 MG/ML VIAL 1 MG IVP ×2 (06:48→09:20)
[2025-05-07] MEDS: NITROGLYCERIN OINT 2% 1 INCH PACKET TOP (06:55)
[2025-05-07] MEDS: METOPROLOL TARTRATE INJ 1 MG/ML AMP 5 ML 2 MG IVP (06:59)
--- NOTE | 2025-05-07 07:14 | EVENTNT_ITS ---
Documentation for date of: 05/07/25 Event Note Event Note: Around 6:30, RR was called for AFIB/RVR on EKG and Agitation. Earlier, nurse has called for HR 150s for which EKG was ordered and was read as AFIB/RVR. However, EKG showed new ST depressions in V2-V4 concerning for NSTEMI. On Evaluation, patient appear in moderate distress, alert and oriented, complained of severe chest pain pain. Trops were ordered. NITROGLYCERIN, MORPHINE, DILAUDID and ASA 325 mg were given with improvement of symptoms. Brother, Magdaleno, was notified and does not want any further invasive treatment measures or cardiac interventions. Family would like to proceed with hospice. We will update family with tropnin results and any further changes. Case was discussed with attending physician. Megan Quezada DO PGY II This document was transcribed using voice recognition technology. Minor inaccu racies may be present.
[2025-05-07 07:34] LABS: Troponin I 2.409 ng/mL (0.0-0.045)
[2025-05-07] MEDS: METOPROLOL TARTRATE INJ 1 MG/ML AMP 5 ML 2.5 MG IVP (08:21)
[2025-05-07] MEDS: DIAZEPAM INJ 5 MG/ML VIAL 2 ML IVP (08:22)
[2025-05-07] MEDS: SODIUM CHLORIDE 0.9% 1000 ML 1,000 ML 75 ML IV ×2 (08:34→15:39)
[2025-05-07] MEDS: NICOTINE PATCH 14 MG/24 HR PATCH.TD24 TOP (08:37)
[2025-05-07] MEDS: ENOXAPARIN SOD INJ 40 MG/0.4 ML SYRINGE SC (08:41)
--- NOTE | 2025-05-07 08:41 | EVENTNT_ITS ---
<Statement entered by Adams Dillon MD - 05/07/25 18:50> Patient examined and case discussed with the team including attending physician. Note reviewed, I agree with the care plan as documented. Please refer to the note below for further details. - Adams Dillon MD, PGY 3 Disclaimer: The document may contain phonetic/typographic errors due to voice r ecognition software. These errors are purely due to imperfections in the software program. Documentation for date of: 05/07/25 Event Note Event Note: Rapid response was called around 8 a.m. on 05/07/2025 for SVT with a rate of over 200. The patient was given 2.5 mg of metoprolol IV push, diazepam 5 mg, and started on a sodium chloride drip at 75 mL/h. The patient's heart rate decreased into the 150s and the patient achieved a state of relative comfort in the presence of stage IV pancreatic cancer. Patient was seen and discussed with my attending physician Dr. Peyman CHAVEZ and my senior resident Dr. Santana CHAVEZ PGY-3. Pete Rizvi DO PGY-1.
[2025-05-07] MEDS: SODIUM CHLORIDE 0.9% 500 ML 500 ML 999 ML IV (08:48)
[2025-05-07] MEDS: METOPROLOL TARTRATE INJ 1 MG/ML AMP 5 ML 5 MG IVP ×2 (08:57→10:25)
--- NOTE | 2025-05-07 09:43 | PC.SS ---
SS submitted SNF referral on behalf of pt. Pt will need hospice services at SNF. SS will follow up with any accepting facilities, and provide family with choices.
--- NOTE | 2025-05-07 09:47 | PC.SS ---
SS attempted to contact pt brother/next of kin Magdaleno, no answer. [phone]
[2025-05-07 10:23] LABS: Lactate (Lactic Acid) 3.3 mMol/L (0.4-2.0)
[2025-05-07 10:51] LABS: Ammonia 47 uMol/L (11-32)
[2025-05-07 11:04] LABS: Alanine Aminotransferase 48 U/L (10-49); Albumin, Serum 3.3 gm/dL (3.4-4.8); Albumin/Globulin Ratio 0.9 (1.2-2.2); Alkaline Phosphatase 531 U/L (46-116); Anion Gap 10 (7-16); Aspartate Amino Transferase 102 U/L (0-34); BUN/Creatinine Ratio 16 Ratio (12-20); Bilirubin,Total 2.8 mg/dL (0.3-1.2); Blood Urea Nitrogen 16 mg/dL (9-23); Calcium 9.0 mg/dL (8.3-10.6); Calcium (Corrected) 9.6 mg/dL (8.5-10.1); Carbon Dioxide 22.9 mMol/L (20.0-31.0); Chloride 107 mMol/L (98-107); Creatinine (Component) 1.0 mg/dL (0.6-1.3); Estimated Creatinine Clearance 83.5 mL/min (>60); Globulin 3.6 gm/dL (2.3-3.5); Glucose 135 mg/dL (74-106); Osmolality,Calculated 282 (275-295); Potassium 3.5 mMol/L (3.4-5.1); Sodium 140 mMol/L (136-145); Total Protein 6.9 gm/dL (5.7-8.2); eGFR > 60 See Note
[2025-05-07 11:05] LABS: Troponin I 1.937 ng/mL (0.0-0.045)
[2025-05-07] MEDS: PIPER/TAZO 3.375 GM PREMIX 3.375 GM/50 ML BAG IV ×2 (11:14→21:47)
--- NOTE | 2025-05-07 12:49 | PC.SS ---
Dayo Jean is a 64-year-old male admitted to [facility] for AMS. SS conducted over the phone contact with the pts brother Magdaleno December [phone]. Magdaleno identifies himself as the pts surrogate decision miller. Magdaleno lives oot in [place].. Prior to admission pt was living alone in his RV. Pt used to be independent with all ADLS. However, due to cancer, pt has become weak and unable to care for himself. Magdaleno is interested in pt ging to s SNF with [facility]. Pt aligned with them prior to admission. Magdaleno stated pt has stayed at [facility] for some time this year. Pt has zero income that can afford OOP cost for SNF. SS inquired on Medical but Magdaleno stated his is better with those things and she would be the person to speak to. SS informed Magdaleno referral sent but no responses for YES at this time. Pt followed by Dr. Montano oncology and Dr. Hussein for PCP needs. SS will remain available for any additional needs or concerns, DC dang: Pending DM: Brother- Magdaleno PCP: Dr. Hussein/Oncology Dr. Montano Hospice: [facility]
[2025-05-07 13:19] LABS: Reflex Lactate? Y
--- NOTE | 2025-05-07 13:34 | ESPR_ITS ---
<Statement entered by Adams Dillon MD - 05/07/25 19:51> Patient examined and case discussed with the team including attending physician. Note reviewed, I agree with the care plan as documented. Please refer to the note below for further details. - Adams Dillon MD, PGY 3 Disclaimer: The document may contain phonetic/typographic errors due to voice recognition software. These errors are purely due to imperfections in the software program. Documentation for date of: 05/07/25 Subjective Subjective Interval history: Rapid response was called at 6:30 in the morning for A-fib RVR on EKG with agitation.? Heart rate in the 150s.? Tropes 2.4, patient given nitroglycerin, morphine, Dilaudid, aspirin 325.? Brother Magdaleno was notified and does not want any more invasive treatment.? Family would like to proceed with hospice. Rapid response was called again at around 8 in the morning for SVT with a rate over 200. Patient was given 2.5 mg of metoprolol IV push, diazepam 5 mg, started on a sodium chloride drip at 75 mL/h, and was given Dilaudid 1 mg IV push. Patient's heart rate decreased into the 150s and the patient became more comfortable. Patient has elevated lactic acid and leukocytosis in the presence of right upper quadrant pain, CT showed suspicion of cholecystitis. Will not proceed with HIDA scan or invasive treatment for this issue at this point given the patient's condition. Zosyn was started. Will speak with family about goals of care. Exam Vital Signs Temp Pulse Resp BP Pulse Ox O2 Del Method O2 Flow Rate 97.3 F 158 H 21 H 96/63 98 Room Air 3 05/07/25 12:05/07/25 12:05/07/25 12:05/07/25 12:05/07/25 12:05/07/25 12:05/07/25 12:00 Narrative Exam General: Confused. Ill-appearing. Neurologic: No gross neurological deficit, and patient able to move all 4 extremities. HEENT: Normocephalic, atraumatic, mucous membranes moist. Pupils reactive to light. Heart: Tachycardic, irregular rhythm, normal S1 and S2, no murmurs. Lungs: Chemo-Port right infraclavicular area. Lungs clear to auscultation bilaterally with no wheezing or crackles. Abdomen: Pain on palpation of the right upper quadrant. Remainder of the abdomen is soft, nondistended. Extremities: No edema. 2+ radial and dorsalis pedis pulses bilaterally. Skin: Warm. Dry. No rash or ecchymoses. Objective Labs 05/08/25 05:42 05/08/25 05:42 Labs: Laboratory Results - last 24 hr 05/07/25 05/07/25 05/07/25 04:46 05:07 06:50 WBC 18.3 H RBC 5.24 Hgb 14.2 Hct 42.9 MCV 82 MCH 27.1 MCHC 33.1 RDW Std Deviation 48.3 H Plt Count 406 D Neut % (Auto) 74 Lymph % (Auto) 16 [place] % (Auto) 9 Eos % (Auto) 0 Baso % (Auto) 0 Neut # (Auto) 13.5 H Lymph # (Auto) 2.8 [place] # (Auto) 1.7 H Eos # (Auto) 0.1 Baso # (Auto) 0.0 Immature Gran # (Auto) 0.07 H Absolute Nucleated RBC 0.00 Immature Gran % 0 Nucleated RBC % 0 Sodium 137 Potassium 3.4 Chloride 103 Carbon Dioxide 23.4 Anion Gap 11 BUN 15 Creatinine 0.9 Estim Creat Clear Calc 92.8 eGFR > 60 BUN/Creatinine Ratio 17 Glucose 129 H Calculated Osmolality 276 Lactic Acid Calcium 9.0 Corrected Calcium 9.5 Total Bilirubin 2.9 H AST 114 H ALT 48 Alkaline Phosphatase 555 H D Ammonia Troponin I 2.409 H* Total Protein 7.5 Albumin 3.4 Globulin 4.1 H Albumin/Globulin Ratio 0.8 L Urine Opiates Screen Positive A Urine Fentanyl Screen Negative Ur Barbiturates Screen Negative U Amphetamin/Meth Scrn Negative U Benzodiazepines Scrn Positive A U Cocaine Metab Screen Negative U Marijuana (THC) Screen Negative 05/07/25 10:05 WBC RBC Hgb Hct MCV MCH MCHC RDW Std Deviation Plt Count Neut % (Auto) Lymph % (Auto) [place] % (Auto) Eos % (Auto) Baso % (Auto) Neut # (Auto) Lymph # (Auto) [place] # (Auto) Eos # (Auto) Baso # (Auto) Immature Gran # (Auto) Absolute Nucleated RBC Immature Gran % Nucleated RBC % Sodium 140 Potassium 3.5 Chloride 107 Carbon Dioxide 22.9 Anion Gap 10 BUN 16 Creatinine 1.0 Estim Creat Clear Calc 83.5 eGFR > 60 BUN/Creatinine Ratio 16 Glucose 135 H Calculated Osmolality 282 Lactic Acid 3.3 H Calcium 9.0 Corrected Calcium 9.6 Total Bilirubin 2.8 H AST 102 H ALT 48 Alkaline Phosphatase 531 H D Ammonia 47 H Troponin I 1.937 H* D Total Protein 6.9 Albumin 3.3 L Globulin 3.6 H Albumin/Globulin Ratio 0.9 L Urine Opiates Screen Urine Fentanyl Screen Ur Barbiturates Screen U Amphetamin/Meth Scrn U Benzodiazepines Scrn U Cocaine Metab Screen U Marijuana (THC) Screen Quality Measures Quality Measures none Advance care planning discussed with:: legal surragate Assessment & Plan Assessment Current Active Medications: Generic Name Dose Route Start Last Admin Trade Name Freq PRN Reason Stop Dose Admin Acetaminophen 650 mg 05/07/25 08:57 Acetaminophen Supp 650 Mg Supp [place] 06/04/25 13:59 Q6HR PRN Fever >99.9 , headache Protocol Amlodipine Besylate 5 mg 05/07/25 21:00 Amlodipine Besylate 5 Mg Tablet PO 06/06/25 20:59 HS AUSTEN Atorvastatin Calcium 40 mg 05/05/25 21:00 05/06/25 20:32 Atorvastatin Calcium 20 Mg Tablet PO 06/04/25 20:59 40 mg HS AUSTEN Administration Bisacodyl 10 mg 05/05/25 14:00 Bisacodyl 5 Mg Tabec PO 06/04/25 13:59 QDAY PRN CONSTIPATION Protocol Dextrose 25 ml 05/05/25 21:54 Dextrose 50%-Water Inj 50 Ml Syringe IV 06/04/25 21:53 Q15MIN PRN BG 50-70 responsive npo pt Dextrose 50 ml 05/05/25 21:54 Dextrose 50%-Water Inj 50 Ml Syringe IV 06/04/25 21:53 Q15MIN PRN BG <50 OR BG <70 & pt unresponsive Diazepam 2.5 mg 05/07/25 10:57 Diazepam Inj 5 Mg/Ml Vial 2 Ml IVP 05/12/25 10:56 Q4HR PRN MUSCLE ACHE/PAIN Protocol Enoxaparin Sodium 40 mg 05/06/25 09:00 05/07/25 08:41 Enoxaparin Sod Inj 40 Mg/0.4 Ml Syringe SC 05/20/25 08:59 40 mg QDAY AUSTEN Administration Glucagon 1 mg 05/05/25 21:54 Glucagon Inj 1 Mg Vial IM Q15MIN PRN BG <70, and no IV access Haloperidol Lactate 8 mg 05/07/25 02:00 Haloperidol Lact Inj 5 Mg/Ml Vial IV 06/06/25 01:59 Q8HR PRN AGITATION Sodium Chloride 1,000 mls @ 75 mls/hr 05/07/25 08:30 05/07/25 08:34 Ns IV 06/06/25 08:29 75 mls/hr .[id number] AUSTEN Administration Piperacillin/Tazobactam/Dextrose 3.375 gm in 50 mls @ 12.5 mls/hr 05/07/25 22:00 Zosyn IV 05/14/25 21:59 Q8HR ASUTEN Protocol Insulin Human Lispro 0 unit 05/06/25 00:00 05/07/25 11:27 Insulin Lispro (Admelog) 1 Unit/0.01 Ml Unit SC 06/05/25 00:00 Not Given Q6HR AUSTEN Protocol Labetalol HCl 10 mg 05/05/25 15:02 05/06/25 12:49 Labetalol Inj 5 Mg/Ml Vial 20 Ml IVP 06/04/25 15:14 10 mg Q8H PRN Administration SBP>180, DBP>110 Lidocaine 1 patch 05/06/25 09:48 05/06/25 19:51 Lidocaine 5% 1 Patch TOP 06/05/25 09:47 1 patch UD PRN Administration PAIN Protocol Lisinopril 40 mg 05/06/25 09:00 05/07/25 09:22 Lisinopril 20 Mg Tablet PO 06/05/25 08:59 Not Given QDAY AUSTEN Lorazepam 0.5 mg 05/06/25 19:25 05/07/25 02:02 Lorazepam 0.5 Mg Tablet PO 05/11/25 19:24 0.5 mg On Hold: 05/07/25 10:58 Q6HR PRN Administration ANXIETY Magnesium Hydroxide 30 ml 05/05/25 14:00 Milk Of Magnesia Susp 30 Ml Udc PO 06/04/25 13:59 QDAY PRN CONSTIPATION Protocol Metoprolol Succinate 50 mg 05/07/25 09:00 05/07/25 09:23 Metoprolol Succinate Xl 25 Mg Tabcr PO 06/06/25 08:59 Not Given QDAY AUSTEN Morphine Sulfate 30 mg 05/05/25 22:00 05/07/25 05:22 Morphine Sulf 30 Mg Tabcr PO 05/10/25 21:59 30 mg TID AUSTEN Administration Protocol Morphine Sulfate 4 mg 05/05/25 19:57 05/07/25 11:32 Morphine Sulf Inj 4 Mg/Ml Vial IVP 05/10/25 19:56 4 mg Q4HR PRN Administration Pain Scale 6-10 Nicotine 14 mg 05/07/25 08:35 05/07/25 08:37 Nicotine Patch 14 Mg/24 Hr Patch.Td24 TOP 06/06/25 08:34 14 mg QDAY AUSTEN Administration Ondansetron HCl 4 mg 05/05/25 14:00 Ondansetron Inj 2 Mg/Ml Inj 2 Ml IVP 06/04/25 13:59 Q6H PRN NAUSEA OR VOMITING Protocol Pantoprazole Sodium 40 mg 05/06/25 09:00 05/07/25 08:41 Pantoprazole Inj 40 Mg Vial IVP 06/05/25 08:59 40 mg QDAY AUSTEN Administration Quetiapine Fumarate 25 mg 05/06/25 21:00 05/06/25 20:32 Quetiapine Fumarate 25 Mg Tablet PO 06/05/25 20:59 25 mg HS AUSTEN Administration Tamsulosin HCl 0.4 mg 05/06/25 09:00 05/07/25 09:23 Tamsulosin Hcl 0.4 Mg Capsule PO 06/05/25 08:59 Not Given QDAY AUSTEN Plan Summary: Patient is 64-year-old male with past medical history of 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 Found to have altered mentation, intactable pain, hypertensive urgency/emergency. After examination of the patient and review of the clinical data I feel that this patient needs admission to the hospital for further treatment/evaluation. #Acute encephalopathy due to polypharmacy versus hypertension versus CVA #Hypertensive Urgency The patient initially presented with lumbar back pain that been occurring over the past few weeks. The patient became confused while in the ED, possibly secondary to delirium, polypharmacy, severe hypertension Head CT was negative for acute hemorrhage, mass effect or midline shift, repeat head CT with similar findings Patient had no signs of endorgan damage, creatinine was normal, troponins were normal, CT was negative Plan: Frequent neurochecks, aspiration precautions, bedside swallow screen Resumed home atorvastatin and Lisinopril Started metoprolol succinate 25 mg XL daily 05/06/25 Labetalol PRN for SBP>180 #SVT #A-fib #Elevated troponins Patient heart rate was in the 150s, EKG before this occurrence showed evidence of inferior wall ischemia and troponins were elevated The patient was again tachycardic with a rate of over 200 the same morning, was given metoprolol, diazepam, Dilaudid, and morphine Patient appeared to achieve a state of relative comfort given his stage IV pancreatic cancer Plan: Will continue to monitor the patient's rhythm Per patient's surrogate decision maker, no invasive intervention is requested, only medical management #Intractable pain #Stage IV metastatic pancreatic cancer #L4 conpression fracture #Ground level fall Patient came in with intractable pain, recently had a fall Lumbar spine MRI was obtained, showed pathologic burst fracture of L4 vertebra, Metastatic disease involving L4, L1 and L2. Lumbar spine CT was also done which showed similar findings. CT chest/abdomen/pelvis which shows additional pancreatic masses, multiple metastatic diseases over lungs, liver, lymph node, left eighth rib. Plan: Resumed home Morphine for pain control, we will evaluate and adjust his pain regimen Attempt was made for transfer to [facility] for neurosurgery evaluation, was told no current need for immediate surgical intervention #Acute delirium #Visual and auditory hallucinations Patient became agitated last night pulling at lines Patient describing seeing and hearing people who are not there Consider polypharmacy versus hospital delirium Plan: Seroquel 25 mg p.o. at bedtime Diazepam 2.5 mg IV push every 4 hours as needed Haloperidol 8 mg every 8 hours as needed IV #Diabetes mellitus Plan: Started on Sliding scale insulin Hypoglycemia protocol in place with frequent glucose checks #GERD Plan: Continue with Protonix 40 mg IV daily #Hyperbilirubinemia #Transaminitis #Leukocytosis #Lactic acidosis Likely related to pancreaticadenocarconoma, liver mets Gallbladder ultrasound showed multiple liver masses, likely metastases, abnormal thickening of the gallbladder wall with suspicion for cholecystitis. Lactic acid 3.3 White count 18.3 Patient has evidence for infectious etiology given lactic acidosis, leukocytosis, and right upper quadrant pain. Plan: Continue morphine 4 mg IV every 4 hours as needed for pain Started Zosyn Will not pursue HIDA scan given the patient's prognosis Disposition: Telemetry for management of Acute encephalopathy, hypertensive urgency/emergency, Intractable pain. Patient had 2 episodes of SVT resulting into rapid responses. After treatment the patient has achieved a relative state of comfort. Will not pursue HIDA scan or surgical intervention though there is evidence of infection with CT showing suspicion of cholecystitis in the presence of lactic acidosis and leukocytosis. Goals of care discussion is planned with the patient's surrogate decision maker. Diet: Cardiac diet GI prophylaxis: protonix DVT prophylaxis: lovenox Code: DNR/DNI (Discussed with brother on phone regarding CODE status, states that patient would like to be DNR/DNI and to avoid invasive treatment options) Patient was seen and discussed with my attending physician Dr. Peyman CHAVEZ and my senior resident Dr. Santana CHAVEZ PGY-3. Pete Rizvi DO PGY-1. Attending Provider Attestation/Addendum I attest that I was physically present for the evaluation, physical examination, lab and imaging review of the patient with the residents. I discussed the case with the residents and agree with the findings and plans of care as documented above. Christie Morley MD
[2025-05-07 14:18] LABS: Lactic Acid, 3 HR 2.1 mMol/L (0.4-2.0)
--- NOTE | 2025-05-07 15:44 | PD.ONCCONS ---
HPI Data of Consult Consult date: 05/07/25 Requesting Physician: Christie Morley MD Primary Care Provider: Mirian Hussein MD Consult Narrative Reason for consult: Stage IV pancreatic cancer admitted with pain and confusion History of present illness: Patient is an unfortunate 64-year-old gentleman with stage IV pancreatic cancer, presenting with both lung mets and liver mets, biopsy performed 10/25/2024. After initially wishing to have chemotherapy elected to go to hospice about 3 months ago. During that time patient needed ever higher doses of narcotics and sometimes suspected to take more than recommended. Patient admitted on 05/05/2025 with complaints of increased back pain following a fall. Also appeared very confused. CT L-spine showed acute burst fracture L4 vertebral body. chest abdomen pelvis 05/05/2025, showed marked progression of lung abdomen masses. WBC 20.9 on admission 05/06/2025 hemoglobin 13.8 platelets 462,000. Troponin 1937, elevated bili AST alk phos and ammonia noted as well. Since admission patient has been very agitated requiring high dose of Haldol and diazepam.. Also getting opioids both morphine and Dilaudid on a as needed basis. cc:: cc: Christie Morley MD Past Medical History Past Medical History Comments PMH COMMENT: Diabetes mellitus 2 hypertension GERD history of substance abuse Meds Home Medications and Allergies Home Medications ?Medication ?Instructions ?Recorded ?Confirmed ?Type acetaminophen 500 mg capsule 1,000 mg PO Q4H pain 10/25/24 11/11/24 History (Mapap (acetaminophen)) amlodipine 5 mg tablet 5 mg PO QDAY 10/25/24 11/11/24 History hydralazine 25 mg tablet 50 mg PO BID 10/25/24 11/11/24 History metformin 500 mg tablet 500 mg PO BID 10/25/24 11/11/24 History lisinopril 20 mg tablet 40 mg PO QDAY 11/11/24 11/11/24 History metoprolol succinate 25 mg 25 mg PO DAILY 11/11/24 11/11/24 History tablet,extended release 24 hr Allergies Allergy/AdvReac Type Severity Reaction Status Date / Time No Known Allergies Allergy Verified 05/04/25 12:24 Exam Vital Signs Temp Pulse Resp BP Pulse Ox O2 Del Method O2 Flow Rate 97.3 F 158 H 21 H 96/63 98 Room Air 3 05/07/25 12:00 05/07/25 12:00 05/07/25 12:00 05/07/25 12:00 05/07/25 12:00 05/07/25 12:00 05/07/25 12:00 Narrative Exam Appears tired but at rest this p.m. Results Labs 05/07/25 05:07 05/07/25 10:05 Labs: Short CBC 05/07/25 Range/Units 05:07 WBC 18.3 H (3.8-10.6) Thou/mm3 Hgb 14.2 (13.5-16.0) g/dL Hct 42.9 (41.0-53.0) % Plt Count 406 D (140-440) Thou/mm3 BMP 05/07/25 05/07/25 05:07 10:05 Sodium 137 140 Potassium 3.4 3.5 Chloride 103 107 Carbon Dioxide 23.4 22.9 BUN 15 16 Creatinine 0.9 1.0 Glucose 129 H 135 H Calcium 9.0 9.0 Cardiac Enzymes 05/07/25 05/07/25 Range/Units 06:50 10:05 Troponin I 2.409 H* 1.937 H* D (0.0-0.045) ng/mL Liver Function 05/07/25 05/07/25 Range/Units 05:07 10:05 Total Bilirubin 2.9 H 2.8 H (0.3-1.2) mg/dL AST 114 H 102 H (0-34) U/L ALT 48 48 (10-49) U/L Alkaline Phosphatase 555 H D 531 H D (46-116) U/L Albumin 3.4 3.3 L (3.4-4.8) gm/dL Assessment and Plan Additional Assessment & Plan Additional Plan: 1. Stage IV pancreatic cancer with lung liver mets progressive since diagnosis earlier this year. 2. Elected to be on hospice right away rather than receive any cancer therapy. 3. Admitted with a fall and L4 fracture, encephalopathy and agitation symptoms 4. Patient appears comfortable at this time with current regimen of opioids sedatives. Will follow.
[2025-05-07] MEDS: ATORVASTATIN CALCIUM 20 MG TABLET 40 MG PO (20:17)
--- NOTE | 2025-05-07 23:07 | VVPN_ITS ---
Telemedicine visit statement This visit was conducted with the use of phone was obtained on 05/07/25 at 2307. Documentation for date of: 05/07/25 Subjective Subjective Interval history: Patient is in telemetry. Overall he is a lot calmer than yesterday. Did not require Haldol last night or this morning till now, did not get Valium or Ativan either. Morphine has been helping. Virtual exam Vital Signs Temp Pulse Resp BP Pulse Ox O2 Del Method O2 Flow Rate 97.0 F 93 21 H 141/97 H 96 Room Air 2 05/07/25 20:00 05/07/25 20:17 05/07/25 20:00 05/07/25 20:17 05/07/25 22:41 05/07/25 20:00 05/07/25 22:41 Objective Labs 05/07/25 05:07 05/07/25 10:05 Labs: Laboratory Results - last 24 hr 05/07/25 05/07/25 05/07/25 04:46 05:07 06:50 WBC 18.3 H RBC 5.24 Hgb 14.2 Hct 42.9 MCV 82 MCH 27.1 MCHC 33.1 RDW Std Deviation 48.3 H Plt Count 406 D Neut % (Auto) 74 Lymph % (Auto) 16 [place] % (Auto) 9 Eos % (Auto) 0 Baso % (Auto) 0 Neut # (Auto) 13.5 H Lymph # (Auto) 2.8 [place] # (Auto) 1.7 H Eos # (Auto) 0.1 Baso # (Auto) 0.0 Immature Gran # (Auto) 0.07 H Absolute Nucleated RBC 0.00 Immature Gran % 0 Nucleated RBC % 0 Sodium 137 Potassium 3.4 Chloride 103 Carbon Dioxide 23.4 Anion Gap 11 BUN 15 Creatinine 0.9 Estim Creat Clear Calc 92.8 eGFR > 60 BUN/Creatinine Ratio 17 Glucose 129 H Calculated Osmolality 276 Lactic Acid Calcium 9.0 Corrected Calcium 9.5 Total Bilirubin 2.9 H AST 114 H ALT 48 Alkaline Phosphatase 555 H D Ammonia Troponin I 2.409 H* Total Protein 7.5 Albumin 3.4 Globulin 4.1 H Albumin/Globulin Ratio 0.8 L Urine Opiates Screen Positive A Urine Fentanyl Screen Negative Ur Barbiturates Screen Negative U Amphetamin/Meth Scrn Negative U Benzodiazepines Scrn Positive A U Cocaine Metab Screen Negative U Marijuana (THC) Screen Negative 05/07/25 05/07/25 10:05 14:06 WBC RBC Hgb Hct MCV MCH MCHC RDW Std Deviation Plt Count Neut % (Auto) Lymph % (Auto) [place] % (Auto) Eos % (Auto) Baso % (Auto) Neut # (Auto) Lymph # (Auto) [place] # (Auto) Eos # (Auto) Baso # (Auto) Immature Gran # (Auto) Absolute Nucleated RBC Immature Gran % Nucleated RBC % Sodium 140 Potassium 3.5 Chloride 107 Carbon Dioxide 22.9 Anion Gap 10 BUN 16 Creatinine 1.0 Estim Creat Clear Calc 83.5 eGFR > 60 BUN/Creatinine Ratio 16 Glucose 135 H Calculated Osmolality 282 Lactic Acid 3.3 H 2.1 H Calcium 9.0 Corrected Calcium 9.6 Total Bilirubin 2.8 H AST 102 H ALT 48 Alkaline Phosphatase 531 H D Ammonia 47 H Troponin I 1.937 H* D Total Protein 6.9 Albumin 3.3 L Globulin 3.6 H Albumin/Globulin Ratio 0.9 L Urine Opiates Screen Urine Fentanyl Screen Ur Barbiturates Screen U Amphetamin/Meth Scrn U Benzodiazepines Scrn U Cocaine Metab Screen U Marijuana (THC) Screen Assessment & Plan Assessment (1) Altered mental status: Overall noticed some improvement in mental status Will try Ativan 0.5 mg every 6 hours for agitation along with the Seroquel nightly. Noted no improvement with Benadryl, Haldol and Valium (2) Metastasis from pancreatic cancer: Continue with pain management
[2025-05-08] VITALS (8 sets, daily range): BP systolic 141–176; BP diastolic 79–101; PULSE 92–109; RESP 16–24; TEMP 35.9–36.8; O2SAT 9–98; BMI 28.7
[2025-05-08] MEDS: MORPHINE SULF INJ 4 MG/ML VIAL IVP ×3 (02:28→11:24)
[2025-05-08] MEDS: SODIUM CHLORIDE 0.9% 1000 ML 1,000 ML 75 ML IV (05:26)
[2025-05-08] MEDS: PIPER/TAZO 3.375 GM PREMIX 3.375 GM/50 ML BAG IV ×2 (05:27→14:29)
[2025-05-08] MEDS: MORPHINE SULF 30 MG TABCR PO (05:37)
[2025-05-08 06:08] LABS: Basophils # (Auto) 0.1 Thou/mm3 (0.0-0.2); Basophils % (Auto) 0 % (0-2.5); Eosinophils # (Auto) 0.2 Thou/mm3 (0.0-0.5); Eosinophils % (Auto) 1 % (0-10); Hematocrit 42.1 % (41.0-53.0); Hemoglobin 13.8 g/dL (13.5-16.0); Immature Granulocytes Auto 0.06 Thou/mm3 (0.00-0.00); Lymphocytes # (Auto) 2.0 Thou/mm3 (1.0-4.8); Lymphocytes % (Auto) 12 % (10-50); Mean Corpuscular HGB Conc 32.8 g/dl (31.0-37.0); Mean Corpuscular Hemoglobin 27.2 pg (25.0-35.0); Mean Corpuscular Volume 83 fL (80-100); Monocytes # (Auto) 1.3 Thou/mm3 (0.0-0.8); Monocytes % (Auto) 8 % (0-12); Neutrophils # (Auto) 12.5 Thou/mm3 (1.8-7.7); Neutrophils % (Auto) 78 % (37-80); Nucleated Red Blood Cell # 0.00 Thou/mm3 (0.00-0.00); Nucleated Red Blood Cell % 0 /100 WBC (0); Platelet Count 408 Thou/mm3 (140-440); RDW Standard Deviation 50.2 fL (35.1-43.9); Red Blood Count 5.07 Miln/mm3 (4.50-5.90); White Blood Count 16.1 Thou/mm3 (3.8-10.6)
[2025-05-08 06:36] LABS: Alanine Aminotransferase 41 U/L (10-49); Albumin, Serum 3.3 gm/dL (3.4-4.8); Albumin/Globulin Ratio 1.0 (1.2-2.2); Alkaline Phosphatase 451 U/L (46-116); Anion Gap 10 (7-16); Aspartate Amino Transferase 73 U/L (0-34); BUN/Creatinine Ratio 17 Ratio (12-20); Bilirubin,Total 3.5 mg/dL (0.3-1.2); Blood Urea Nitrogen 19 mg/dL (9-23); Calcium 8.7 mg/dL (8.3-10.6); Calcium (Corrected) 9.3 mg/dL (8.5-10.1); Carbon Dioxide 25.2 mMol/L (20.0-31.0); Chloride 109 mMol/L (98-107); Creatinine (Component) 1.1 mg/dL (0.6-1.3); Estimated Creatinine Clearance 75.9 mL/min (>60); Globulin 3.4 gm/dL (2.3-3.5); Glucose 126 mg/dL (74-106); Osmolality,Calculated 291 (275-295); Potassium 3.2 mMol/L (3.4-5.1); Sodium 144 mMol/L (136-145); Total Protein 6.7 gm/dL (5.7-8.2); eGFR > 60 See Note
[2025-05-08] MEDS: NICOTINE PATCH 14 MG/24 HR PATCH.TD24 TOP (08:48)
[2025-05-08] MEDS: ENOXAPARIN SOD INJ 40 MG/0.4 ML SYRINGE SC (08:49)
[2025-05-08] MEDS: TAMSULOSIN HCL 0.4 MG CAPSULE PO (08:49)
[2025-05-08] MEDS: METOPROLOL SUCCINATE XL 25 MG TABCR 50 MG PO (08:50)
--- NOTE | 2025-05-08 09:49 | ESPR_ITS ---
Documentation for date of: 05/08/25 Subjective Subjective Interval history: Patient a bit more alert than yesterday but still confused and unable to answer questions appropriately. Exam Vital Signs Temp Pulse Resp BP Pulse Ox O2 Del Method O2 Flow Rate 97.0 F 100 22 H 163/99 H 98 Nasal Cannula 2 05/08/25 08:00 05/08/25 08:50 05/08/25 08:00 05/08/25 08:50 05/08/25 08:00 05/08/25 08:00 05/08/25 08:00 Narrative Exam Patient appears to be comfortable and current regimen. Objective Labs 05/08/25 05:42 05/08/25 05:42 Labs: Laboratory Results - last 24 hr 05/07/25 05/07/25 05/08/25 10:05 14:06 05:42 WBC 16.1 H RBC 5.07 Hgb 13.8 Hct 42.1 MCV 83 MCH 27.2 MCHC 32.8 RDW Std Deviation 50.2 H Plt Count 408 Neut % (Auto) 78 Lymph % (Auto) 12 [place] % (Auto) 8 Eos % (Auto) 1 Baso % (Auto) 0 Neut # (Auto) 12.5 H Lymph # (Auto) 2.0 [place] # (Auto) 1.3 H Eos # (Auto) 0.2 Baso # (Auto) 0.1 Immature Gran # (Auto) 0.06 H Absolute Nucleated RBC 0.00 Immature Gran % 0 Nucleated RBC % 0 Sodium 140 144 Potassium 3.5 3.2 L Chloride 107 109 H Carbon Dioxide 22.9 25.2 Anion Gap 10 10 BUN 16 19 Creatinine 1.0 1.1 Estim Creat Clear Calc 83.5 75.9 eGFR > 60 > 60 BUN/Creatinine Ratio 16 17 Glucose 135 H 126 H Calculated Osmolality 282 291 Lactic Acid 3.3 H 2.1 H Calcium 9.0 8.7 Corrected Calcium 9.6 9.3 Total Bilirubin 2.8 H 3.5 H D AST 102 H 73 H ALT 48 41 Alkaline Phosphatase 531 H D 451 H D Ammonia 47 H Troponin I 1.937 H* D Total Protein 6.9 6.7 Albumin 3.3 L 3.3 L Globulin 3.6 H 3.4 Albumin/Globulin Ratio 0.9 L 1.0 L Assessment & Plan A&P Narrative 1. Stage IV pancreatic cancer with lung liver mets progressive since diagnosis earlier this year. 2. Admitted with a fall and L4 fracture, encephalopathy and agitation symptoms 3. Patient appears comfortable this a.m. with current regimen of opioids and as needed sedatives. 4. Spoke with Magdaleno Jean, brother of patient who agrees for comfort measures for pt now along with DNR order. 5. Recommend patient be transferred to SNF, as he is unable to be living independently as he had previously. Spoke with Ralph Negron MD Time Spent With Patient Time: Total time spent is greater than 50% in coordination of care (as documented) at patient's floor/unit and/or counseling patient:
--- NOTE | 2025-05-08 10:10 | CHAP ---
Patient was visited by the Spiritual Care Volunteer who prayed for them. (Volunteer was in the hospital from 09:10-10:10)
--- NOTE | 2025-05-08 10:14 | PC.NURSE ---
Bladder scan done 385ml. Did a in and out and removed about 350ml of urine and some urine on brief. will continue to monitor.
[2025-05-08] MEDS: HALOPERIDOL LACT INJ 5 MG/ML VIAL 8 MG IV (10:19)
[2025-05-08] MEDS: POTASSIUM CHLORIDE 10% 20 MEQ/15 ML UDC 40 MEQ PO (10:19)
--- NOTE | 2025-05-08 11:37 | PC.SS ---
Addendum entered by Pratima Anderson 05/08/25 13:55: SS spoke to Martina @ [facility] and they agreed to accept. However, patient was given Haldol early this morning and facility cannot take patient for another 24 hours without Haldol. Staff from facility will be here tomorrow morning to evaluate patient to determine if they can still accept. Hospital will need to provide alternate medication. Original Note: Follow up note: Patient is a DNR code status. SS spoke to Ana @ [facility] and patient has been on service with them since December of this year. Patient was living at home in his trailer alone and having [facility] come in. SS spoke to Flaca Jean, sister in law of patient. She states patient should have Medicare/Medi-[employer]. SS verified and patient does have both coverage. Family wants patient to d/c to SNF with hospice. Patient cannot return home. Inquiry was sent off this weekend on [employer]. [facility] is currently reviewing information. SS will follow up with SNF.
--- NOTE | 2025-05-08 12:43 | PC.CC ---
1220-ASW received a call from [facility] requesting an update from the assigned SS worker. ASW attempted to transfer call to Renu Anderson, but call dropped. [facility] called back, so ASW provided an update per their request as pt is already connected to [place]. As per the notes, there is no d/c date yet and [facility] will f/u with Renu Anderson later this after noon.
[2025-05-08] MEDS: MORPHINE SULF INJ 4 MG/ML VIAL 8 MG IVP ×3 (14:27→22:16)
--- NOTE | 2025-05-08 14:56 | ESPR_ITS ---
<Statement entered by Ralph Negron MD - 05/08/25 16:09> No acute overnight events. Seen and examined at bedside and patient resting comfortably in bed. Spoke to oncology who spoke to patient's brother/decision maker, who elected to pursue comfort measures. Touched base with social security assessor who states that patient should be able to be discharged to SNF under hospice for comfort measures. However, per SNF patient is not allowed to have Haldol specifically for 24 hours and until then patient will have to remain in- house. Changed orders to comfort measures without morphine drip as patient appears comfortable at this time and per oncology recommendations and anticipate discharge to SNF within next 24 hours. ----- Note reviewed and agree with care plan as documented. Please refer to the note below for further details. Plan discussed with attending physician Dr. Peyman Negron MD PGY-2 Internal Medicine Documentation for date of: 05/08/25 Subjective Subjective Interval history: Patient was seen and examined at bedside. No acute events took place overnight. The patient is calm and comfortable, though still confused, but able to respond appropriately to simple yes/no questions asked from him. After discussions with oncology and the patient's brother, the decision was made to focus on comfort care. The patient has received IV antipsychotics but will need to be off them, Haldol specifically, for 24 hours before being discharged to a SNF. He needs to be off of restraints for at least 24h too to be eligible for SNF. Will discontinue antibiotics, blood draws, and frequent vital checks in exchange for pain control and GI regiment as part of the comfort care plan. The plan is for discharge to a SNF on hospice care within the next 24 to 48 hours. Exam Vital Signs Temp Pulse Resp BP Pulse Ox O2 Del Method O2 Flow Rate 97.0 F 92 24 H 169/101 H 97 Room Air 2 05/08/25 12:00 05/08/25 12:05/08/25 12:05/08/25 12:05/08/25 12:05/08/25 12:05/08/25 08:00 Narrative Exam General: Confused. Ill-appearing. Neurologic: No gross neurological deficit, and patient able to move all 4 extremities. HEENT: Normocephalic, atraumatic, mucous membranes moist. Pupils reactive to light. Heart: Tachycardic, irregular rhythm, normal S1 and S2, no murmurs. Lungs: Chemo-Port right infraclavicular area. Lungs clear to auscultation bilaterally with no wheezing or crackles. Abdomen: Pain on palpation of the right upper quadrant. Remainder of the abdomen is soft, nondistended. Extremities: No edema. 2+ radial and dorsalis pedis pulses bilaterally. Skin: Warm. Dry. No rash or ecchymoses. Objective Labs 05/08/25 05:42 05/08/25 05:42 Labs: Laboratory Results - last 24 hr 05/08/25 05:42 WBC 16.1 H RBC 5.07 Hgb 13.8 Hct 42.1 MCV 83 MCH 27.2 MCHC 32.8 RDW Std Deviation 50.2 H Plt Count 408 Neut % (Auto) 78 Lymph % (Auto) 12 [place] % (Auto) 8 Eos % (Auto) 1 Baso % (Auto) 0 Neut # (Auto) 12.5 H Lymph # (Auto) 2.0 [place] # (Auto) 1.3 H Eos # (Auto) 0.2 Baso # (Auto) 0.1 Immature Gran # (Auto) 0.06 H Absolute Nucleated RBC 0.00 Immature Gran % 0 Nucleated RBC % 0 Sodium 144 Potassium 3.2 L Chloride 109 H Carbon Dioxide 25.2 Anion Gap 10 BUN 19 Creatinine 1.1 Estim Creat Clear Calc 75.9 eGFR > 60 BUN/Creatinine Ratio 17 Glucose 126 H Calculated Osmolality 291 Calcium 8.7 Corrected Calcium 9.3 Total Bilirubin 3.5 H D AST 73 H ALT 41 Alkaline Phosphatase 451 H D Total Protein 6.7 Albumin 3.3 L Globulin 3.4 Albumin/Globulin Ratio 1.0 L Quality Measures Quality Measures none Advance care planning discussed with:: legal surragate Assessment & Plan Assessment Current Active Medications: Generic Name Dose Route Start Last Admin Trade Name Freq PRN Reason Stop Dose Admin Acetaminophen 650 mg 05/07/25 08:57 Acetaminophen Supp 650 Mg Supp MN 06/04/25 13:59 Q6HR PRN Fever >99.9 , headache Protocol Amlodipine Besylate 5 mg 05/07/25 21:00 05/07/25 20:17 Amlodipine Besylate 5 Mg Tablet PO 06/06/25 20:59 5 mg HS AUSTEN Administration Atorvastatin Calcium 40 mg 05/05/25 21:00 05/07/25 20:17 Atorvastatin Calcium 20 Mg Tablet PO 06/04/25 20:59 40 mg HS AUSTEN Administration Bisacodyl 10 mg 05/05/25 14:00 Bisacodyl 5 Mg Tabec PO 06/04/25 13:59 QDAY PRN CONSTIPATION Protocol Dextrose 25 ml 05/05/25 21:54 Dextrose 50%-Water Inj 50 Ml Syringe IV 06/04/25 21:53 Q15MIN PRN BG 50-70 responsive npo pt Dextrose 50 ml 05/05/25 21:54 Dextrose 50%-Water Inj 50 Ml Syringe IV 06/04/25 21:53 Q15MIN PRN BG <50 OR BG <70 & pt unresponsive Diazepam 2.5 mg 05/07/25 10:57 Diazepam Inj 5 Mg/Ml Vial 2 Ml IVP 05/12/25 10:56 Q4HR PRN MUSCLE ACHE/PAIN Protocol Enoxaparin Sodium 40 mg 05/06/25 09:00 05/08/25 08:49 Enoxaparin Sod Inj 40 Mg/0.4 Ml Syringe SC 05/20/25 08:59 40 mg QDAY AUSTEN Administration Glucagon 1 mg 05/05/25 21:54 Glucagon Inj 1 Mg Vial IM Q15MIN PRN BG <70, and no IV access Sodium Chloride 1,000 mls @ 75 mls/hr 05/07/25 08:30 05/08/25 05:26 Ns IV 06/06/25 08:29 75 mls/hr .[id number] AUSTEN Administration Piperacillin/Tazobactam/Dextrose 3.375 gm in 50 mls @ 12.5 mls/hr 05/07/25 22:00 05/08/25 14:29 Zosyn IV 05/14/25 21:59 12.5 mls/hr Q8HR AUSTEN Administration Protocol Insulin Human Lispro 0 unit 05/06/25 00:00 05/08/25 11:25 Insulin Lispro (Admelog) 1 Unit/0.01 Ml Unit SC 06/05/25 00:00 Not Given Q6HR AUSTEN Protocol Labetalol HCl 10 mg 05/08/25 09:03 Labetalol Inj 5 Mg/Ml Vial 20 Ml IVP 06/07/25 09:02 Q4H PRN SBP > 160 Lidocaine 1 patch 05/06/25 09:48 05/06/25 19:51 Lidocaine 5% 1 Patch TOP 06/05/25 09:47 1 patch UD PRN Administration PAIN Protocol Lisinopril 40 mg 05/06/25 09:00 05/08/25 08:50 Lisinopril 20 Mg Tablet PO 06/05/25 08:59 40 mg QDAY AUSTEN Administration Lorazepam 0.5 mg 05/06/25 19:25 05/07/25 02:02 Lorazepam 0.5 Mg Tablet PO 05/11/25 19:24 0.5 mg On Hold: 05/07/25 10:58 Q6HR PRN Administration ANXIETY Magnesium Hydroxide 30 ml 05/05/25 14:00 Milk Of Magnesia Susp 30 Ml Udc PO 06/04/25 13:59 QDAY PRN CONSTIPATION Protocol Metoprolol Succinate 50 mg 05/07/25 09:00 05/08/25 08:50 Metoprolol Succinate Xl 25 Mg Tabcr PO 06/06/25 08:59 50 mg QDAY AUSTEN Administration Morphine Sulfate 8 mg 05/08/25 14:00 05/08/25 14:27 Morphine Sulf Inj 4 Mg/Ml Vial IVP 05/13/25 13:59 8 mg Q4HR AUSTEN Administration Nicotine 14 mg 05/07/25 08:35 05/08/25 08:48 Nicotine Patch 14 Mg/24 Hr Patch.Td24 TOP 06/06/25 08:34 14 mg QDAY AUSTEN Administration Ondansetron HCl 4 mg 05/05/25 14:00 Ondansetron Inj 2 Mg/Ml Inj 2 Ml IVP 06/04/25 13:59 Q6H PRN NAUSEA OR VOMITING Protocol Pantoprazole Sodium 40 mg 05/06/25 09:00 05/08/25 08:48 Pantoprazole Inj 40 Mg Vial IVP 06/05/25 08:59 40 mg QDAY AUSTEN Administration Quetiapine Fumarate 25 mg 05/06/25 21:00 05/07/25 20:17 Quetiapine Fumarate 25 Mg Tablet PO 06/05/25 20:59 25 mg HS AUSTEN Administration Tamsulosin HCl 0.4 mg 05/06/25 09:00 05/08/25 08:49 Tamsulosin Hcl 0.4 Mg Capsule PO 06/05/25 08:59 0.4 mg QDAY AUSTEN Administration Plan Summary: Patient is 64-year-old male with past medical history of 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 Found to have altered mentation, intactable pain, hypertensive urgency/emergency. After examination of the patient and review of the clinical data I feel that this patient needs admission to the hospital for further treatment/evaluation. #Acute encephalopathy due to polypharmacy versus hypertension versus CVA #Hypertensive Urgency The patient initially presented with lumbar back pain that been occurring over the past few weeks. The patient became confused while in the ED, possibly secondary to delirium, polypharmacy, severe hypertension Head CT was negative for acute hemorrhage, mass effect or midline shift, repeat head CT with similar findings Patient had no signs of endorgan damage, creatinine was normal, troponins were normal, CT was negative Plan: Discontinued treatment for comfort measure goal Frequent neurochecks, aspiration precautions, bedside swallow screen Resumed home atorvastatin and Lisinopril Started metoprolol succinate 25 mg XL daily 05/06/25 Labetalol PRN for SBP>180 #SVT #A-fib #Elevated troponins Patient heart rate was in the 150s, EKG before this occurrence showed evidence of inferior wall ischemia and troponins were elevated The patient was again tachycardic with a rate of over 200 the same morning, was given metoprolol, diazepam, Dilaudid, and morphine Patient appeared to achieve a state of relative comfort given his stage IV pancreatic cancer Plan: Discontinued treatment for comfort measure goal Will continue to monitor the patient's rhythm Per patient's surrogate decision maker, no invasive intervention is requested, only medical management #Intractable pain #Stage IV metastatic pancreatic cancer #L4 conpression fracture #Ground level fall Patient came in with intractable pain, recently had a fall Lumbar spine MRI was obtained, showed pathologic burst fracture of L4 vertebra, Metastatic disease involving L4, L1 and L2. Lumbar spine CT was also done which showed similar findings. CT chest/abdomen/pelvis which shows additional pancreatic masses, multiple metastatic diseases over lungs, liver, lymph node, left eighth rib. Plan: Resumed home Morphine for pain control, we will evaluate and adjust his pain regimen Attempt was made for transfer to [facility] for neurosurgery evaluation, was told no current need for immediate surgical intervention #Acute delirium #Visual and auditory hallucinations Patient became agitated last night pulling at lines Patient describing seeing and hearing people who are not there Consider polypharmacy versus hospital delirium Plan: Seroquel 25 mg p.o. at bedtime Diazepam 2.5 mg IV push every 4 hours as needed Haloperidol 8 mg every 8 hours as needed IV -STOPPED #Diabetes mellitus Plan: Discontinued treatment per comfort measure goal Started on Sliding scale insulin Hypoglycemia protocol in place with frequent glucose checks #GERD Plan: Continue with Protonix 40 mg IV daily #Hyperbilirubinemia #Transaminitis #Leukocytosis #Lactic acidosis Likely related to pancreaticadenocarconoma, liver mets Gallbladder ultrasound showed multiple liver masses, likely metastases, abnormal thickening of the gallbladder wall with suspicion for cholecystitis. Lactic acid 3.3 White count 18.3 Patient has evidence for infectious etiology given lactic acidosis, leukocytosis, and right upper quadrant pain. Plan: Continue morphine 4 mg IV every 4 hours as needed for pain Zosyn -STOPPED Will not pursue HIDA scan given the patient's prognosis Disposition: Telemetry for management of Acute encephalopathy, hypertensive urgency/emergency, Intractable pain. Patient had 2 episodes of SVT resulting into rapid responses. After treatment the patient has achieved a relative state of comfort. Will not pursue HIDA scan or surgical intervention though there is evidence of infection with CT showing suspicion of cholecystitis in the presence of lactic acidosis and leukocytosis. Goals of care discussion is planned with the patient's surrogate decision maker. We will adjust the pain management and GI regimen, and discontinue antibiotics, blood draws, and frequent vital checks as part of the comfort care plan. The plan is for discharge to a SNF on hospice care within the next 24 to 48 hours. Diet: Cardiac diet GI prophylaxis: protonix DVT prophylaxis: lovenox Code: DNR/DNI (Discussed with brother on phone regarding CODE status, states that patient would like to be DNR/DNI and to avoid invasive treatment options) This case was discussed with my attending physician, Dr. Morley, and senior resident, Dr Migdalia Candelaria. Rolando Elizondo, DO PGY I. Attending Provider Attestation/Addendum I attest that I was physically present for the evaluation, physical examination, lab and imaging review of the patient with the residents. I discussed the case with the residents and agree with the findings and plans of care as documented above. Patient seen and examined at bedside this morning. Appears calm and comfortable. Continues to be confused but able to follow commands appropriately. Discussed with oncology and patient's brother, agreed on pursuing comfort care measures. Patient had received IV antipsychotics, will need to be comfortable without antipsychotics for 24 hours to be able to discharge to SNF. We will adjust his pain, and GI diuretic regimen. We will discontinue his antibiotics, blood draws and frequent vital checks as per comfort measures. Plan for discharge to SNF on hospice for comfort measures in the next 24 to 48 hours. Christie Morley MD
[2025-05-08] MEDS: fentaNYL 50 mCg TRANSDERMAL PATCH TOP (15:08)
[2025-05-08] MEDS: DIAZEPAM INJ 5 MG/ML VIAL 2 ML 2.5 MG IVP (15:52)
--- NOTE | 2025-05-08 22:47 | ESPR_ITS ---
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 As per family, patient has been having worsening lumbar pain for last couple weeks after he twisted his back accidentally. Also had a ground level fall 3 days ago. Patient lives alone and with ongoing pain and fall, he has not been able to take care of himself. No history of fever, chest pain shortness of breath, nausea or vomiting or bladder and bowel incontinence. Workup in the ER: Vitals were within normal limits except for tachycardia. Lab results show leukocytosis with WBC of 16.3, which later improved. Glucose was 183, T. Jonn 2.3, AST 65, ALP 614. Imaging study: Lumbar spine MRI showed pathologic burst fracture of L4 vertebra, Metastatic disease involving L4, L1 and L2. Lumbar spine CT showed similar findings. Attempt was made to transfer patient for neurosurgery evaluation but was denied stating no need for immediate neurosurgical procedure. Head CT negative for acute findings. CT chest/abdomen/pelvis which shows additional pancreatic masses, multiple metastatic diseases over lungs, liver, lymph node, left eighth rib. Patient got admitted for further management of altered mental status and intractable pain following the recent fall. Neurology was consulted to evaluate further as his mental status is getting worse, not any better with standard measures. Patient was seen in telemetry today at the bedside. Patient's pain is under control with morphine. No more agitation or confusion reported. His Moss got clogged with blood and had to have In-N-Out catheterization for urinary retention. Exam - Neurology Vital Signs Temp Pulse Resp BP Pulse Ox O2 Del Method O2 Flow Rate 98.3 F 94 24 H 169/86 H 98 Room Air 2 05/08/25 19:59 05/08/25 19:59 05/08/25 19:59 05/08/25 19:59 05/08/25 19:59 05/08/25 19:59 05/08/25 08:00 Objective Labs 05/08/25 05:42 05/08/25 05:42 Labs: Laboratory Results - last 24 hr 05/08/25 05:42 WBC 16.1 H RBC 5.07 Hgb 13.8 Hct 42.1 MCV 83 MCH 27.2 MCHC 32.8 RDW Std Deviation 50.2 H Plt Count 408 Neut % (Auto) 78 Lymph % (Auto) 12 [place] % (Auto) 8 Eos % (Auto) 1 Baso % (Auto) 0 Neut # (Auto) 12.5 H Lymph # (Auto) 2.0 [place] # (Auto) 1.3 H Eos # (Auto) 0.2 Baso # (Auto) 0.1 Immature Gran # (Auto) 0.06 H Absolute Nucleated RBC 0.00 Immature Gran % 0 Nucleated RBC % 0 Sodium 144 Potassium 3.2 L Chloride 109 H Carbon Dioxide 25.2 Anion Gap 10 BUN 19 Creatinine 1.1 Estim Creat Clear Calc 75.9 eGFR > 60 BUN/Creatinine Ratio 17 Glucose 126 H Calculated Osmolality 291 Calcium 8.7 Corrected Calcium 9.3 Total Bilirubin 3.5 H D AST 73 H ALT 41 Alkaline Phosphatase 451 H D Total Protein 6.7 Albumin 3.3 L Globulin 3.4 Albumin/Globulin Ratio 1.0 L Assessment & Plan Assessment and plan (1) Altered mental status: Status: Acute Assessment and plan: Improving Continue with the current measures for agitation/restlessness as needed. (2) Metastasis from pancreatic cancer: Status: Acute Assessment and plan: Continue with pain management Patient got accepted to local rehab.
[2025-05-09] VITALS: BP 169/97; PULSE 91; RESP 28; TEMP 36.5; O2SAT 97
[2025-05-09 04:00] VITALS: BP 166/92; PULSE 89; RESP 23; TEMP 36.2; O2SAT 99
[2025-05-09 06:00] VITALS: BMI 28.7
[2025-05-09] MEDS: MORPHINE SULF INJ 4 MG/ML VIAL 8 MG IVP ×3 (06:15→14:14)
[2025-05-09] MEDS: DIAZEPAM INJ 5 MG/ML VIAL 2 ML 2.5 MG IVP ×3 (07:54→16:29)
[2025-05-09 08:00] VITALS: BP 177/110; PULSE 89; PULSE 96; RESP 25; TEMP 36.1; O2SAT 93
--- NOTE | 2025-05-09 09:21 | ESDS_ITS ---
<Statement entered by Ralph Negron MD - 05/09/25 13:33> Note reviewed and agree with care plan as documented. Please refer to the note below for further details. Plan discussed with attending physician Dr. Jg Negron MD PGY-2 Internal Medicine Planned Discharge Date 05/09/25 DS: Providers Provider Date of admission: 05/05/25 13:58 Primary care physician: Mirian Hussein MD Admitting Provider: Christie Morley MD Attending Provider on Admission: Christie Morley MD Consults: 05/05/25 21:58 Referral Speech Therapy Routine Comment: 05/05/25 23:53 Referral Physical Therapy Routine Comment: Physician Instructions: [facility] Referral - Safety Routine Comment: Positive screening for safety needs. 05/06/25 07:44 Referral Physical Therapy Routine Comment: Physician Instructions: 05/06/25 08:48 Consult to Oncology Urgent Comment: Consulting Provider: Delano Montano 05/06/25 08:51 Referral Hospice Urgent Comment: 05/06/25 17:35 Consult to Neurology / Tele-Neurology Routine Comment: Consulting Provider: Emmanuel Zhao Attending Provider on DC: Scott Gregorio MD Discharging Provider: Pete Rizvi DO DS: Diagnosis Discharge Diagnosis (1) Metastasis from pancreatic cancer: Status: Acute Problem List Completed Was Problem List Reviewed/Reconciled?: Yes Hospital Course Hospital Course Hospital course: Hospital Course: Patient is 64-year-old male with past medical history of 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 He was found to have altered mentation, intactable pain, and hypertensive urgency. He was admitted for management of his altered mental status, pain, and hypertensive urgency. The patient experienced distressing events during his hospital stay. He had multiple episodes of SVT with tachycardia. During these episodes he was given medications to keep him comfortable including antihypertensives, benzodiazepines, and morphine. He was able to achieve a state of relative comf ort. During 1 episode of SVT he was found to have elevated troponins and signs on EKG suggestive of an inferior myocardial infarction. A conversation was had with the patient's legal surrogate, who opted not to have any invasive workup given the patient's stage IV pancreatic cancer diagnosis. The patient experienced acute delirium during his hospital stay, he was treated with antipsychotics and achieved a state where he was no longer agitated. Suspicion of infectious etiology arose when the patient's white count bibiana and he had right upper quadrant pain with elevated AST and ALT and a rising lactic acid. He was started on Zosyn for a short while, however given that he will not have any invasive cholecystectomy anyways, even if it was cholecystitis, Zosyn was discontinued. The patient is stable for discharge. Given that the patient will not receive any invasive workup in the presence of his stage IV pancreatic cancer, he will be discharged to a senior living facility on a fentanyl patch, lorazepam as needed, and morphine as needed with a goal of comfort. Problem List: #Acute encephalopathy due to polypharmacy versus hypertension versus CVA #Hypertensive Urgency #SVT #A-fib #Elevated troponins #Intractable pain #Stage IV metastatic pancreatic cancer #L4 conpression fracture #Ground level fall #Acute delirium #Visual and auditory hallucinations #Diabetes mellitus #GERD #Hyperbilirubinemia #Transaminitis #Leukocytosis #Lactic acidosis Discharge Instructions: - Use your fentanyl patch as needed for pain. - Take your lorazepam 0.5 mg orally 3 times a day as needed for pain. - Take your morphine 15 mg tablet every 8 hours as needed for pain. - Stop taking all other home medications. - Follow-up with PCP within 1-2 weeks of discharge. - If you do not have a PCP, you can follow-up at the [facility]. - Return to ED if symptoms worsen. The patient was seen and discussed with my attending physician Dr. Jg CHAVEZ and my senior resident Dr. Migdalia CHAVEZ PGY-2. Pete Rizvi DO PGY-1 Time Spent with Patient Time attestation: Total time spent providing and/or coordinating discharge services: Greater than 50% Time spent: Greater than 30 minutes Exam Vital Signs Temp Pulse Resp BP Pulse Ox O2 Del Method O2 Flow Rate 97.0 F 89 25 H 177/110 H 93 L Room Air 2 05/09/25 08:00 05/09/25 08:00 05/09/25 08:00 05/09/25 08:00 05/09/25 08:00 05/09/25 08:00 05/08/25 08:00 Narrative Exam General: Confused. Ill-appearing. Neurologic: No gross neurological deficit, and patient able to move all 4 extremities. HEENT: Normocephalic, atraumatic, mucous membranes moist. Pupils reactive to light. Heart: Tachycardic, normal S1 and S2, no murmurs. Lungs: Chemo-Port right infraclavicular area. Lungs clear to auscultation bilaterally with no wheezing or crackles. Abdomen: Soft, nondistended. Extremities: No edema. 2+ radial and dorsalis pedis pulses bilaterally. Skin: Warm. Dry. No rash or ecchymoses. Discharge Plan Plan Patient Disposition: Xfer Skilled Nsg Fac (SNF) Care Plan Goals: - Use your fentanyl patch as needed for pain. - Take your lorazepam 0.5 mg orally 3 times a day as needed for pain. - Take your morphine 15 mg tablet every 8 hours as needed for pain. - Stop taking all other home medications. - Follow-up with PCP within 1-2 weeks of discharge. - If you do not have a PCP, you can follow-up at the [facility]. - Return to ED if symptoms worsen. Prescriptions/Referrals Prescriptions/Med Rec: New morphine 15 mg tablet 15 mg PO Q8H MDD 45 PRN (Reason: pain) Qty: 20 0RF fentanyl 50 mcg/hr patch 72 hour 50 mcg topical Q72H MDD 1 Qty: 5 0RF lorazepam 0.5 mg tablet 0.5 mg PO TID PRN (Reason: anxiety) Qty: 30 0RF Discontinued metoprolol succinate 25 mg tablet extended release 24 hr 25 mg PO DAILY Patient Comments: TAKE 1 TABLET BY MOUTH EVERY DAY lisinopril 20 mg tablet 40 mg PO QDAY morphine 30 mg Tablet Extended Release 30 mg PO TID Qty: 0 0RF atorvastatin 40 mg tablet 40 mg PO QDAY Qty: 30 0RF hydromorphone [Dilaudid] 2 mg tablet 2 mg PO .q8 MDD 3 PRN (Reason: pain) Qty: 20 0RF famotidine 40 mg tablet 40 mg PO .bedtime Qty: 30 0RF omeprazole 40 mg capsule,delayed release(DR/EC) 40 mg PO QDAY Qty: 30 0RF hydralazine 25 mg tablet 50 mg PO BID acetaminophen [Mapap (acetaminophen)] 500 mg capsule 1,000 mg PO Q4H amlodipine 5 mg tablet 5 mg PO QDAY metformin 500 mg tablet 500 mg PO BID Patient Comments: TAKE 1 TABLET BY MOUTH TWICE A DAY WITH BREAKFAST AND DINNER Referrals: Mirian Hussein MD [Primary Care Provider] Patient/Caregiver Discharge Instructions Education Materials: What Is Hospice?, Hospice: [facility] Print Language: Lao Stand Alone Forms: Heather Award Info., Patient Portal Info Letter Discharge Order Discharge Orders: Discharge (Routine); Ordered 05/09/25 Ordered By: Ralph Candelaria [place] Quality Discharge Quality Measures comfort care/end of life MD Attestestation MD Attestation I have examined the patient, reviewed labs and imaging findings, discussed the case with the resident(s), and reviewed entered orders. I agree with the plan of care as outlined in this note. Time Spent: [address] Jg MD
--- NOTE | 2025-05-09 09:39 | PD.ONCPROG ---
Documentation for date of: 05/09/25 Subjective Subjective Interval history: Patient did reasonably well on fentanyl 50 and having parenteral morphine. Anticipating discharge to [facility] today. Exam Vital Signs Temp Pulse Resp BP Pulse Ox O2 Del Method O2 Flow Rate 97.0 F 89 25 H 177/110 H 93 L Room Air 2 05/09/25 08:00 05/09/25 08:00 05/09/25 08:00 05/09/25 08:00 05/09/25 08:00 05/09/25 08:00 05/08/25 08:00 Objective Labs 05/08/25 05:42 05/08/25 05:42 Assessment & Plan A&P Narrative 1. Stage IV pancreatic cancer with lung liver mets progressive since diagnosis earlier this year. 2. Admitted with a fall and L4 fracture, encephalopathy and agitation symptoms 3. Patient appears comfortable this a.m. with current regimen of 50 fentanyl and parenteral morphine which was even held 1 dose due to sedation 4. Anticipate discharge to [facility] today with hospice support. Time Spent With Patient Time: Total time spent is greater than 50% in coordination of care (as documented) at patient's floor/unit and/or counseling patient:
[2025-05-09] MEDS: NICOTINE PATCH 14 MG/24 HR PATCH.TD24 TOP (10:16)
--- NOTE | 2025-05-09 10:57 | CHAP ---
Patient was visited by a Spiritual Care Volunteer on 05/09/2025 between 0855 and 0915 and received comfort, encouragement and/or prayer.
[2025-05-09 12:00] VITALS: BP 182/112; PULSE 100; RESP 24; TEMP 36.2; O2SAT 94
[2025-05-09 16:00] VITALS: PULSE 102
[2025-05-09 16:30] VITALS: BP 170/105; PULSE 101; RESP 25; TEMP 36.3; O2SAT 94
== END 2025-05-09 16:40 | disposition skilled nursing facility (03) | DRG 552 ==
LOC: SERX 05-05 07:50 → SERHOLD 05-05 14:05 → S2NX 05-05 23:15
PROVIDERS: Nurse Practitioner Family; Student in an Organized Health Care Education/Training Program; Admitting Provider Student in an Organized Health Care Education/Training Program; Emergency Provider Emergency Medicine; PCP Internal Medicine; Visit Provider Student in an Organized Health Care Education/Training Program
DX: S32.041A Stable burst fracture of fourth lumbar vertebra, initial encounter for closed fracture (principal); C25.9 Malignant neoplasm of pancreas, unspecified; C78.00 Secondary malignant neoplasm of unspecified lung; C78.7 Secondary malignant neoplasm of liver and intrahepatic bile duct; C79.51 Secondary malignant neoplasm of bone; E87.20 Acidosis, unspecified; G93.40 Encephalopathy, unspecified; I47.10 Supraventricular tachycardia, unspecified; I16.1 Hypertensive emergency; R44.0 Auditory hallucinations; I10 Essential (primary) hypertension; E11.9 Type 2 diabetes mellitus without complications; E78.5 Hyperlipidemia, unspecified; F17.200 Nicotine dependence, unspecified, uncomplicated; I48.91 Unspecified atrial fibrillation; K21.9 Gastro-esophageal reflux disease without esophagitis; M48.061 Spinal stenosis, lumbar region without neurogenic claudication; W18.30XA Fall on same level, unspecified, initial encounter; X50.1XXA Overexertion from prolonged static or awkward postures, initial encounter; Z51.5 Encounter for palliative care; Z66 Do not resuscitate; Z79.84 Long term (current) use of oral hypoglycemic drugs; Z79.899 Other long term (current) drug therapy; D72.829 Elevated white blood cell count, unspecified; R74.01 Elevation of levels of liver transaminase levels; R79.89 Other specified abnormal findings of blood chemistry; R44.1 Visual hallucinations
CPT/HCPCS: 36415; 70450; 71045; 71260; 72131; 72148; 74177; 76705; 80053; 80061; 80307; 81001; 82140; 83605; 83735; 84100; 84484; 85025; 85610; 85730; 87040; 92610; 93005; 96361; 96365; 96375; 96376; 99285; A4649; J0696; J1100; J1171; J1200; J1630; J1650; J1815; J2250; J2270; J2470; J2543; J3360; J3490; J7030; J7120; J7999; Q9967; A9270; J1920